=== PATIENT | female | born 1970 | race Caucasian/White ===

== ENCOUNTER 2020-02-09 08:09 | Outpatient (CLI) | payer SELFPAY ==
--- NOTE | 2020-02-09 | EST_ITS ---
Patient Info Name: January Petar Age: 49 years : 1970 Gender: Female Ht: 67 in Wt: 206 lbs BSA: 2.13 m2 HR: 86 bpm BP: 156 / 101 mmHg Exam Date: 02/09/2020 8:53 AM Exam Location: [facility] Stress Patient Status: Outpatient Admit Date: 02/09/2020 Staff Ordering Physician: Denis, Moreno GARCIA (Khengwai) Attending Provider: DenisMoreno MD ([place]wai) Exercise Technologist: Michelle Menendez RDCS Exercise Physician: Joey Jensen DO Exam Type: CA stress test treadmill Study Info Indications R94.31 - Abnormal electrocardiogram ECG EKG A treadmill exercise stress test was performed. Summary 1. 1. Negative Cain exercise stress test for ischemic ST changes by ECG criteria. 2. 2. Mildly reduced functional capacity, achieving 8 METs of workload. 3. 3. Baseline hypertension with hypertensive response to exercise. 4. 4. Appropriate HR response to exercise. 5. 5. Appropriate HR recovery at 1 minute post exercise. 6. 6. No imaging with stress testing. 7. 7. Patient informed of the above results. Protocol: Cain Stress ECG Details Stage: REST Duration (min): 5 min : 53 sec Speed (mph): 0.0 Grade (%): 0 HR (bpm): 87 SBP (mmHg): 156 DBP (mmHg): 101 METS: --- Stage: REST Duration (min): 10 min : 27 sec Speed (mph): 0.0 Grade (%): 0 HR (bpm): 87 SBP (mmHg): 156 DBP (mmHg): 101 METS: --- Stage: STAGE 1 Duration (min): 1 min : 0 sec Speed (mph): 1.7 Grade (%): 10 HR (bpm): 103 SBP (mmHg): 156 DBP (mmHg): 101 METS: --- Stage: STAGE 1 Duration (min): 2 min : 0 sec Speed (mph): 1.7 Grade (%): 10 HR (bpm): 112 SBP (mmHg): 156 DBP (mmHg): 101 METS: --- Stage: STAGE 1 Duration (min): 3 min : 0 sec Speed (mph): 1.7 Grade (%): 10 HR (bpm): 115 SBP (mmHg): 167 DBP (mmHg): 94 METS: --- Stage: STAGE 2 Duration (min): 1 min : 0 sec Speed (mph): 2.5 Grade (%): 12 HR (bpm): 121 SBP (mmHg): 167 DBP (mmHg): 94 METS: --- Stage: STAGE 2 Duration (min): 2 min : 0 sec Speed (mph): 2.5 Grade (%): 12 HR (bpm): 129 SBP (mmHg): 191 DBP (mmHg): 99 METS: --- Stage: STAGE 2 Duration (min): 3 min : 0 sec Speed (mph): 2.5 Grade (%): 12 HR (bpm): 133 SBP (mmHg): 191 DBP (mmHg): 99 METS: --- Stage: STAGE 3 Duration (min): 0 min : 38 sec Speed (mph): 3.4 Grade (%): 14 HR (bpm): 146 SBP (mmHg): 207 DBP (mmHg): 100 METS: --- Stage: RECOVERY Duration (min): 0 min : 21 sec Speed (mph): 0.0 Grade (%): 0 HR (bpm): 141 SBP (mmHg): 207 DBP (mmHg): 100 METS: --- Stage: RECOVERY Duration (min): 1 min : 21 sec Speed (mph): 0.0 Grade (%): 0 HR (bpm): 100 SBP (mmHg): 213 DBP (mmHg): 94 METS: --- Stage: RECOVERY Duration (min): 2 min : 21 sec Speed (mph): 0.0 Grade (%): 0 HR (bpm): 92
== END 2020-02-09 08:10 | disposition home or self-care (01) ==
LOC: ANHCARD 08:12
PROVIDERS: PCP Family Medicine; Visit Provider Internal Medicine
DX: R94.31 Abnormal electrocardiogram [ECG] [EKG] (principal)
CPT/HCPCS: 93017

== ENCOUNTER 2020-06-12 07:05 | Outpatient (CLI) | payer SELFPAY ==
--- NOTE | ~2020-06-12 | CT_ITS ---
EXAMINATION: CT abdomen pelvis wo con DATE: 06/12/2020 07:36 INDICATION: Right lower quadrant abdominal pain. Right lower back pain. Microhematuria TECHNIQUE: Computed tomography (CT) of the abdomen and pelvis was performed without intravenous contr ast. Automated exposure control and iterative reconstruction technique were employed. Exam dose: 100 0.81 mGy-cm total exam DLP. COMPARISON: None. FINDINGS: The lung bases are clear. Normal heart size. No pericardial or pleural effusion. The liver, gallbladder, bile ducts and spleen are unremarkable other than multiple calcified splenic granulomas. No bile duct or pancreatic duct dilatation. 1.7 cm probable left upper pole renal cyst, not definitively characterized on this limited noncontras t examination. Consider CT examination with IV contrast material or renal ultrasound examination. No urinary tract calculus or hydroureteronephrosis. There is atherosclerotic calcification of the abdominal aorta. No intraperitoneal or retroperitoneal or pelvic mass lesion or adenopathy or ascites. Status post appendectomy.. No bowel obstruction, bowel wall thickening, pneumatosis or intraperitonea l free air is detected. Very small fat-containing umbilical hernia. There is compression fracture deformity and vertebroplasty at L3. IMPRESSION: 1.7 cm hypoattenuating left upper pole lesion, likely a renal cyst but not definitely ch aracterized on this limited noncontrast examination. Consider CT examination with IV contrast materia l renal ultrasound examination for more definitive evaluation No urinary tract calculus or hydroureteronephrosis Status post appendectomy Impression fracture deformity and vertebroplasty at L3 Reviewed, dictated and finalized at [facility]. Reviewed, dictated and finalized at location [facility]. IMPRESSION: 1.7 cm hypoattenuating left upper pole lesion, likely a renal cyst but not definitely characterized on this limited noncontrast examination. Cons ider CT examination with IV contrast material renal ultrasound examination for more definitive evaluation No urinary tract calculus or hydroureteronephrosis Status post appendectomy Impression fracture deformity and vertebroplasty at L3
== END 2020-06-12 07:06 | disposition home or self-care (01) ==
PROVIDERS: PCP Family Medicine; Visit Provider Family Medicine
DX: R10.9 Unspecified abdominal pain (principal)
CPT/HCPCS: 74176

== ENCOUNTER 2020-06-13 12:59 | Outpatient (CLI) | payer SELFPAY ==
--- NOTE | ~2020-06-13 | US_ITS ---
EXAMINATION: US renal BI DATE: 06/13/2020 13:36 INDICATION: Left kidney mass. TECHNIQUE: Multiple ultrasound grayscale images of the kidneys were obtained. COMPARISON: CT abdomen and pelvis 06/12/2020 FINDINGS: The right kidney measures 13.7 x 7.1 x 6.2 cm. The left kidney measures 13.2 x 6.2 x 6.8 cm. The kidn eys demonstrate normal parenchymal echogenicity. There is a 2.3 cm cyst in left kidney. There is no h ydronephrosis. The bladder is normal. IMPRESSION: 1. Benign cyst in left kidney. Reviewed, dictated and finalized at location [facility].
== END 2020-06-13 13:00 | disposition home or self-care (01) ==
PROVIDERS: PCP Family Medicine; Visit Provider Family Medicine
DX: R93.49 Abnormal radiologic findings on diagnostic imaging of other urinary organs (principal); N28.1 Cyst of kidney, acquired
CPT/HCPCS: 76775

== ENCOUNTER 2022-04-07 18:53 | Emergency (ER) | payer OTHER, SELFPAY ==
--- NOTE | 2022-04-07 19:38 | ED.FEMALEGU ---
HPI - Female Genitourinary General Chief complaint: Urogenital-Female Stated complaint: UTI Time Seen by Provider: 04/07/22 19:39 Source: patient, RN notes reviewed and old records reviewed Mode of arrival: ambulatory Limitations: no limitations History of Present Illness HPI Narrative: 51-year-old female presents to the [facility] with complaints of urinary symptoms since Thursday. Has frequency, urgency, burning and hematuria. Patient states that her doctor has been changing around her diabetes medication Denies any vaginal complaints MD elicited complaint: UTI Related Data Home Medications Medication Instructions Recorded Confirmed albuterol sulfate 90 mcg/actuation inh inhalation 04/07/22 aerosol inhaler budesonide-formoterol HFA 160 inh inhalation 04/07/22 mcg-4.5 mcg/actuation aerosol inhaler (Symbicort) dapagliflozin 10 mg tablet tablet 04/07/22 (Farxiga) dulaglutide 1.5 mg/0.5 mL ea subcut 04/07/22 subcutaneous pen injector (Trulicity) fenofibrate 160 mg tablet tablet 04/07/22 icosapent ethyl 1 gram capsule cap PO 04/07/22 insulin glargine 100 unit/mL (3 ea subcut 04/07/22 mL) subcutaneous pen (Lantus Solostar U-100 Insulin) insulin lispro 100 unit/mL ea subcut 04/07/22 subcutaneous pen insulin syringe-needle U-100 1 mL 04/07/22 04/07/22 31 gauge x 5/16 (TRUEplus Insulin) losartan 25 mg tablet tablet 04/07/22 metformin 500 mg tablet,extended tablet PO 04/07/22 release 24 hr rosuvastatin 20 mg tablet tablet 04/07/22 Allergies Allergy/AdvReac Type Severity Reaction Status Date / Time adhesive Allergy Unknown Unknown Verified 04/07/22 19:32 lisinopril Allergy Cough Verified 04/07/22 20:04 Review of Systems Review of Systems: All systems reviewed & are unremarkable except as noted in HPI and below Constitutional: Constitutional: Reports no additional constitutional complaints, Denies chills and Denies fatigue Eyes: Eyes: Reports no additional eye complaints ENT: Reports system reviewed and no additional complaints, except as documented Cardiovascular: Cardiovascular: Reports no additional cardiovascular complaints Respiratory: Respiratory: Reports no additional respiratory complaints Gastrointestinal: Gastrointestinal: Reports as per HPI, Reports abdominal pain (Suprapubic), Denies diarrhea, Denies nausea and Denies vomiting Genitourinary: Genitourinary: Reports as per HPI, Reports hematuria, Reports dysuria, Denies flank pain and Denies vaginal discharge Musculoskeletal: Musculoskeletal: Reports no additional musculoskeletal complaints and Denies back pain Integumentary/Breasts: Skin/Breast: Reports system reviewed and no additional complaints, except as docu Neurologic: Reports system reviewed and no additional complaints, except as documented Psychiatric: Psychiatric: Reports no additional psychiatric complaints Endocrine: Endocrine: Denies fatigue Allergic/Immunologic: Allergic/Immunologic: Reports no additional allergic/immunologic complaints PMFSH Past Medical History Medical History Diabetes 1.5, managed as type 1 Dyslipidemia Essential hypertension Surgical History Surgical History Hx of appendectomy Family History Family History Sibling Diabetes mellitus Hypertension Patient's sister is in good health Family history of hypercholesterolemia Mother Hypertension Asthma Family history of cardiovascular disease Family history of hypercholesterolemia Cerebrovascular accident Father Patient's father is in good health Other Depression Family history of alcoholism Family history of anemia Family history of attention deficit hyperactivity disorder (ADHD) Family history of blood dyscrasia Family history of chronic obstructive pulmonary disease Family history
[2022-04-07 19:40] VITALS: BP 148/93; PULSE 93; RESP 18; TEMP 37.1; O2SAT 98
[2022-04-07 20:03] LABS: Glucose Point of Care 201 mg/dl (65-105)
== END 2022-04-07 20:20 | disposition home or self-care (01) ==
PROVIDERS: Emergency Provider Nurse Practitioner
DX: R31.9 Hematuria, unspecified (principal); R81 Glycosuria; E13.8 Other specified diabetes mellitus with unspecified complications; Z79.4 Long term (current) use of insulin; I10 Essential (primary) hypertension; E78.5 Hyperlipidemia, unspecified
CPT/HCPCS: 81003; 82948; 87077; 87086; 87186; 99213; G0463

== ENCOUNTER 2022-07-10 17:07 | Emergency (ER) | payer OTHER, SELFPAY ==
--- NOTE | ~2022-07-10 | XR_ITS ---
EXAMINATION: XR foot LT min 3V DATE: 07/10/2022 18:22 INDICATION: Diabetic with swelling and infection at the third toe TECHNIQUE: Dorsoplantar, two oblique and lateral views of the left foot were obtained. COMPARISON: None. FINDINGS: Bone alignment is normal. No fracture. 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 Patient increased lucency and irregular cortical contour to the tuft of the left third distal phalanx. This however does not appear significantly changed since the prior study and may rep resent sequela of either earlier trauma or osteomyelitis. No definitive new cortical erosion to sugge st osteomyelitis. No other erosions or periosteal reaction. IMPRESSION: 1. Stable appearance of small region of lucency and irregular cortical contour at the tuft of the lef t third distal phalanx suggesting sequela of chronic osteomyelitis or fracture. No definitive new ost eolysis to suggest osteomyelitis. Reviewed, dictated and finalized at location A. IMPRESSION: 1. Stable appearance of small region of lucency and irregular cortical contour at the tuft of the left third distal phalanx suggesting sequela of chronic oste omyelitis or fracture. No definitive new osteolysis to suggest osteomyelitis.
[2022-07-10 17:52] VITALS: PULSE 95; RESP 16; TEMP 36.4; O2SAT 99
[2022-07-10 18:41] LABS: Basophils Absolute Auto 0.1 K/mm3 (0.0-0.1); Basophils Percent Auto 0.8 % (0.2-1.2); Eosinophils Absolute Auto 0.7 K/mm3 (0-0.3); Eosinophils Percent Auto 5.5 % (0-4.4); Hematocrit 42.2 % (37.0-47.0); Hemoglobin 15.1 g/dL (12.0-15.0); Immature Granulocyte Absolute 0.12 K/mm3 (0.00-0.031); Lymphocytes Absolute Auto 3.87 K/mm3 (0.9-3.2); Lymphocytes Percent Auto 30.9 % (18.3-44.2); Mean Corpuscular HGB Conc 35.8 g/dl (32-36); Mean Corpuscular Hemoglobin 30.8 pg (26-34); Mean Corpuscular Volume 86.1 fl (80-100); Mean Platelet Volume 10.7 fl (7.4-10.4); Monocytes Absolute Auto 0.7 K/mm3 (0.1-0.6); Monocytes Percent Auto 5.3 % (2.6-8.5); Neutrophils Absolute Auto 7.1 K/mm3 (1.3-6.7); Neutrophils Percent Auto 56.5 % (45.5-73.1); Platelet Count Result 358 k/mm3 (150-375); White Blood Count 12.5 K/mm3 (4.5-10.0)
[2022-07-10 19:04] LABS: Alanine Aminotransferase 34 U/L (6-35); Albumin Level 4.3 g/dL (3.5-5.1); Alkaline Phosphatase 119 U/L (38-126); Anion Gap 16 mmol/L (8-16); Aspartate Amino Transferase 29 U/L (14-36); Bilirubin,Total 0.5 mg/dL (0.2-1.3); Blood Urea Nitrogen 13 mg/dL (7-17); CRP 1.6 mg/dL (<1.0); Calcium 8.7 mg/dL (8.4-10.2); Carbon Dioxide 21 mmol/L (22-30); Chloride 99 mmol/L (98-107); Estimated CRCL calculation 162 ml/min; Estimated Glomerular Filt Rate > 60; Glucose 410 mg/dL (65-110); Potassium 3.9 mmol/L (3.4-5.0); Sodium 136 mmol/L (137-145)
--- NOTE | 2022-07-10 20:32 | ED.SKABFB ---
HPI - Skin/Abscess/Foreign Bdy General Chief complaint: Skin/Abscess/Foreign Body Stated complaint: left foot infection Time Seen by Provider: 07/10/22 20:19 History of Present Illness HPI narrative: Patient is a 51-year-old female who presents ER with concern for infection of the left third toe. Patient reports on 07/04/2022 she noticed that she had a small blister near the toenail. It then popped and drained a bit the day later. She has had increased pain and redness especially over the last 24 hours. No lymphangitic streaking of the leg. No fevers or chills or sweats. Patient has history of diabetes and does see a shellfish processing machine tender. She is able to bear weight on it. She is unable to get in with her shellfish processing machine tender for couple more days. Was referred here by urgent care. Related Data Home Medications Medication Instructions Recorded Confirmed albuterol sulfate 90 mcg/actuation inh inhalation 04/07/22 aerosol inhaler budesonide-formoterol HFA 160 inh inhalation 04/07/22 mcg-4.5 mcg/actuation aerosol inhaler (Symbicort) dapagliflozin 10 mg tablet tablet 04/07/22 (Farxiga) dulaglutide 1.5 mg/0.5 mL ea subcut 04/07/22 subcutaneous pen injector (Trulicity) fenofibrate 160 mg tablet tablet 04/07/22 icosapent ethyl 1 gram capsule cap PO 04/07/22 insulin glargine 100 unit/mL (3 ea subcut 04/07/22 mL) subcutaneous pen (Lantus Solostar U-100 Insulin) insulin lispro 100 unit/mL ea subcut 04/07/22 subcutaneous pen insulin syringe-needle U-100 1 mL 04/07/22 04/07/22 31 gauge x 5/16 (TRUEplus Insulin) losartan 25 mg tablet tablet 04/07/22 metformin 500 mg tablet,extended tablet PO 04/07/22 release 24 hr rosuvastatin 20 mg tablet tablet 04/07/22 Allergies Allergy/AdvReac Type Severity Reaction Status Date / Time adhesive Allergy Unknown Unknown Verified 07/10/22 17:52 lisinopril Allergy Cough Verified 07/10/22 17:52 Review of Systems Review of Systems: All systems reviewed & are unremarkable except as noted in HPI and below Constitutional: Constitutional: Denies chills, Denies fatigue and Denies fever(s) Cardiovascular: Cardiovascular: Denies chest pain and Denies radiating jaw, neck or arm pain Respiratory: Respiratory: Denies cough and Denies dyspnea Musculoskeletal: Musculoskeletal: Denies arthralgias and Denies joint swelling Integumentary/Breasts: Skin/Breast: Denies pruritus, Reports erythema and Reports skin ulcer PMFSH Past Medical History Medical History Diabetes 1.5, managed as type 1 Dyslipidemia Essential hypertension Surgical History Surgical History Hx of appendectomy Family History Family History Sibling Diabetes mellitus Hypertension Patient's sister is in good health Family history of hypercholesterolemia Mother Hypertension Asthma Family history of cardiovascular disease Family history of hypercholesterolemia Cerebrovascular accident Father Patient's father is in good health Other Depression Family history of alcoholism Family history of anemia Family history of attention deficit hyperactivity disorder (ADHD) Family history of blood dyscrasia Family history of chronic obstructive pulmonary disease Family history of malignant neoplasm of breast Family history of osteoporosis Social History Social History Smoking status: Never smoker Alcohol intake: never Exam Narrative: GENERAL: Well-appearing, well-nourished, and in no acute distress. HEAD: Normocephalic, atraumatic. CHEST: Clear to auscultation. No respiratory distress. HEART: Regular rate and rhythm. Normal peripheral pulses. ABDOMEN: Soft, nontender, nondistended. EXTREMITIES: Normal range of motion. 1+ edema bilaterally Small blister lateral aspect
[2022-07-10] MEDS: DOXYCYCLINE HYCLATE 100 MG TABLET PO (21:07)
[2022-07-10 21:56] VITALS: BP 138/79; PULSE 96; RESP 18; O2SAT 98
== END 2022-07-10 21:58 | disposition home or self-care (01) ==
PROVIDERS: Emergency Medicine; Emergency Provider Emergency Medicine
DX: L03.032 Cellulitis of left toe (principal); E78.5 Hyperlipidemia, unspecified; I10 Essential (primary) hypertension; E13.9 Other specified diabetes mellitus without complications; Z79.4 Long term (current) use of insulin; Z79.84 Long term (current) use of oral hypoglycemic drugs
CPT/HCPCS: 36415; 73630; 80053; 85025; 86140; 99283; A9270

== ENCOUNTER 2022-10-08 08:45 | Outpatient (CLI) | payer OTHER, SELFPAY ==
--- NOTE | 2022-10-08 09:02 | ECHO_ITS ---
Patient Info Name: January Petar Age: 51 years : 1970 Gender: Female Ht: 67 in Wt: 210 lbs BSA: 2.16 m2 HR: 89 bpm BP: 127 / 92 mmHg Technical Quality: Good Exam Date: 10/08/2022 9:33 AM Exam Location: [facility] Pulmonary Patient Status: Outpatient Admit Date: 10/08/2022 Staff Ordering Physician: Joey Jensen DO Watch Caser: Vanda Parsons RDCS Attending Provider: Joey Jensen DO Referring Physician: Mikey FOX; Exam Type: CA echo doppler color flow Study Info Indications R06.09 - Other forms of dyspnea Complete two-dimensional, color flow and Doppler transthoracic echocardiogram is performed. Summary 1. Complete two-dimensional, color flow and Doppler transthoracic echocardiogram is performed. 2. Left ventricular chamber dimension is normal. 3. Left ventricular systolic function is normal, estimated at 55-60%. 4. There is mildly increased left ventricular wall thickness. 5. The left ventricular diastolic function is grade I diastolic dysfunction. 6. There is mild aortic valve sclerosis. 7. There is trace mitral valve regurgitation. Left Ventricle Left ventricular chamber dimension is normal. Left ventricular systolic function is normal, estimated at 55-60%. There is mildly increased left ventricular wall thickness. The left ventricular diastolic function is grade I diastolic dysfunction. Tissue doppler is not performed. Right Ventricle Right ventricular systolic function is normal and with normal TAPSE 1.7 cm. Right ventricular chamber dimension is normal. Left Atria Left atrial chamber dimension is normal. Right Atria Right atrial chamber dimension is normal. Aortic Valve The aortic valve is trileaflet. There is mild aortic valve sclerosis. There is no aortic valve stenosis. There is no aortic valve regurgitation. Pulmonic Valve There is no pulmonic regurgitation. Mitral Valve There is no mitral valve stenosis. There is trace mitral valve regurgitation. Tricuspid Valve There is no tricuspid valve regurgitation. Pericardium/Pleural There is no pericardial effusion. Inferior Vena Cava Normal inferior vena cava with >50% collapse upon inspiration consistent with normal right atrial pressure, 5 mmHg. Aorta The aortic root size at the sinus of Valsalva is normal. Left Ventricular Outflow Tract Name Value Normal LVOT 2D LVOT Diameter 2.0 cm LVOT Doppler LVOT Peak Gradient 5 mmHg LVOT Mean Gradient 3 mmHg LVOT VTI 20 cm LVOT VTI/AV VTI Ratio 0.9 LVOT Stroke Volume 60 ml LVOT CO 5.6 l/min LVOT CI 2.6 l/min/m2 Mitral Valve Name Value Normal MV Regurgitation Doppler MR Peak Gradient
--- NOTE | 2022-10-08 10:08 | EST_ITS ---
Patient Info Name: January Petar Age: 51 years : 1970 Gender: Female Ht: 67 in Wt: 210 lbs BSA: 2.16 m2 HR: 93 bpm BP: 136 / 87 mmHg Heart Rhythm: Sinus Rhythm Exam Date: 10/08/2022 10:28 AM Exam Location: [facility] Stress Patient Status: Outpatient Admit Date: 10/08/2022 Staff Ordering Physician: Joey Jensen DO Attending Provider: Joey Jensen DO Exercise Technologist: Teri Brewer CT Exercise Physician: Joey Jensen DO Exam Type: CA stress test treadmill Study Info Indications R06.09 - Other forms of dyspnea A regadenoson stress test was performed. Summary 1. 1. Negative Cain exercise stress test for ischemic ST changes by ECG criteria. 2. 2. Reduced functional capacity, achieving 8.6 METs of workload. 3. 3. Appropriate HR response to exercise. 4. 4. Appropriate HR recovery at 1 minute post exercise. 5. 5. No imaging with stress testing. 6. 6. Patient informed of the above results. Protocol: Cain Stress ECG Details Stage: REST Duration (min): 6 min : 38 sec Speed (mph): 0.0 Grade (%): 0 HR (bpm): 93 SBP (mmHg): 136 DBP (mmHg): 87 METS: --- Stage: REST Duration (min): 24 min : 9 sec Speed (mph): 0.0 Grade (%): 0 HR (bpm): 91 SBP (mmHg): 136 DBP (mmHg): 87 METS: --- Stage: STAGE 1 Duration (min): 1 min : 0 sec Speed (mph): 1.7 Grade (%): 10 HR (bpm): 106 SBP (mmHg): 136 DBP (mmHg): 87 METS: --- Stage: STAGE 1 Duration (min): 2 min : 0 sec Speed (mph): 1.7 Grade (%): 10 HR (bpm): 113 SBP (mmHg): 136 DBP (mmHg): 87 METS: --- Stage: STAGE 1 Duration (min): 3 min : 0 sec Speed (mph): 1.7 Grade (%): 10 HR (bpm): 115 SBP (mmHg): 138 DBP (mmHg): 84 METS: --- Stage: STAGE 2 Duration (min): 1 min : 0 sec Speed (mph): 2.5 Grade (%): 12 HR (bpm): 119 SBP (mmHg): 138 DBP (mmHg): 84 METS: --- Stage: STAGE 2 Duration (min): 2 min : 0 sec Speed (mph): 2.5 Grade (%): 12 HR (bpm): 125 SBP (mmHg): 173 DBP (mmHg): 77 METS: --- Stage: STAGE 2 Duration (min): 3 min : 0 sec Speed (mph): 2.5 Grade (%): 12 HR (bpm): 131 SBP (mmHg): 173 DBP (mmHg): 77 METS: --- Stage: STAGE 3 Duration (min): 0 min : 53 sec Speed (mph): 3.4 Grade (%): 14 HR (bpm): 145 SBP (mmHg): 199 DBP (mmHg): 88 METS: --- Stage: RECOVERY Duration (min): 0 min : 6 sec Speed (mph): 1.5 Grade (%): 0 HR (bpm): 146 SBP (mmHg): 199 DBP (mmHg): 88 METS: --- Stage: RECOVERY Duration (min): 1 min : 6 sec Speed (mph): 0.0 Grade (%): 0 HR (bpm): 116 SBP (mmHg): 199 DBP (mmHg): 88 METS: --- Stage: RECOVERY Duration (min): 2 min : 6 sec Speed (mph): 0.0 Grade (%): 0 HR (bpm): 109 SBP (mmHg): 199 DBP (mmHg): 88 METS: ---
== END 2022-10-08 08:46 | disposition home or self-care (01) ==
LOC: ANHCARD 08:47
PROVIDERS: Visit Provider Internal Medicine Cardiovascular Disease
DX: R06.09 Other forms of dyspnea (principal); I35.0 Nonrheumatic aortic (valve) stenosis
CPT/HCPCS: 93017; 93306

== ENCOUNTER 2022-10-28 10:15 | Emergency (ER) | payer OTHER, SELFPAY ==
[2022-10-28 10:38] VITALS: BP 133/79; PULSE 100; RESP 20; TEMP 36.7; O2SAT 99
[2022-10-28 11:01] LABS: Basophils Absolute Auto 0.1 K/mm3 (0.0-0.1); Basophils Percent Auto 0.3 % (0.2-1.2); Eosinophils Absolute Auto 0.6 K/mm3 (0-0.3); Eosinophils Percent Auto 2.4 % (0-4.4); Hematocrit 47.6 % (37.0-47.0); Hemoglobin 15.9 g/dL (12.0-15.0); Immature Granulocyte Absolute 0.17 K/mm3 (0.00-0.031); Immature Granulocyte Percent A 0.7 % (0-0.5); Lymphocytes Absolute Auto 1.08 K/mm3 (0.9-3.2); Lymphocytes Percent Auto 4.5 % (18.3-44.2); Mean Corpuscular HGB Conc 33.4 g/dl (32-36); Mean Corpuscular Hemoglobin 30.3 pg (26-34); Mean Corpuscular Volume 90.7 fl (80-100); Mean Platelet Volume 9.3 fl (7.4-10.4); Monocytes Absolute Auto 0.7 K/mm3 (0.1-0.6); Monocytes Percent Auto 3.1 % (2.6-8.5); Neutrophils Absolute Auto 21.1 K/mm3 (1.3-6.7); Platelet Count Result 501 k/mm3 (150-375); Red Blood Count 5.25 M/mm3 (4.2-5.4); Red Cell Distribution Width 12.1 % (11.5-14.5); White Blood Count 23.8 K/mm3 (4.5-10.0)
[2022-10-28 11:02] LABS: Add Urine Microscopic? YES; Appearance Urine Clear (Clear); Bilirubin Urine Negative (Negative); Blood Urine Negative (Negative); Color Urine Light Yellow (Yellow); Glucose Urine UA 3+ mg/dL (Negative); Ketones Urine Negative (Negative); Leukocyte Esterase Ur Negative LEU/UL (Negative); Nitrate Urine Negative (Negative); Protein Urine Trace mg/dL (Negative); Specific Grav Ur 1.025 (1.001-1.035); Urobilinogen Urine 0.2 mg/dL (<2.0)
[2022-10-28 11:08] LABS: Mucus Urine Rare /lpf; RBC Urine 0-2 /hpf (0-2); Squamous Epithelial Cell Urine Rare /hpf (Few); WBC Urine 0-3 /hpf
[2022-10-28 11:14] LABS: Alanine Aminotransferase 19 U/L (6-35); Albumin Level 4.7 g/dL (3.5-5.1); Alkaline Phosphatase 78 U/L (38-126); Anion Gap 9 mmol/L (8-16); Aspartate Amino Transferase 18 U/L (14-36); Bilirubin,Total 0.5 mg/dL (0.2-1.3); Blood Urea Nitrogen 13 mg/dL (7-17); Calcium 8.2 mg/dL (8.4-10.2); Carbon Dioxide 27 mmol/L (22-30); Chloride 100 mmol/L (98-107); Estimated CRCL calculation 132 ml/min; Estimated Glomerular Filt Rate > 60; Glucose 224 mg/dL (65-110); Potassium 4.1 mmol/L (3.4-5.0); Sodium 136 mmol/L (137-145)
[2022-10-28 11:15] LABS: INR 1.1; Prothrombin Time 13.6 Seconds (11.1-14.7)
[2022-10-28 11:16] LABS: Partial Thromboplastin Time 24.8 SECONDS (22.3-36.8)
[2022-10-28 11:24] LABS: Band Neutrophils Percent 2 % (0-6); Eosinophils Absolute Manual 0.47 K/mm3 (0.02-0.5); Eosinophils Percent Manual 2 % (0-4); Lymphocytes Absolute Manual 0.95 K/mm3 (1.1-4.5); Monocytes Absolute Manual 0.23 K/mm3 (0.1-0.90); Monocytes Percent Manual 1 % (3-9); Neutrophils Absolute Manual 22.13 K/mm3 (1.7-7.2); Neutrophils Percent Manual 91 % (46-73); Schistocytes None Seen (NORMAL); Total Cells Counted 100
--- NOTE | 2022-10-28 14:17 | PC.NURSE ---
pt. up to front office associate reporting se is leaving. pt. NAD
== END 2022-10-28 15:08 | disposition left against medical advice (07) ==
LOC: ANHED 15:07
PROVIDERS: Emergency Provider Family Medicine
DX: R11.2 Nausea with vomiting, unspecified (principal)
CPT/HCPCS: 36415; 80053; 81001; 85025; 85610; 85730; 86850; 86900; 86901; 99199

== ENCOUNTER 2022-12-01 02:24 | Day surgery (SDC) | payer OTHER, SELFPAY ==
[2022-11-13 14:21] VITALS: BMI 32.3
[2022-12-01 08:57] VITALS: BP 153/95; PULSE 96; RESP 18; TEMP 36.2; O2SAT 99; BMI 32.3
[2022-12-01 08:57] LABS: Glucose Point of Care 100 mg/dl (65-105)
[2022-12-01] MEDS: LACTATED RINGERS 1,000 ML 150 ML IV CONT (09:07)
--- NOTE | 2022-12-01 09:28 | WPDANESEPPF ---
Anes - Initial Pre Proc Eval Procedure: Operation Date: 12/01/22 10:00 Proposed Procedures p Screening Colonoscopy - Simone Hendrickson MD Date/Time: 12/01/22 09:28 Surgeon: Simone Hendrickson MD Pre Op Diagnosis: neoplasm screening Patient Data Age: 52 Gender: F Height: 1.7 m Weight: 93.8 kg Last Vital Signs Temp 97.2 F L 12/01/22 08:57 Pulse 96 12/01/22 08:57 Resp 18 12/01/22 08:57 BP 153/95 H 12/01/22 08:57 Pulse Ox 99 12/01/22 08:57 O2 Del Method Room Air 12/01/22 08:57 Allergies Allergy/AdvReac Type Severity Reaction Status Date / Time adhesive Allergy Unknown Unknown Verified 12/01/22 08:55 lisinopril Allergy Cough Verified 12/01/22 08:55 Home Medications Medication Instructions Recorded Confirmed Type albuterol sulfate 90 mcg/actuation 1 inh inhalation PRN 04/07/22 12/01/22 History aerosol inhaler dapagliflozin 10 mg tablet 5 tablet PO DAILY 04/07/22 12/01/22 History (Farxiga) dulaglutide 1.5 mg/0.5 mL 3 mg subcut WEEKLY 04/07/22 12/01/22 History subcutaneous pen injector (Trulicity) fenofibrate 160 mg tablet 160 tablet PO DAILY 04/07/22 12/01/22 History icosapent ethyl 1 gram capsule 1 cap PO BID 04/07/22 12/01/22 History insulin lispro 100 unit/mL 100 unit subcut DAILY 04/07/22 12/01/22 History subcutaneous pen insulin syringe-needle U-100 1 mL 04/07/22 12/01/22 History 31 gauge x 5/16 (TRUEplus Insulin) losartan 25 mg tablet 20 tablet PO DAILY 04/07/22 12/01/22 History metformin 500 mg tablet,extended 500 tablet PO BID 04/07/22 12/01/22 History release 24 hr rosuvastatin 20 mg tablet 20 mg PO DAILY 04/07/22 12/01/22 History Laboratory Tests 12/01/22 08:51 POC Capillary Glucose 100 mg/dl mg/dl (65-105) Patient hx anesthesia problems: none Family hx anesthesia problems: none Results Review: All pre-operative results and documents have been reviewed as part of the pre-operative evaluation. [facility] Past Medical History Medical History (Updated 09/18/22 @ 09:35 by Joey Jensen DO) Diabetes 1.5, managed as type 1 Dyslipidemia Essential hypertension Surgical History Surgical History (Updated 09/18/22 @ 13:52 by Maty Mcnally [facility]) H/O kyphoplasty 2017 History of carpal tunnel surgery 2017 Hx of appendectomy Family History Family History Sibling Diabetes mellitus Hypertension Patient's sister is in good health Family history of hypercholesterolemia Mother Hypertension Asthma Family history of cardiovascular disease Family history of hypercholesterolemia Cerebrovascular accident Father Patient's father is in good health Other Depression Family history of alcoholism Family history of anemia Family history of attention deficit hyperactivity disorder (ADHD) Family history of blood dyscrasia Family history of chronic obstructive pulmonary disease Family history of malignant neoplasm of breast Family history of osteoporosis Social History Social History Smoking status: Never smoker Alcohol intake: never Substance use type: does not use Living arrangements: alone Spiritual care concerns: No Anes - Eval Final PreProcedure Day of Procedure 12/01/22 09:28 Patient weight: obese Heart: regular rate and rhythm Lungs: clear to auscultation Airway: Mallampati scale class II Neurological: alert and oriented Last oral intake: >/= 8 hours ASA classification: III Emergent: no Anesthetic plan: proceed Anesthesia type and monitoring: general GIVS and standard monitoring Results Review: All pre-operative results and documents have been reviewed as part of the pre-operative evaluation. Informed Consent: The patient's anesthetic plan and its attendant risks and benefits were discussed with the patient/family/POA. Questions were solicited and an
--- NOTE | 2022-12-01 09:34 | PM.HPGS ---
History of Present Illness History of Present Illness Consent: Risks, benefits, and alternatives have been discussed and questions answered. Patient agrees to proceed with procedure. Chief complaint: neoplasm screening Narrative: January Petar is a 52 year old female here for screening colonoscopy, last one 10 years ago Review of Systems Constitutional: Constitutional: Denies headache(s) and Denies weakness Eyes: Eyes: Denies blurry vision ENT: Reports Normal hearing present, Denies headache(s) and Denies neck pain Cardiovascular: Cardiovascular: Denies chest pain and Denies dyspnea Respiratory: Respiratory: Denies dyspnea Gastrointestinal: Gastrointestinal: Reports no additional gastrointestinal complaints Genitourinary: Genitourinary: Denies dysuria Musculoskeletal: Musculoskeletal: Denies neck pain Integumentary/Breasts: Skin/Breast: Denies dry skin Neurologic: Reports Normal hearing present, Denies headache(s) and Denies weakness Psychiatric: Psychiatric: Denies anxiety Endocrine: Endocrine: Denies change in body appearance Hematologic/Lymphatic: Hematologic/Lymphatic: Denies easy bleeding Allergic/Immunologic: Allergic/Immunologic: Denies urticaria PMFSH Past Medical History Medical History (Updated 12/01/22 @ 09:39 by Simone Hendrickson MD) Colon cancer screening Diabetes 1.5, managed as type 1 Dyslipidemia Essential hypertension Surgical History Surgical History (Updated 09/18/22 @ 13:52 by Maty Mcnally [facility]) H/O kyphoplasty 2017 History of carpal tunnel surgery 2017 Hx of appendectomy Family History Family History Sibling Diabetes mellitus Hypertension Patient's sister is in good health Family history of hypercholesterolemia Mother Hypertension Asthma Family history of cardiovascular disease Family history of hypercholesterolemia Cerebrovascular accident Father Patient's father is in good health Other Depression Family history of alcoholism Family history of anemia Family history of attention deficit hyperactivity disorder (ADHD) Family history of blood dyscrasia Family history of chronic obstructive pulmonary disease Family history of malignant neoplasm of breast Family history of osteoporosis Social History Social History Smoking status: Never smoker Alcohol intake: never Substance use type: does not use Living arrangements: alone Spiritual care concerns: No Meds Home Medications and Allergies Home Medications Medication Instructions Recorded Confirmed Type albuterol sulfate 90 mcg/actuation 1 inh inhalation PRN 04/07/22 12/01/22 History aerosol inhaler dapagliflozin 10 mg tablet 5 tablet PO DAILY 04/07/22 12/01/22 History (Farxiga) dulaglutide 1.5 mg/0.5 mL 3 mg subcut WEEKLY 04/07/22 12/01/22 History subcutaneous pen injector ([facility]) fenofibrate 160 mg tablet 160 tablet PO DAILY 04/07/22 12/01/22 History icosapent ethyl 1 gram capsule 1 cap PO BID 04/07/22 12/01/22 History insulin lispro 100 unit/mL 100 unit subcut DAILY 04/07/22 12/01/22 History subcutaneous pen insulin syringe-needle U-100 1 mL 04/07/22 12/01/22 History 31 gauge x 5/16 (TRUEplus Insulin) losartan 25 mg tablet 20 tablet PO DAILY 04/07/22 12/01/22 History metformin 500 mg tablet,extended 500 tablet PO BID 04/07/22 12/01/22 History release 24 hr rosuvastatin 20 mg tablet 20 mg PO DAILY 04/07/22 12/01/22 History Allergies Allergy/AdvReac Type Severity Reaction Status Date / Time adhesive Allergy Unknown Unknown Verified 12/01/22 08:55 lisinopril Allergy Cough Verified 12/01/22 08:55 Vital Signs Vital Signs - 24 hr 12/01/22 08:57 Temperature 97.2 F L Pulse Rate 96 Respiratory Rate 18 Blood Pressure 153/95 H Pulse Oximetry 99 Oxygen Delivery Room Air Exam Const: General: comfor
[2022-12-01 10:02] VITALS: BP 101/68; PULSE 87; RESP 18; O2SAT 92
[2022-12-01 10:12] VITALS: BP 122/73; PULSE 96; RESP 20; O2SAT 95
[2022-12-01 10:14] LABS: Glucose Point of Care 61 mg/dl (65-105)
[2022-12-01 10:22] VITALS: BP 132/79; PULSE 90; RESP 20; O2SAT 98
[2022-12-01 10:34] LABS: Glucose Point of Care 68 mg/dl (65-105)
[2022-12-01] MEDS: DEXTROSE 50% 25 GM/50 ML SYRINGE IV PUSH (10:37)
[2022-12-01 11:00] LABS: Glucose Point of Care 144 mg/dl (65-105)
== END 2022-12-01 10:57 | disposition home or self-care (01) ==
PROVIDERS: PCP Internal Medicine; Visit Provider Internal Medicine Gastroenterology
PROC: 0DJD8ZZ Inspection of Lower Intestinal Tract, Via Natural or Artificial Opening Endoscopic (ICD-10-PCS; CPT 45378; principal; 2022-12-01 10:00)
DX: Z12.11 Encounter for screening for malignant neoplasm of colon (principal); K64.8 Other hemorrhoids; E13.9 Other specified diabetes mellitus without complications; I10 Essential (primary) hypertension; E78.5 Hyperlipidemia, unspecified; Z79.84 Long term (current) use of oral hypoglycemic drugs; Z79.51 Long term (current) use of inhaled steroids; Z79.899 Other long term (current) drug therapy; Z79.4 Long term (current) use of insulin; E66.9 Obesity, unspecified; Z68.32 Body mass index [BMI] 32.0-32.9, adult
CPT/HCPCS: 45378; 82948; J2704; J7120

== ENCOUNTER 2022-12-02 07:18 | Outpatient (CLI) | payer OTHER, SELFPAY ==
[2022-12-02 08:00] LABS: Basophils Absolute Auto 0.1 K/mm3 (0.0-0.1); Basophils Percent Auto 0.6 % (0.2-1.2); Eosinophils Absolute Auto 0.6 K/mm3 (0-0.3); Eosinophils Percent Auto 4.8 % (0-4.4); Hematocrit 45.6 % (37.0-47.0); Hemoglobin 15.4 g/dL (12.0-15.0); Immature Granulocyte Percent A 0.8 % (0-0.5); Lymphocytes Absolute Auto 3.66 K/mm3 (0.9-3.2); Lymphocytes Percent Auto 29.3 % (18.3-44.2); Mean Corpuscular HGB Conc 33.8 g/dl (32-36); Mean Corpuscular Hemoglobin 29.6 pg (26-34); Mean Corpuscular Volume 87.7 fl (80-100); Mean Platelet Volume 10.3 fl (7.4-10.4); Monocytes Absolute Auto 0.7 K/mm3 (0.1-0.6); Monocytes Percent Auto 5.5 % (2.6-8.5); Neutrophils Absolute Auto 7.4 K/mm3 (1.3-6.7); Platelet Count Result 381 k/mm3 (150-375); Red Cell Distribution Width 11.7 % (11.5-14.5); White Blood Count 12.5 K/mm3 (4.5-10.0)
[2022-12-02 08:10] LABS: Hemoglobin A1C 8.1 % (<5.7)
[2022-12-02 08:17] LABS: Alanine Aminotransferase 25 U/L (6-35); Albumin Level 4.4 g/dL (3.5-5.1); Alkaline Phosphatase 103 U/L (38-126); Anion Gap 6 mmol/L (8-16); Aspartate Amino Transferase 22 U/L (14-36); Bilirubin,Total 0.6 mg/dL (0.2-1.3); Blood Urea Nitrogen 8 mg/dL (7-17); Calcium 9.1 mg/dL (8.4-10.2); Carbon Dioxide 28 mmol/L (22-30); Chloride 101 mmol/L (98-107); Cholesterol 193 mg/dL (0-200); Estimated Glomerular Filt Rate > 60; Glucose 140 mg/dL (65-110); HDL Direct 31 mg/dL; Sodium 135 mmol/L (137-145); Triglycerides 260 mg/dL (<150)
[2022-12-02 08:30] LABS: LDL Cholesterol Direct 101 mg/dL
[2022-12-02 08:44] LABS: Creatinine Urine 62.4 mg/dL
[2022-12-02 08:45] LABS: Microalbumin Urine Random 7.5 mg/L (0-16.7)
== END 2022-12-02 07:19 | disposition home or self-care (01) ==
PROVIDERS: PCP Internal Medicine; Referring Provider Nurse Practitioner; Visit Provider Internal Medicine
DX: E11.9 Type 2 diabetes mellitus without complications (principal); E78.5 Hyperlipidemia, unspecified
CPT/HCPCS: 36415; 80053; 80061; 82043; 83036; 84443; 85025

== ENCOUNTER 2023-02-03 01:08 | Emergency (ER) | payer OTHER, SELFPAY ==
[2023-02-03 01:27] VITALS: BP 151/79; PULSE 93; RESP 20; TEMP 36.9; O2SAT 98
== END 2023-02-03 02:00 | disposition left against medical advice (07) ==
LOC: ANHED 02:50
PROVIDERS: PCP Internal Medicine
DX: R06.02 Shortness of breath (principal)
CPT/HCPCS: 99199

== ENCOUNTER 2023-02-12 08:04 | Outpatient (CLI) | payer OTHER, SELFPAY ==
[2023-02-18 04:40] LABS: FSH 21.8 mIU/mL (***)
[2023-02-23 16:27] LABS: Estrogen 175.5 pg/mL
== END 2023-02-12 08:05 | disposition home or self-care (01) ==
LOC: ANHLAB 08:05
PROVIDERS: PCP Internal Medicine; Visit Provider Registered Nurse
DX: N95.1 Menopausal and female climacteric states (principal)
CPT/HCPCS: 36415; 82672; 83001

== ENCOUNTER 2023-02-17 09:40 | Outpatient (CLI) | payer OTHER, SELFPAY ==
--- NOTE | ~2023-02-17 | MM_ITS ---
EXAMINATION: MM screening [facility] BI w desean HISTORY: Screening mammogram TECHNIQUE: Craniocaudal and mediolateral oblique 3-D tomosynthesis images were obtained and synthetic 2-D images were generated. CAD analysis was submitted and interpreted. COMPARISON: 07/24/2017, 06/30/2016, 04/23/2015 BREAST PARENCHYMAL COMPOSITION: The breasts are heterogeneously dense, which may obscure small masses . FINDINGS: No suspicious mass, calcification, or architectural distortion are identified in either maninder ast to suggest malignancy. There has been no suspicious interval change. IMPRESSION: 1. No mammographic evidence of malignancy. 2. Recommend routine screening mammography in one year. BI-RADS Category 1: Negative Reviewed, dictated and finalized at location A.
--- NOTE | ~2023-02-17 | US_ITS ---
Pelvic ultrasound. Clinical History: Postmenopausal bleeding Technique: Realtime transabdominal and transvaginal scanning of the pelvis was performed. Color flow Doppler and Doppler spectral analysis were performed. Findings: The uterus is anteverted. The endometrial stripe has a thickness of 4 mm. No focal mass is identified. Neither ovary seen. No adnexal mass seen. There is no evidence of free fluid in the cul de sac. Impression: No significant abnormality seen. Neither ovary visualized. Reviewed, dictated and finalized at location . Impression: No significant abnormality seen. Neither ovary visualized.
== END 2023-02-17 09:41 | disposition home or self-care (01) ==
PROVIDERS: PCP Internal Medicine; Visit Provider Registered Nurse
DX: Z12.31 Encounter for screening mammogram for malignant neoplasm of breast (principal); N95.0 Postmenopausal bleeding
CPT/HCPCS: 76830; 76856; 77063; 77067

== ENCOUNTER 2023-03-12 16:33 | Outpatient (CLI) | payer OTHER, SELFPAY ==
--- NOTE | ~2023-03-12 | DEXA_ITS ---
Bone Density Report Name: EVELYNJanuary Age: 52 Sex: Female Ethnicity: White Date of : 1970 Indication: screening for osteoporosis; parental hip fracture; height loss; prior fracture; Referring Provider: VICTORINA MACIEL Study: Bone densitometry was performed. Exam Date: March 12, 2023 Accession number: [id number] Bone Density: Region BMD T-score Z-score Classification AP Spine(L1, L2, L4) 0.869 -1.5 -0.7 Osteopenia Femoral Neck (Left) 0.756 -0.8 0.0 Normal Total Hip (Left) 0.924 -0.1 0.4 Normal Femoral Neck (Right) 0.776 -0.7 0.2 Normal Total Hip (Right) 0.920 -0.2 0.3 Normal Total Hip Mean 0.922 -0.2 0.4 Normal World Health Organization criteria for BMD impression classify patients as: Normal (T-score at or above -1.0), Osteopenia (T-score between -1.0 and -2.5), or Osteoporosis (T-score at or below -2.5). 10-year Fracture Risk: FRAX not reported because: Premenopausal woman Prior hip or vertebral fracture Clinical Information Provided by Patient: Have had a previous hip or vertebral fracture Has had a low trauma fracture Parent has had a hip fracture Patient maximum height was 67 No regular weight bearing exercise Drinks caffeinated beverages Onset of menses at age 14 Premenopausal Number of children 1 Missed period for more than 6 months in a row Impression: The patient's bone mass is within expected range for age, gender and ethnicity. The patient has risk factors, including: parental hip fracture, previous fracture. Discussion: BONE DENSITY IS WITHIN EXPECTED LIMITS FOR AGE, SEX AND RACE. HISTORY OF FRACTURE. Although there is a predictable association between low bone mass and the risk of osteoporotic fractures in untreated postmenopausal women, there are no data relating bone density and fracture risk in younger women. The ISCD position is that the diagnosis of ?low bone mass? or ?osteoporosis? should not be made on densitometric criteria alone. WHO criteria only apply to postmenopausal women. Further evaluation should be considered given the patient's history of fracture at a young age. The patient should follow a healthful lifestyle (good nutrition with adequate calcium and vitamin D, and appropriate weight-bearing exercise). Follow-Up: Consider a repeat BMD and Vertebral Fracture Assessment (VFA) exam in 2 years or sooner if medically necessary, to reassess this patient's status. Reported by: [facility] on 03/12/2023 5:11:00 PM. Reviewed, dictated and finalized at location A.
== END 2023-03-12 16:34 | disposition home or self-care (01) ==
LOC: ANHIMG 16:36
PROVIDERS: PCP Internal Medicine; Visit Provider Registered Nurse
DX: Z98.890 Other specified postprocedural states (principal); M85.88 Other specified disorders of bone density and structure, other site
CPT/HCPCS: 77080

== ENCOUNTER 2023-05-06 08:10 | Outpatient (CLI) | payer OTHER, SELFPAY ==
[2023-05-06 08:48] LABS: Basophils Absolute Auto 0.1 K/mm3 (0.0-0.1); Basophils Percent Auto 0.6 % (0.2-1.2); Eosinophils Absolute Auto 0.8 K/mm3 (0-0.3); Hematocrit 44.4 % (37.0-47.0); Immature Granulocyte Absolute 0.07 K/mm3 (0.00-0.031); Immature Granulocyte Percent A 0.6 % (0-0.5); Lymphocytes Absolute Auto 3.19 K/mm3 (0.9-3.2); Lymphocytes Percent Auto 28.1 % (18.3-44.2); Mean Corpuscular HGB Conc 33.8 g/dl (32-36); Mean Corpuscular Hemoglobin 30.1 pg (26-34); Mean Corpuscular Volume 89.2 fl (80-100); Mean Platelet Volume 9.6 fl (7.4-10.4); Monocytes Absolute Auto 0.7 K/mm3 (0.1-0.6); Neutrophils Absolute Auto 6.6 K/mm3 (1.3-6.7); Neutrophils Percent Auto 57.7 % (45.5-73.1); Platelet Count Result 372 k/mm3 (150-375); Red Blood Count 4.98 M/mm3 (4.2-5.4); Red Cell Distribution Width 12.3 % (11.5-14.5); White Blood Count 11.4 K/mm3 (4.5-10.0)
[2023-05-06 08:58] LABS: Alanine Aminotransferase 31 U/L (6-35); Albumin Level 4.4 g/dL (3.5-5.1); Alkaline Phosphatase 65 U/L (38-126); Anion Gap 10 mmol/L (8-16); Aspartate Amino Transferase 26 U/L (14-36); Bilirubin,Total 0.5 mg/dL (0.2-1.3); Blood Urea Nitrogen 12 mg/dL (7-17); Calcium 9.1 mg/dL (8.4-10.2); Carbon Dioxide 28 mmol/L (22-30); Chloride 101 mmol/L (98-107); Cholesterol 163 mg/dL (0-200); Estimated Glomerular Filt Rate > 60; Glucose 126 mg/dL (65-110); HDL Direct 30 mg/dL; Potassium 4.1 mmol/L (3.4-5.0); Sodium 139 mmol/L (137-145); Triglycerides 155 mg/dL (<150)
[2023-05-06 09:09] LABS: LDL Cholesterol Direct 113 mg/dL
[2023-05-06 09:10] LABS: Creatinine Urine 50.2 mg/dL
[2023-05-06 09:15] LABS: MALB Creatinine Ratio < 12.0 mg/g (0-30); Microalbumin Urine Random < 6.0 mg/L (0-16.7)
== END 2023-05-06 08:11 | disposition home or self-care (01) ==
PROVIDERS: PCP Internal Medicine; Visit Provider Internal Medicine
DX: E78.5 Hyperlipidemia, unspecified (principal)
CPT/HCPCS: 36415; 80053; 80061; 82043; 85025

== ENCOUNTER 2023-06-26 08:32 | Outpatient (RCR) | payer OTHER, SELFPAY | END 2023-09-14 12:12 | disposition home or self-care (01) | LOC: ANHDMC 08:32 | PROVIDERS: PCP Internal Medicine; Visit Provider Internal Medicine Endocrinology, Diabetes & Metabolism | DX: E11.3293 Type 2 diabetes mellitus with mild nonproliferative diabetic retinopathy without macular edema, bilateral (principal); E11.649 Type 2 diabetes mellitus with hypoglycemia without coma; Z79.4 Long term (current) use of insulin; Z71.89 Other specified counseling | CPT/HCPCS: G0108 ==

== ENCOUNTER 2023-09-27 10:13 | Emergency (ER) | payer OTHER, SELFPAY ==
--- NOTE | 2023-09-27 10:45 | ED.URI ---
HPI - URI/Sore Throat General Chief Complaint: Upper Respiratory Infection Stated Complaint: cough,sore throat,chest hurts,back leblanc Time Seen by Provider: 09/27/23 10:40 Source: patient Mode of arrival: ambulatory Limitations: no limitations History of Present Illness HPI Narrative: Karolina is a 52-year-old female patient presenting to the clinic today with complaints of cough, sore throat, body aches, nasal congestion, possible UTI. She reports that the URI symptoms started about 3 days ago per however she has had cough for 3 weeks. Her PCP is put her on an inhaler and Flonase. States that she is also having some back pain with burning with urination. MD elicited complaint: cough, sore throat, nasal congestion and other (UTI) Related Data Home Medications Medication Instructions Recorded Confirmed albuterol sulfate 90 mcg/actuation 1 inh inhalation PRN 04/07/22 09/27/23 aerosol inhaler dapagliflozin propanediol 10 mg 5 tablet PO DAILY 04/07/22 09/27/23 tablet (Farxiga) dulaglutide 1.5 mg/0.5 mL 3 mg subcut WEEKLY 04/07/22 09/27/23 subcutaneous pen injector ([employer] fenofibrate 160 mg tablet 160 tablet PO DAILY 04/07/22 09/27/23 metformin 500 mg tablet,extended 500 mg PO DAILY 04/17/23 09/27/23 release 24 hr nystatin-triamcinolone 100,000 1 applic topical BID 04/17/23 09/27/23 unit/g-0.1 % topical cream rosuvastatin 40 mg tablet 40 mg PO DAILY 06/26/23 09/27/23 blood-glucose sensor ([employer]excom G6 09/27/23 09/27/23 Sensor device) blood-glucose transmitter ([employer] 09/27/23 09/27/23 G6 Transmitter device) budesonide-formoterol HFA 160 inhalation 09/27/23 mcg-4.5 mcg/actuation aerosol inhaler (Symbicort) gabapentin 300 mg capsule mg 09/27/23 Allergies Allergy/AdvReac Type Severity Reaction Status Date / Time adhesive Allergy Unknown Unknown Verified 09/27/23 10:31 lisinopril AdvReac Cough Verified 09/27/23 10:31 Review of Systems Review of Systems: Pertinent positives per HPI. Patient denies any fever, chills, rash, headache, visual changes, dizziness, cough, shortness of breath, chest pain, palpitations, nausea, vomiting, diarrhea, constipation, abdominal pain, or any urinary issues. [facility] Past Medical History Medical History Asthma Chronic headaches Colon cancer screening Diabetes 1.5, managed as type 1 Dyslipidemia Essential hypertension Hx of migraine headaches Hypertension Seasonal allergies Surgical History Surgical History H/O kyphoplasty 2017 History of carpal tunnel surgery 2017 History of section Hx of appendectomy Family History Family History Sibling Diabetes mellitus Hypertension Patient's sister is in good health Family history of hypercholesterolemia Mother Hypertension Asthma Family history of cardiovascular disease Family history of hypercholesterolemia Cerebrovascular accident Osteoporosis Father Patient's father is in good health Other Depression Family history of alcoholism Family history of anemia Family history of attention deficit hyperactivity disorder (ADHD) Family history of blood dyscrasia Family history of chronic obstructive pulmonary disease Family history of malignant neoplasm of breast Family history of osteoporosis Social History Social History Smoking status: Never smoker Alcohol intake: never Substance use: never Substance use type: does not use Lack of Transportation: No Lack of Food: Never True Current Housing: I Have Housing Concerned About Future Housing: No Difficulty Paying Gas/Electric Bills: No Difficulty Paying for Meds: No Currently Unemployed: No Education: Trade/Vocational Certificate Living arrangements: alone Occupation/[employer]
[2023-09-27 10:55] VITALS: BP 105/74; PULSE 106; RESP 18; TEMP 36.4; O2SAT 98
== END 2023-09-27 10:52 | disposition home or self-care (01) ==
PROVIDERS: Emergency Provider Nurse Practitioner Family; PCP Internal Medicine
DX: J02.0 Streptococcal pharyngitis (principal); N39.0 Urinary tract infection, site not specified; B96.20 Unspecified Escherichia coli [E. coli] as the cause of diseases classified elsewhere; J40 Bronchitis, not specified as acute or chronic; H57.11 Ocular pain, right eye; E13.9 Other specified diabetes mellitus without complications; Z79.84 Long term (current) use of oral hypoglycemic drugs; E78.5 Hyperlipidemia, unspecified; I10 Essential (primary) hypertension; J45.909 Unspecified asthma, uncomplicated
CPT/HCPCS: 81003; 87077; 87086; 87147; 87186; 87880; 99213; G0463

== ENCOUNTER 2023-12-14 08:05 | Outpatient (CLI) | payer OTHER, SELFPAY ==
[2023-12-14 09:14] LABS: Alanine Aminotransferase 29 U/L (6-35); Albumin Level 4.1 g/dL (3.5-5.1); Alkaline Phosphatase 123 U/L (38-126); Anion Gap 10 mmol/L (8-16); Aspartate Amino Transferase 28 U/L (14-36); Bilirubin,Total 0.6 mg/dL (0.2-1.3); Blood Urea Nitrogen 16 mg/dL (7-17); Calcium 9.6 mg/dL (8.4-10.2); Carbon Dioxide 25 mmol/L (22-30); Chloride 101 mmol/L (98-107); Cholesterol 273 mg/dL (0-200); Estimated Glomerular Filt Rate > 60; Glucose 258 mg/dL (65-110); Potassium 4.3 mmol/L (3.4-5.0); Sodium 136 mmol/L (137-145)
[2023-12-14 09:20] LABS: LDL Cholesterol Direct 103 mg/dL
[2023-12-14 09:54] LABS: Triglycerides 1217 mg/dL (<150)
[2023-12-14 10:04] LABS: Hemoglobin A1C 9.8 % (<5.7)
== END 2023-12-14 08:06 | disposition home or self-care (01) ==
LOC: ANHLAB 08:07
PROVIDERS: PCP Family Medicine; Visit Provider Family Medicine
DX: E78.5 Hyperlipidemia, unspecified (principal); E13.9 Other specified diabetes mellitus without complications; I10 Essential (primary) hypertension
CPT/HCPCS: 36415; 80053; 80061; 83036

== ENCOUNTER 2024-02-24 14:35 | Outpatient (CLI) | payer OTHER, SELFPAY ==
--- NOTE | ~2024-02-24 | MM_ITS ---
EXAMINATION: MM screening [facility] BI w desean HISTORY: Screening mammogram TECHNIQUE: Craniocaudal and mediolateral oblique 3-D tomosynthesis images were obtained and synthetic 2-D images were generated. CAD analysis was submitted and interpreted. COMPARISON: February 17, 2023, July 24, 2017 bilateral screening mammogram examinations BREAST PARENCHYMAL COMPOSITION: The breasts are heterogeneously dense, which may obscure small masses . FINDINGS: There is no evidence of suspicious mass, calcification, or architectural distortion to sugg est malignancy in either breast. There has been no suspicious interval change. IMPRESSION: 1. No mammographic evidence of malignancy. 2. Recommend routine screening mammography in one year. BI-RADS Category 1: Negative Reviewed, dictated and finalized at location A.
== END 2024-02-24 14:36 | disposition home or self-care (01) ==
LOC: ANHIMG 14:38
PROVIDERS: PCP Family Medicine; Visit Provider Nurse Practitioner Family
DX: Z12.31 Encounter for screening mammogram for malignant neoplasm of breast (principal)
CPT/HCPCS: 77063; 77067

== ENCOUNTER 2024-04-26 07:55 | Outpatient (CLI) | payer OTHER, SELFPAY ==
[2024-04-26 08:28] LABS: Alanine Aminotransferase 19 U/L (6-35); Albumin Level 4.1 g/dL (3.5-5.1); Alkaline Phosphatase 96 U/L (38-126); Anion Gap 12 mmol/L (4-12); Aspartate Amino Transferase 18 U/L (14-36); Bilirubin,Total 0.6 mg/dL (0.2-1.3); Blood Urea Nitrogen 13 mg/dL (7-17); Calcium 9.3 mg/dL (8.4-10.2); Carbon Dioxide 24 mmol/L (22-30); Chloride 105 mmol/L (98-107); Cholesterol 172 mg/dL (0-200); Estimated Glomerular Filt Rate > 60; Glucose 180 mg/dL (65-110); HDL Direct 29 mg/dL; Potassium 4.3 mmol/L (3.4-5.0); Sodium 141 mmol/L (137-145); Triglycerides 198 mg/dL (<150)
[2024-04-26 08:39] LABS: LDL Cholesterol Direct 110 mg/dL
[2024-04-26 08:40] LABS: Creatinine Urine 31.1 mg/dL
[2024-04-26 08:45] LABS: MALB Creatinine Ratio 30.2 mg/g (0-30); Microalbumin Urine Random 9.4 mg/L (0-16.7)
[2024-04-28 04:14] LABS: C-Peptide 1.43 ng/mL (0.80-3.85)
[2024-04-30 18:28] LABS: Glutamic acid decarboxylase AA <5 IU/mL (<5)
[2024-05-05 17:29] LABS: Islet Cell Antibody Screen NEGATIVE (NEGATIVE)
[2024-05-09 15:00] LABS: ICA Results received Yes
== END 2024-04-26 07:56 | disposition home or self-care (01) ==
PROVIDERS: PCP Family Medicine; Visit Provider Nurse Practitioner Family
DX: E03.9 Hypothyroidism, unspecified (principal); E11.40 Type 2 diabetes mellitus with diabetic neuropathy, unspecified; E66.9 Obesity, unspecified; R79.89 Other specified abnormal findings of blood chemistry
CPT/HCPCS: 36415; 80053; 80061; 82043; 82607; 84681; 86341

== ENCOUNTER 2024-06-21 11:00 | Outpatient (CLI) | payer OTHER, SELFPAY ==
--- NOTE | ~2024-06-21 | XR_ITS ---
EXAMINATION: XR chest 2V 06/21/2024 11:22 INDICATION: Chest pain PROCEDURE: 2 view chest COMPARISON: No prior studies for comparison. FINDINGS: The lungs are clear. The cardiomediastinal silhouette is within normal limits. There are no pleural effusions. There is no pneumothorax suspected. IMPRESSION: 1: NO ACUTE CARDIOPULMONARY DISEASE. Reviewed, dictated and finalized at location B.
[2024-06-21 11:46] LABS: Anion Gap 10 mmol/L (4-12); Blood Urea Nitrogen 11 mg/dL (7-17); Calcium 9.1 mg/dL (8.4-10.2); Carbon Dioxide 25 mmol/L (22-30); Chloride 101 mmol/L (98-107); Estimated Glomerular Filt Rate > 60; Glucose 340 mg/dL (65-110); Potassium 4.2 mmol/L (3.4-5.0); Sodium 136 mmol/L (137-145)
== END 2024-06-21 11:01 | disposition home or self-care (01) ==
LOC: ANHLAB 11:02
PROVIDERS: PCP Family Medicine; Visit Provider Family Medicine
DX: R07.9 Chest pain, unspecified (principal)
CPT/HCPCS: 36415; 71046; 80048

== ENCOUNTER 2024-07-05 13:18 | Emergency (ER) | payer OTHER, SELFPAY ==
[2024-07-05 13:37] VITALS: BP 142/71; PULSE 74; RESP 16; TEMP 36.6; O2SAT 99
--- NOTE | 2024-07-05 13:38 | ED.URI ---
HPI - URI/Sore Throat General Chief Complaint: Upper Respiratory Infection Stated Complaint: covid exposure, cough,ROJAS,bodyaches,right ear pain Time Seen by Provider: 07/05/24 13:46 Source: patient and RN notes reviewed Mode of arrival: ambulatory Limitations: no limitations History of Present Illness HPI Narrative: 53-year-old female presents with concern for cough, body aches, right ear pain, headache this started today. Reports a COVID exposure last week. She reports history of allergies. MD elicited complaint: cough Related Data Home Medications Medication Instructions Recorded Confirmed albuterol sulfate 90 mcg/actuation 1 inh inhalation PRN 04/07/22 07/05/24 aerosol inhaler metformin 500 mg tablet,extended 500 mg PO DAILY 04/17/23 07/05/24 release 24 hr budesonide-formoterol HFA 160 2 puff inhalation DAILY 09/27/23 07/05/24 mcg-4.5 mcg/actuation aerosol inhaler (Symbicort) gabapentin 300 mg capsule 300 mg PO DAILY 09/27/23 07/05/24 Allergies Allergy/AdvReac Type Severity Reaction Status Date / Time adhesive Allergy Unknown Unknown Verified 07/05/24 13:23 lisinopril AdvReac Cough Verified 07/05/24 13:23 Review of Systems Review of Systems: CONSTITUTIONAL: Denies malaise, chills, sweats, or fever. EYES: Denies visual changes, redness, or discharge. ENT: Reports right ear pain, nasal congestion CARDIOVASCULAR: Denies chest pain, palpitations, or edema. RESPIRATORY: Reports cough. Denies dyspnea. GASTROINTESTINAL: Denies abdominal pain, nausea, vomiting, diarrhea SKIN: Denies rash or itching. MUSCULOSKELETAL: Denies myalgia. NEUROLOGIC: Reports headache. All systems reviewed & are unremarkable except as noted in HPI and below PMFSH Past Medical History Medical History Asthma Chronic headaches Colon cancer screening Diabetes 1.5, managed as type 1 Diabetic neuropathy Diabetic retinopathy Dyslipidemia Essential hypertension Hx of migraine headaches Hypertension Seasonal allergies Surgical History Surgical History H/O kyphoplasty 2017 History of carpal tunnel surgery 2017 History of section Hx of appendectomy Family History Family History Sibling Diabetes mellitus Hypertension Patient's sister is in good health Family history of hypercholesterolemia Mother Hypertension Asthma Family history of cardiovascular disease Family history of hypercholesterolemia Cerebrovascular accident Osteoporosis Father Patient's father is in good health Other Depression Family history of alcoholism Family history of anemia Family history of attention deficit hyperactivity disorder (ADHD) Family history of blood dyscrasia Family history of chronic obstructive pulmonary disease Family history of malignant neoplasm of breast Family history of osteoporosis Social History Social History Smoking status: Never smoker Alcohol intake: never Substance use: never Substance use type: does not use Do You Feel Safe in your Home?: Yes Lack of Transportation: No Lack of Food: Never True Current Housing: I Have Housing Concerned About Future Housing: No Difficulty Paying Gas/Electric Bills: No Difficulty Paying for Meds: No Currently Unemployed: No Education: Trade/Vocational Certificate Living arrangements: alone Occupation/Education: occupation Gender identity (if verbalized by the patient): Female Sexual Orientation (if Verbalized by the Patient): Straight or Heterosexual Spiritual care concerns: No Comments At time of signature, agree with nursing past medical, surgical, social and family history. There is no relevant family history pertinent to the presenting complaint Exam Narrative: GENERAL: Well-appea
[2024-07-05 13:57] LABS: EDINFLUASCREEN Negative; EDINFLUBSCREEN Negative
== END 2024-07-05 13:59 | disposition home or self-care (01) ==
PROVIDERS: Emergency Provider Nurse Practitioner; PCP Family Medicine
DX: J06.9 Acute upper respiratory infection, unspecified (principal); Z20.822 Contact with and (suspected) exposure to COVID-19; J45.909 Unspecified asthma, uncomplicated; E13.40 Other specified diabetes mellitus with diabetic neuropathy, unspecified; E13.319 Other specified diabetes mellitus with unspecified diabetic retinopathy without macular edema; Z79.84 Long term (current) use of oral hypoglycemic drugs; I10 Essential (primary) hypertension
CPT/HCPCS: 87426; 87804; 99213; G0463

== ENCOUNTER 2024-07-13 14:04 | Outpatient (CLI) | payer OTHER, SELFPAY ==
--- NOTE | ~2024-07-13 | US_ITS ---
EXAMINATION: US carotid duplex BI DATE: 07/13/2024 15:04 INDICATION: Atherosclerotic heart disease of the [place] coronary arteries TECHNIQUE: Grayscale, color Doppler, and pulsed Doppler images of the cervical carotid arteries were obtained. The degree of vessel stenosis is placed in one of the following categories: normal, <50%, 5 0-69%, >=70% but less than near-occlusion, near-occlusion, or total occlusion. Note that percent sten osis relative to normal distal artery lumen diameter is indirectly measured from velocity measurement s as described by Shawn, et al. Radiology 2003; 229:[id number]. COMPARISON: None. FINDINGS: RIGHT: The right common carotid artery (CCA) peak systolic velocity (PSV) is 72 cm/s. The right internal car otid artery (ICA) PSV is 59 cm/s. The right ICA end-diastolic velocity (EDV) is 25 cm/s. The right IC A/CCA PSV ratio is 0.8. Grayscale and color Doppler images demonstrate no evident plaque or stenosis in the ICA. The external carotid artery (ECA) PSV is 111 cm/s. There is antegrade flow in the right v ertebral artery. LEFT: The left CCA PSV is 83 cm/s. The left ICA PSV is 98 cm/s. The left ICA EDV is 34 cm/s. The left ICA/C CA PSV ratio is 1.2. Grayscale and color Doppler images of the straight no evident plaque or stenosis in the ICA. The ECA PSV is 120 cm/s. There is antegrade flow in the left vertebral artery. IMPRESSION: 1. No evident atherosclerotic plaque or stenosis in the right internal carotid artery. 2. No evident atherosclerotic plaque or stenosis in the left internal carotid artery. Reviewed, dictated and finalized at location B. IMPRESSION: 1. No evident atherosclerotic plaque or stenosis in the right internal carotid artery. 2. No evident atherosclerotic plaque or stenosis in the left internal carotid a rtery.
== END 2024-07-13 14:05 | disposition home or self-care (01) ==
LOC: ANHIMG 14:08
PROVIDERS: PCP Family Medicine; Visit Provider Internal Medicine Cardiovascular Disease
DX: I25.10 Atherosclerotic heart disease of native coronary artery without angina pectoris (principal)
CPT/HCPCS: 93880

== ENCOUNTER 2024-08-03 16:04 | Inpatient (IN) | payer OTHER, SELFPAY ==
--- NOTE | ~2024-08-03 | XR_ITS ---
EXAMINATION: XR toe 3rd RT min 2V DATE: 08/03/2024 18:24 INDICATION: Right third toe edema and erythema. TECHNIQUE: 3 views of right third toe were obtained. COMPARISON: None. FINDINGS: Alignment is normal. No fracture. Joint spaces are normal. IMPRESSION: 1. No fracture. Reviewed, dictated and finalized at location A. IMPRESSION: 1. No fracture.
[2024-08-03 16:22] VITALS: BP 157/80; PULSE 76; RESP 15; TEMP 36.4; O2SAT 95
[2024-08-03 16:34] LABS: Glucose Point of Care 426 mg/dl (65-105)
--- NOTE | 2024-08-03 17:02 | ED.SKABFB ---
HPI - Skin/Abscess/Foreign Bdy General Chief complaint: Skin/Abscess/Foreign Body <Josee Biggs PA-C - Last Filed: 08/08/24 17:31> Stated complaint: toe infection <Josee Biggs PA-C - Last Filed: 08/08/24 17:31> Time Seen by Provider: 08/03/24 17:02 <Josee Biggs PA-C - Last Filed: 08/08/24 17:31> Focused HPI: This is a 53 year old female that presents to the ER for right 3rd toe infection. Ongoing since over the weekend. She had been out of her insulin over the last several weeks. Was re-started a couple of days ago. Reports she has been having worsening redness and swelling of the toe as well as drainage. She has not been on any antibiotics yet. Denies fevers. GENERAL: Well-appearing, well-nourished, and in no acute distress. HEAD: Normocephalic, atraumatic. CHEST: Clear to auscultation. ?No respiratory distress. HEART: Regular rate and rhythm.? NEURO: ?Alert and oriented x3. Patient screened in triage and initial orders placed.? ?Additional care and disposition to be based upon?diagnostic testing and treatment. <Josee Biggs PA-C - Last Filed: 08/08/24 17:31> History of Present Illness HPI narrative: 53-year-old female with history of hypertension, hyperlipidemia, CAD, obesity, insulin-dependent diabetes presents to emergency department for a right 3rd toe infection. Patient states she was at her charge histotechnologist's office who noted her red and painful right 3rd toe advised to come to the ED for further evaluation. The patient notes that she has noticed drainage from her toe. She denies fever, nausea or vomiting. She states her diabetes has been poorly controlled. She admits to not using any of her insulin for several weeks but recently started up within the past couple of days. Patient's blood sugar was 426 in triage. <Janine Lopez PA-C - Last Filed: 08/03/24 19:18> Related Data Home medications: Home Medications Medication Instructions Recorded Confirmed albuterol sulfate 90 mcg/actuation 1 inh inhalation PRN PRN wheezes 04/07/22 08/03/24 aerosol inhaler gabapentin 300 mg capsule 300 mg PO HS 09/27/23 08/03/24 insulin glargine 100 unit/mL (3 40 unit subcut HS 08/03/24 08/03/24 mL) subcutaneous pen (Lantus Solostar U-100 Insulin) metformin 500 mg tablet,extended 500 mg PO HS 08/03/24 08/03/24 release 24 hr <Josee Biggs PA-C - Last Filed: 08/08/24 17:31> Allergies/Adverse reactions: Allergies Allergy/AdvReac Type Severity Reaction Status Date / Time adhesive Allergy Unknown Unknown Verified 08/03/24 23:07 lisinopril AdvReac Cough Verified 08/03/24 23:07 <Josee Biggs PA-C - Last Filed: 08/08/24 17:31> Review of Systems Review of Systems: All systems reviewed & are unremarkable except as noted in HPI and below <Janine Lopez PA-C - Last Filed: 08/03/24 19:18> [facility] Past Medical History Medical History: Medical History Asthma Chronic headaches Colon cancer screening Diabetes 1.5, managed as type 1 Diabetic neuropathy Diabetic retinopathy Dyslipidemia Essential hypertension Hx of migraine headaches Hypertension Seasonal allergies <Josee Biggs PA-C - Last Filed: 08/08/24 17:31> Surgical History Surgical History: Surgical History H/O kyphoplasty 2017 History of carpal tunnel surgery 2017 History of section Hx of appendectomy <Josee Biggs PA-C - Last Filed: 08/08/24 17:31> Family History Family History: Family History (Updated 08/03/24 @ 20:55 by Catherine Matute RN) Sibling Diabetes mellitus Patient's sister is in good health Family history of hypercholesterolemia Hypertension Depression Family history of alcoholism Mother Family history of cardiovascular disease Osteoporosis Family history of hypercholesterolemia Hypertension Cerebrovascular acc
[2024-08-03 18:01] LABS: Glucose Point of Care 388 mg/dl (65-105)
[2024-08-03 18:05] LABS: Basophils Absolute Auto 0.1 K/mm3 (0.0-0.1); Basophils Percent Auto 0.6 % (0.2-1.2); Eosinophils Absolute Auto 0.5 K/mm3 (0-0.3); Eosinophils Percent Auto 4.7 % (0-4.4); Hematocrit 42.4 % (37.0-47.0); Hemoglobin 14.8 g/dL (12.0-15.0); Immature Granulocyte Absolute 0.07 K/mm3 (0.00-0.031); Immature Granulocyte Percent A 0.7 % (0-0.5); Lymphocytes Absolute Auto 3.12 K/mm3 (0.9-3.2); Lymphocytes Percent Auto 32.7 % (18.3-44.2); Mean Corpuscular HGB Conc 34.9 g/dl (32-36); Mean Corpuscular Hemoglobin 30.7 pg (26-34); Mean Platelet Volume 10.5 fl (7.4-10.4); Monocytes Absolute Auto 0.6 K/mm3 (0.1-0.6); Monocytes Percent Auto 5.9 % (2.6-8.5); Neutrophils Absolute Auto 5.3 K/mm3 (1.3-6.7); Neutrophils Percent Auto 55.4 % (45.5-73.1); Platelet Count Result 306 k/mm3 (150-375); Red Blood Count 4.82 M/mm3 (4.2-5.4); Red Cell Distribution Width 11.8 % (11.5-14.5); White Blood Count 9.6 K/mm3 (4.5-10.0)
[2024-08-03 18:26] LABS: Alanine Aminotransferase 20 U/L (6-35); Albumin Level 4.3 g/dL (3.5-5.1); Alkaline Phosphatase 130 U/L (38-126); Anion Gap 9 mmol/L (4-12); Aspartate Amino Transferase 20 U/L (14-36); Bilirubin,Total 0.5 mg/dL (0.2-1.3); Blood Urea Nitrogen 11 mg/dL (7-17); Calcium 9.2 mg/dL (8.4-10.2); Carbon Dioxide 27 mmol/L (22-30); Chloride 99 mmol/L (98-107); Estimated CRCL calculation 154 ml/min; Estimated Glomerular Filt Rate > 60; Glucose 373 mg/dL (65-110); Potassium 3.9 mmol/L (3.4-5.0); Sodium 135 mmol/L (137-145)
[2024-08-03] MEDS: SODIUM CHLORIDE 0.9% IV 1,000 ML 999 ML IV CONT (18:26)
[2024-08-03 19:11] LABS: Erythrocyte Sedimentation Rate 12 mm/hr (0-20)
--- NOTE | 2024-08-03 19:28 | PM.IMHP ---
H&P: HPI History of Present Illness Date/Time: 08/03/24 19:28 Chief Complaint: Pain, swelling, tender pus drainage on right 3rd toe Narrative: 53 year old female with history of hypertension, present ED with a chief complaint right 3rd toe infection. Patient notice swelling, pain and redness of right 3rd toe on Thursday, and is getting worse today. Since yesterday, noticed intermittent pus drained out from the toe. Patient denies fever, chills, patient also denies chest pain, headache, abdomen pain, nausea vomiting diarrhea dysuria. Patient did not take antibiotics. Upon arrival in the ED, patient has uncontrolled hypertension, 57/80, afebrile, blood pressure stable, no O2 desaturation room air, CBC unremarkable, chemistry showed uncontrolled diabetes glucose 373, Review of Systems Review of Systems: ROS negative except above PMFSH Past Medical History Medical History Asthma Chronic headaches Colon cancer screening Diabetes 1.5, managed as type 1 Diabetic neuropathy Diabetic retinopathy Dyslipidemia Essential hypertension Hx of migraine headaches Hypertension Seasonal allergies Surgical History Surgical History H/O kyphoplasty 2017 History of carpal tunnel surgery 2017 History of section Hx of appendectomy Family History Family History Sibling Diabetes mellitus Hypertension Patient's sister is in good health Family history of hypercholesterolemia Mother Hypertension Asthma Family history of cardiovascular disease Family history of hypercholesterolemia Cerebrovascular accident Osteoporosis Father Patient's father is in good health Other Depression Family history of alcoholism Family history of anemia Family history of attention deficit hyperactivity disorder (ADHD) Family history of blood dyscrasia Family history of chronic obstructive pulmonary disease Family history of malignant neoplasm of breast Family history of osteoporosis Social History Social History Smoking status: Never smoker Alcohol intake: never Substance use: never Substance use type: does not use Do You Feel Safe in your Home?: Yes Lack of Transportation: No Lack of Food: Never True Current Housing: I Have Housing Concerned About Future Housing: No Difficulty Paying Gas/Electric Bills: No Difficulty Paying for Meds: No Currently Unemployed: No Education: Trade/Vocational Certificate Living arrangements: alone Occupation/Education: occupation Gender identity (if verbalized by the patient): Female Sexual Orientation (if Verbalized by the Patient): Straight or Heterosexual Spiritual care concerns: No Meds Home Medications and Allergies Home Medications Medication Instructions Recorded Confirmed Type albuterol sulfate 90 mcg/actuation 1 inh inhalation PRN 04/07/22 07/27/24 History aerosol inhaler gabapentin 300 mg capsule 300 mg PO DAILY 09/27/23 07/27/24 History fenofibrate 160 mg tablet 160 mg PO DAILY #30 tabs 12/14/23 07/27/24 Rx rosuvastatin 40 mg tablet 40 mg PO DAILY #30 tabs 12/14/23 07/27/24 Rx nystatin-triamcinolone 100,000 1 applic topical BID #60 grams 02/12/24 07/27/24 Rx unit/g-0.1 % topical cream losartan 25 mg tablet 25 mg PO DAILY #30 tabs 04/11/24 07/27/24 Rx blood sugar diagnostic (Blood #300 ea 04/21/24 07/27/24 Rx Glucose Test strips) blood-glucose meter #1 ea 04/21/24 07/27/24 Rx glucagon 3 mg/actuation nasal spray 3 mg intranasal ONCE #2 ea 04/21/24 07/27/24 Rx glucose 4 gram chewable tablet 16 g PO Q15M PRN hypoglycemia #60 04/21/24 07/27/24 Rx (Dex4 Glucose) tabs pen needle, diabetic 31 gauge x #400 ea 04/21/24 07/27/24 Rx 3/16 (BD Ultra-Fine Mini Pen Needle) pseudoephedrine HCl 120
[2024-08-03] MEDS: CEFEPIME 2 GM/NS 50 ML 2 GM/50 ML BAG IVPB (19:33)
[2024-08-03 19:36] LABS: CRP 0.7 mg/dL (<1.0)
[2024-08-03] MEDS: metroNIDAZOLE 500 MG/ISO 100ML 500 MG/100 ML BAG 100 MG IVPB (20:12)
--- NOTE | 2024-08-03 20:43 | ADMGEN ---
This patient, January Petar, was admitted to Medical Room 250-. Patient/family oriented to hospital policies and general routines including ID bracelet, bed and alarms, visiting hours, pain management, procedures, bathroom and other care routines, personal items, smoking policy, room service/diet, and visiting hours. Information on how to activate the Rapid Response Team has been discussed. Patient/Family are encouraged to report perceived risks to care and to ask questions if they do not understand what they are told or what they should do.
[2024-08-03 20:49] VITALS: BMI 35.8
[2024-08-03 21:00] VITALS: PULSE 64; RESP 16; O2SAT 100
[2024-08-03 21:31] LABS: Glucose Point of Care 222 mg/dl (65-105)
[2024-08-03] MEDS: LOSARTAN POTASSIUM 50 MG TABLET PO (21:36)
[2024-08-03] MEDS: INSULIN GLARGINE (*BKC) 100 UNITS/ML 40 UNITS SUB-Q (21:37)
[2024-08-03 21:40] LABS: MRSA (PCR) NOT DETECTED (NOT DETECTE)
[2024-08-03] MEDS: INSULIN ASPART (*BKC) 100 UNITS/ML SUB-Q (21:40)
[2024-08-03 21:42] VITALS: BP 160/67; PULSE 64; RESP 16; TEMP 36.4; O2SAT 100
[2024-08-03] MEDS: VANCOMYCIN 1,250 MG/NS 250 ML 1,250 MG/250 ML BAG 166.67 MG IVPB ×2 (22:34)
[2024-08-04] MEDS: CEFEPIME 2 GM/NS 50 ML 2 GM/50 ML BAG IVPB (05:21)
[2024-08-04] MEDS: metroNIDAZOLE 500 MG/ISO 100ML 500 MG/100 ML BAG 100 MG IVPB ×2 (05:23→13:14)
[2024-08-04 06:02] VITALS: BP 147/74; PULSE 74; RESP 14; TEMP 36.4; O2SAT 99
[2024-08-04 06:05] LABS: Estimated CRCL calculation 154 ml/min; Estimated Glomerular Filt Rate > 60
[2024-08-04 07:59] LABS: Glucose Point of Care 219 mg/dl (65-105)
[2024-08-04 08:05] VITALS: RESP 16; O2SAT 99
[2024-08-04] MEDS: INSULIN ASPART (*BKC) 100 UNITS/ML SUB-Q (08:05)
[2024-08-04] MEDS: INSULIN ASPART (*BKC) 100 UNITS/ML 10 UNITS SUB-Q ×3 (08:05→17:12)
[2024-08-04] MEDS: VANCOMYCIN 1,500 MG/NS 500 ML 1,500 MG/500 ML BAG 250 MG IVPB (08:20)
[2024-08-04] MEDS: ENOXAPARIN 40 MG/0.4 ML SYRINGE SUB-Q (08:27)
[2024-08-04] MEDS: LOSARTAN POTASSIUM 50 MG TABLET PO (08:28)
--- NOTE | 2024-08-04 08:41 | PM.IMPN ---
Progress Note: A&P Assessment and Plan (1) Cellulitis: Qualifiers: Laterality: right Site of cellulitis: extremity Site of cellulitis of extremity: toe Qualified Code(s): L03.031 - Cellulitis of right toe Code(s): L03.90 - Cellulitis, unspecified Status: Acute Assessment and Plan: Right 3rd toe with soft tissue infection. X-ray imaging shows no fracture or concern for osteomyelitis. Patient initially was started on vanc, cefepime, Flagyl White count was normal on arrival Blood cultures with NGTD WBC 11.1 today, afebrile, normal lactic Antibiotics can be deescalated to Rocephin and linezolid. Topical treatment TID with mupirocin. Wound culture preliminary is growing gram positive cocci in chains. (2) Uncontrolled type 2 diabetes mellitus: Status: Acute Assessment and Plan: Hemoglobin A1c 12.9%. Patient was last seen Endocrinology on 07/27. She has a history of not taking her insulin which she attributes to cost. She states today she understands the importance and why she needs to take better control of her health. She is making every effort to take her diabetes seriously. Humalog insulin 10 units t.i.d. with meals in addition to sliding scale. Accu-Cheks AC/HS Hypoglycemia protocol in service educator consulted (3) Essential hypertension: Code(s): I10 - Essential (primary) hypertension Status: Acute Assessment and Plan: History of HTN. Patient currently takes Losartan 25 mg daily. -blood pressures reviewed -resume home medications (4) Diabetic neuropathy: Code(s): E11.40 - Type 2 diabetes mellitus with diabetic neuropathy, unspecified Status: Acute Assessment and Plan: resume gabapentin Subjective Date/time seen: 08/04/24 08:41 Interval history: No acute events overnight. She reports the drainage to her 2nd toe has decreased. She continues to have pain with manipulation of the toe. No documented fever overnight but she does report intermittent chills. She also had 1 isolated episode nausea and vomiting which she attributes to the antibiotics. Review of Systems Review of Systems: All systems reviewed & are unremarkable except as noted in HPI and below Exam Narrative: General: appears comfortable, in no acute distress Respiratory: breathing is unlabored with even chest rise/fall, lungs are clear without wheezing, rhonchi, and crackles Cardiovascular: Rate and rhythm regular, normal s1s2, no murmur Abdomen: Soft, round, non-tender, active bowel sounds Extremities: No cyanosis, edema, clubbing. Pulses 2/2. Right 2nd toe with erythema and warmth. Neuro: A&O x 4 Skin: Warm, dry, intact Objective Data Vital Signs Vital Signs: Vital Signs - 24 hr 08/03/24 16:22 08/03/24 21:42 08/03/24 21:00 Temperature 97.5 F L 97.6 F Pulse Rate 76 64 64 Respiratory Rate 15 16 16 Blood Pressure 157/80 H 160/67 H Pulse Oximetry 95 100 100 Oxygen Delivery Room Air Room Air 08/04/24 06:02 Temperature 97.6 F Pulse Rate 74 Respiratory Rate 14 Blood Pressure 147/74 H Pulse Oximetry 99 Oxygen Delivery Intake/Output Intake/Output: Intake & Output 08/01/24 08/02/24 08/03/24 08/04/24 23:59 23:59 23:59 23:59 Intake Total 1050 350 Balance 1050 350 Meds/Results Medications: Active Medications Generic Name Dose Route Start Last Admin Trade Name Freq PRN Reason Stop Dose Admin Dextrose 12.5 gm 08/03/24 20:12 Dextrose 50% 25 Gm/50 Ml Syringe IV PUSH PRN PRN Hypoglycemia Protocol Enoxaparin Sodium 40 mg 08/04/24 09:00 08/04/24 08:27 Enoxaparin 40 Mg/0.4 Ml Syringe SUB-Q 40 mg DAILY JIAN Administration Glucagon 1 mg 08/03/24 20:12 Glucagon For Inj 1 Mg Vial IM PRN PRN Hypoglycemia Protocol Glucose 15 gm 08/03/24 20:12 Glucose Oral Gel 15 Gm Of Glucse In 37.5 Gm Tube PO PRN PRN Hypoglycemia Protocol Cefepime HCl 2
[2024-08-04 09:23] LABS: Basophils Absolute Auto 0.1 K/mm3 (0.0-0.1); Basophils Percent Auto 0.5 % (0.2-1.2); Eosinophils Absolute Auto 0.3 K/mm3 (0-0.3); Eosinophils Percent Auto 2.7 % (0-4.4); Hematocrit 39.7 % (37.0-47.0); Hemoglobin 13.6 g/dL (12.0-15.0); Immature Granulocyte Absolute 0.07 K/mm3 (0.00-0.031); Immature Granulocyte Percent A 0.6 % (0-0.5); Lymphocytes Absolute Auto 3.34 K/mm3 (0.9-3.2); Lymphocytes Percent Auto 30.1 % (18.3-44.2); Mean Corpuscular HGB Conc 34.3 g/dl (32-36); Mean Corpuscular Hemoglobin 30.8 pg (26-34); Mean Corpuscular Volume 89.8 fl (80-100); Mean Platelet Volume 11.1 fl (7.4-10.4); Monocytes Absolute Auto 0.6 K/mm3 (0.1-0.6); Monocytes Percent Auto 5.6 % (2.6-8.5); Neutrophils Absolute Auto 6.7 K/mm3 (1.3-6.7); Neutrophils Percent Auto 60.5 % (45.5-73.1); Platelet Count Result 288 k/mm3 (150-375); Red Blood Count 4.42 M/mm3 (4.2-5.4); Red Cell Distribution Width 11.9 % (11.5-14.5); White Blood Count 11.1 K/mm3 (4.5-10.0)
[2024-08-04 10:13] LABS: Alanine Aminotransferase 17 U/L (6-35); Albumin Level 3.5 g/dL (3.5-5.1); Alkaline Phosphatase 88 U/L (38-126); Anion Gap 6 mmol/L (4-12); Aspartate Amino Transferase 19 U/L (14-36); Bilirubin,Total 0.7 mg/dL (0.2-1.3); Blood Urea Nitrogen 7 mg/dL (7-17); Calcium 8.7 mg/dL (8.4-10.2); Carbon Dioxide 26 mmol/L (22-30); Chloride 105 mmol/L (98-107); Estimated CRCL calculation 154 ml/min; Estimated Glomerular Filt Rate > 60; Glucose 221 mg/dL (65-110); Potassium 3.7 mmol/L (3.4-5.0); Sodium 137 mmol/L (137-145)
[2024-08-04 12:07] LABS: Glucose Point of Care 160 mg/dl (65-105)
[2024-08-04 14:00] VITALS: BP 158/73; PULSE 76; RESP 18; TEMP 36.2; O2SAT 98
[2024-08-04 17:11] LABS: Glucose Point of Care 179 mg/dl (65-105)
[2024-08-04] MEDS: cefTRIAXone 2 GM/NS 100 ML 2 GM/100 ML BAG IVPB (17:14)
[2024-08-04] MEDS: OMEGA 3 POLYUNSAT FATTY ACIDS 1 GM CAP 2 GM PO (17:20)
[2024-08-04] MEDS: MUPIROCIN 2% OINT 22 GM TUBE 1 APPLIC TOPICAL (17:47)
[2024-08-04] MEDS: LINEZOLID 600 MG TABLET PO (20:23)
[2024-08-04] MEDS: INSULIN GLARGINE (*BKC) 100 UNITS/ML 40 UNITS SUB-Q (20:23)
[2024-08-04 20:36] VITALS: BP 145/87; PULSE 80; RESP 18; TEMP 36.8; O2SAT 99
[2024-08-04 20:46] LABS: Glucose Point of Care 203 mg/dl (65-105)
[2024-08-04] MEDS: GABAPENTIN 300 MG CAPSULE PO (22:00)
[2024-08-05 05:48] VITALS: BP 149/70; PULSE 70; RESP 16; TEMP 36.2; O2SAT 96
[2024-08-05 05:48] LABS: Basophils Percent Auto 0.4 % (0.2-1.2); Eosinophils Absolute Auto 0.4 K/mm3 (0-0.3); Eosinophils Percent Auto 4.3 % (0-4.4); Hemoglobin 13.4 g/dL (12.0-15.0); Immature Granulocyte Absolute 0.06 K/mm3 (0.00-0.031); Immature Granulocyte Percent A 0.7 % (0-0.5); Lymphocytes Absolute Auto 3.14 K/mm3 (0.9-3.2); Lymphocytes Percent Auto 34.4 % (18.3-44.2); Mean Corpuscular HGB Conc 33.5 g/dl (32-36); Mean Corpuscular Hemoglobin 29.7 pg (26-34); Mean Corpuscular Volume 88.7 fl (80-100); Mean Platelet Volume 10.4 fl (7.4-10.4); Monocytes Absolute Auto 0.5 K/mm3 (0.1-0.6); Monocytes Percent Auto 5.7 % (2.6-8.5); Neutrophils Percent Auto 54.5 % (45.5-73.1); Platelet Count Result 296 k/mm3 (150-375); Red Blood Count 4.51 M/mm3 (4.2-5.4); Red Cell Distribution Width 11.7 % (11.5-14.5); White Blood Count 9.1 K/mm3 (4.5-10.0)
[2024-08-05 06:00] LABS: Alanine Aminotransferase 17 U/L (6-35); Albumin Level 3.6 g/dL (3.5-5.1); Alkaline Phosphatase 86 U/L (38-126); Anion Gap 6 mmol/L (4-12); Aspartate Amino Transferase 19 U/L (14-36); Bilirubin,Total 0.6 mg/dL (0.2-1.3); Blood Urea Nitrogen 6 mg/dL (7-17); Carbon Dioxide 29 mmol/L (22-30); Chloride 103 mmol/L (98-107); Estimated CRCL calculation 127 ml/min; Estimated Glomerular Filt Rate > 60; Glucose 193 mg/dL (65-110); Potassium 3.6 mmol/L (3.4-5.0); Sodium 138 mmol/L (137-145)
[2024-08-05 08:10] LABS: Glucose Point of Care 183 mg/dl (65-105)
[2024-08-05 10:05] VITALS: BMI 35.8
[2024-08-05] MEDS: FENOFIBRATE 160 MG TABLET PO (10:29)
[2024-08-05] MEDS: AMOXICILLIN/CLAVULANATE K 875-125 MG TAB 1 TABLET PO (10:29)
[2024-08-05] MEDS: LOSARTAN POTASSIUM 25 MG TABLET PO (10:29)
[2024-08-05] MEDS: ROSUVASTATIN 20 MG TABLET 40 MG PO (10:29)
[2024-08-05] MEDS: OMEGA 3 POLYUNSAT FATTY ACIDS 1 GM CAP 2 GM PO (10:30)
[2024-08-05] MEDS: ENOXAPARIN 40 MG/0.4 ML SYRINGE SUB-Q (10:30)
[2024-08-05] MEDS: MUPIROCIN 2% OINT 22 GM TUBE 1 APPLIC TOPICAL (10:30)
[2024-08-05] MEDS: INSULIN ASPART (*BKC) 100 UNITS/ML 10 UNITS SUB-Q ×2 (10:38→13:23)
[2024-08-05 12:00] VITALS: BP 153/75; PULSE 81; RESP 20; TEMP 36.6; O2SAT 94
[2024-08-05 12:17] LABS: Glucose Point of Care 221 mg/dl (65-105)
[2024-08-05] MEDS: INSULIN ASPART (*BKC) 100 UNITS/ML SUB-Q (13:24)
--- NOTE | 2024-08-05 17:31 | PM.DS ---
DS: Admitting Diagnosis Discharge Date 08/05/24 Admitting Diagnosis Toe swelling DS: Discharge Diagnosis Discharge Diagnosis (1) Cellulitis: Qualifiers: Laterality: right Site of cellulitis: extremity Site of cellulitis of extremity: toe Qualified Code(s): L03.031 - Cellulitis of right toe Code(s): L03.90 - Cellulitis, unspecified Status: Acute Assessment and Plan: Right 3rd toe with soft tissue infection. X-ray imaging shows no fracture or concern for osteomyelitis. Patient initially was started on vanc, cefepime, Flagyl White count was normal on arrival Blood cultures with NGTD WBC 11.1 today, afebrile, normal lactic Antibiotics can be deescalated to Rocephin and linezolid. Topical treatment TID with mupirocin. Wound culture preliminary is growing gram positive cocci in chains. (2) Uncontrolled type 2 diabetes mellitus: Status: Acute Assessment and Plan: Hemoglobin A1c 12.9%. Patient was last seen Endocrinology on 07/27. She has a history of not taking her insulin which she attributes to cost. She states today she understands the importance and why she needs to take better control of her health. She is making every effort to take her diabetes seriously. Humalog insulin 10 units t.i.d. with meals in addition to sliding scale. Accu-Cheks AC/HS Hypoglycemia protocol ict educator consulted (3) Essential hypertension: Code(s): I10 - Essential (primary) hypertension Status: Acute Assessment and Plan: History of HTN. Patient currently takes Losartan 25 mg daily. -blood pressures reviewed -resume home medications (4) Diabetic neuropathy: Code(s): E11.40 - Type 2 diabetes mellitus with diabetic neuropathy, unspecified Status: Acute Assessment and Plan: resume gabapentin DS: Summary Hospital Course Reason for hospitalization: Cellulitis Hospital Course: This is a 53-year-old female in with history of hypertension, diabetes, asthma, dyslipidemia, hypertension, and migraine headaches who presents with right 3rd toe swelling, pain, or redness. Her symptoms began 1 week ago. She was seen in her spiritual advisor office and recommended that she come to the hospital. Arrival to the hospital she had uncontrolled glucose of 373. Labs are essentially unremarkable. She was admitted with IV antibiotics. X-ray of her toe showed no fracture. Wound culture was obtained and grew group B Streptococcus. Blood cultures with no growth to date. She was started on her recommended insulin regimen from her spiritual advisor and her blood sugars have been fairly well controlled. ict educator was consulted and saw her fall she is inpatient. She is going to follow-up with outpatient and for nutrition consult. ict educator was able to provide her with a [employer] [place]. Over the course of 2 days her swelling, erythema, and pain had decreased significantly. On day of discharge she was feeling well and ready to discharge with wound with biotics. Overall she did well and was discharged with PCP follow-up in the next 1-2 weeks. Time Spent with Patient Time attestation: Total time spent providing and/or coordinating discharge services: 80 Exam Narrative: General: appears comfortable, in no acute distress Respiratory: breathing is unlabored with even chest rise/fall, lungs are clear without wheezing, rhonchi, and crackles Cardiovascular: Rate and rhythm regular, normal s1s2, no murmur Abdomen: Soft, round, non-tender, active bowel sounds Extremities: No cyanosis, edema, clubbing. Pulses 2/2. Right 3rd toe with erythema and warmth. Neuro: A&O x 4 Skin: Warm, dry, intact DS: Data Data Completed and Pending Labs on day of discharge: Labs from last 24 hours 08/05/24 08/05/24 08/05/24 12:06 08:05 05:18 WBC 9.1 RBC 4.51 Hgb 13.4 Hct 40.0 MCV 88.7 MCH 29.7 MCHC 33.5 RDW 11.7 Plt Count 296
== END 2024-08-05 15:10 | disposition home or self-care (01) | DRG 603 ==
LOC: ANHED 19:08 → ANH2MED 20:32
PROVIDERS: Physician Assistant; Admitting Provider Hospitalist; Emergency Provider Physician Assistant; PCP Family Medicine; Visit Provider Nurse Practitioner Acute Care
DX: L03.031 Cellulitis of right toe (principal); B95.1 Streptococcus, group B, as the cause of diseases classified elsewhere; I10 Essential (primary) hypertension; E13.42 Other specified diabetes mellitus with diabetic polyneuropathy; E13.319 Other specified diabetes mellitus with unspecified diabetic retinopathy without macular edema; J45.909 Unspecified asthma, uncomplicated; E78.5 Hyperlipidemia, unspecified; I25.10 Atherosclerotic heart disease of native coronary artery without angina pectoris; E66.9 Obesity, unspecified; Z68.35 Body mass index [BMI] 35.0-35.9, adult; Z90.49 Acquired absence of other specified parts of digestive tract
CPT/HCPCS: 36415; 73660; 80053; 82565; 82948; 83605; 85025; 85652; 86140; 87040; 87070; 87205; 87641; 96361; 96365; 96375; 99285; A9270; G0378; J0692; J0696; J1650; J1815; J1836; J3370; J7030

== ENCOUNTER 2024-08-11 16:43 | Outpatient (CLI) | payer OTHER, SELFPAY ==
--- NOTE | ~2024-08-11 | XR_ITS ---
A [id number] Ordering provider: Mor Mason PA-C History: 53 years Female with . R07.81 - Pleurodynia . Comparison: June 21, 2024 FINDINGS: MEDIASTINUM: The cardiac silhouette is not enlarged. LUNGS: No infiltrates, effusions or pneumothorax. OTHER: No free air under the diaphragm. Possibility of fracture in the anterior ninth and 10th ribs cannot be excluded. Clinical correlation for tenderness in the area is advised. Vertebroplasty seen in L3. IMPRESSION: No acute cardiopulmonary pathology. Possible fracture in the anterior left ninth and 10th ribs. Clinical correlation advised. Reviewed, dictated and finalized at location A. IMPRESSION: No acute cardiopulmonary pathology. Possible fracture in the anterior left ninth and 10th ribs. Clinical correlatio n advised.
== END 2024-08-11 16:44 | disposition home or self-care (01) ==
LOC: ANHIMG 16:44
PROVIDERS: PCP Family Medicine; Visit Provider Physician Assistant
DX: R07.81 Pleurodynia (principal); Z91.81 History of falling
CPT/HCPCS: 71101

== ENCOUNTER 2024-08-18 14:05 | Outpatient (CLI) | payer OTHER, SELFPAY ==
--- NOTE | ~2024-08-18 | US_ITS ---
US arterial ankle brachial ind INDICATION: Peripheral vascular disease TECHNIQUE: Segmental pressures and plethysmographic and Doppler waveforms of the brachial and lower e xtremity arteries were obtained. COMPARISON: None. FINDINGS: Right and left brachial artery pressures of 128 mm Hg and 107 mm Hg, respectively, are concordant (no rmal difference <= 30 mmHg). The right ankle-brachial index (SONJA) is 1.1 (normal >= 0.9-1.0). The right great toe-brachial index ( TBI) is 0.48 (normal >= 0.60). The left SONJA is 0.98. The left TBI is 0.54. IMPRESSION: 1. Diminished bilateral toe brachial indices consistent with mild peripheral arterial disease. Reviewed, dictated and finalized at location B. IMPRESSION: 1. Diminished bilateral toe brachial indices consistent with mild peripheral ar terial disease.
--- NOTE | ~2024-08-18 | US_ITS ---
US arterial ankle brachial ind INDICATION: Peripheral vascular disease TECHNIQUE: Segmental pressures and plethysmographic and Doppler waveforms of the brachial and lower e xtremity arteries were obtained. COMPARISON: None. FINDINGS: Right and left brachial artery pressures of 128 mm Hg and 107 mm Hg, respectively, are concordant (no rmal difference <= 30 mmHg). The right ankle-brachial index (SONJA) is 1.1 (normal >= 0.9-1.0). The right great toe-brachial index ( TBI) is 0.48 (normal >= 0.60). The left SONJA is 0.98. The left TBI is 0.54. IMPRESSION: 1. Diminished bilateral toe brachial indices consistent with mild peripheral arterial disease. Reviewed, dictated and finalized at location B.
== END 2024-08-18 14:06 | disposition home or self-care (01) ==
PROVIDERS: PCP Family Medicine; Visit Provider Nurse Practitioner Family
DX: I73.9 Peripheral vascular disease, unspecified (principal)
CPT/HCPCS: 93922

== ENCOUNTER 2024-09-07 10:37 | Outpatient (CLI) | payer OTHER, SELFPAY ==
--- NOTE | ~2024-09-07 | XR_ITS ---
[id number] Ordering provider: Mor Mason PA-C History: . S22.32XA - Fracture of one rib, left side, initial encoun... . Comparison: None. FINDINGS: BONES: No acute left rib fracture or fracture of the visualized osseous structures. Vertebroplasty seen in L3. LEFT LUNG: No effusions or infiltrates. No pneumothorax. SOFT TISSUES: Normal. IMPRESSION: No left rib fracture. (Note: subtle/nondisplaced rib fractures can be occult on plain films and if t here is continued clinical suspicion for rib fracture, recommend follow up CT chest. Reviewed, dictated and finalized at location A. NESS TECHNOLOGY ANALYST IMPRESSION: No left rib fracture. (Note: subtle/nondisplaced rib fractures can be occult o n plain films and if there is continued clinical suspicion for rib fracture, re commend follow up CT chest.
== END 2024-09-07 10:38 | disposition home or self-care (01) ==
PROVIDERS: PCP Family Medicine; Visit Provider Physician Assistant
DX: S22.32XA Fracture of one rib, left side, initial encounter for closed fracture (principal); X58.XXXA Exposure to other specified factors, initial encounter
CPT/HCPCS: 71101

== ENCOUNTER 2024-10-11 08:10 | Emergency (ER) | payer OTHER, SELFPAY ==
[2024-10-11 08:24] VITALS: BP 145/75; PULSE 75; RESP 18; TEMP 36.1; O2SAT 100
--- NOTE | 2024-10-11 08:30 | ED_ITS ---
HPI - Eye Problem General Chief complaint: Eye Problems Stated complaint: left eye swollen shut ,discharge Time Seen by Provider: 10/11/24 08:31 Source: patient, RN notes reviewed and old records reviewed Mode of arrival: ambulatory Limitations: no limitations History of Present Illness HPI Narrative: Patient presents with complaints of left eye pain and drainage. She reports foreign body sensation a couple of days ago, by yesterday eye was painful, this morning awakened with eye matted shut. She cannot recall any particular injury or trauma. She denies any visual disturbance. She denies wearing contact lenses or using eye makeup. She voices no other concerns or complaints today. Related Data Home Medications ?Medication ?Instructions ?Recorded ?Confirmed ?Last Taken ?Type albuterol sulfate 90 mcg/actuation 1 inh inhalation PRN PRN wheezes 04/07/22 09/07/24 Unknown History aerosol inhaler gabapentin 300 mg capsule 300 mg PO HS 09/27/23 09/07/24 Unknown History metformin 500 mg tablet,extended 500 mg PO HS 08/03/24 09/07/24 Unknown History release 24 hr Allergies Allergy/AdvReac Type Severity Reaction Status Date / Time adhesive Allergy Mild Rash Verified 10/11/24 08:29 lisinopril AdvReac Cough Verified 10/11/24 08:29 Review of Systems Review of Systems: All systems reviewed & are unremarkable except as noted in HPI and below Constitutional: Constitutional: Reports no additional constitutional complaints Eyes: Eyes: Reports as per HPI, Reports irritation, Reports itchy eyes, Denies loss of vision and Reports eye pain ENT: Reports system reviewed and no additional complaints, except as documented Cardiovascular: Cardiovascular: Reports no additional cardiovascular complaints Respiratory: Respiratory: Reports no additional respiratory complaints Gastrointestinal: Gastrointestinal: Reports no additional gastrointestinal complaints [facility] Past Medical History Medical History PAD (peripheral artery disease) Diabetic retinopathy Diabetic neuropathy Hypertension Chronic headaches Hx of migraine headaches Asthma Seasonal allergies Colon cancer screening Essential hypertension Dyslipidemia Diabetes 1.5, managed as type 1 Surgical History Surgical History History of section H/O kyphoplasty 2017 History of carpal tunnel surgery 2017 Hx of appendectomy Family History Family History Sibling Diabetes mellitus Patient's sister is in good health Family history of hypercholesterolemia Hypertension Depression Family history of alcoholism Mother Family history of cardiovascular disease Osteoporosis Family history of hypercholesterolemia Hypertension Cerebrovascular accident Asthma Family history of chronic obstructive pulmonary disease Father Patient's father is in good health Family history of alcoholism Family history of chronic obstructive pulmonary disease Other Family history of anemia Family history of attention deficit hyperactivity disorder (ADHD) Family history of blood dyscrasia Family history of malignant neoplasm of breast Family history of osteoporosis Social History Social History Smoking status: Never smoker Alcohol intake: never Substance use: never Substance use type: does not use Do You Feel Safe in your Home?: Yes Lack of Transportation: No Lack of Food: Never True Current Housing: I Have Housing Concerned About Future Housing: No Difficulty Paying Gas/Electric Bills: No Difficulty Paying for Meds: No Currently Unemployed: No Education: Trade/Vocational Certificate Difficulty w/ Childcare or Family Care: No Living arrangements: alone Occupation/Education: occupation Gender identity (if verbalized by the patient): Female Sexual Orientation (if Verbalized by the Patient): Straight or Heterosexual Spiritual care concerns: No Comments At the time of my signature, I reviewed and agree with the nursing past medi to, surgical, social, and family history. There is no relevant family history pertinent to the patient complaint. Exam Const: General: cooperative, no acute distress, alert and awake Orientation/consciousness: oriented to person, oriented to place and oriented to time HENMT: Head: normal to inspection Eyes: Alignment and Position: alignment normal and position normal Periorbital: periorbital findings normal Eyelids: eyelid abnormality right upper eyelid lid margins crusty/scaly and tenderness Conjunctivae: conjunctival abnormality left conjunctival injection and discharge Sclera: scleral abnormality left scleral injection Cornea: corneas normal and fluorescein used EOM: EOMs intact bilaterally Resp: Effort & Inspection: normal respiratory effort and able to speak in complete sentences Auscultation: clear to auscultation bilaterally, no crackles, no rales, no rhonchi and no wheezes Cardio: Palpation: normal PMI Rate: regular rate Rhythm: regular rhythm Heart sounds: S1 normal heart sound present and S2 normal heart sound present Neuro: General: oriented to person, oriented to place and oriented to time Cranial nerves: Yes CN's II-XII intact bilaterally Psych: Appearance: grossly normal Thought process: Normal thought process present Insight: Good insight present (Psych) Judgement: Good judgement present (Psych) Course Course Level of Care: Express Care Visit Vital Signs Vital signs: Reviewed MDM - Eye Problem MDM Narrative Medical decision making narrative: No foreign body or corneal abrasion noted. Treat as conjunctivitis. Patient to follow with counter professional, emergency department for new or worse symptoms. Discharge instructions reviewed with patient, as well as provided in writing per nursing staff. The instructions also include specific and strict return/GO TO THE ER as well as f/u information. All questions have been answered, and the patient deny any further questions wi th discharge and discharge plan. Some parts of this dictation were generated by voice recognition software and may contain typographical and/or grammatical inaccuracies. Differential Diagnosis Differential diagnosis: Likely corneal abrasion, conjunctivitis and periorbital cellulitis Medical Records Attestation: I reviewed the patient's medical records. Discharge Plan Discharge Clinical Impression: Conjunctivitis Qualifiers: Conjunctivitis type: acute Acute conjunctivitis type: bacterial Laterality: left Qualified Code(s): H10.32 - Unspecified acute conjunctivitis, left eye Patient Disposition: Home, Self-Care Condition: Stable Instructions: Antibiotic Form, Conjunctivitis (ED) Additional Instructions: Use medications as prescribed. Follow-up with counter professional. Emergency department for new or worse symptoms. Avoid contact lenses and eye makeup Patient Language: [place] Prescriptions: New tobramycin 0.3 % drops 1 drp LEFT EYE Q4H Qty: 5 0RF No Action albuterol sulfate 90 mcg/actuation HFA aerosol inhaler 1 inh INHALATION PRN PRN (Reason: wheezes) gabapentin 300 mg capsule 300 mg PO HS (DME) FreeStyle Fran 3 Plus Sensor Device See Rx Instructions .ROUTE .MEDSUPPLY Qty: 6 2RF Rx Instructions: Use to monitor glucose Mounjaro 5 mg/0.5 mL pen injector 5 mg subcut WEEKLY Qty: 6 1RF insulin glargine [Lantus Solostar U-100 Insulin] 100 unit/mL (3 mL) insulin pen 40 unit subcut QAM Qty: 45 1RF (DME) pen needle, diabetic [BD Ultra-Fine Mini Pen Needle] 31 gauge x 3/16 needle See Rx Instructions .Route Qty: 400 1RF Rx Instructions: Use to administer insulin 4 times a day (DME) insulin syringe-needle U-100 [BD Insulin Syringe] 1 mL 28 gauge x 1/2 syringe See Rx Instructions .Route Qty: 100 0RF Rx Instructions: As directed nystatin-triamcinolone 100,000-0.1 unit/g-% cream 1 applic topical BID Qty: 60 1RF Rx Instructions: apply a thin layer to affected areas twice daily as needed. (abdomen and vaginal area) insulin lispro [Humalog KwikPen Insulin] 100 unit/mL insulin pen 10 unit subcut TIDWMEAL MDD 70 Qty: 45 1RF Rx Instructions: Take 10 units three times a day before meals + Sliding Scale insulin 150-200: 2 units 201-250: 4 units 251-300: 6 units 301-350: 8 units 351-400: 10 units > 401 12 units metformin 500 mg tablet extended release 24 hr 500 mg PO HS (DME) Blood Glucose Test Strip See Rx Instructions .Route Qty: 300 2RF Rx Instructions: Check glucose 3-4 times a day before meals (DME) blood-glucose meter Kit See Rx Instructions .Route Qty: 1 0RF Rx Instructions: Use before meals mupirocin 2 % ointment 1 applic topical TID Qty: 15 0RF Rx Instructions: Apply to right 3rd toe. fenofibrate 160 mg tablet 160 mg PO DAILY Qty: 30 2RF rosuvastatin 40 mg tablet 40 mg PO DAILY Qty: 30 2RF losartan 25 mg tablet 25 mg PO DAILY Qty: 30 5RF Follow-up/Referrals: Jonel Mercer MD [Primary Care Provider] - 1 Week Stand Alone Forms: Work/School Release IP Time of Disposition: 08:55
[2024-10-11] MEDS: FLUORESCEIN SOD 1 MG/STRIP AFFCTD EYE (08:35)
[2024-10-11] MEDS: TETRACAINE HCL 0.5% OPHTH SOLN 4 ML BTL AFFCTD EYE (08:35)
[2024-10-11] MEDS: DACRIOSE EYE IRRIGATION 118 ML BOTTLE AFFCTD EYE (08:35)
== END 2024-10-11 09:00 | disposition home or self-care (01) ==
PROVIDERS: Emergency Provider Nurse Practitioner Family; PCP Family Medicine
DX: H10.32 Unspecified acute conjunctivitis, left eye (principal); E13.40 Other specified diabetes mellitus with diabetic neuropathy, unspecified; E13.319 Other specified diabetes mellitus with unspecified diabetic retinopathy without macular edema; E13.51 Other specified diabetes mellitus with diabetic peripheral angiopathy without gangrene; Z79.84 Long term (current) use of oral hypoglycemic drugs; I10 Essential (primary) hypertension; J45.909 Unspecified asthma, uncomplicated; E78.5 Hyperlipidemia, unspecified
CPT/HCPCS: 99213; A9270; G0463

== ENCOUNTER 2024-12-15 08:43 | Emergency (ER) | payer OTHER, SELFPAY ==
--- NOTE | 2024-12-15 08:53 | ED.HA ---
HPI - Headache General Chief Complaint: Headache Stated Complaint: left eye painful, migraine Time Seen by Provider: 12/15/24 08:53 Source: patient, RN notes reviewed and old records reviewed Mode of arrival: ambulatory Limitations: no limitations History of Present Illness HPI Narrative: Patient presents with complaints of left-sided headache/eye pain. She reports that pain was present upon awakening this morning. She denies any injury or trauma. She took Tylenol with minimal relief. She denies any associated nausea or fevers. Related Data Home Medications ?Medication ?Instructions ?Recorded ?Confirmed ?Last Taken ?Type albuterol sulfate 90 mcg/actuation 1 inh inhalation PRN PRN wheezes 04/07/22 12/15/24 Unknown History aerosol inhaler gabapentin 300 mg capsule 300 mg PO HS 09/27/23 12/15/24 Unknown History metformin 500 mg tablet,extended 500 mg PO HS 08/03/24 12/15/24 Unknown History release 24 hr Allergies Allergy/AdvReac Type Severity Reaction Status Date / Time adhesive Allergy Mild Rash Verified 12/15/24 08:49 lisinopril AdvReac Cough Verified 12/15/24 08:49 Review of Systems Review of Systems: All systems reviewed & are unremarkable except as noted in HPI and below Constitutional: Constitutional: Reports no additional constitutional complaints and Reports headache(s) Eyes: Eyes: Denies eye discharge, Denies floaters, Denies irritation, Denies loss of peripheral vision, Denies loss of vision, Reports eye pain (Left), Denies seeing flashes, Reports photophobia, Denies spots in vision and Denies tunnel vision ENT: Reports system reviewed and no additional complaints, except as documented Cardiovascular: Cardiovascular: Reports no additional cardiovascular complaints Respiratory: Respiratory: Reports no additional respiratory complaints Gastrointestinal: Gastrointestinal: Reports no additional gastrointestinal complaints [facility] Past Medical History Medical History PAD (peripheral artery disease) Diabetic retinopathy Diabetic neuropathy Hypertension Chronic headaches Hx of migraine headaches Asthma Seasonal allergies Colon cancer screening Essential hypertension Dyslipidemia Diabetes 1.5, managed as type 1 Surgical History Surgical History History of section H/O kyphoplasty 2017 History of carpal tunnel surgery 2017 Hx of appendectomy Family History Family History Sibling Diabetes mellitus Patient's sister is in good health Family history of hypercholesterolemia Hypertension Depression Family history of alcoholism Mother Family history of cardiovascular disease Osteoporosis Family history of hypercholesterolemia Hypertension Cerebrovascular accident Asthma Family history of chronic obstructive pulmonary disease Father Patient's father is in good health Family history of alcoholism Family history of chronic obstructive pulmonary disease Other Family history of anemia Family history of attention deficit hyperactivity disorder (ADHD) Family history of blood dyscrasia Family history of malignant neoplasm of breast Family history of osteoporosis Social History Social History Smoking status: Never smoker Alcohol intake: never Substance use: never Substance use type: does not use Do You Feel Safe in your Home?: Yes Lack of Transportation: No Lack of Food: Never True Current Housing: I Have Housing Concerned About Future Housing: No Difficulty Paying Gas/Electric Bills: No Difficulty Paying for Meds: No Currently Unemployed: No Education: Trade/Vocational Certificate Difficulty w/ Childcare or Family Care: No Living arrangements: alone Occupation/Education: occupation Gender identity (if verbalized by the patient): Female Sexual Orientation (if Verbalized by the Patient): Straight or Heterosexual Spiritual care concerns: No Comments At the time of my signature, I reviewed and agree with the nursing past medical, surgical, social, and family history. There is no relevant family history pertinent to the patient complaint. Exam Const: General: cooperative, no acute distress, alert and awake Orientation/consciousness: oriented to person, oriented to place and oriented to time HENMT: Head: normal to inspection Ears: TM's normal bilaterally Mouth: Yes moist mucous membranes Throat: posterior oropharynx normal Eyes: Alignment and Position: alignment normal, position normal and alignment abnormal Periorbital: periorbital findings normal Eyelids: eyelids normal Conjunctivae: conjunctivae normal Sclera: scleral abnormality left scleral injection Resp: Effort & Inspection: normal respiratory effort and able to speak in complete sentences Auscultation: clear to auscultation bilaterally, no crackles, no rales, no rhonchi and no wheezes Cardio: Palpation: normal PMI Rate: regular rate Rhythm: regular rhythm Heart sounds: S1 normal heart sound present and S2 normal heart sound present Neuro: General: oriented to person, oriented to place and oriented to time Cranial nerves: Yes CN's II-XII intact bilaterally Psych: Appearance: grossly normal Thought process: Normal thought process present Insight: Good insight present (Psych) Judgement: Good judgement present (Psych) Course Course Level of Care: Express Care Visit Vital Signs Vital signs: Reviewed MDM - Headache MDM Narrative Medical decision making narrative: Patient with stated history of kidney problems, therefore unable to give NSAIDs. She denies any nausea, no need for antiemetics. She is advised to rest, drink plenty of fluids. Follow up without fail. Emergency department precautions discussed length. Next para Discharge instructions reviewed with patient, as well as provided in writing per nursing staff. The instructions also include specific and strict return/GO TO THE ER as well as f/u information. All questions have been answered, and the patient deny any further questions with discharge and discharge plan. Some parts of this dictation were generated by voice recognition software and may contain typographical and/or grammatical inaccuracies. Differential Diagnosis Differential diagnosis: Likely migraine, tension headache and headache Medical Records Attestation: I reviewed the patient's medical records. Discharge Plan Discharge Clinical Impression: Headache Qualifiers: Headache type: unspecified Headache chronicity pattern: acute headache Intractability: not intractable Qualified Code(s): R51.9 - Headache, unspecified Patient Disposition: Home, Self-Care Condition: Stable Instructions: Antibiotic Form, Acute Headache (ED) Additional Instructions: Follow-up with primary care provider. Emergency department for new or worse symptoms Patient Language: Citizen Of [place] Prescriptions: No Action albuterol sulfate 90 mcg/actuation HFA aerosol inhaler 1 inh INHALATION PRN PRN (Reason: wheezes) gabapentin 300 mg capsule 300 mg PO HS tobramycin 0.3 % drops 1 drp LEFT EYE Q4H Qty: 5 0RF (DME) FreeStyle Fran 3 Plus Sensor Device See Rx Instructions .ROUTE .MEDSUPPLY Qty: 6 2RF Rx Instructions: Use to monitor glucose Mounjaro 5 mg/0.5 mL pen injector 5 mg subcut WEEKLY Qty: 6 1RF insulin glargine [Lantus Solostar U-100 Insulin] 100 unit/mL (3 mL) insulin pen 40 unit subcut QAM Qty: 45 1RF (DME) pen needle, diabetic [BD Ultra-Fine Mini Pen Needle] 31 gauge x 3/16 needle See Rx Instructions .Route Qty: 400 1RF Rx Instructions: Use to administer insulin 4 times a day (DME) insulin syringe-needle U-100 [BD Insulin Syringe] 1 mL 28 gauge x 1/2 syringe See Rx Instructions .Route Qty: 100 0RF Rx Instructions: As directed nystatin-triamcinolone 100,000-0.1 unit/g-% cream 1 applic topical BID Qty: 60 1RF Rx Instructions: apply a thin layer to affected areas twice daily as needed. (abdomen and vaginal area) insulin lispro [Humalog KwikPen Insulin] 100 unit/mL insulin pen 10 unit subcut TIDWMEAL MDD 70 Qty: 45 1RF Rx Instructions: Take 10 units three times a day before meals + Sliding Scale insulin 150-200: 2 units 201-250: 4 units 251-300: 6 units 301-350: 8 units 351-400: 10 units > 401 12 units metformin 500 mg tablet extended release 24 hr 500 mg PO HS (DME) Blood Glucose Test Strip See Rx Instructions .Route Qty: 300 2RF Rx Instructions: Check glucose 3-4 times a day before meals (DME) blood-glucose meter Kit See Rx Instructions .Route Qty: 1 0RF Rx Instructions: Use before meals mupirocin 2 % ointment 1 applic topical TID Qty: 15 0RF Rx Instructions: Apply to right 3rd toe. fenofibrate 160 mg tablet 160 mg PO DAILY Qty: 30 2RF rosuvastatin 40 mg tablet 40 mg PO DAILY Qty: 30 2RF losartan 25 mg tablet 25 mg PO DAILY Qty: 30 5RF Follow-up/Referrals: Jonel Mercer MD [Primary Care Provider] - 3 Days Stand Alone Forms: Work/School Release IP Time of Disposition: 09:26
[2024-12-15 08:56] VITALS: BP 151/86; PULSE 80; RESP 16; TEMP 35.9; O2SAT 99
== END 2024-12-15 09:29 | disposition home or self-care (01) ==
PROVIDERS: Emergency Provider Nurse Practitioner Family; PCP Family Medicine
DX: R51.9 Headache, unspecified (principal); I10 Essential (primary) hypertension; E13.51 Other specified diabetes mellitus with diabetic peripheral angiopathy without gangrene; E13.319 Other specified diabetes mellitus with unspecified diabetic retinopathy without macular edema; E13.40 Other specified diabetes mellitus with diabetic neuropathy, unspecified; Z79.84 Long term (current) use of oral hypoglycemic drugs; Z79.4 Long term (current) use of insulin; E78.5 Hyperlipidemia, unspecified; J45.909 Unspecified asthma, uncomplicated
CPT/HCPCS: 99213; G0463

== ENCOUNTER 2024-12-21 13:37 | Outpatient (CLI) | payer OTHER, SELFPAY ==
--- OUTSIDE RECORDS SUMMARY | 2024-12-21 13:42 | XMS_ITS | Referral Summary ---
Author Organization [facility] Office Center Address [address] [place] [address] Care Team Providers Care Search Optimization Analyst Name Role Phone Toribio Ocasio MD Unavailable [phone] Jonel Mercer MD Primary Care Provider Allergies Active Allergy Reactions Criticality Noted Date Comments Adhesive Rash Medium 01/10/2021 Adhesive Tape-Silicones Unknown 04/08/2018 Lisinopril Cough Low 11/12/2021 Metformin Diarrhea Low 04/23/2021 Medications OneTouch Delica Plus Lancet 33 gauge misc USE 1 TO CHECK GLUCOSE TWICE DAILY 04/24/20 21 Active losartan (COZAAR) 25 mg tablet Take 1 tablet (25 mg total) by mouth daily for 30 days 01/18/20 22 Active metFORMIN XR (GLUCOPHAGE XR) 500 mg 24 hr tablet Take 1 tablet (500 mg total) by mouth 2 (two) times a day PT TAKES ONCE DAILY Active insulin syringe-needle U-100 1 mL 31 gauge x 5/16 syringe Use as directed 4 times daily 200 each 3 02/12/20 22 Active TRUEplus Pen Needle 31 gauge x 5/16 needle USE 1 ONCE DAILY 04/08/20 22 Active furosemide (LASIX) 20 mg tablet Take 1 tablet (20 mg total) by mouth daily 90 tablet 1 10/08/20 22 Active albuterol HFA (Proventil HFA) 90 mcg/actuation inhaler Inhale 2 puffs every 4 (four) hours as needed for wheezing or shortness of breath 1 each 3 10/20/20 Active Dexcom G6 Motion Picture Projectionist Apprentice misc 10/08/20 Active diphenhydrAMINE (BENADRYL) 25 mg capsule every 4 hours Active ALPRAZolam (XANAX) 0.25 mg tablet Take 1 tablet (0.25 mg total) by mouth 2 (two) times a day as needed for anxiety 20 tablet 04/22/20 Active Additional Information Patient not taking.Reported on 09/08/2024 rosuvastatin (CRESTOR) 40 mg tablet Take 1 tablet (40 mg total) by mouth daily 30 tablet 5 05/08/20 Active insulin lispro (HumaLOG) 100 unit/mL vial for injection Use up to 50mL per day via insulin pump 50 mL 3 06/15/20 Active Dexcom G6 Sensor device 06/13/20 Active Dexcom G6 Transmitter device 06/13/20 Active insulin glargine (LANTUS) 100 unit/mL (3 mL) pen for injectionIndications :Type 2 diabetes mellitus with both eyes affected by mild nonproliferative retinopathy without macular edema, with long-term current use of insulin (HCC) Inject 30 Units under the skin 2 (two) times a day 30 mL 11 08/31/20 Active gabapentin (NEURONTIN) 300 mg capsuleIndications:D iabetic Peripheral Neuropathy Take 1 capsule (300 mg total) by mouth 3 (three) times a day 90 capsule 11 08/31/20 Active budesonide-formotero L (Symbicort) 160-4.5 mcg/actuation inhalerIndications:M ild intermittent asthma without complication Inhale 2 puffs 2 (two) times a day Rinse mouth with water after use. Do not swallow. 3 each 11 09/10/20 Active fluticasone propionate (FLONASE) 50 mcg/actuation nasal sprayIndications:All ergic rhinitis, unspecified seasonality, unspecified trigger Administer 2 sprays into each nostril daily 3 each 4 09/10/20 Active Additional Information Patient not taking.Reported on 09/08/2024 azelastine (OPTIVAR) 0.05 % ophthalmic solution INSTILL 1 DROP TWICE DAILY FOR 7 DAYS 09/27/20 Active guaiFENesin-codeine (GUAITUSS AC) liquid 100-10 mg/5 mL Take 5-10 mL by mouth every 4 (four) hours as needed for cough 120 mL 09/30/20 Active Additional Information Patient not taking.Reported on 09/08/2024 dapagliflozin propanediol (FARXIGA) 10 mg tablet Take 1 tablet (10 mg total) by mouth daily 90 tablet 10/06/20 Active Additional Information Patient not taking.Reported on 09/08/2024 fluconazole (DIFLUCAN) 150 mg tabletIndications:va ginal yeast infection Take 1 tablet (150 mg total) by mouth daily Take one tab now. Repeat in 7 days if symptoms persist. 2 tablet 10/15/20 Active Additional Information Patient not taking.Reported on 09/08/2024 fenofibrate (TRIGLIDE) 160 mg tabletIndications:Hy perlipidemia due to type 2 diabetes mellitus (HCC) Take 1 tablet (160 mg total) by mouth nightly 90 tablet 3 10/19/20 Active Mounjaro 5 mg/0.5 mL pen injector 09/07/20 Active Active Problems Problem Noted Date Diagnosed Date Peripheral vascular disease, unspecified 024 Assessment & Plan (10/04/2024 10:54 AM DEICER INSPECTOR ELECTRIC): Patient asymptomatic. Noninvasive studies were normal as was her exam. No further workup needed follow up PRN. Diabetic polyneuropathy asso ciated with type 2 diabetes mellitus ([facility]/HCC) 12/17/2023 Pharyngitis 10/15/2023 Assessment & Plan (10/15/2023 5:00 PM DEICER INSPECTOR ELECTRIC): Point of care strep swab negative. However patients are overwhelmingly concerning for strep given her recent infection we will treat patient with Ceftin 250 mg b.i.d. x7 days. Patient is advised to change her toothbrush after 48 hours of starting the antibiotic. Vaginal yeast infection 10/15/2023 Assessment & Plan (10/15/2023 4:59 PM DEICER INSPECTOR ELECTRIC): Patient complains of vaginal yeast infections secondary to the amount of antibiotics that she is taken in the past 2 weeks. Diflucan ordered. Strep throat 09/30/2023 Allergic rhinitis 09/10/2023 Assessment & Plan (09/10/2023 5:02 PM DEICER INSPECTOR ELECTRIC): Flonase and Zyrtec as needed BMI 33.0-33.9,adult 09/10/2023 Assessment & Plan (09/10/2023 5:02 PM DEICER INSPECTOR ELECTRIC): Discussed the patient's BMI. The BMI is above average. BMI management plan is completed. BMI Follow-up includes: nutrition counseling, exercise counseling and education provided. Hypertension associated with type 2 diabetes erna litus 08/31/2023 Assessment & Plan (09/10/2023 4:58 PM DEICER INSPECTOR ELECTRIC): Blood pressure well controlled. Refills sent to patients requested pharmacy. Discussed medications desired effects, potential side effects, and how to administer the medication. Non Pharmacological interventions such as low salt, cardiac diet discussed. Educated on stress reduction and physical activity. Discussed signs and symptoms of major cardiovascular event and need to present to the ED. Follow up in 4 months or sooner if needed. Patient verbalizes understanding regarding plan of care and all questions answered. Assessment & Plan (08/31/2023 1:52 PM CDT): Chronic problem. Controlled on current taking losartan 25mg daily. Will update labs at [facility]. Verified that she uses mychart. Aware to check results/results letter in [facility]. Will contact by phone if needed. Hyperlipidemia due to type 2 diabetes mellitus 1 Assessment & Plan (10/04/2024 10:54 AM DEICER INSPECTOR ELECTRIC): Hyperlipidemia chronic controlled. Continue current medical management. Assessment & Plan (08/31/2023 1:52 PM CDT): Chronic problem. Currently taking Rosuvastatin 40mg & fenofibrate 160mg. Last lipid panel: 06/13/22 LDL=94, TI=440. Will update labs at [facility]. Verified that she uses mychart. Aware to check results/results letter in [facility]. Will contact by phone if needed. Postmenopausal osteoporosis 01/06/2023 Assessment & Plan (01/06/2023 9:55 AM DEICER INSPECTOR ELECTRIC): Patient was diagnosed with osteoporosis by her mri special procedures technologist and she was started on Fosamax but she stopped taking the medication on her own. I recommended that she resumes Fosamax with calcium and vitamin-D. She said that she has an appointment with her mri special procedures technologist and she will discuss that with her. Angina pectoris 12/16/2022 Atopic dermatitis 12/16/2022 Cyst of pancreas 12/16/2022 Diabetic neuropathy 12/16/2022 Assessment & Plan (09/10/2023 5:01 PM DEICER INSPECTOR ELECTRIC): Patient recently started on gabapentin 300 mg t.I.d. advised patient on risk factors of diabetic neuropathy including diabetic foot ulcers. Patient is advised that she should check her feet nightly and not go barefoot. Assessment & Plan (08/31/2023 1:48 PM CDT): Chronic problem. Will trial gabapentin 300mg. Will start 300mg qhs & titrate up to bid x 4-5 days if needed. Can move to tid if needed also. Reviewed med SE & scheduling. Aware to check feet nightly. Aware to not go barefoot. Assessment & Plan (05/08/2023 7:40 AM CDT): Patient is followed by the technical services manager. Continue to see the slurry plant operator on yearly basis. Encouraged diet and exercise and weight loss. Hepatomegaly 12/16/2022 Nausea, vomiting and diarrhea 12/16/2022 Obesity 12/16/2022 Strain of tendon of back 12/16/2022 Vitamin D deficiency 12/16/2022 Bilateral leg edema 10/08/2022 Assessment & Plan (01/06/2023 9:54 AM DEICER INSPECTOR ELECTRIC): No leg edema Assessment & Plan (10/08/2022 4:41 PM DEICER INSPECTOR ELECTRIC): Leg edema most likely secondary to prolonged sitting. I told her to ambulate. Will start her on Lasix 20 mg p.r.n.. Call for persistent symptoms. Colon cancer screening 10/08/2022 Assessment & Plan (10/08/2022 4:41 PM DEICER INSPECTOR ELECTRIC): Patient had referral for colonoscopy but she did not have it done yet. Advised to call the log manager office and proceed with the test she understands the risks including cancer Carpal tunnel syndrome on right 12/13/2021 Overview (12/13/2021): Added automatically from request for surgery [id number] Right elbow pain 11/12/2021 Assessment & Plan (11/12/2021 9:48 AM DEICER INSPECTOR ELECTRIC): Patient with right elbow pain specially when she uses her right hand. We will obtain nerve conduction study to rule out carpal tunnel syndrome. She was advised to wear an elbow brace. We will call her for meloxicam 15 mg daily for 2 weeks. She will call for persistent symptoms BERT (obstructive sleep apnea) 11/12/2021 Assessment & Plan (09/10/2023 4:59 PM DEICER INSPECTOR ELECTRIC): Patient uses CPAP and is compliant with her machine. Assessment & Plan (02/11/2022 9:50 AM CDT): Patient uses CPAP machine on regular basis Assessment & Plan (11/12/2021 9:48 AM DEICER INSPECTOR ELECTRIC): Patient was diagnosed recently with sleep apnea and she has an appointment with the sleep specialist for CPAP machine Lymphadenitis 09/24/2021 Assessment & Plan (09/24/2021 12:53 PM DEICER INSPECTOR ELECTRIC): Patient has lymphadenitis. She will be started on Augmentin 875 mg twice daily for 10 days with food and side effects were explained and she will call us if it is not resolved so that we can arrange for her to see a surgeon for excision Hypersomnia 09/12/2021 Anxiety 09/12/2021 Assessment & Plan (09/10/2023 5:02 PM DEICER INSPECTOR ELECTRIC): Patient denies any anxiety symptoms at this time. Palpitation 09/12/2021 Nonsmoker 09/12/2021 Overweight 09/12/2021 Cough 07/30/2021 Assessment & Plan (09/10/2023 5:02 PM DEICER INSPECTOR ELECTRIC): Patient has persistent cough productive of clear mucus with no shortness breath or wheezing or chest pain. She is advised to restart her Symbicort Assessment & Plan (07/30/2021 9:33 AM CDT): Patient has persistent cough productive of clear mucus with no shortness breath or wheezing or chest pain. We will stop lisinopril. She will continue Symbicort. Will make a referral to see pie icer machine for further evaluation. Acute bronchitis 07/02/2021 Assessment & Plan (09/30/2023 5:15 PM DEICER INSPECTOR ELECTRIC): Patient with acute bronchitis. She is on Augmentin for total of 10 days. Will obtain chest x-ray. Will start her on Robitussin AC for severe coughing and Medrol Dosepak. She will continue her inhalers. Patient will stay off work for few days. COVID and influenza test were negative. Patient to call or come back for persistent symptoms. Assessment & Plan (07/02/2021 11:14 AM CDT): Patient with symptoms of bronchitis. Will start her on Medrol Dosepak. She will be started on QVAR 80 mcg 2 puffs twice daily and she was advised to rinse her mouth after each use. 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 Will evaluate her again with her next appointment in few weeks and she will call or go to the ER if she has persistent symptoms. 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 A1c uncontrolled & worsened from 6.9% to now 9.3%. has not been wearing pump nor dexcom d/t skin irritation (flonase & skin tac). Discussed need to take long-acting Lantus when she's not on her pump. Refill sent in. Aware to stop lantus 24 hr before restarting pump. Current medications: Metformin 500mg twice daily (cannot tolerate higher dose) Farxiga 10mg daily Trulicity 4.5mg weekly Lantus 30 units twice daily -- has not been using since off pump. Humalog 4 units before each meal (3 times daily) Sliding scale: If blood sugar is between 151-200: take 5 units. If blood sugar is between 201-250: take 6 units. If blood sugar is between 251-300: take 7 units. If blood sugar is over 301: take 8 units. To try flonase spray to skin and/or skin tac for skin irritation from adhesive from Dexcom & Tandem pump. To call/send [facility] message if not helping. Apply the dexcom 1st to see if the above products will help prevent the skin irritation. Will update labs. Verified that she uses mychart. Aware to check results/results letter in [facility]. Will contact by phone if needed. DM eye exam q6wks at [facility] for laser tx & injections. Will send letter to get copy of report from [place] office. Strive for regular exercise (30min most days) and diet (get at least 4-5 servings of fruit and veggies daily, avoid processed foods, increase lean protein intake and decrease carb portions as well as fruit juices, regular soda & desserts). Watch carbs and simple sugars. Check the blood sugar dexcom. To check BS 3-4x/day if not wearing Dexcom. Check the feet daily for skin breakdown and infection. Assessment & Plan (05/21/2023 3:53 PM CDT): Hba1c was Lab Results Component Value Date HGBA1C 6.9 05/21/2023 today, indicating adequate DM control, but with hypo and hyperglycemia Goal Hba1c < 7 and blood glucose 110-150 was explained Diet and exercise were advised Prevention and treatment of hyypoglcyemia were discussed with the patient Blood glucose monitoring : DEXCOM Adjustment to medications: Take Lantus 30 units at bedtime Stop Glimepiride Take Humalog, 4 units before each ( presuming your eating 2-3 carbs per meal ) For sugars over 150, take 5 units Over 200, take 6 units Over 250, take 7 units Over 300, take 8 units Stay on Farxiga and Metformin Will start process to restart insulin pump with a T slim Assessment & Plan (05/08/2023 7:41 AM CDT): Followed by the slurry plant operator Assessment & Plan (01/06/2023 8:35 AM DEICER INSPECTOR ELECTRIC): Managed by the technical services manager. Continue to have annual eye exam Assessment & Plan (10/08/2022 4:40 PM DEICER INSPECTOR ELECTRIC): Managed by the technical services manager advised to have annual eye exam Assessment & Plan (04/16/2022 8:25 AM CDT): Continue current medications, discussed low carbohydrate diet, advised to exercise on regular basis, advised to have annual eye exam. We will continue to monitor. Followed by the technical services manager Assessment & Plan (02/11/2022 9:50 AM CDT): Follow with the technical services manager and slurry plant operator. Discussed weight loss and diet. Assessment & Plan (11/12/2021 9:48 AM DEICER INSPECTOR ELECTRIC): Patient is not compliant with medications. She said that she was out of her medications for about a month because she moved from her previous house. We discussed the importance of compliance. She understands risks of diabetes including but not limited to CAD and CVA and retinopathy and chronic kidney disease etc.. Discussed the importance of taking the medications as prescribed. We discussed diet. We discussed weight loss. Advised to call us with Accu-Chek readings in 1 week to adjust the dose of her medication. Assessment & Plan (07/30/2021 9:33 AM CDT): Blood sugar improved but continued to be elevated. Her fasting blood sugar in average runs around 160-200. We will increase Lantus to 40 units b.i.d., she takes insulin lispro 20 units before each meal. She takes samples of Farxiga 5 mg daily from her doctor's office. Advised to have annual eye exam. She will call Accu-Chek readings. Will repeat A1c before next visit. Assessment & Plan (07/02/2021 11:14 AM CDT): Increase Lantus to 35 units twice daily and advised to take lispro insulin 14 units before each meal Assessment & Plan (04/23/2021 10:22 AM CDT): Blood sugar is not controlled. We discussed the importance of diet and exercise. Patient was seen by a nuclear pharmacist in the past. Will increase Lantus to 28 units twice daily and increase lispro to 14 units before each meal. Patient will be started on 4 Farxiga 10 mg daily and side effects were explained . She will call us with Accu-Chek readings in 1 week. Advised to have annual eye exam. Assessment & Plan (02/12/2021 8:20 AM CDT): Blood sugar is not controlled. We will start her on lispro 10 units before each meal. Continue Lantus. Continue diet. She was seen by the slurry plant operator. She will check her sugar 3 times daily and call us with readings in 1 week. Assessment & Plan (01/10/2021 4:30 PM DEICER INSPECTOR ELECTRIC): Patient will start on Lantus 45 units daily. Will obtain Accu-Chek machine and she was advised to check her sugar twice daily and call us with readings patient said that she had an eye exam recently and she was told to have mild retinopathy and she has an appointment to see a retina specialist. Hypertension, essential 01/10/2021 Assessment & Plan (05/08/2023 7:41 AM CDT): Continue current medications. Discussed low-salt diet. Discussed exercise on regular basis. Will continue to monitor Assessment & Plan (01/06/2023 8:35 AM DEICER INSPECTOR ELECTRIC): Continue current medications. Discussed low-salt diet. Discussed exercise on regular basis. Will continue to monitor Assessment & Plan (10/08/2022 4:40 PM DEICER INSPECTOR ELECTRIC): Continue current medications. Discussed low-salt diet. Discussed exercise on regular basis. Will continue to monitor Assessment & Plan (02/11/2022 9:50 AM CDT): Continue current medications. Discussed low-salt diet. Discussed exercise on regular basis. Will continue to monitor Assessment & Plan (11/12/2021 9:49 AM DEICER INSPECTOR ELECTRIC): Continue current medications. Discussed low-salt diet. Discussed exercise on regular basis. Will continue to monitor Assessment & Plan (07/30/2021 9:33 AM CDT): Will stop lisinopril because of cough. We will start her on Norvasc 10 mg daily Assessment & Plan (04/23/2021 10:21 AM CDT): Continue current medications. Discussed low-salt diet. Discussed exercise on regular basis. Will continue to monitor Assessment & Plan (02/12/2021 8:20 AM CDT): Continue current medications. Discussed low-salt diet. Discussed exercise on regular basis. Will continue to monitor Assessment & Plan (01/10/2021 4:30 PM DEICER INSPECTOR ELECTRIC): Start lisinopril 20 mg daily and we discussed low-salt diet Dyslipidemia 01/10/2021 Assessment & Plan (09/10/2023 5:00 PM DEICER INSPECTOR ELECTRIC): Patient is maintained on Crestor 40 mg tablets and fenofibrate 160 mg we will continue this regimen Assessment & Plan (05/08/2023 8:57 AM CDT): LDL is 113. Increase Crestor to 40 mg q.h.s.. Continue low-fat diet. Assessment & Plan (01/06/2023 8:35 AM DEICER INSPECTOR ELECTRIC): Controlled on current medications. Continue low-fat diet. Will continue to monitor . Assessment & Plan (10/08/2022 4:40 PM DEICER INSPECTOR ELECTRIC): Controlled on current medications. Continue low-fat diet. Will continue to monitor . Assessment & Plan (04/16/2022 8:25 AM CDT): Controlled on current medications. Continue low-fat diet. Will continue to monitor . Assessment & Plan (02/11/2022 9:50 AM CDT): Stop atorvastatin and start Crestor 20 mg q.h.s. for better control of hyperlipidemia. Continue low-fat diet Assessment & Plan (11/12/2021 9:49 AM DEICER INSPECTOR ELECTRIC): Resume medications and we discussed the importance of diet and exercise and compliance and risks of hyperlipidemia discussed with the patient Assessment & Plan (07/30/2021 9:33 AM CDT): Controlled on current medications. Continue low-fat diet. Will continue to monitor . Assessment & Plan (04/23/2021 10:21 AM CDT): Patient will be started on fenofibrate 160 mg q.h.s. for better control of hyperlipidemia and we discussed the importance of diet. We discussed complications of high triglyceride including pancreatitis Assessment & Plan (02/12/2021 8:20 AM CDT): Continue Crestor and low-fat diet and repeat blood work in few months Assessment & Plan (01/10/2021 4:30 PM DEICER INSPECTOR ELECTRIC): Start Lipitor 10 mg q.h.s. and discussed low-fat diet and pamphlets were given Pneumonia due to COVID-19 virus 11/28/2020 Microalbuminuria 05/29/2019 Coronary arteriosclerosis 05/24/2019 Gastroesophageal reflux disease without esophagi tis 05/24/2019 Assessment & Plan (09/10/2023 5:00 PM DEICER INSPECTOR ELECTRIC): Patient reports symptoms are controlled. Steatosis of liver 05/24/2019 Mild nonproliferative diabetic retinopathy(362.0 4) 05/24/2019 Tabby-Chu tear 10/18/2017 Kidney disease 12/14/2016 Leukocytosis 06/13/2014 Asthma Assessment & Plan (09/10/2023 5:02 PM DEICER INSPECTOR ELECTRIC): Patient is advised to restart Symbicort. We will follow up at next visit. Assessment & Plan (05/08/2023 8:58 AM CDT): Patient is asymptomatic and stable without medications Assessment & Plan (01/06/2023 9:54 AM DEICER INSPECTOR ELECTRIC): Patient complains of cough but no shortness breath or wheezing. Exam was unremarkable. Advised to take Symbicort on regular basis and rinse her mouth after each use and she verbalized understanding. Assessment & Plan (02/11/2022 9:51 AM CDT): Controlled on Symbicort Resolved Problems Problem Noted Date Diagnosed Date Resolved Date BMI 32.0-32.9,adult 01/06/2023 09/10/20 23 Dysuria 12/16/2022 09/10/2023 Acute cystitis with hematuria 04/08/2022 09/10/2023 Assessment & Plan (04/16/2022 8:25 AM CDT): Resolved. Patient will be started on Diflucan for possible yeast infection Assessment & Plan (04/08/2022 12:11 PM CDT): Patient with acute cystitis. UA was positive for blood and leukocytes and nitrates. She was advised to increase fluid intake. Patient received Rocephin 500 mg IM. She will be started on Cipro 500 mg b.i.d. for 7 days. Will evaluate her again in 1 week. History of COVID-19 09/12/2021 09/10/20 23 Gastric polyp 05/24/2019 09/10/2023 Immunizations Immunization Administration Dates Next Due Hep A / Hep B 05/02/2023,01/18/2023 Influenza, Quadrivalent, Rec ombinant, Egg Free, Preservative Free, Intramuscular 08/26/2022 Influenza, Unspecified 10/15/2023(Deferr ed: Patient Refused),06/13/2014 Moderna SARS-CoV-2 Monovalen t Vaccination (12+ YRS) 04/26/2021,03/29/2021 Pneumococcal Conjugate Pcv20 03/19/2022,03/07/20 22 Tdap 03/19/2022,03/07/2022 ZOSTER Recombinant 08/26/2022,05/02/2022 Social History Tobacco Use Types Packs/Day Years Used Date Smoking Tobacco: Never Passive Smoke Exposure: Never Smokeless Tobacco: Never AUDIT-C Answer Date Recorded Q1: How often do you have a drink containing alcohol? Never 10/15/2023 Q2: How many drinks containi ng alcohol do you have on a typical day when you are drinking? Patient does not drink Q3: How often do you have si x or more drinks on one occasion? Never 10/15/2023 PHQ-2 Answer Date Recorded PHQ-2 Total Score (If total score is 3 or more points, staff should administer the PHQ-9) 0 10/15/2023 Comments No Sex and Gender Information Value Date Recorded Sex Assigned at Not on file Legal Sex Female 2:02 AM DEICER INSPECTOR ELECTRIC Gender Identity Not on file Sexual Orientation Not on file Last Filed Vital Signs Vital Sign Reading Time Taken Comments Blood Pressure 135/80 09/08/2024 10:13 AM DEICER INSPECTOR ELECTRIC Pulse 79 09/08/2024 10:13 AM DEICER INSPECTOR ELECTRIC Temperature 36.7 C (98 F) 10/15/2023 1:39 PM DEICER INSPECTOR ELECTRIC Respiratory Rate 18 10/15/2023 1:39 PM DEICER INSPECTOR ELECTRIC Oxygen Saturation 97% 10/15/2023 1:39 PM DEICER INSPECTOR ELECTRIC Inhaled Oxygen Concentration - - Weight 98 kg (216 lb) 09/08/2024 10:13 AM DEICER INSPECTOR ELECTRIC Height 170.2 cm (5' 7 ) 09/08/2024 10:13 AM DEICER INSPECTOR ELECTRIC Body Mass Index 33.83 09/08/2024 10:13 AM DEICER INSPECTOR ELECTRIC Plan of Treatment Not on file Procedures Procedure Name Priority Date/Time Associated Diagnosis Comments DIABETES EYE EXAM Routine 12/11/2023 POCT HEMOGLOBIN A1C Routine 08/31/2023 1 :06 PM CDT Type 2 diabetes mellitus with both eyes affected by mild nonproliferative retinopathy without macular edema, with long-term current use of insulin (HCC) MAMMOGRAPHY Routine 02/17/2023 EGFR Routine 06/13/2022 7:54 AM CDT Dyslipidemia Type 2 diabetes mellitus with both eyes affected by mild nonproliferative retinopathy without macular edema, with long-term current use of insulin (HCC) LIPID PANEL Routine 06/13/2022 7:54 AM CDT Dyslipidemia Type 2 diabetes mellitus with both eyes affected by mild nonproliferative retinopathy without macular edema, with long-term current use of insulin (HCC) ALBUMIN CREATININE RATIO, URINE Routine 06/13/2022 7:54 AM CDT Type 2 diabetes mellitus with both eyes affected by mild nonproliferative retinopathy without macular edema, with long-term current use of insulin (HCC) DIABETIC FOOT EXAM Routine 02/15/2022 GENITAL FLUID PAP SMEAR, THIN PREP AND HPV Routine 02/08/2021 COLONOSCOPY Routine 03/10/2011 from Last 3 Months or Most Recently Relevant to Health Maintenance Results * DIABETES EYE EXAM (12/11/2023) Impressions Baljeet Mistry - 12/11/2023 Severe nonproliferative diabetic retiopathy Historical Provider HEALTH MAINTENANCE Final Result * (ABNORMAL) POCT hemoglobin A1c (08/31/2023 1:06 PM CDT) Hemoglobin A1C, POC 9.3 % Blood 08/31/2023 1:06 PM CDT Meaghan Bliss NP POINT OF CARE TEST ORDERA BLES Final Result * MAMMOGRAPHY (02/17/2023) Historical Provider HEALTH MAINTENANCE Final Result * eGFR (06/13/2022 7:54 AM CDT) eGFR 109 mL/min/1. 73 m2 DADA RAMIREZ Comment: Interpretive Data Reference Interval Normal >/= 90 mL/min/1.73m2 Mildly decreased* 60 - 89 mL/min/1.73m2 Mildly to moderately decreased 45 - 59 mL/min/1.73m2 Moderately to severely decreased 30 - 44 mL/min/1.73m2 Severely decreased 15 - 29 mL/min/1.73m2 Kidney Failure < 15 mL/min/1.73m2 *Relative to young adult level Estimated glomerular filtration rate is determined by the 2020 CKD-EPI equation recommended by the National Kidney Foundation (A Unifying Approach to GFR Estimation: Recommendations of the NKF-ASK Task Force on Reassessing the Inclusion of Race in Diagnosing Kidney Disease, JASN 2020). The CKD-EPI equation should not be used for patients with unstable renal function and has not been validated in children and those over 70. Current interpretive data was last reviewed 2021. Blood 06/13/2022 7:54 AM CDT 06/13/2022 8:10 AM CDT Moris Linares MD LAB BLOOD ORDERABLES Final Result Performing Organization Address [facility] [employer] de Phone Number [address] [place], [place] [id number] * Albumin Creatinine Ratio, Urine (06/13/2022 7:54 AM CDT) Albumin Ur <12.0 mg/L DADA Comment: Interpretive Data No reference range established. Current interpretive data was last revised 2019. Creatinine Ur 51.0 mg/dL DADA Comment: Interpretive Data No reference range established. Current interpretive data was last revised 2019. Albumin Creatinine Ratio, Ur <24 1 - 29 mg/g DADA Urine 06/13/2022 7:54 AM CDT 06/13/2022 8:08 AM CDT Moris Linares MD LAB URINE ORDERABLES Final Result Performing Organization Address City/[facility] [employer] de Phone Number [address] [employer] [place], [place] [id number] * (ABNORMAL) Lipid panel (06/13/2022 7:54 AM CDT) Cholesterol 157 30 - 199 mg/dL DADA Comment: Interpretive Data Ages < or = 19 years Acceptable: <170 mg/dL Borderline high: 170-199 mg/dL High: >or= 200 mg/dL Ages > or = 20 years Desirable: <200 mg/dL Borderline high: 200-239 mg/dL High: >or= 240 mg/dL Literature References: 1. Expert Panel on Integrated Guidelines for Cardiovascular Health and Risk Reduction in Children and Adolescents. Pediatrics 2011;128:S213 2. NCEP Expert Panel. Circulation 2004;110:227 Current Interpretive Data was last revised on 2018. Triglycerides 165(H) <=149 mg/dL DADA Comment: Interpretive Data Ages < or = 9 years Acceptable: <75 mg/dL Borderline high: 75-99 mg/dL High: >or= 100 mg/dL Ages 10 to 20 years Acceptable: <90 mg/dL Borderline high: 90-129 mg/dL High: >or= 130 mg/dL Ages > or = 20 years Desirable: <150 mg/dL Borderline high: 150-199 mg/dL High: 200-499 mg/dL Very high: >or= 499 mg/dL Literature References: 1. Expert Panel on Integrated Guidelines for Cardiovascular Health and Risk Reduction in Children and Adolescents. Pediatrics 2011;128:S213 2. NCEP Expert Panel. Circulation 2004;110:227 Current Interpretive Data was last revised on 2018. HDL 30(L) >=40 mg/dL DADA Comment: Interpretive Data Ages < or = 19 years Acceptable: >45 mg/dL Borderline low: 40-45 mg/dL Low: <40 mg/dL Ages > or = 20 years Desirable: >or= 60 mg/dL Low: <40 mg/dL Literature References: 1. Expert Panel on Integrated Guidelines for Cardiovascular Health and Risk Reduction in Children and Adolescents. Pediatrics 2011;128:S213 2. NCEP Expert Panel. Circulation 2004;110:227 Current Interpretive Data was last revised on 2018. LDL, calculated 94 <=129 mg/dL DADA Comment: Interpretive Data Ages < or = 19 years Acceptable: <110 mg/dL Borderline high: 110-129 mg/dL High: >or= 130 mg/dL Ages > or = 20 years Optimal: <100 mg/dL Near optimal: 100-129 mg/dL Borderline high: 130-159 mg/dL High: >160 mg/dL Literature References: 1. Expert Panel on Integrated Guidelines for Cardiovascular Health and Risk Reduction in Children and Adolescents. Pediatrics 2011;128:S213 2. NCEP Expert Panel. Circulation 2004;110:227 Current Interpretive Data was last revised on 2018. Non-HDL Cholesterol 127 mg/dL DADA Comment: Interpretive Data Ages < or = 19 years Acceptable: <120 mg/dL Borderline high: 120-144 mg/dL High: >145 mg/dL Ages > or = 20 years When triglycerides are >200 mg/dL, Non-HDL cholesterol is a secondary target of therapy with treatment goals that are 30 mg/dL greater than the LDL cholesterol target. Literature References: 1. Expert Panel on Integrated Guidelines for Cardiovascular Health and Risk Reduction in Children and Adolescents. Pediatrics 2011;128:S213 2. NCEP Expert Panel. Circulation 2004;110:227 Current Interpretive Data was last revised on 2018. Chol/HDL ratio 5 DADA Blood 06/13/2022 7:54 AM CDT 06/13/2022 8:10 AM CDT Moris Linares MD LAB BLOOD ORDERABLES Final Result DADA [address] [facility] Department of Laboratories [place], [place] [id number] * Diabetic Foot Exam (02/15/2022) Historical Provider HEALTH MAINTENANCE Final Result * Genital fluid pap smear, thin prep and HPV (02/08/2021) 02/08/2021 Narrative Krystal Arevalo MA - 02/08/2021 Dr. Perez Historical Provider LAB CYTOLOGY ORDERABLES F inal Result * Colonoscopy (03/10/2011) Anatomical Region Laterality Modality Other Narrative 03/10/2011 Dr. Yu Historical Provider ENDOSCOPY PROCEDURES Laverne l Result from Last 3 Months or Most Recently Relevant to Health Maintenance Insurance R [facility] Care Teams Search Optimization Analyst Relationship Specialty Start Date End Date Jonel Mercer MD [address] [place] [address] PCP - General Family Medicine 09/08/24 Toribio Ocasio MD Consulting Physician Plastic Surgery 01/03/22
--- OUTSIDE RECORDS SUMMARY | 2024-12-21 13:42 | XMS_ITS | Encounter Summary ---
Author Organization [facility] Address [address] [place] [id number] Care Team Providers Care Clamp Forklift Operator Name Role Phone Maty Edmondson MD Primary Care Provider [phone] Moris Linares MD Primary Care Provider [phone] Encounter Details Date Type Department Care Team (Late st Contact Info) Description 12/07/2020 Hospital Follow-up Call [facility] [place] [address] Val Mathis RN Social History Tobacco Use Types Packs/Day Years Used Date Smoking Tobacco: Every Day Cigarettes Alcohol Use Standard Drinks/Week Comments Not Currently 0 (1 standard drink = 0.6 oz pur e alcohol) Comments Unknown Sex and Gender Information Value Date Recorded Sex Assigned at Not on file Legal Sex Female 12:44 PM RIVETER AUTOMOBILE BRAKES Gender Identity Not on file Sexual Orientation Not on file COVID-19 Exposure Response Date Recorded In the last month, have you been in contact with someone who was confirmed or suspected to have Coronavirus / COVID-19? Yes 11/27/2020 6:53 PM RIVETER AUTOMOBILE BRAKES documented as of this encounter Functional Status * RETIRED Are you deaf or do you have serious difficulty hearing Answer Date of Assessment Author Status No 11/28/2020 2:32 AM RIVETER AUTOMOBILE BRAKES Activ e * RETIRED Are you blind or do you have serious difficulty seeing, even when wearing glasses? Answer Date of Assessment Author Status No 11/28/2020 2:32 AM RIVETER AUTOMOBILE BRAKES Activ e * Do you have serious difficulty walking or climbing stairs? Answer Date of Assessment Author Status No 11/28/2020 2:32 AM Jazmine Somers R N Active * Do you have difficulty dressing or bathing? Answer Date of Assessment Author Status No 11/28/2020 2:32 AM RIVETER AUTOMOBILE BRAKES Jazmine Kang R N Active * Because of a physical, mental, or emotional condition, do you have difficulty doing errands alone such as visiting a doctor's office or shopping? Answer Date of Assessment Author Status No 11/28/2020 2:32 AM RIVETER AUTOMOBILE BRAKES Jazmine Kang R N Active documented as of this encounter Mental Status * Because of a physical, mental, or emotional condition, do you have serious difficulty concentrating, remembering, or making decisions? Answer Entry Date Author Status No 11/28/2020 2:32 AM Jazmine Somers R N Active documented in this encounter Plan of Treatment Not on file documented as of this encounter Goals Goal Patient Goal Type Associated Problems Recent Progress Patient-Stated? Author Health - patient able to perform ADLs independently General No Belen Lindsey RN documented as of this encounter Visit Diagnoses Not on filedocumented in this encounter Additional Health Concerns Infection Onset Date Last Indicated Resolved Time COVID-19 Confirmed 11/23/2020 11/27/2020 12:34 AM RIVETER AUTOMOBILE BRAKES documented as of this encounter Care Teams Clamp Forklift Operator Relationship Specialty Start Date End Date Maty Edmondson MD [facility] [address] [address] PCP - General FAMILY PRACTICE 11/27/20 02/27/22 Moris Linares MD [facility] [address] [address] PCP - General INTERNAL MEDICINE 02/28/22 documented as of this encounter
--- OUTSIDE RECORDS SUMMARY | 2024-12-21 13:42 | XMS_ITS | Clinical Summary ---
Author Organization [facility] Address [address] [place] [id number] Care Team Providers Care Environmental Health Physician Name Role Phone Chase Alva MD Primary Care Provider [phone] Bill Mcgregor DO Unavailable [phone] Allergies Active Allergy Reactions Criticality Noted Date Comments Adhesive Tape Unknown 04/08/2018 Medications HUMALOG MIX 75/25 (75-25) 100 UNIT/ML Suspension INJECT 30 TO 35 UNITS WITH BREAKFAST AND 30 TO 35 UNITS WITH SUPPER D 3 8 Active LANTUS 100 UNIT/ML Solution ADM 90 UNI SC QD 5 8 Active fenofibrate (TRICOR) 145 MG Tablet TK 1 T PO QD 4 8 Active lisinopril (PRINIVIL, ZESTRIL) 5 MG Tablet TK 1 T PO QD 5 8 Active Family History Medical History Relation Name Comments Other-comment Father Prostate Cancer Father Heart Attack Mother Cancer Sister Relation Name Status Comments Father Mother Sister Social History Tobacco Use Types Packs/Day Years Used Date Smoking Tobacco: Never Smokeless Tobacco: Never Alcohol Use Standard Drinks/Week Comments No 0 (1 standard drink = 0.6 oz pur e alcohol) Comments Unknown Sex and Gender Information Value Date Recorded Sex Assigned at Not on file Legal Sex Female 10:10 AM CDT Gender Identity Not on file Sexual Orientation Not on file Plan of Treatment Health Maintenance Due Date Last Done Comments Hepatitis C Virus (HCV) Screening 1971 TdaP Immunization 1971 Hepatitis B Immunization (1 of 3 - 19+ 3-dose series) 1990 Pap Smear 1992 Cervical Cancer Screening (CCS) 2001 HPV/Cotest 2001 Colonoscopy 2016 Colorectal Cancer Screening 2016 Cologuard 2021 Immunochemical Fecal Occult Blood 2021 Mammogram 2021 Pneumococcal Immunization (5 0+ years) (1 of 1 - PCV) 2021 Zoster Immunization (1 of 2) 2021 Influenza Immunization (#1) 2024 SARS-COV-2 Immunization ( season) 2024 05/18/2023, 04/26/2021, 03/29/2021 Respiratory Syncytial Virus (RSV) Immunization (Adult) (1 - 1-dose 75+ series) 2046 Meningococcal Immunization (ACWY) Aged Out No longer eligible b ased on patient's age to complete this topic Pneumococcal Immunization Combined Aged Out No longer eligible b ased on patient's age to complete this topic Rotavirus Immunization Aged Out No lo nger eligible based on patient's age to complete this topic Insurance MEDICAID [employer] Care Teams Environmental Health Physician Relationship Specialty Start Date End Date Chase Alva MD [address] [facility] [address] [place] [address] PCP - General Internal Medicine 10/22/17 Bill Mcgregor DO [address] [facility] [address] [place] [address] Consulting Physician Gastroenterology 02/25/18
--- OUTSIDE RECORDS SUMMARY | 2024-12-21 13:42 | XMS_ITS | Clinical Summary ---
Author Organization [facility] Address [address] [place] [address] Care Team Providers Care Mussel Farmer Name Role Phone Moris Linares MD Primary Care Provider [phone] Allergies Active Allergy Reactions Criticality Noted Date Comments Lisinopril Cough 02/14/2022 Tape Rash Medium 11/27/2020 Medications insulin glargine 100 UNIT/ML injection (PEN) Inject 30 Units into the skin 2 (two) times daily. Active insulin lispro, 1 Unit Dial, 100 UNIT/ML injection (PEN) Inject 6-10 Units into the skin 3 (three) times daily. Acti ve atorvastatin 10 MG tablet Take 10 mg by mouth nightly at bedtime. Activ e guaiFENesin ER 600 MG 12 hr tablet Take 1 tablet (600 mg total) by mouth 2 (two) times daily. 28 tablet 12/02/19 21 Active metFORMIN 500 MG tablet Take 500 mg by mouth daily with breakfast. Active fenofibrate 160 MG tablet Take 160 mg by mouth daily. Active rosuvastatin 5 MG tablet Take 20 mg by mouth nightly at bedtime. Activ e albuterol (2.5 MG/3ML) 0.083% nebulizer solution Take 2.5 mg by nebulization every 6 (six) hours as needed for Wheezing. Acti ve Continuous Blood Gluc Sensor (FREESTYLE FRAN 14 DAY SENSOR) [facility] FreeStyle Fran 14 Day Sensor kit USE WITH FREESTYLE FRAN. TO BE CHANGED EVERY 14 DAYS Active HUMALOG 100 UNIT/ML injection (VIAL) INJECT 14 UNITS SUBCUTANEOUSLY THREE TIMES DAILY BEFORE MEALS 01/14/20 Active Dapagliflozin Propanediol 10 MG Tab Take 10 mg by mouth daily. Active TRULICITY 1.5 MG/0.5ML Solution Pen-injector INJECT 1.5 MG SUBCUTANEOUSLY EVERY WEEK WITH MEALS FOR 84 DAYS 02/18/20 Active fluconazole 150 MG tablet fluconazole 150 mg tablet Active losartan 25 MG tablet Take 25 mg by mouth daily. 01/18/20 Active phenazopyridine (PYRIDIUM) 100 MG tablet every 8 (eight) hours. Active sulfamethoxazol e-trimethoprim 800-160 MG tablet sulfamethoxazole 800 mg-trimethoprim 160 mg tablet TAKE 1 TABLET BY MOUTH TWICE DAILY FOR 7 DAYS Active Active Problems Problem Noted Date Diagnosed Date Pneumonia due to COVID-19 virus 11/28/2020 Acute respiratory failure with hypoxia ([facility]) 11/27/2020 Social History Tobacco Use Types Packs/Day Years Used Date Smoking Tobacco: Never Cigarettes Smokeless Tobacco: Never Alcohol Use Standard Drinks/Week Comments Not Currently 0 (1 standard drink = 0.6 oz pur e alcohol) Comments Unknown Sex and Gender Information Value Date Recorded Sex Assigned at Not on file Legal Sex Female 12:44 PM 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 OPERATOR SERVICE Gender Identity Not on file Sexual Orientation Not on file Last Filed Vital Signs Vital Sign Reading Time Taken Comments Blood Pressure 126/63 02/28/2022 9:20 AM CDT Pulse 84 02/28/2022 9:20 AM CDT Temperature 36.4 C (97.5 F) 02/28/2022 9:01 AM CDT Respiratory Rate 23 02/28/2022 9:20 AM CDT Oxygen Saturation 99% 02/28/2022 9:20 AM CDT Inhaled Oxygen Concentration - - Weight 94.3 kg (208 lb) 02/14/2022 1:29 PM CDT Height 170.2 cm (5' 7 ) 02/14/2022 1:29 PM CDT Body Mass Index 32.58 02/14/2022 1:29 PM CDT Plan of Treatment Health Maintenance Due Date Last Done Comments Cervical Cancer Screening Pa p Smear (Age 30 to 64) Every 3 Years 1971 Annual Physical 1974 Hepatitis C 1989 DTaP, Tdap and Td Vaccines ( 1 - Tdap) 1990 Hepatitis B Vaccines (1 of 3 - 19+ 3-dose series) 1990 Cervical Cancer Screening Pa p with HPV Testing (Age 30 to 64) Every 5 Years 2001 Cervical Cancer Screening wi th HPV 2001 Mammogram Screening 2011 Zoster Vaccines (1 of 2) 2021 COVID-19 Vaccine (3 - 2023-2 5 season) 2024 04/26/2021, 03/29/2021 Influenza Adult (#1) 2024 06/13/2014 Colorectal Cancer Screening Colonoscopy (10 Years) 02/29/2032 02/28/2022, 02/28/2022 Pneumococcal Vaccine: Pediatrics (0 to 5 Years) and At-Risk Patients (6 to 64 Years) Aged Out 02/11/2021 No longer eligible b ased on patient's age to complete this topic Meningococcal B Vaccine Aged Out No l onger eligible based on patient's age to complete this topic Meningococcal Vaccine Aged Out No ozzie aarti eligible based on patient's age to complete this topic RSV Immunizations Under 20 Months Aged Out No longer eligible b ased on patient's age to complete this topic Goals Goal Patient Goal Type Associated Problems Recent Progress Patient-Stated? Author Health - patient able to perform ADLs independently General No Belen Lindsey RN Procedures Procedure Name Priority Date/Time Associated Diagnosis Comments COLONOSCOPY Routine 02/28/2022 8:21 AM CDT from Last 3 Months or Most Recently Relevant to Health Maintenance Insurance Advance Directives * Full Code (Latest Code Status on File) Date Activated Date Inactivated Comments 11/27/2020 9:44 PM 12/02/2020 6:14 PM Care Teams Mussel Farmer Relationship Specialty Start Date End Date Moris Linares MD [facility] [place] [address] PCP - General INTERNAL MEDICINE 02/28/22
--- OUTSIDE RECORDS SUMMARY | 2024-12-21 13:42 | XMS_ITS | Clinical Summary ---
Author Organization [facility] at the [facility] Office Center Address [address] [place] [address] Care Team Providers Care Manager Of Loss Prevention Operations Name Role Phone Toribio Ocasio MD Unavailable [phone] Jonel Mercer MD Primary Care Provider Allergies [...] 1 each 3 10/20/20 Active Dexcom G6 Tube Cleaning Operator misc 10/08/20 Active diphenhydrAMINE (BENADRYL) 25 mg [...] 024 Assessment & Plan (10/04/2024 10:54 AM ICT DEVELOPER): Patient asymptomatic. Noninvasive studies were normal as was her exam. No further workup needed follow up PRN. Diabetic polyneuropathy asso ciated with type 2 diabetes mellitus ([facility]/HCC) 12/17/2023 Pharyngitis 10/15/2023 Assessment & Plan (10/15/2023 5:00 PM ICT DEVELOPER): Point of care strep swab negative. However patients are overwhelmingly concerning for strep given her recent infection we will treat patient with Ceftin 250 mg b.i.d. x7 days. Patient is advised to change her toothbrush after 48 hours of starting the antibiotic. Vaginal yeast infection 10/15/2023 Assessment & Plan (10/15/2023 4:59 PM ICT DEVELOPER): Patient complains of vaginal yeast infections secondary to the amount of antibiotics that she is taken in the past 2 weeks. Diflucan ordered. Strep throat 09/30/2023 Allergic rhinitis 09/10/2023 Assessment & Plan (09/10/2023 5:02 PM ICT DEVELOPER): Flonase and Zyrtec as needed BMI 33.0-33.9,adult 09/10/2023 Assessment & Plan (09/10/2023 5:02 PM ICT DEVELOPER): Discussed the patient's BMI. The BMI is above average. BMI management plan is completed. BMI Follow-up includes: nutrition counseling, exercise counseling and education provided. Hypertension associated with type 2 diabetes erna litus 08/31/2023 Assessment & Plan (09/10/2023 4:58 PM ICT DEVELOPER): Blood pressure well controlled. Refills sent to [...] losartan 25mg daily. Will update labs at [facility]. Verified that she uses mychart. Aware to check results/results letter in PureHistory. Will contact by phone if needed. Hyperlipidemia due to type 2 diabetes mellitus 1 Assessment & Plan (10/04/2024 10:54 AM ICT DEVELOPER): Hyperlipidemia chronic controlled. Continue current medical management. Assessment & Plan (08/31/2023 1:52 PM CDT): Chronic problem. Currently taking Rosuvastatin 40mg & fenofibrate 160mg. Last lipid panel: 06/13/22 LDL=94, HE=013. Will update labs at [facility]. Verified that she uses mychart. Aware to check results/results letter in PureHistory. Will contact by phone if needed. Postmenopausal osteoporosis 01/06/2023 Assessment & Plan (01/06/2023 9:55 AM ICT DEVELOPER): Patient was diagnosed with osteoporosis by her rental boats caretaker and she was started on Fosamax but she stopped taking the medication on her own. I recommended that she resumes Fosamax with calcium and vitamin-D. She said that she has an appointment with her rental boats caretaker and she will discuss that with her. Angina pectoris 12/16/2022 Atopic dermatitis 12/16/2022 Cyst of pancreas 12/16/2022 Diabetic neuropathy 12/16/2022 Assessment & Plan (09/10/2023 5:01 PM ICT DEVELOPER): Patient recently started on gabapentin 300 mg [...] AM CDT): Patient is followed by the journeyman pressman. Continue to see the primary school teacher on yearly basis. Encouraged diet and exercise and weight loss. Hepatomegaly 12/16/2022 Nausea, vomiting and diarrhea 12/16/2022 Obesity 12/16/2022 Strain of tendon of back 12/16/2022 Vitamin D deficiency 12/16/2022 Bilateral leg edema 10/08/2022 Assessment & Plan (01/06/2023 9:54 AM ICT DEVELOPER): No leg edema Assessment & Plan (10/08/2022 4:41 PM ICT DEVELOPER): Leg edema most likely secondary to prolonged sitting. I told her to ambulate. Will start her on Lasix 20 mg p.r.n.. Call for persistent symptoms. Colon cancer screening 10/08/2022 Assessment & Plan (10/08/2022 4:41 PM ICT DEVELOPER): Patient had referral for colonoscopy but she did not have it done yet. Advised to call the map compiler office and proceed with the test she understands the risks including cancer Carpal tunnel syndrome on right 12/13/2021 Overview (12/13/2021): Added automatically from request for surgery [id number] Right elbow pain 11/12/2021 Assessment & Plan (11/12/2021 9:48 AM ICT DEVELOPER): Patient with right elbow pain specially when she uses her right hand. We will obtain nerve conduction study to rule out carpal tunnel syndrome. She was advised to wear an elbow brace. We will call her for meloxicam 15 mg daily for 2 weeks. She will call for persistent symptoms BERT (obstructive sleep apnea) 11/12/2021 Assessment & Plan (09/10/2023 4:59 PM ICT DEVELOPER): Patient uses CPAP and is compliant with her machine. Assessment & Plan (02/11/2022 9:50 AM CDT): Patient uses CPAP machine on regular basis Assessment & Plan (11/12/2021 9:48 AM ICT DEVELOPER): Patient was diagnosed recently with sleep apnea and she has an appointment with the sleep specialist for CPAP machine Lymphadenitis 09/24/2021 Assessment & Plan (09/24/2021 12:53 PM ICT DEVELOPER): Patient has lymphadenitis. She will be started on Augmentin 875 mg twice daily for 10 days with food and side effects were explained and she will call us if it is not resolved so that we can arrange for her to see a surgeon for excision Hypersomnia 09/12/2021 Anxiety 09/12/2021 Assessment & Plan (09/10/2023 5:02 PM ICT DEVELOPER): Patient denies any anxiety symptoms at this time. Palpitation 09/12/2021 Nonsmoker 09/12/2021 Overweight 09/12/2021 Cough 07/30/2021 Assessment & Plan (09/10/2023 5:02 PM ICT DEVELOPER): Patient has persistent cough productive of clear mucus with no shortness breath or wheezing or chest pain. She is advised to restart her Symbicort Assessment & Plan (07/30/2021 9:33 AM CDT): Patient has persistent cough productive of clear mucus with no shortness breath or wheezing or chest pain. We will stop lisinopril. She will continue Symbicort. Will make a referral to see hand rigger for further evaluation. Acute bronchitis 07/02/2021 Assessment & Plan (09/30/2023 5:15 PM ICT DEVELOPER): Patient with acute bronchitis. She is on [...] from Dexcom & Tandem pump. To call/send PureHistory message if not helping. Apply the dexcom 1st to see if the above products will help prevent the skin irritation. Will update labs. Verified that she uses mychart. Aware to check results/results letter in PureHistory. Will contact by phone if needed. DM eye exam q6wks at [facility] for laser tx & injections. Will send letter to get copy of report from [place] office. Strive for regular exercise (30min most [...] (05/08/2023 7:41 AM CDT): Followed by the primary school teacher Assessment & Plan (01/06/2023 8:35 AM ICT DEVELOPER): Managed by the journeyman pressman. Continue to have annual eye exam Assessment & Plan (10/08/2022 4:40 PM ICT DEVELOPER): Managed by the journeyman pressman advised to have annual eye exam Assessment & Plan (04/16/2022 8:25 AM CDT): Continue current medications, discussed low carbohydrate diet, advised to exercise on regular basis, advised to have annual eye exam. We will continue to monitor. Followed by the journeyman pressman Assessment & Plan (02/11/2022 9:50 AM CDT): Follow with the journeyman pressman and primary school teacher. Discussed weight loss and diet. Assessment & Plan (11/12/2021 9:48 AM ICT DEVELOPER): Patient is not compliant with medications. She [...] and exercise. Patient was seen by a manager training in the past. Will increase Lantus to [...] Continue diet. She was seen by the primary school teacher. She will check her sugar 3 times daily and call us with readings in 1 week. Assessment & Plan (01/10/2021 4:30 PM ICT DEVELOPER): Patient will start on Lantus 45 units [...] monitor Assessment & Plan (01/06/2023 8:35 AM ICT DEVELOPER): Continue current medications. Discussed low-salt diet. Discussed exercise on regular basis. Will continue to monitor Assessment & Plan (10/08/2022 4:40 PM ICT DEVELOPER): Continue current medications. Discussed low-salt diet. Discussed exercise on regular basis. Will continue to monitor Assessment & Plan (02/11/2022 9:50 AM CDT): Continue current medications. Discussed low-salt diet. Discussed exercise on regular basis. Will continue to monitor Assessment & Plan (11/12/2021 9:49 AM ICT DEVELOPER): Continue current medications. Discussed low-salt diet. Discussed [...] monitor Assessment & Plan (01/10/2021 4:30 PM ICT DEVELOPER): Start lisinopril 20 mg daily and we discussed low-salt diet Dyslipidemia 01/10/2021 Assessment & Plan (09/10/2023 5:00 PM ICT DEVELOPER): Patient is maintained on Crestor 40 mg tablets and fenofibrate 160 mg we will continue this regimen Assessment & Plan (05/08/2023 8:57 AM CDT): LDL is 113. Increase Crestor to 40 mg q.h.s.. Continue low-fat diet. Assessment & Plan (01/06/2023 8:35 AM ICT DEVELOPER): Controlled on current medications. Continue low-fat diet. Will continue to monitor . Assessment & Plan (10/08/2022 4:40 PM ICT DEVELOPER): Controlled on current medications. Continue low-fat diet. Will continue to monitor . Assessment & Plan (04/16/2022 8:25 AM CDT): Controlled on current medications. Continue low-fat diet. Will continue to monitor . Assessment & Plan (02/11/2022 9:50 AM CDT): Stop atorvastatin and start Crestor 20 mg q.h.s. for better control of hyperlipidemia. Continue low-fat diet Assessment & Plan (11/12/2021 9:49 AM ICT DEVELOPER): Resume medications and we discussed the importance [...] months Assessment & Plan (01/10/2021 4:30 PM ICT DEVELOPER): Start Lipitor 10 mg q.h.s. and discussed low-fat diet and pamphlets were given Pneumonia due to COVID-19 virus 11/28/2020 Microalbuminuria 05/29/2019 Coronary arteriosclerosis 05/24/2019 Gastroesophageal reflux disease without esophagi tis 05/24/2019 Assessment & Plan (09/10/2023 5:00 PM ICT DEVELOPER): Patient reports symptoms are controlled. Steatosis of liver 05/24/2019 Mild nonproliferative diabetic retinopathy(362.0 4) 05/24/2019 Tabby-Chu tear 10/18/2017 Kidney disease 12/14/2016 Leukocytosis 06/13/2014 Asthma Assessment & Plan (09/10/2023 5:02 PM ICT DEVELOPER): Patient is advised to restart Symbicort. We will follow up at next visit. Assessment & Plan (05/08/2023 8:58 AM CDT): Patient is asymptomatic and stable without medications Assessment & Plan (01/06/2023 9:54 AM ICT DEVELOPER): Patient complains of cough but no shortness [...] 03/19/2022,03/07/20 22 Tdap 03/19/2022,03/07/2022 ZOSTER Recombinant 08/26/2022,05/02/2022 Surgical History Surgery Date Site/Laterality Comments FISTULA REPAIR 11/02/2014 - 11/01/2015 rectal states patient KYPHOPLASTY 09/04/2016 APPENDECTOMY 01/24/2004 CARDIAC CATHETERIZATION 06/22/2014 see epic notes COLONOSCOPY 03/10/2011 CARPAL TUNNEL RELEASE 01/07/2018 left SECTION 02/23/1994 ESOPHAGOGASTRODUODENOSCOPY 2017 CARPAL TUNNEL RELEASE 01/03/2022 Right Release right carpal tunnel FRACTURE SURGERY 08/2016 Medical History Medical History Date Comments Hyperlipidemia Hypertension Diabetes mellitus (HCC) Asthma Pneumonia 11/2020 covid pneumonia was hospital started on symbicort Type 2 diabetes mellitus (HCC) Obesity Last menstrual period (LMP) date this week 12/30/2021 patient states has not gone full year they are irregular Sleep apnea BERT (obstructive sleep apnea) 11/2021 cp ap machine is on order Acute cystitis with hematuria 04/08/2022 Dysuria 12/16/2022 Gastric polyp 05/24/2019 History of COVID-19 09/12/2021 Nausea, vomiting and diarrhea 12/16/2022 Family History Medical History Relation Name Comments Alcohol abuse Father Dawn Cancer Father Dawn Arthritis Mother Mary Asthma Mother Mary COPD Mother Mary Heart attack Mother Mary Heart disease Mother Mary Hyperlipidemia Mother Mary Hypertension Mother Mary Allergy (severe) Sister Catherine Cancer Sister Catherine Hyperlipidemia Sister Catherine Hypertension Sister Catherine Relation Name Status Comments Father Dawn Mother Mary Sister Catherine Social History Tobacco Use Types Packs/Day Years [...] on file Legal Sex Female 2:02 AM ICT DEVELOPER Gender Identity Not on file Sexual Orientation Not on file Obstetrics History Para Term AB IAB SAB Ectopic Multiple Livin g Live Births 2 1 1 1 1 1 1 Date Outcome GA Total Labor Labor/2nd/3rd Weight Sex Type Anes PTL Josiane A1 A5 Name Clin 1993 Term 2.977 kg (6 lb 9 oz) F CS-Un spec Living 2000 SAB D&C Demise Last Filed Vital Signs Vital Sign Reading Time Taken Comments Blood Pressure 135/80 09/08/2024 10:13 AM ICT DEVELOPER Pulse 79 09/08/2024 10:13 AM ICT DEVELOPER Temperature 36.7 C (98 F) 10/15/2023 1:39 PM ICT DEVELOPER Respiratory Rate 18 10/15/2023 1:39 PM ICT DEVELOPER Oxygen Saturation 97% 10/15/2023 1:39 PM ICT DEVELOPER Inhaled Oxygen Concentration - - Weight 98 kg (216 lb) 09/08/2024 10:13 AM ICT DEVELOPER Height 170.2 cm (5' 7 ) 09/08/2024 10:13 AM ICT DEVELOPER Body Mass Index 33.83 09/08/2024 10:13 AM ICT DEVELOPER Plan of Treatment Health Maintenance Due Date Last Done Comments Hepatitis C Screening 1970 Cervical Cancer Screening 02/08/2022 02/08/2021, 07/2021 Regular Well Visit/Exam 18-64 02/11/2023 02/11/2022, 02/08/2021 Albumin Creatinine Ratio, Urine 06/13/2023 , 04/12/2021 Lipid Panel 06/13/2023 06/13/2022, 07/04, 04/12/2021, Additional history exists eGFR 06/13/2023 06/13/2022, 1004/2021, 07/29/2021, Additional history exists Breast Cancer Screening-Mammogram 02/18/2024 023, 04/23/2021 Hemoglobin A1C 03/01/2024 08/31/2023, 05/03, 06/13/2022, Additional history exists Foot Exam 05/08/2024 05/08/2023, 01/31, 01/31/2022 Covid-19 Vaccine (2023-2 5 season) 2024 05/18/2023, 04/26/2021, 03/29/2021 Influenza Vaccine (#1) 2024 , 08/26/2022, 06/13/2014 Depression Screening 10/15/2024 10/15/2023, 09/10/2023, 05/08/2023, Additional history exists Dilated Eye Exam 12/11/2024 12/11/2023, 07/2023, 05/29/2021, Additional history exists DTaP/Tdap/Td Vaccine (3 - Td or Tdap) 03/19/2032 03/19/2022, 03/07/2022 Colon Cancer Screening-Colonoscopy 12/02/20322022, 03/10/2011 Pneumococcal vaccine <65 Completed 03/19/2022, 0504/2022 Zoster Vaccine Completed 08/26/2022, 05/02/2022 Procedures Procedure Name Priority Date/Time Associated Diagnosis Comments DIABETES EYE EXAM Routine 12/11/2023 POCT HEMOGLOBIN A1C Routine 08/31/2023 1 :06 PM CDT Type 2 diabetes mellitus with both eyes affected by mild nonproliferative retinopathy without macular edema, with long-term current use of insulin (HCC) HM MAMMOGRAPHY Routine 02/17/2023 EGFR Routine 06/13/2022 7:54 [...] 12/11/2023 Severe nonproliferative diabetic retiopathy Historical Provider MD HEALTH MAINTENANCE Final Result * (ABNORMAL) POCT hemoglobin A1c (08/31/2023 1:06 PM CDT) Hemoglobin A1C, POC 9.3 % Blood 08/31/2023 1:06 PM CDT Meaghan Bliss FLOOR HAND POINT OF CARE TEST ORDERA BLES Final Result * MAMMOGRAPHY (02/17/2023) Historical Provider MD HEALTH MAINTENANCE Final Result * eGFR (06/13/2022 [...] BLOOD ORDERABLES Final Result Performing Organization Address [facility] Co de Phone Number DADA [address] [address] * Albumin Creatinine Ratio, Urine (06/13/2022 7:54 [...] URINE ORDERABLES Final Result Performing Organization Address [facility] de Phone Number LAURA[address] [address] * (ABNORMAL) Lipid panel (06/13/2022 7:54 AM [...] revised on 2018. Chol/HDL ratio 5 DADA RAMIREZ Blood 06/13/2022 7:54 AM CDT 06/13/2022 8:10 AM CDT Moris Linares MD LAB BLOOD ORDERABLES Final Result DADA [address] [facility] Department [place] [address] * Diabetic Foot Exam (02/15/2022) Historical Provider [...] Most Recently Relevant to Health Maintenance Insurance [facility] HMO/PPO Address: [id number] [place] [address] Care Teams Manager Of Loss Prevention Operations Relationship Specialty Start Date End Date Jonel Mercer MD [address] [facility] [address] [place] [address] PCP - General Family Medicine 09/08/24 Toribio Ocasio MD Consulting Physician Plastic Surgery 01/03/22
[2024-12-21 15:31] LABS: Influenza A QL RT-PCR Positive (Negative); Influenza B QL RT-PCR Negative (Negative); SARS-CoV-2 RNA PCR Negative (Negative)
== END 2024-12-21 13:38 | disposition home or self-care (01) ==
LOC: ANHLAB 13:38
PROVIDERS: PCP Family Medicine; Visit Provider Physician Assistant Medical
DX: R05.9 Cough, unspecified (principal); R09.81 Nasal congestion; Z20.822 Contact with and (suspected) exposure to COVID-19
CPT/HCPCS: 87636

== ENCOUNTER 2025-02-10 08:03 | Emergency (ER) | payer OTHER, SELFPAY ==
--- OUTSIDE RECORDS SUMMARY | 2025-02-10 08:06 | XMS_ITS | Data Portability ---
Author Organization [facility] MIRAND[facility]ako [facility] Address [address] [place] [address] Care Team Providers Care Gettering Operator Name Role Phone MATY KLINE Primary Care Provider [phone] Assessment Encounter Date Assessment Date Assessment LastModified by Organization Details LastModified Time 02/09/2020 02/09/2020 intermittent chest pain, but normal exercise stress test. [email or web address] Not available 02/15/2020 13:33:06 06/07/2020 06/07/2020 urinalysis showed blood but not nitrites; she has had dysuria and right sided abdominal pain for about 3 weeks, frequency of urination and urgency. Has been drinking lots of liquids. No nausea, vomiting, diarrhea, fever, or constipation. She will strain her urine for kidey stones. If not better in the next week will refer to urologist. [email or web address] Not available 06/07/2020 10:30:13 Plan of Treatment Reminders Order Date Submit Date Provider Last Modified By Organization Details Last Modified Time Details Appointments None recorded. Lab SARS CoV 2 RNA (COVID-19 ), QL, intelligence agent-PCR, respirato ry specimen - [facility] e @12:30 2019 020 [facility] (Lab), [address] [place], [address], 0 16:24:45 lh + FSH, serum 2019 020 [place] [facility], 2022 Veronica Cazares, [address], [address], 0 07:08:45 HbA1c (hemoglob in A1c), blood 2017 018 [facility], 2022 Veronica Cazares, [address] [place] [address], [place], [address], 8 17:10:22 Referral None recorded. Procedures None recorded. Surgeries None recorded. Imaging None recorded. Medication Orders sulfameth oxazole 800 mg-trimet hoprim 160 mg tablet 2019 020 [facility], [address] [place] [address], [address], 0 10:31:04 alendrona te 70 mg tablet 2019 020 [facility], [address] [place] [address], [address], 0 15:25:40 estradiol -norethin drone acet 0.5 mg-0.1 mg tablet 2019 020 [facility], [address] [place] [address], [address], 0 15:15:53 Calcium with Vitamin D 600 mg-10 mcg (400 unit) tablet 2019 020 [facility], [address] [place] [address], [address], 0 15:35:44 multivita min tablet 2019 020 [facility], [address] [place] [address], [address], 0 15:25:30 fluconazo le 150 mg tablet 2019 020 [facility], [address] [place], [address], 0 14:58:16 Lantus U-100 Insulin 100 unit/mL subcutane ous solution 2019 020 [facility], [address] [place] [address], [address], 0 14:41:01 Humalog U-100 Insulin 100 unit/mL subcutane ous solution 2019 INTERFACE [facility], [address] [place], [address], 0 14:36:18 lisinopri l 20 mg-hydroc hlorothia zide 12.5 mg tablet 2019 020 INTER[facility], [address] [place], [address], 0 14:36:12 sulfameth oxazole 800 mg-trimet hoprim 160 mg tablet 2017 018 [id number], [address] [facility], [place], [place], [id number], 0 11:38:12 Patient TargetsNo targets recorded. Patient Instructions Encounter Date Encounter Id Patient Instructions Last Modified By Organization Details Last Modified Time 03/31/2018 [id number] painful urination (dysuria): care instructions Not available 03/31/2018 10:44:52 type 2 diabetes: care instructions [email or web address] Not available 03/31/2018 10:48:10 02/09/2020 [id number] vaginal yeast infection: care instructions [email or web address] Not available 02/09/2020 14:36:01 learning about high blood pressure [email or web address] Not available 02/09/2020 14:36:01 02/28/2020 [id number] When You Want to Lose Weight: Care Instructions [email or web address] Not available 02/28/2020 15:11:46 learning about type 2 diabetes [email or web address] Not available 02/28/2020 15:11:45 type 2 diabetes: care instructions [email or web address] Not available 02/28/2020 15:11:45 03/20/2020 [id number] Reviewed the following recommendations: -Stay home and separate from others as much as possible. -Monitor your symptoms and seek medical attention for trouble breathing, persistent chest pain, confusion, or bluish lips or face. -Wear a mask if you must be around other people. -Wash your hands often for 20 seconds with soap and water and clean high-touch surfaces daily [email or web address] Not available 03/20/2020 11:15:47 Reason for Referral None Reported. Results Created Date Observation Date Name Description Value Unit Range Abnormal Flag Note LastModifiedBy Organization Detail LastModifiedTime 02/17/20 20 02/18/2020 lh + FSH, serum LH 18.0 mIU/m L Adult Femal e: Folli cular phase 2.4 - 12.6 Ovula tion phase 14.0 - 95.6 Lutea l phase 1.0 - 11.4 Postm enopa usal 7.7 - 58.5 Not Available [facility] ([facility]) [address] [facility], [place], [address], 02/18/2020 07:08:45 02/17/20 20 02/18/2020 lh + FSH, serum FSH 24.7 mIU/m L Adult Femal e: Folli cular phase 3.5 - 12.5 Ovula tion phase 4.7 - 21.5 Lutea l phase 1.7 - 7.7 Postm enopa usal 25.8 - 134.8 Not Available [facility] ([facility]) [address] [facility], [place], [address], 02/18/2020 07:08:45 03/20/20 20 03/20/2020 SARS CoV 2 RNA (COVI D-19) , QL, intelligence agent-P CR, respi rator y speci men sars - cov - 2 PCR NEGATI VE mL Not Available [facility] (Lab) [address] [place] [address], [address], 03/21/2020 16:24:45 03/20/20 20 03/20/2020 SARS CoV 2 RNA (COVI D-19) , QL, intelligence agent-P CR, respi rator y speci men covidcom1 COMME NTS: This assay is desig chance to detec t the RdRp and N genes of SARS- CoV-2 using nucle ic acid ampli ficat ion. A negat pardeep resul t does not precl ude the possi bilit y of 2018- V infec tion since the adequ acy of sampl e colle ction and/o r low viral burde n may resul t in the prese nce of viral nucle ic acids level s below the linda tical sensi tivit y of this test metho d. Not Available [facility] (Lab) [address] [place], [address], 03/21/2020 16:24:45 03/20/20 20 03/20/2020 SARS CoV 2 RNA (COVI D-19) , QL, intelligence agent-P CR, respi rator y speci men covidcom2 Posit pardeep resul ts are indic ative of the prese nce of SARS- CoV-2 RNA and do not rule out bacte rial infec tion or co-in fecti on with other virus es. Not Available [facility] (Lab) [address] [facility], [place], [address], 03/21/2020 16:24:45 03/20/20 20 03/20/2020 SARS CoV 2 RNA (COVI D-19) , QL, intelligence agent-P CR, respi rator y speci men covidcom3 Test resul ts shoul d be used along with other clini to obser vatio ns, patie nt histo ry, epide miolo gical infor matio n and labor atory data in makin g the diagn osis. Not Available [facility] (Lab) [address] [place], [address], 03/21/2020 16:24:45 03/20/20 20 03/20/2020 SARS CoV 2 RNA (COVI D-19) , QL, intelligence agent-P CR, respi rator y speci men covidcom4 This test has recei emely FDA Emerg ency Use Autho rizat ion and has been verif ied by [facility] . This test is only autho rized for the durat ion of the decla ratio n and the circu mstan kian that exist to justi fy the autho rizat ion of the emerg ency use of in vitro diagn ostic tests for the detec tion of SARS- CoV-2 virus and/o r diagn osis of COVID -19 infec tion under secti on 564 (b) (1) of the Act. 11 U.S.C . 360bb b-3 (b) (1), unles s the autho lopez cano is termi nated or revok ed soone r. Not Available [facility] (Lab) [address] [place], [address], 03/21/2020 16:24:45 03/20/20 20 03/20/2020 SARS CoV 2 RNA (COVI D-19) , QL, intelligence agent-P CR, respi rator y speci men covidcom5 [facility] is certi fied under CLIA- 88 as quali fied to perfo rm high compl exity testi ng. This testi ng was perfo rmed in the [facility] [place] [place] [address] (CLIA Licen se #[id number], CAP #[id number], AU-ID #[id number]). Not Available [facility] (Lab) [address] [place], [address], 03/21/2020 16:24:45 03/20/20 20 03/20/2020 SARS CoV 2 RNA (COVI D-19) , QL, intelligence agent-P CR, respi rator y speci men covidcom6 Facts heet for healt hcare provi ders: https ://ww w.fda .gov/ media /1362 56/do wnloa d Facts heet for patie nts: https ://ww w.fda .gov/ media /1362 57/do wnloa d Not Available [facility] (Lab) [address] [place], [address], 03/21/2020 16:24:45 06/05/20 20 06/06/2020 urina lysis compl ete, refle x cultu re specific gravity >=1.03 0 1.005- 1.030 abnormal Not Available [facility] ([facility]) [address] [facility], [place], [address], 06/08/2020 06:08:05 06/05/20 20 06/06/2020 urina lysis compl ete, refle x cultu re pH 5.0 5.0-7. 5 Not Available [facility] ([facility]) [address] [facility], [place], [address], 06/08/2020 06:08:05 06/05/20 20 06/06/2020 urina lysis compl ete, refle x cultu re urine-color Yellow yellow Not Available [facility] ([facility]) [address] [facility], [place], [address], 06/08/2020 06:08:05 06/05/20 20 06/06/2020 urina lysis compl ete, refle x cultu re appearance Cloudy clear abnormal Not Available [facility] ([facility]) [address] [place], [address], 06/08/2020 06:08:05 06/05/20 20 06/06/2020 urina lysis compl ete, refle x cultu re WBC esterase Trace negati ve abnormal Not Available [facility] ([facility]) [address] [place], [address], 06/08/2020 06:08:05 06/05/20 20 06/06/2020 urina lysis compl ete, refle x cultu re protein 1+ negati ve/tra ce abnormal Not Available [facility] ([facility]) [address] [place], [address], 06/08/2020 06:08:05 06/05/20 20 06/06/2020 urina lysis compl ete, refle x cultu re glucose 3+ negati ve abnormal Not Available [facility] ([facility]) [address] [place], [address], 06/08/2020 06:08:05 06/05/20 20 06/06/2020 urina lysis compl ete, refle x cultu re ketones Negati ve negati ve Not Available [facility] ([facility]) [address] [place], [address], 06/08/2020 06:08:05 06/05/20 20 06/06/2020 urina lysis compl ete, refle x cultu re occult blood 2+ negati ve abnormal Not Available [facility] ([facility]) [address] [place], [address], 06/08/2020 06:08:05 06/05/20 20 06/06/2020 urina lysis compl ete, refle x cultu re bilirubin Negati ve negati ve Not Available [facility] ([facility]) [address] [place], [address], 06/08/2020 06:08:05 06/05/20 20 06/06/2020 urina lysis compl ete, refle x cultu re urobilinogen ,semi-qn 0.2 mg/dL 0.2-1. 0 Not Available [facility] ([facility]) [address] [place], [address], 06/08/2020 06:08:05 06/05/20 20 06/06/2020 urina lysis compl ete, refle x cultu re nitrite, urine Negati ve negati ve Not Available [facility] ([facility]) [address] [place], [address], 06/08/2020 06:08:05 06/05/20 20 06/06/2020 urina lysis compl ete, refle x cultu re microscopic examination See below: Micro scopi c was indic ated and was perfo rmed. Not Available [facility] ([facility]) [address] [place], [address], 06/08/2020 06:08:05 06/05/20 20 06/06/2020 urina lysis compl ete, refle x cultu re WBC >30 /hpf 0 - 5 abnormal Not Available [facility] ([facility]) [address] [place], [address], 06/08/2020 06:08:05 06/05/20 20 06/06/2020 urina lysis compl ete, refle x cultu re RBC 11-30 /hpf 0 - 2 abnormal Not Available [facility] ([facility]) [address] [place], [address], 06/08/2020 06:08:05 06/05/20 20 06/06/2020 urina lysis compl ete, refle x cultu re epithelial cells (non renal) 0-10 /hpf 0 - 10 Not Available [facility] ([facility]) [address] [place], [address], 06/08/2020 06:08:05 06/05/20 20 06/06/2020 urina lysis compl ete, refle x cultu re epithelial cells (renal) PEDIATRIC MEDICAL ASSISTANT Not Available [facility] ([facility]) [address] [place], [address], 06/08/2020 06:08:05 06/05/20 20 06/06/2020 urina lysis compl ete, refle x cultu re casts PEDIATRIC MEDICAL ASSISTANT Not Available [facility] ([facility]) [address] [place], [address], 06/08/2020 06:08:05 06/05/20 20 06/06/2020 urina lysis compl ete, refle x cultu re cast type PEDIATRIC MEDICAL ASSISTANT Not Available [facility] ([facility]) [address] [place], [address], 06/08/2020 06:08:05 06/05/20 20 06/06/2020 urina lysis compl ete, refle x cultu re crystals Presen t n/a abnormal Not Available [facility] ([facility]) [address] [place], [address], 06/08/2020 06:08:05 06/05/20 20 06/06/2020 urina lysis compl ete, refle x cultu re crystal type Amorph ous Sedime nt n/a Not Available [facility] ([facility]) [address] [place], [address], 06/08/2020 06:08:05 06/05/20 20 06/06/2020 urina lysis compl ete, refle x cultu re mucus threads PEDIATRIC MEDICAL ASSISTANT Not Available [facility] ([facility]) [address] [place], [address], 06/08/2020 06:08:05 06/05/20 20 06/06/2020 urina lysis compl ete, refle x cultu re bacteria Few none seen/f ew Not Available [facility] ([facility]) [address] [place], [address], 06/08/2020 06:08:05 06/05/20 20 06/06/2020 urina lysis compl ete, refle x cultu re yeast PEDIATRIC MEDICAL ASSISTANT Not Available [facility] ([facility]) [address] [place], [address], 06/08/2020 06:08:05 06/05/20 20 06/06/2020 urina lysis compl ete, refle x cultu re trichomonas PEDIATRIC MEDICAL ASSISTANT Not Available [facility] ([facility]) [address] [place], [address], 06/08/2020 06:08:05 06/05/20 20 06/06/2020 urina lysis compl ete, refle x cultu re comment PEDIATRIC MEDICAL ASSISTANT Not Available [facility] ([facility]) [address] [place], [address], 06/08/2020 06:08:05 06/05/20 20 06/06/2020 urina lysis compl ete, refle x cultu re urinalysis reflex Commen t This speci men has refle xed to a Urine Cultu re. Not Available [facility] ([facility]) [address] [facility], [place], [address], 06/08/2020 06:08:05 06/05/20 20 06/08/2020 urina lysis compl ete, refle x cultu re urine culture, routine Final report Not Available [facility] ([facility]) [address] [facility], [place], [address], 06/08/2020 06:08:05 06/05/20 20 06/08/2020 urina lysis compl ete, refle x cultu re result 1 Commen t Mixed uroge nital annamaria 25,00 0-50, 000 colon y formi ng units per mL Not Available [facility] ([facility]) [address] [facility], [place], [address], 06/08/2020 06:08:05 03/22/20 18 03/22/2018 CT, abdom en + pelvi s, w/wo contr ast No observ ation record ed. [address] (Imaging) [address] [place] [address], [address], 03/31/2018 23:36:02 02/09/20 20 02/09/2020 exerc ise stres s test No observ ation record ed. [facility] (Imaging) [address] [place] [address], [address], 02/28/2020 15:18:41 02/22/20 20 02/21/2020 DEXA No observ ation record ed. [facility], [facility] [address], [place], [address], 02/28/2020 15:18:40 02/22/20 20 02/21/2020 DEXA No observ ation record ed. dave Not Available 02/27 15:18:40 06/12/20 20 06/12/2020 CT, abdom en + pelvi s, w/o contr ast No observ ation record ed. [facility] (Imaging) [address], [place], [address], 06/13/2020 09:57:21 06/12/20 20 06/12/2020 CT, abdom en + pelvi s, w/o contr ast No observ ation record ed. [facility] (Imaging) [address] [facility] [address], [place], [address], 06/13/2020 17:14:05 06/13/20 20 06/12/2020 CT, abdom en + pelvi s, w/o contr ast No observ ation record ed. [facility] [address], [place], [address], 06/13/2020 17:13:26 06/13/20 20 06/13/2020 US, kidne y No observ ation record ed. [facility] (Imaging) [address] [facility] [address], [place], [address], 06/13/2020 17:14:26 06/13/20 20 06/13/2020 US, kidne y No observ ation record ed. [facility] (Imaging) [address] [facility] [address], [place], [address], 06/13/2020 17:13:44 06/13/20 20 06/12/2020 CT, abdom en + pelvi s, w/o contr ast No observ ation record ed. [facility] (Imaging) [address] [facility] [address], [place], [address], 06/13/2020 17:14:47 11/27/19 21 11/27/2020 XR, chest No observ ation record ed. [facility] [address], [place], [address], 12/06/2020 08:21:41 Result Notes None recorded. Problems Name Problem SNOMED Code Status Onset Date Resolution Date Notes Provider Name and Address Organization Details Recorded Time Strain of tendon of back [id number] Tomas Hester PA-C Attn: Accounting ,[address] [place], [place], [address] [place] [address] , [facility] 5 10:56:09 Angina pectoris [id number] Tomas Hester PA-C Attn: Accounting ,[address] [place], [place], [address] [place] [address] , [facility] 5 10:56:09 Nausea, vomiting and diarrhea [id number] Tomas Hester PA-C Attn: Accounting ,[address] [place], [place], [address] [place] [address] , [facility] 5 10:56:09 Mammography abnormal [id number] Active Cais Hester PA-C Attn: Accounting ,[address] [place], [place], [address] [place] [address] , [facility] 5 10:56:09 Atopic dermatitis [id number] Tomas Hester PA-C Attn: Accounting ,[address] [place], [place], [address] [place] [address] , [facility] 5 11:03:57 Leukocytosis [id number] Tomas Hester PA-C Attn: Accounting ,[address] [place], [address] [place] [address] , [place] [facility] 5 14:59:04 Hepatomegaly [id number] Tomas Hester PA-C Attn: Accounting ,[address] [place], [place], [address] [place] [address] , [place] [facility] 5 13:31:50 Cyst of pancreas [id number] Tomas Hester PA-C Attn: Accounting ,[address] [place], [address] [place] [address] , [place] [facility] 5 13:31:50 Acute urinary tract infection 061428119 Tomas Hester PA-C Attn: Accounting ,[address] [facility] [place], [address] [place] [address] , [place] [facility] 6 13:11:19 Dysuria 96194858 Active Casi Hester PA-C Attn: Accounting ,[address] [facility], [place], [address] [place] [address] , [facility] 6 13:11:19 Acute bronchitis 06322610 Active Casi Hester PA-C Attn: Accounting ,[address] [facility], [place], [address] [place] [address] , [facility] 6 12:20:24 Neuropathy due to diabetes mellitus [id number] Tomas Hester PA-C Attn: Accounting ,[address] [facility], [place], [address] [place] [address] , [facility] 6 12:25:35 Type 2 diabetes mellitus [id number] Tomas Hester PA-C Attn: Accounting ,[address] [facility], [place], [address] [place] [address] , [place] [facility] 6 18:13:50 Essential hypertension [id number] Tomas Hester PA-C Attn: Accounting ,[address] [facility], [place], [address] [place] [address] , [facility] 6 12:25:35 Hyperlipidemi a [id number] Tomas Hester PA-C Attn: Accounting ,[address] [facility], [place], [address] [place] [address] , [place] [facility] 6 11:53:52 Vitamin D deficiency [id number] Tomas Hester PA-C Attn: Accounting ,[address] [facility], [place], [address] [place] [address] , [facility] 6 11:53:52 Obesity [id number] Tomas Hester PA-C Attn: Accounting ,[address] [facility], [place], [address] [place] [address] , [place] [facility] 12/10/201 5 10:56:09 Problem Notes None recorded. Procedures Surgical History Date Name Laterality Status Provider Name and Address Organization Details Recorded Time 04/21/20 14 Other completed January Pet[facility] 2014 13:05:18 01/24/20 04 Appendectomy completed [facility] 2014 13:05:18 02/23/19 94 Caesarean Section completed January [facility] 2014 13:05:18 Eyelid Surgery completed January [facility] 2014 13:05:18 Imaging Results Imaging Date Name Status LastModified by Organiz atformerly [facility] Details LastModified Time 03/22/2018 CT, abdomen + pelvis, w/wo contrast completed [address] (Imaging) [address] [place] [address], [address], 03/31/2018 23:36:02 02/09/2020 exercise stress test completed [facility] (Imaging) [address] [place] [address], [address], 02/28/2020 15:18:41 02/21/2020 DEXA completed [facility], [facility] [address], [place], [address], 02/28/2020 15:18:40 02/21/[address] [facility] Information no t available 02/28/2020 15:18:40 06/12/2020 CT, abdomen + pelvis, w/o contrast completed [facility] (Imaging) [address] [place] [address], [address], 06/13/2020 09:57:21 06/12/2020 CT, abdomen + pelvis, w/o contrast completed [facility] (Imaging) [address] [place] [address], [address], 06/13/2020 17:14:05 06/12/2020 CT, abdomen + pelvis, w/o contrast completed [address], [address], 06/13/2020 17:13:26 06/13/2020 US, kidney completed [facility] (Imaging) [address] [facility] [address] [place] [address], [address], 06/13/2020 17:14:26 06/13/2020 US, kidney completed [facility] (Imaging) [address] [facility] [address], [address], 06/13/2020 17:13:44 06/12/2020 CT, abdomen + pelvis, w/o contrast completed [facility] (Imaging) [address] [facility] [address], [place], [address], 06/13/2020 17:14:47 11/27/2020 XR, chest completed [facility], [place], [address], 12/06/2020 08:21:41 Procedure Notes None recorded. Medical Equipment None Reported. Allergies Allergen ID Allergen Name Allergen Category Reaction Reaction Severity Criticality Documentation Date Start Date Code Code System Note Provider Name and Address Organization Details Recorded Time 22154 adhesive environme nt,medica tion rash Not available Not available 2014 20867 UNK Not Available Not Available Not Available Medications Name Sig Start Date Stop Date Status Note LastModified by Organization Details LastModified Time lancets mis 02/19 completed Not Available Not Available Not Available freestyle mis lancets active Not Available Not Available Not Available freestyle deshawn lite active Not Available Not Available Not Available multivitami n tablet Take 1 tablet every day by oral route. 2019 active Not Available Not Available Not Avai lable Humalog Mix 75-25 (U-100) Insulin 100 unit/mL subcutaneou s suspension Inject 20 units twice a day by subcutane ous route. 02/13 completed Not Available Not Available Not Available atorvastati n 40 mg tablet Take 1 tablet by mouth once daily 02/13 completed Not Available Not Available Not Available lisinopril 20 mg-hydrochl orothiazide 12.5 mg tablet Take 1 tablet every day by oral route. 2019 active Not Available Not Available Not Avai lable azithromyci n 250 mg tablet active Not Available Not Available Not Available ibuprofen 800 mg tablet Take 1 tablet 3 times a day by oral route for 30 days. active Not Available Not Available No t Available fluconazole 150 mg tablet TAKE 1 TABLET(S) EVERY WEEK BY ORAL ROUTE. 2019 active Not Available Not Available Not Avai lable hydrocodone 5 mg-acetamin ophen 325 mg tablet 02/19 completed Not Available Not Available Not Available fluconazole 200 mg tablet Take 1 tablet every 72 hours by oral route. 02/13 completed Not Available Not Available Not Available FreeStyle Lancets 28 gauge Use as directed daily and as needed 02/13 completed Not Available Not Available Not Available lisinopril 20 mg tablet Take 1 tablet every day by oral route. 02/19 completed Not Available Not Available Not Available ondansetron HCl 4 mg tablet 02/19 completed Not Available Not Available Not Available isosorbide mononitrate ER 30 mg tablet,exte nded release 24 hr Take 1 tablet every day by oral route in the morning for 30 days. active Not Available Not Available No t Available alendronate 70 mg tablet Take 1 tablet every week by oral route. 2019 active Not Available Not Available Not Avai lable Lantus U-100 Insulin 100 unit/mL subcutaneou s solution INJECT 90 UNIT(S) EVERY DAY BY SUBCUTANE OUS ROUTE. 2019 active Not Available Not Available Not Avai lable ciprofloxac in 500 mg tablet Take 1 tablet every 12 hours by oral route for 7 days. 02/19 completed Not Available Not Available Not Available sulfamethox azole 800 mg-trimetho prim 160 mg tablet Take 1 tablet every 12 hours by oral route. 2019 active Not Available Not Available Not Avai lable tramadol 50 mg tablet Take 1 tablet every 6 hours by oral route as needed. 2019 active Not Available Not Available Not Avai lable fenofibrate micronized 134 mg capsule 08/06 completed Not Available Not Available Not Available Depo-Medrol 80 mg/mL suspension for injection 08/06 completed Not Available Not Available Not Available amoxicillin 875 mg tablet 02/19 completed Not Available Not Available Not Available dicyclomine 20 mg tablet 02/13 completed Not Available Not Available Not Available Humalog U-100 Insulin 100 unit/mL subcutaneou s solution Inject 10 units 3 times a day by subcutane ous route. 2019 active Not Available Not Available Not Avai lable baclofen 10 mg tablet Take 1 tablet 3 times a day by oral route as needed for 30 days. 08/06 completed Not Available Not Available Not Available benzonatate 100 mg capsule Take 1 capsule 3 times a day by oral route for 5 days. 04/18 completed Not Available Not Available Not Available nystatin 100,000 unit/gram topical cream APPLY TO THE AFFECTED AREA(S) BY TOPICAL ROUTE 2 TIMES PER DAY 2019 active Not Available Not Available Not Avai lable buspirone 10 mg tablet Take 1 tablet twice a day by oral route. 02/13 completed Not Available Not Available Not Available diphenhydra mine 25 mg tablet Take 2 tablets every 4 hours by oral route. 2014 active Not Available Not Available Not Avai lable gabapentin 300 mg capsule Take 1 capsule 3 times a day by oral route. 02/19 completed Not Available Not Available Not Available sertraline 25 mg tablet Take 1 tablet by mouth once daily 02/19 completed Not Available Not Available Not Available insulin syringe U-100 with needle 1 mL 31 gauge x 03/17 completed Not Available Not Available Not Available pravastatin 20 mg tablet Take 2 tablets every day by oral route. 02/19 completed Not Available Not Available Not Available lisinopril 5 mg tablet Take 1 tablet every day by oral route. 02/13 completed Not Available Not Available Not Available metoprolol succinate ER 25 mg tablet,exte nded release 24 hr 08/06 completed Not Available Not Available Not Available ergocalcife rol (vitamin D2) 1,250 mcg (50,000 unit) capsule Take 1 capsule every week by oral route. 02/19 completed Not Available Not Available Not Available levofloxaci n 750 mg tablet active Not Available Not Available Not Available lisinopril 40 mg tablet active Not Available Not Available Not Available Microlet Lancet active Not Available Not Available Not Available metoclopram bogdan 10 mg tablet Take 1 tablet 4 times a day by oral route before meals for 14 days. active Not Available Not Available No t Available metoprolol tartrate 25 mg tablet Take 1 tablet every day by oral route in the morning for 30 days. active Not Available Not Available No t Available omega-3 acid ethyl esters 1 gram capsule Take 2 capsules twice a day by oral route with meals for 30 days. active Not Available Not Available No t Available Byetta 10 mcg/dose(25 0 mcg/mL)2.4 mL subcutaneou s pen injector Inject 10 microgram s twice a day by subcutane ous route before meals for 30 days. 08/06 completed Not Available Not Available Not Available Byetta 5 mcg/dose (250 mcg/mL)1.2 mL subcutaneou s pen injector active Not Available Not Available Not Available Levemir U-100 Insulin 100 unit/mL subcutaneou s solution Inject 90 units every day by subcutane ous route. 02/19 completed Not Available Not Available Not Available hydrocodone 7.5 mg-acetamin ophen 300 mg tablet active Not Available Not Available No t Available ProAir HFA 90 mcg/actuati on aerosol inhaler Inhale 2 puffs every 4 hours by inhalatio n route. 02/13 completed Not Available Not Available Not Available fenofibrate nanocrystal lized 145 mg tablet Take 1 tablet by mouth once daily 02/13 completed Not Available Not Available Not Available estradiol-n orethindron e acet 0.5 mg-0.1 mg tablet Take 1 tablet every day by oral route. 2019 active Not Available Not Available Not Avai lable FreeStyle Lite Strips TEST TWO TIMES DAILY TEST TEST 02/13 completed Not Available Not Available Not Available Calcium with Vitamin D 600 mg-10 mcg (400 unit) tablet Take 1 tablet twice a day by oral route. 2019 active Not Available Not Available Not Avai lable fenofibric acid (choline) 135 mg capsule,del ayed release Take 1 capsule every day by oral route. 02/19 completed Not Available Not Available Not Available OneTouch Delica Lancets 33 gauge 02/19 completed Not Available Not Available Not Available Bydureon 2 mg subcutaneou s extended release suspension active Not Available Not Available N ot Available Victoza 2-Tenzin 0.6 mg/0.1 mL (18 mg/3 mL) subcutaneou s pen injector active Not Available Not Available Not Available Tanzeum 30 mg/0.5 mL subcutaneou s pen injector Inject 0.5 mL every week by subcutane ous route as directed for 30 days. 08/06 completed Not Available Not Available Not Available Trulicity 1.5 mg/0.5 mL subcutaneou s pen injector Inject 0.5 mL every week by subcutane ous route for 30 days. 02/19 completed Not Available Not Available Not Available OneTouch Ultra Blue Test Strip active Not Available Not Available N ot Available Vitals Date Recorded Body height Body mass index (BMI) Body weight Oxygen saturation Oxygen saturation in Arterial blood by Pulse oximetry Heart rate Body temperature Systolic blood pressure Diastolic blood pressure Provider Name and Address Organization Details Last Updated DateTime 8 170.18 cm 34.1 kg/m2 49900.1 4 g 97 % 97 % 85 /min 98.1 [degF] 126 mm[Hg] 80 mm[Hg] Radha Gonzalez CMA [facility] 8 10:29:51 Date Recorded Body weight Body mass index (BMI) Body height Provider Name and Address Organization Details Last Updated DateTime 02/28/2020 71825.03 g 32.3 kg/m2 170.18 cm Jyoti Griffin MA [facility] 02/28/2020 14:57:40 Date Recorded Body height Provider Name an d Address Organization Details Last Updated DateTime 06/07/2020 170.18 cm Rafaela Calix MA [facility] 2019 10:18:24 Social History Question Answer Notes LastModified by Organizat ion Details LastModified Time Tobacco Smoking Status Never Smoker January FIDEL Davey, [facility] 2014 13:05:18 Do You Have An Advance Directive? No Information not available 02/28/2020 What Is Your Level Of Alcohol Consumption? None Information not available 2014 Is Blood Transfusion Acceptable In An Emergency? No Information not available 02/28/2020 What Is Your Level Of Caffeine Consumption? Moderate Information not available 2014 How Much Tobacco Do You Chew? None Information not available 09/07/2015 Are You Currently Employed? Yes Information not available 2014 What Type Of Diet Are You Following? DIABETIC Information not available 2014 Which Illicit Or Recreational Drugs Have You Used? Denies Information not available 02/28/2020 Do You Or Have You Ever Used E-cigarettes Or Vape? 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 Yes Information not available 09/07/2015 Hard Of Hearing Or Deaf In One Or Both Ears? No Information not available 09/07/2015 Legally Blind In One Or Both Eyes? No Information no t available 09/07/2015 Live Alone Or With Others? With Others Information not available 2014 What Was The Date Of Your Most Recent Tobacco Screening? 06/07/2020 Information not available 06/07/2020 How Many Children Do You Have? 1 Information not available 2014 Performs Monthly Self-breast Exam? Yes Information no t available 09/07/2015 Do You Use Protection During Sex? Usually Information not available 02/28/2020 What Is Your Relationship Status? Single Information not available 02/28/2020 Seat Belts Used Routinely Yes Information not available 2014 Are You Sexually Active? Yes Information not available 09/07/2015 Smoke Alarm In Home Yes Information not available 2014 Do You Or Have You Ever Used Smokeless Tobacco? Never Used Smokeless Tobacco Information not available 02/09/2020 How Much Tobacco Do You Smoke? No Information not available 02/09/2020 Do You Use Sunscreen Routinely? Yes Information not available 09/07/2015 On What Date Was Tobacco Cessation Counseling Provided? 06/07/2020 Information not available 06/07/2020 How Many Years Have You Smoked Tobacco? 0 [email or web address] Information not available 02/28/2020 Sex: Unknown Functional Status Question Answer Note LastModified by Organization D etails LastModified Time Are you able to care for yourself? Yes Information not available 2014 What is your exercise level? Moderate Information not available 2014 Mental Status None recorded. Family History Relationship Description Onset Age of this Age Resolved Age Notes LastModified by Organization Details LastModified Time Mother Arthritis asavala Not available 01/23/2016 09:34:43 Mother Asthma asavala Not available 09:34:43 Mother Heart disease asavala Not available 2015 09:34:43 Mother Cataract asavala Not available 01/23/2016 09:34:43 Mother Hypertensive disorder asavala Not available 2015 09:34:43 Mother Hypercholest erolemia asavala Not available 2015 09:34:43 Mother Anemia asavala Not available 09:34:43 Mother Myocardial infarction asavala Not available 01/22 09:34:43 Mother Osteoporosis asavala Not availa ble 01/23/2016 09:34:43 Mother Cystic fibrosis asavala Not available 2015 09:34:43 Brother Alcohol abuse asavala Not available 2015 09:34:43 Brother Allergy asavala Not available 01/23/2016 09:34:43 Brother Depressive disorder asavala Not available 2015 09:34:43 Brother Hypertensive disorder asavala Not available 2015 09:34:43 Brother Chronic obstructive pulmonary disease asavala Not available 2015 09:34:43 Brother Diabetes mellitus asavala Not available 2015 09:34:43 Sister Hypertensive disorder asavala Not available 2015 09:34:43 Sister Allergy asavala Not available 0 01/23/2016 09:34:43 Sister Allergy asavala Not available 0 01/23/2016 09:34:43 Medical History Condition Response Coronary Artery Disease N Kidney Cyst N Blood Diseases N Hyperthyroidism N Blood disorders N Blood Transfusion N MRSA N Emphysema N Depression N COPD N Blood Clots N Pneumonia N Premature N Peripheral Arterial Disease N Edema N TIA N Headaches/Migraines N Anxiety Disorder N Obesity N Polyps N Infertility N Acid Reflux (GERD) N Hematuria N Stroke N Neck Injury N Polio N Hospital Admission other than N Neurologic Disorder N Other Sleep Disorders N Rheumatoid Arthritis N Fibromyalgia N Abdominal Aortic Aneurysm Repair N Kidney Disease N Heart Conditions N Heart Disease/Heart Problems N Hospitalizations N Brain Tumors N Acne N Skin Problems N Eating Disorder N Meningitis N Constipation N Tuberculosis N Cerebral Palsy N Myocardial Infarction N Asthma Y Substance Abuse N Peripheral Vascular Disease N Vertigo N Sleep Disorder N Cirrhosis N Pulmonary Embolism N Chicken Pox N Hematologic Disease N Flomax Use Past or Present N Anxiety/Depression N Thyroid Disease N Colon Cancer N Lung Disease N Glaucoma N Developmental or Behavioral Disorders N Bipolar N Pacemaker N Diverticulitis/Diverticulosis N Orthopedic Problems N Anesthesia Complications N Orthotics N Head Injury/Concussion N Congenital Anomalies N Davey Bite N Chronic Kidney Disease N Endometriosis N Liver Disease N Schizophrenia N Dialysis N Speech Delay N Chronic Obstructive Pulmonary Disease N Parkinson's Disease N Thyroid Problems N GI Problems N Developmental Delay N Anemia N Multiple Sclerosis N Immune System Disorder N Colon Polyps N Heart Attack (NH) N Diabetes Y Cardiomyopathy N Blood Transfusions N Heart Problems/Murmur N Eye Trauma N Congestive Heart Failure (CHF) N Valvular Heart Disease N Hyperlipidemia N Double Vision N Abuse/Domestic Violence N Hepatitis B N Lupus N Epilepsy/Seizures N Reflux/GERD N Aneurysm N Heart Disease N Bronchitis N Pre-Eclampsia N Hypertension N Heart Failure N Other N Gout N High Blood Pressure Y Atrial Fibrillation N Kidney Stones N Head Trauma/Injury N Congenital Heart Disease N Spine Problems N Gastrointestinal Disease N Lung Mass N Sinusitis N Obstructive Sleep Apnea N Muscle, Joint, or Bone Problems N Autoimmune disease N Vision or Eye Problems N Arthritis N Blood Clot N Cancer N Seasonal allergies N Leg or Foot Ulcers N Raynaud's Disease N Aortic Aneurysm N Arrhythmia N Headaches N Heart Problems N [place]bl[place]pia N Ear or Hearing Problems N Hyperparathyroidism N Migraines N Artificial Joints N Kidney or Bladder Problems N NSAID Use N Encephalitis N PTSD N Ulcers N Prostate Hypertrophy N Bleeding Disorder N AIDS/HIV N Urinary Tract Infection N Back Problems N Allergies Y Atrial Flutter N GERD/Reflux N Hepatitis N Autism Spectrum Disorder (ASD) N Breast Cancer N Hernia N Hypothyroidism N Breast Problem N Genitourinary Disease N Deep Vein Thrombosis N Varicose Veins N Cystic Fibrosis N Hearing Loss N Developmental Problems N Carotid Disease N Vitamin D Deficiency N ADHD N Bladder or Kidney Problems N High Cholesterol Y Meniers N Valvular Abnormalities N Psychiatric/Mental Health Condition N Organ Transplant N Foot Deformity N Allergies/Hayfever N Dyslipidemia N Hyponatremia N Diabetic Eye Disease N Osteoporosis/Osteopenia N Back Pain N Proteinuria N Mental Illness N Neurological Problems N Ovarian Cancer N Bedwetting N Seizures/Epilepsy N Kidney Failure N Ocular trauma N Diverticulitis N Dementia N Sleep Apnea N Mental Problems N Warfarin Management N Osteoporosis N Gynecological History Statement/Question Response Flow Heavy Date of LMP 05/24/2020 STIs/STDs N HPV Vaccine N Duration of Flow (days) 2 Most Recent Mammogram Age at Menarche 15 Current Control Method None Age at First Child 23 Frequency of Cycle (Q days) Sexually Active? Y Menses Monthly Y Date of Last Pap Smear Sexual Problems? N LMP Definite Obstetrics History GPAL:G 1 P 1 0 0 1 Type Value Full Term 1 Induced 0 Spontaneous 0 Premature 0 Living 1 Ectopics 0 Total 1 Past Encounters Encounter ID Performer Location Encounter Start Date Encounter Closed Date Diagnosis/Indication Diagnosis SNOMED-CT Code Diagnosis ICD10 Code Diagnosis Note [id number] ABIMBOLA Evans (Adult Med) [address] [place] [id number] 0 11/21/2014 10:33:46 11/21/2014 17:38:26 At increased risk of urinary tract infection 478500202 Type 2 caitlin betes mellitus 63020914 Essential hypertension 31063145 Hyperlipidemia 53888866 Vitamin D deficiency 77375084 Obesity 922512426 [id number] ABIMBOLA Evans (Adult Med) [address] [place] [phone] 0 01/04/2015 10:10:50 01/04/2015 13:51:59 Strain of tendon of back 463113184 Type 2 caitlin betes mellitus 87822241 Essential hypertension 04541346 Hyperlipidemia 72455134 Obesity 557290367 Vitamin D deficiency 38299496 [id number] ABIMBOLA Evans (Adult Med) [address] [place] [address] [phone] [id number] 03/01/2015 10:40:13 03/08/2015 11:21:38 Obesity 571137070 Type 2 caitlin betes mellitus 71662847 Hyperlipidemia 58197198 Essential hypertension 38983313 Strain of tendon of back 477236085 Vitamin D deficiency 61481631 Adult heal th examination 887808178 Angina pectoris [id number] Matthew (Adult Med) [address] [place] [address] [phone] 0 08/06/2015 13:55:16 08/06/2015 20:29:05 Type 2 diabetes mellitus 10615073 E11.8 Essential hypertension 39612969 I10 Patient is under a lot of stress and also has not had her BP medication s in over a week and a half. She states that she is overdue to be seen by a cardiologi st. She had a cardiac cath at [facility] last year. Would like to be evaluated by Dr. Winchester Will recheck BP once she has taken the lisinopril - will likely restart the isosorbide mononitrat e as well as metroprolo l - will let cardiology evaluate Hyperlipidemia 82344672 E78.5 [id number] ABIMBOLA Evans (Adult Med) [address] [place] [address] [phone] 0 10/11/2015 09:43:39 10/11/2015 11:04:54 Atopic dermatitis 58987877 L20.9 Likely stress induced - possibly hives, although no distinct wheals are present will try Benadryl - RTC if not improved for steroid Type 2 caitlin betes mellitus 61542141 E11.8 will recheck a1c today - discussed that she needs to take her medication and stay away from the breads and carbs advised to not eat fast foot M-F and that she needs to exercise more Hyperlipidemia 36501018 E78.5 Vitamin D deficiency 347 94482 E55.9 States that this is chronicall y low [id number] ABIMBOLA Evans (Adult Med) [address] [place] [address] [id number] 0 2015 10:02:48 2015 13:32:22 Hepatomegaly 37509178 R16.0 Type 2 caitlin betes mellitus 04510889 E11.8 Sugars are consistent ly elevated - will refer to nutritioni st and endo Cyst of pancreas 7373649 0 K86.2 Recommende d f/u MRCP in 6 months Will refer to GI WIll send ED notes and imaging with referral She does not have enough PTO/sick time to go to GI appointmen t so will see if she can get into Dr. Keenan at [place] to be evaluated by him [id number] ABIMBOLA Evans (Adult Med) [address] [place] [address] [phone] 0 11/12/2015 12:15:33 11/12/2015 13:12:09 Acute urinary tract infection 593668631 N39.0 Type 2 caitlin betes mellitus 67382330 E11.8 Sugars are consistent ly elevated - will refer to nutritioni st and endo Dysuria 75124208 R30.0 [id number] ABIMBOLA Evans (Adult Med) [address] [place] [address] [phone] 0 11/16/2015 09:39:31 11/16/2015 14:36:35 Gynecologic examination 16252098 Z01.419 Most recent Pap 06/01/14 - WNL - negative for HPV/negati ve intraepith elial/lam gnancy Positive High Risk HPV in 01/2013 - Atypical Glandular Cell (ACG) and then was corrected for negative for HPV Will re-pap today Type 2 caitlin betes mellitus 86518494 E11.8 Sugars are consistent ly elevated - will refer to nutritioni st and endo [id number] ABIMBOLA Evans (Adult Med) [address] [place] [address] [id number] 0 04/17/2016 09:15:21 04/17/2016 12:27:20 Neuropathy due to diabetes mellitus 775480669 E11.40 Discussed that her neuropathy in her fingers is likely 2/2 her diabetes - discussed that she is spilling a lot of glucose in her urine Discussed that she needs to have high blood sugar control Advised to download the [employer] al and everything that she eats goes into the cullen Discussed with patient that she knows what she is eating in poor for her and she is the only one who can control what she is eating. Discussed that if she does not start to make healthy eating decisions now, her tingling in her hands will worsen and also go to her feet Essential hypertension 24882122 I10 Has seen cardiology BP well controlled today Hyperlipidemia 33537823 E78.5 Will recheck cholestero l today Vitamin D deficiency 347 38604 E55.9 States that this is chronicall y low [id number] Maty Kline MD [facility] [address] [place] [address] 02/19/2018 14:47:55 02/22/2018 11:43:02 Insulin treated type 2 diabetes mellitus 758970374 Z79.[address] Avila Peripheral neuropathy due to type 2 diabetes mellitus 7311116149 107 E11.42 stable by patient report Coronary arteriosclerosis in [place] artery 1749016720 [address] Jensen Family bereavement 47545 7006 Z63.4 sister and father both recently History of decompression of median nerve 946423274 Z98.890 left hand much better--Dr Sherman Graham did carpal tunnel surgery; right hand doing ok without surgery Essential hypertension 62082723 I10 takes lisinopril . discussed avoiding salt and caffeine. 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 Mcgregor Candidiasis of vagina 72 030492 B37.3 Standardiz ed adult depression screening tool completed 0006357343 78376 Z13.89 [id number] Maty Kline MD [facility] [address] [place] [address] 03/31/2018 10:20:17 04/01/2018 09:19:38 Dysuria 46413821 R30.0 review of UA showed + WBC but she was not started on antibiotic s at the ED Uncontroll ed type 2 diabetes mellitus 474091385 E11.65 discussed need for morning insulin, even if she has to take it at work with a breakfast break. [id number] Maty Kline MD [facility] [address] [place] [address] 02/09/2020 09:22:51 02/22/2020 17:46:12 Essential hypertension 93333562 I10 takes lisinopril . discussed avoiding salt and caffeine. Irregular periods 510837 07 N92.6 9 month gap, then had periods in november and february of 2020. Candidiasis of vagina 72 930168 B37.3 Insulin tr eated type 2 diabetes mellitus 745909757 Z79.[address] Avila Depression screening 171 429567 Z13.31 patient does not appear to be significan tly depressed. [id number] Bill ColonKeonjonathan Castro ([employer]) [address] [place] [address] 02/28/2020 14:47:58 02/29/2020 05:06:23 Obesity 569571733 E66.9 Type 2 caitlin betes mellitus 77090638 E11.9 Postmenopausal state 764 88163 Z78.0 Postmenopa usal osteoporosis 437378836 M81.0 [id number] GONZALEZ BISHOP [address] [place] [address] 03/20/2020 09:45:15 03/21/2020 07:39:10 Exposure to SARS-CoV-2 977232662 Z20.037 [id number] Maty Kline MD [facility] [address] [place] [address] 06/07/2020 09:37:05 06/08/2020 11:23:03 Shayan hematuria 144934089 R31.0 Health Concerns Section Related Observation LastModified by Organization Detai ls LastModified Time None Recorded Concern Status LastModified by Organization Details LastModified Time None Recorded Advance Directives Directive N: Payers Encounter Date Sequence Insurance Name Policy Number Policy Artis Covered Member ID Artis Member ID Guarantor Name 03/31/2018 1 [facility] - DOS PRIOR TO 2021 (MEDICAID REPLACEMENT - HMO) January Petar [id number] January Petar 02/09/2020 2 *SELF PAY* Ap ril Petar 02/28/2020 2 *SELF PAY* Ap ril Petar 03/20/2020 2 *SELF PAY* Ap ril Petar 06/07/2020 2 *SELF PAY* Ap ril Petar Notes Date Note Type Note Provider Name and Address Organization Details Recorded Time 03/31/2018 text/html Diabetes F/URepo rted bypatient.Review finger sticks:glucose 242 in ED with urinary infection and abdominal pain Context:missing doses of medication; takes lantus consistently, often skips one or two doses of humalog; sugar are running higher recently Associated Symptoms:dizziness;swe ats;headaches;confusio n;increased thirst;increased appetite;increased urination;blurred vision;numbness of feet;calluses on feetUrinary FrequencyReported bypatient.Severity:mod erate Context:suprapubic abdominal pain and pressure Aggravating Factors:caffeine; spicy foods; tomatoes Associated Symptoms:no constipation; no dribbling; no nausea; no vomiting; no straining; no incontinence; no fever;abdominal pain;back pain;chills;diarrhea;p ain during urination;incomplete emptying of bladder;blood in the urine;nocturia;urine odor;feelings of urgency;urge incontinence Maty Kline MD Attn: Accounting,[address] [place], [address], [facility] 03/31/2018 23:48:29 02/09/2020 text/html Abnormal BleedingReported bypatient.Onset/Timing :skipped several month, then started bleeding again Duration:<7 days/month Quality:heavy; passing clots Severity:changing pad/tampon every 1-2 hours; requires double protection; interferes with daily activities; requires getting up at night; bleeding through onto clothes/sheets Associated Symptoms:dysmenorrhea; vaginal itching/irritationDiab etes F/UReported bypatient.Labs:last A1C result: 11.1 Context:seeing eye doctor regularly; checking feet regularly; not missing doses of medications; no side effects from medications;home blood sugar range high Associated Symptoms:no headaches; no calluses on feet;weight loss (17 lbs);dizziness;sweats; irregular menstruationNotes:taki ng lantus and humalog insulin.Hypertension F/UReported bypatient.Associated Symptoms:no dizziness; no chest pain; no shortness of breath; no palpitations; no edema Lifestyle:regular exercise Medications:taking medications as directed; no side effects from medicationNotes:taking lisinopril with hydrochlorothiazide.Va ginal DischargeReported bypatient.Location:vag bertin Quality:white; cottage cheesy; yeast smell Severity:moderate Onset/Timing:fluctuati ng Context:diabetes Modifying Factors:nothing gives relief Associated Symptoms:no diarrhea; no pelvic pain; no pain during urination;vaginal itching;vaginal burning;swelling/redne ss Maty Kline MD Attn: Accounting,[address] [place], [address] 02/15/2020 13:36:08 02/28/2020 text/html Annual Hr Associate Post-MenopausalReporte d bypatient.Menopausal Symptoms:no menopausal symptoms; normal vaginal lubrication Vaginal Bleeding:post menopausal bleeding Urinary Symptoms:no hematuria; no incontinence; no nocturia; no urinary frequency Vulva:no genital lesion; no vulvar atrophy Vagina:normal vaginal discharge; no vaginal atrophy Breast:no breast lump; no nipple discharge; no breast pain Sexual Complaints:no sexual complaints Psychological Symptoms:no depression; no anxiety Preventive Measures:encourage regular mammograms starting age 40; encourage self breast examination; encourage regular exercise; encourage no tobacco use; mammogram performed within the past year [facility] 02/28/2020 15:20:47 03/20/2020 text/html COVID ScreeningReported bypatient.Onset/Durati on of fever:no fever Associated Symptoms:no cough; no shortness of breathCOVID-19 Symptoms January 2020Reported bypatient.COVID-19 Signs and Symptomscough resolved; fever resolved; shortness of breath resolved Contacts and Exposureclose contact with a confirmed or suspected case of COVID-19; 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 Onset/Timing:recurring Modifying Factors:nothing makes it worse; nothing gives relief Associated Symptoms:no constipation; no diarrhea; no vomiting;abdominal pain;back pain;dribbling;dysuria ;frequency;hematuria;n octuria;stress incontinence;urgency;u rge incontinence Maty Kline MD Attn: Accounting,[address] [place], [address], [facility] 06/08/2020 00:42:24 OBGyn Episode Ob Episode Information Episode Created Date Number of Fetuses Patient Bloodtype Patient rh Status Prepregnancy Weight lbs Domestic Partner Domestic Partner Phone Father Name Balance Wheel Facer Status 10/31/20 14 1 CLOSED Fetus Data First Name Last Name Admitted to NICU Weight (g) Sex Living Outcome Pediatric Complications Fetus ID Race Codes Race Delivery Type [phone] F Full Term 5301 Dayron Calculation Initial Dayron Date Initial Exam Date Initial Exam Provider Initial Ultrasound Date Last Menstrual Period Date Ultra Sound Weeks Gestation 0 Eighteen To Twenty Week Dayron Update Ultra Sound Date Fundal Height At Umbil Quickening Date Ultra Sound Latest Weeks Gestation Final Dayron Confirmed By Final Dayron Confirmed Date Final Dayron Date Ultra Sound Latest Days Gestation 0 0 Menstrual History Last Menstrual Date Menses Monthly On Bcp Conception Prior Menses Frequency Hcg Plus Date Menarche Onset Age Delivery Information Delivery Date Delivery Type Labor Anesthesia Weeks Gestation Incision Type Labor Labor Length Hrs Delivered By Post Complications Tubal Sterilization Discharge Date Comments 4 Discharge Information Feeding Method Contraceptive Method Maternal HG B and HCT Levels
--- OUTSIDE RECORDS SUMMARY | 2025-02-10 08:06 | XMS_ITS | Clinical Summary ---
Author Organization [facility] Address [address] [place] [address] Care Team Providers Care Dean Name Role Phone Toribio Ocasio MD Unavailable [phone] Jonel Mercer MD Primary Care Provider Allergies [...] 1 each 3 10/20/20 Active Dexcom G6 Material Assembler misc 10/08/20 Active diphenhydrAMINE (BENADRYL) 25 mg [...] 024 Assessment & Plan (10/04/2024 10:54 AM LAYDOWN MACHINE OPERATOR): Patient asymptomatic. Noninvasive studies were normal as was her exam. No further workup needed follow up PRN. Diabetic polyneuropathy asso ciated with type 2 diabetes mellitus 12/17/2023 Pharyngitis 10/15/2023 Assessment & Plan (10/15/2023 5:00 PM LAYDOWN MACHINE OPERATOR): Point of care strep swab negative. However patients are overwhelmingly concerning for strep given her recent infection we will treat patient with Ceftin 250 mg b.i.d. x7 days. Patient is advised to change her toothbrush after 48 hours of starting the antibiotic. Vaginal yeast infection 10/15/2023 Assessment & Plan (10/15/2023 4:59 PM LAYDOWN MACHINE OPERATOR): Patient complains of vaginal yeast infections secondary to the amount of antibiotics that she is taken in the past 2 weeks. Diflucan ordered. Strep throat 09/30/2023 Allergic rhinitis 09/10/2023 Assessment & Plan (09/10/2023 5:02 PM LAYDOWN MACHINE OPERATOR): Flonase and Zyrtec as needed BMI 33.0-33.9,adult 09/10/2023 Assessment & Plan (09/10/2023 5:02 PM LAYDOWN MACHINE OPERATOR): Discussed the patient's BMI. The BMI is above average. BMI management plan is completed. BMI Follow-up includes: nutrition counseling, exercise counseling and education provided. Hypertension associated with type 2 diabetes erna litus 08/31/2023 Assessment & Plan (09/10/2023 4:58 PM LAYDOWN MACHINE OPERATOR): Blood pressure well controlled. Refills sent to [...] losartan 25mg daily. Will update labs at [facility]. Verified that she uses [facility]. Aware to check results/results letter in [employer]. Will contact by phone if needed. Hyperlipidemia due to type 2 diabetes mellitus 1 Assessment & Plan (10/04/2024 10:54 AM LAYDOWN MACHINE OPERATOR): Hyperlipidemia chronic controlled. Continue current medical management. Assessment & Plan (08/31/2023 1:52 PM CDT): Chronic problem. Currently taking Rosuvastatin 40mg & fenofibrate 160mg. Last lipid panel: 06/13/22 LDL=94, BK=929. Will update labs at [facility]. Verified that she uses mychart. Aware to check results/results letter in [employer]. Will contact by phone if needed. Postmenopausal osteoporosis 01/06/2023 Assessment & Plan (01/06/2023 9:55 AM LAYDOWN MACHINE OPERATOR): Patient was diagnosed with osteoporosis by her helminthologist and she was started on Fosamax but she stopped taking the medication on her own. I recommended that she resumes Fosamax with calcium and vitamin-D. She said that she has an appointment with her helminthologist and she will discuss that with her. Angina pectoris 12/16/2022 Atopic dermatitis 12/16/2022 Cyst of pancreas 12/16/2022 Diabetic neuropathy 12/16/2022 Assessment & Plan (09/10/2023 5:01 PM LAYDOWN MACHINE OPERATOR): Patient recently started on gabapentin 300 mg [...] AM CDT): Patient is followed by the inspector clip on sunglasses. Continue to see the beach expert on yearly basis. Encouraged diet and exercise and weight loss. Hepatomegaly 12/16/2022 Nausea, vomiting and diarrhea 12/16/2022 Obesity 12/16/2022 Strain of tendon of back 12/16/2022 Vitamin D deficiency 12/16/2022 Bilateral leg edema 10/08/2022 Assessment & Plan (01/06/2023 9:54 AM LAYDOWN MACHINE OPERATOR): No leg edema Assessment & Plan (10/08/2022 4:41 PM LAYDOWN MACHINE OPERATOR): Leg edema most likely secondary to prolonged sitting. I told her to ambulate. Will start her on Lasix 20 mg p.r.n.. Call for persistent symptoms. Colon cancer screening 10/08/2022 Assessment & Plan (10/08/2022 4:41 PM LAYDOWN MACHINE OPERATOR): Patient had referral for colonoscopy but she did not have it done yet. Advised to call the outreach manager office and proceed with the test she understands the risks including cancer Carpal tunnel syndrome on right 12/13/2021 Overview (12/13/2021): Added automatically from request for surgery [id number] Right elbow pain 11/12/2021 Assessment & Plan (11/12/2021 9:48 AM LAYDOWN MACHINE OPERATOR): Patient with right elbow pain specially when she uses her right hand. We will obtain nerve conduction study to rule out carpal tunnel syndrome. She was advised to wear an elbow brace. We will call her for meloxicam 15 mg daily for 2 weeks. She will call for persistent symptoms BERT (obstructive sleep apnea) 11/12/2021 Assessment & Plan (09/10/2023 4:59 PM LAYDOWN MACHINE OPERATOR): Patient uses CPAP and is compliant with her machine. Assessment & Plan (02/11/2022 9:50 AM CDT): Patient uses CPAP machine on regular basis Assessment & Plan (11/12/2021 9:48 AM LAYDOWN MACHINE OPERATOR): Patient was diagnosed recently with sleep apnea and she has an appointment with the sleep specialist for CPAP machine Lymphadenitis 09/24/2021 Assessment & Plan (09/24/2021 12:53 PM LAYDOWN MACHINE OPERATOR): Patient has lymphadenitis. She will be started on Augmentin 875 mg twice daily for 10 days with food and side effects were explained and she will call us if it is not resolved so that we can arrange for her to see a surgeon for excision Hypersomnia 09/12/2021 Anxiety 09/12/2021 Assessment & Plan (09/10/2023 5:02 PM LAYDOWN MACHINE OPERATOR): Patient denies any anxiety symptoms at this time. Palpitation 09/12/2021 Nonsmoker 09/12/2021 Overweight 09/12/2021 Cough 07/30/2021 Assessment & Plan (09/10/2023 5:02 PM LAYDOWN MACHINE OPERATOR): Patient has persistent cough productive of clear mucus with no shortness breath or wheezing or chest pain. She is advised to restart her Symbicort Assessment & Plan (07/30/2021 9:33 AM CDT): Patient has persistent cough productive of clear mucus with no shortness breath or wheezing or chest pain. We will stop lisinopril. She will continue Symbicort. Will make a referral to see freelance court stenographer for further evaluation. Acute bronchitis 07/02/2021 Assessment & Plan (09/30/2023 5:15 PM LAYDOWN MACHINE OPERATOR): Patient with acute bronchitis. She is on [...] from Dexcom & Tandem pump. To call/send [employer] message if not helping. Apply the dexcom 1st to see if the above products will help prevent the skin irritation. Will update labs. Verified that she uses mychart. Aware to check results/results letter in [employer]. Will contact by phone if needed. DM eye exam q6wks at [facility] for laser tx & injections. Will send letter to get copy of report from [place] office. Strive for regular exercise (30min most [...] (05/08/2023 7:41 AM CDT): Followed by the beach expert Assessment & Plan (01/06/2023 8:35 AM LAYDOWN MACHINE OPERATOR): Managed by the inspector clip on sunglasses. Continue to have annual eye exam Assessment & Plan (10/08/2022 4:40 PM LAYDOWN MACHINE OPERATOR): Managed by the inspector clip on sunglasses advised to have annual eye exam Assessment & Plan (04/16/2022 8:25 AM CDT): Continue current medications, discussed low carbohydrate diet, advised to exercise on regular basis, advised to have annual eye exam. We will continue to monitor. Followed by the inspector clip on sunglasses Assessment & Plan (02/11/2022 9:50 AM CDT): Follow with the inspector clip on sunglasses and beach expert. Discussed weight loss and diet. Assessment & Plan (11/12/2021 9:48 AM LAYDOWN MACHINE OPERATOR): Patient is not compliant with medications. She [...] and exercise. Patient was seen by a galvanizer zinc in the past. Will increase Lantus to [...] Continue diet. She was seen by the beach expert. She will check her sugar 3 times daily and call us with readings in 1 week. Assessment & Plan (01/10/2021 4:30 PM LAYDOWN MACHINE OPERATOR): Patient will start on Lantus 45 units [...] monitor Assessment & Plan (01/06/2023 8:35 AM LAYDOWN MACHINE OPERATOR): Continue current medications. Discussed low-salt diet. Discussed exercise on regular basis. Will continue to monitor Assessment & Plan (10/08/2022 4:40 PM LAYDOWN MACHINE OPERATOR): Continue current medications. Discussed low-salt diet. Discussed exercise on regular basis. Will continue to monitor Assessment & Plan (02/11/2022 9:50 AM CDT): Continue current medications. Discussed low-salt diet. Discussed exercise on regular basis. Will continue to monitor Assessment & Plan (11/12/2021 9:49 AM LAYDOWN MACHINE OPERATOR): Continue current medications. Discussed low-salt diet. Discussed [...] monitor Assessment & Plan (01/10/2021 4:30 PM LAYDOWN MACHINE OPERATOR): Start lisinopril 20 mg daily and we discussed low-salt diet Dyslipidemia 01/10/2021 Assessment & Plan (09/10/2023 5:00 PM LAYDOWN MACHINE OPERATOR): Patient is maintained on Crestor 40 mg tablets and fenofibrate 160 mg we will continue this regimen Assessment & Plan (05/08/2023 8:57 AM CDT): LDL is 113. Increase Crestor to 40 mg q.h.s.. Continue low-fat diet. Assessment & Plan (01/06/2023 8:35 AM LAYDOWN MACHINE OPERATOR): Controlled on current medications. Continue low-fat diet. Will continue to monitor . Assessment & Plan (10/08/2022 4:40 PM LAYDOWN MACHINE OPERATOR): Controlled on current medications. Continue low-fat diet. Will continue to monitor . Assessment & Plan (04/16/2022 8:25 AM CDT): Controlled on current medications. Continue low-fat diet. Will continue to monitor . Assessment & Plan (02/11/2022 9:50 AM CDT): Stop atorvastatin and start Crestor 20 mg q.h.s. for better control of hyperlipidemia. Continue low-fat diet Assessment & Plan (11/12/2021 9:49 AM LAYDOWN MACHINE OPERATOR): Resume medications and we discussed the importance [...] months Assessment & Plan (01/10/2021 4:30 PM LAYDOWN MACHINE OPERATOR): Start Lipitor 10 mg q.h.s. and discussed low-fat diet and pamphlets were given Pneumonia due to COVID-19 virus 11/28/2020 Microalbuminuria 05/29/2019 Coronary arteriosclerosis 05/24/2019 Gastroesophageal reflux disease without esophagi tis 05/24/2019 Assessment & Plan (09/10/2023 5:00 PM LAYDOWN MACHINE OPERATOR): Patient reports symptoms are controlled. Steatosis of liver 05/24/2019 Mild nonproliferative diabetic retinopathy(362.0 4) 05/24/2019 Tabby-Chu tear 10/18/2017 Kidney disease 12/14/2016 Leukocytosis 06/13/2014 Asthma Assessment & Plan (09/10/2023 5:02 PM LAYDOWN MACHINE OPERATOR): Patient is advised to restart Symbicort. We will follow up at next visit. Assessment & Plan (05/08/2023 8:58 AM CDT): Patient is asymptomatic and stable without medications Assessment & Plan (01/06/2023 9:54 AM LAYDOWN MACHINE OPERATOR): Patient complains of cough but no shortness [...] TUNNEL RELEASE 01/07/2018 left SECTION 02/23/1994 ESOPHAGOGASTRODUODENOSCOPY 2010, 2017 CARPAL TUNNEL RELEASE 01/03/2022 Right Release [...] on file Legal Sex Female 2:02 AM LAYDOWN MACHINE OPERATOR Gender Identity Not on file Sexual Orientation [...] Comments Blood Pressure 135/80 09/08/2024 10:13 AM LAYDOWN MACHINE OPERATOR Pulse 79 09/08/2024 10:13 AM LAYDOWN MACHINE OPERATOR Temperature 36.7 C (98 F) 10/15/2023 1:39 PM LAYDOWN MACHINE OPERATOR Respiratory Rate 18 10/15/2023 1:39 PM LAYDOWN MACHINE OPERATOR Oxygen Saturation 97% 10/15/2023 1:39 PM LAYDOWN MACHINE OPERATOR Inhaled Oxygen Concentration - - Weight 98 kg (216 lb) 09/08/2024 10:13 AM LAYDOWN MACHINE OPERATOR Height 170.2 cm (5' 7 ) 09/08/2024 10:13 AM LAYDOWN MACHINE OPERATOR Body Mass Index 33.83 09/08/2024 10:13 AM LAYDOWN MACHINE OPERATOR Plan of Treatment Health Maintenance Due Date [...] Exam 05/08/2024 05/08/2023, 01/31, 01/31/2022 Covid-19 Vaccine (2023-12 5 season) 2024 05/18/2023, 04/26/2021, 03/29/2021 Influenza [...] of Race in Diagnosing Kidney Disease, JASN 202). The CKD-EPI equation should not be used for patients with unstable renal function and has not been validated in children and those over 70. Current interpretive data was last reviewed 2021. Blood 06/13/2022 7:54 AM CDT 06/13/2022 8:10 AM CDT Moris Linares MD LAB BLOOD ORDERABLES Final Result Performing Organization Address [facility] de Phone Number [address] [address] * Albumin Creatinine Ratio, Urine (06/13/2022 7:54 AM CDT) Albumin Ur <12.0 mg/L [facility] Comment: Interpretive Data No reference range established. Current interpretive data was last revised 2019. Creatinine Ur 51.0 mg/dL [facility] Comment: Interpretive Data No reference range established. Current interpretive data was last revised 2019. Albumin Creatinine Ratio, Ur <24 1 - 29 mg/g [facility] Urine 06/13/2022 7:54 AM CDT 06/13/2022 8:08 AM CDT Moris Linares MD LAB URINE ORDERABLES Final Result Performing Organization Address [facility] de Phone Number [address] [address] * (ABNORMAL) Lipid panel (06/13/2022 7:54 AM CDT) Cholesterol 157 30 - 199 mg/dL [facility] Comment: Interpretive Data Ages < or = [...] MD LAB BLOOD ORDERABLES Final Result [facility] [address] [facility] Department [place] [address] * Diabetic Foot Exam (02/15/2022) Historical Provider [...] Most Recently Relevant to Health Maintenance Insurance [facility] Care Teams Dean Relationship Specialty Start Date End Date Jonel Mercer MD [address] [facility] [address] [place] [address] PCP - General Family Medicine 09/08/24 Toribio Ocasio MD Consulting Physician Plastic Surgery 01/03/22
--- OUTSIDE RECORDS SUMMARY | 2025-02-10 08:06 | XMS_ITS | Referral Summary ---
Author Organization [facility] Address [address] [place] [address] Care Team Providers Care Well Drill Operator Cable Tool Name Role Phone Toribio Ocasio MD Unavailable [phone] Jonel Mercer MD Primary Care Provider Allergies [...] 1 each 3 10/20/20 Active Dexcom G6 Process Engineer misc 10/08/20 Active diphenhydrAMINE (BENADRYL) 25 mg [...] 024 Assessment & Plan (10/04/2024 10:54 AM SKEIN INSPECTOR): Patient asymptomatic. Noninvasive studies were normal as was her exam. No further workup needed follow up PRN. Diabetic polyneuropathy asso ciated with type 2 diabetes mellitus 12/17/2023 Pharyngitis 10/15/2023 Assessment & Plan (10/15/2023 5:00 PM SKEIN INSPECTOR): Point of care strep swab negative. However patients are overwhelmingly concerning for strep given her recent infection we will treat patient with Ceftin 250 mg b.i.d. x7 days. Patient is advised to change her toothbrush after 48 hours of starting the antibiotic. Vaginal yeast infection 10/15/2023 Assessment & Plan (10/15/2023 4:59 PM SKEIN INSPECTOR): Patient complains of vaginal yeast infections secondary to the amount of antibiotics that she is taken in the past 2 weeks. Diflucan ordered. Strep throat 09/30/2023 Allergic rhinitis 09/10/2023 Assessment & Plan (09/10/2023 5:02 PM SKEIN INSPECTOR): Flonase and Zyrtec as needed BMI 33.0-33.9,adult 09/10/2023 Assessment & Plan (09/10/2023 5:02 PM SKEIN INSPECTOR): Discussed the patient's BMI. The BMI is above average. BMI management plan is completed. BMI Follow-up includes: nutrition counseling, exercise counseling and education provided. Hypertension associated with type 2 diabetes erna litus 08/31/2023 Assessment & Plan (09/10/2023 4:58 PM SKEIN INSPECTOR): Blood pressure well controlled. Refills sent to [...] losartan 25mg daily. Will update labs at [facility]. Verified that she uses [facility]. Aware to check results/results letter in [employer]. Will contact by phone if needed. Hyperlipidemia due to type 2 diabetes mellitus 1 Assessment & Plan (10/04/2024 10:54 AM SKEIN INSPECTOR): Hyperlipidemia chronic controlled. Continue current medical management. Assessment & Plan (08/31/2023 1:52 PM CDT): Chronic problem. Currently taking Rosuvastatin 40mg & fenofibrate 160mg. Last lipid panel: 06/13/22 LDL=94, QG=195. Will update labs at [facility]. Verified that she uses mychart. Aware to check results/results letter in [employer]. Will contact by phone if needed. Postmenopausal osteoporosis 01/06/2023 Assessment & Plan (01/06/2023 9:55 AM SKEIN INSPECTOR): Patient was diagnosed with osteoporosis by her line worker and she was started on Fosamax but she stopped taking the medication on her own. I recommended that she resumes Fosamax with calcium and vitamin-D. She said that she has an appointment with her line worker and she will discuss that with her. Angina pectoris 12/16/2022 Atopic dermatitis 12/16/2022 Cyst of pancreas 12/16/2022 Diabetic neuropathy 12/16/2022 Assessment & Plan (09/10/2023 5:01 PM SKEIN INSPECTOR): Patient recently started on gabapentin 300 mg [...] AM CDT): Patient is followed by the bowl turner. Continue to see the software support engineer on yearly basis. Encouraged diet and exercise and weight loss. Hepatomegaly 12/16/2022 Nausea, vomiting and diarrhea 12/16/2022 Obesity 12/16/2022 Strain of tendon of back 12/16/2022 Vitamin D deficiency 12/16/2022 Bilateral leg edema 10/08/2022 Assessment & Plan (01/06/2023 9:54 AM SKEIN INSPECTOR): No leg edema Assessment & Plan (10/08/2022 4:41 PM SKEIN INSPECTOR): Leg edema most likely secondary to prolonged sitting. I told her to ambulate. Will start her on Lasix 20 mg p.r.n.. Call for persistent symptoms. Colon cancer screening 10/08/2022 Assessment & Plan (10/08/2022 4:41 PM SKEIN INSPECTOR): Patient had referral for colonoscopy but she did not have it done yet. Advised to call the fortune cookie maker office and proceed with the test she understands the risks including cancer Carpal tunnel syndrome on right 12/13/2021 Overview (12/13/2021): Added automatically from request for surgery [id number] Right elbow pain 11/12/2021 Assessment & Plan (11/12/2021 9:48 AM SKEIN INSPECTOR): Patient with right elbow pain specially when she uses her right hand. We will obtain nerve conduction study to rule out carpal tunnel syndrome. She was advised to wear an elbow brace. We will call her for meloxicam 15 mg daily for 2 weeks. She will call for persistent symptoms BERT (obstructive sleep apnea) 11/12/2021 Assessment & Plan (09/10/2023 4:59 PM SKEIN INSPECTOR): Patient uses CPAP and is compliant with her machine. Assessment & Plan (02/11/2022 9:50 AM CDT): Patient uses CPAP machine on regular basis Assessment & Plan (11/12/2021 9:48 AM SKEIN INSPECTOR): Patient was diagnosed recently with sleep apnea and she has an appointment with the sleep specialist for CPAP machine Lymphadenitis 09/24/2021 Assessment & Plan (09/24/2021 12:53 PM SKEIN INSPECTOR): Patient has lymphadenitis. She will be started on Augmentin 875 mg twice daily for 10 days with food and side effects were explained and she will call us if it is not resolved so that we can arrange for her to see a surgeon for excision Hypersomnia 09/12/2021 Anxiety 09/12/2021 Assessment & Plan (09/10/2023 5:02 PM SKEIN INSPECTOR): Patient denies any anxiety symptoms at this time. Palpitation 09/12/2021 Nonsmoker 09/12/2021 Overweight 09/12/2021 Cough 07/30/2021 Assessment & Plan (09/10/2023 5:02 PM SKEIN INSPECTOR): Patient has persistent cough productive of clear mucus with no shortness breath or wheezing or chest pain. She is advised to restart her Symbicort Assessment & Plan (07/30/2021 9:33 AM CDT): Patient has persistent cough productive of clear mucus with no shortness breath or wheezing or chest pain. We will stop lisinopril. She will continue Symbicort. Will make a referral to see worm farm laborer for further evaluation. Acute bronchitis 07/02/2021 Assessment & Plan (09/30/2023 5:15 PM SKEIN INSPECTOR): Patient with acute bronchitis. She is on [...] from Dexcom & Tandem pump. To call/send [employer] message if not helping. Apply the dexcom 1st to see if the above products will help prevent the skin irritation. Will update labs. Verified that she uses [facility]. Aware to check results/results letter in [employer]. Will contact by phone if needed. DM eye exam q6wks at [facility] for laser tx & injections. Will send letter to get copy of report from [place] office. Strive for regular exercise (30min most [...] (05/08/2023 7:41 AM CDT): Followed by the software support engineer Assessment & Plan (01/06/2023 8:35 AM SKEIN INSPECTOR): Managed by the bowl turner. Continue to have annual eye exam Assessment & Plan (10/08/2022 4:40 PM SKEIN INSPECTOR): Managed by the bowl turner advised to have annual eye exam Assessment & Plan (04/16/2022 8:25 AM CDT): Continue current medications, discussed low carbohydrate diet, advised to exercise on regular basis, advised to have annual eye exam. We will continue to monitor. Followed by the bowl turner Assessment & Plan (02/11/2022 9:50 AM CDT): Follow with the bowl turner and software support engineer. Discussed weight loss and diet. Assessment & Plan (11/12/2021 9:48 AM SKEIN INSPECTOR): Patient is not compliant with medications. She [...] and exercise. Patient was seen by a technical supervisor in the past. Will increase Lantus to [...] Continue diet. She was seen by the software support engineer. She will check her sugar 3 times daily and call us with readings in 1 week. Assessment & Plan (01/10/2021 4:30 PM SKEIN INSPECTOR): Patient will start on Lantus 45 units [...] monitor Assessment & Plan (01/06/2023 8:35 AM SKEIN INSPECTOR): Continue current medications. Discussed low-salt diet. Discussed exercise on regular basis. Will continue to monitor Assessment & Plan (10/08/2022 4:40 PM SKEIN INSPECTOR): Continue current medications. Discussed low-salt diet. Discussed exercise on regular basis. Will continue to monitor Assessment & Plan (02/11/2022 9:50 AM CDT): Continue current medications. Discussed low-salt diet. Discussed exercise on regular basis. Will continue to monitor Assessment & Plan (11/12/2021 9:49 AM SKEIN INSPECTOR): Continue current medications. Discussed low-salt diet. Discussed [...] monitor Assessment & Plan (01/10/2021 4:30 PM SKEIN INSPECTOR): Start lisinopril 20 mg daily and we discussed low-salt diet Dyslipidemia 01/10/2021 Assessment & Plan (09/10/2023 5:00 PM SKEIN INSPECTOR): Patient is maintained on Crestor 40 mg tablets and fenofibrate 160 mg we will continue this regimen Assessment & Plan (05/08/2023 8:57 AM CDT): LDL is 113. Increase Crestor to 40 mg q.h.s.. Continue low-fat diet. Assessment & Plan (01/06/2023 8:35 AM SKEIN INSPECTOR): Controlled on current medications. Continue low-fat diet. Will continue to monitor . Assessment & Plan (10/08/2022 4:40 PM SKEIN INSPECTOR): Controlled on current medications. Continue low-fat diet. Will continue to monitor . Assessment & Plan (04/16/2022 8:25 AM CDT): Controlled on current medications. Continue low-fat diet. Will continue to monitor . Assessment & Plan (02/11/2022 9:50 AM CDT): Stop atorvastatin and start Crestor 20 mg q.h.s. for better control of hyperlipidemia. Continue low-fat diet Assessment & Plan (11/12/2021 9:49 AM SKEIN INSPECTOR): Resume medications and we discussed the importance [...] months Assessment & Plan (01/10/2021 4:30 PM SKEIN INSPECTOR): Start Lipitor 10 mg q.h.s. and discussed low-fat diet and pamphlets were given Pneumonia due to COVID-19 virus 11/28/2020 Microalbuminuria 05/29/2019 Coronary arteriosclerosis 05/24/2019 Gastroesophageal reflux disease without esophagi tis 05/24/2019 Assessment & Plan (09/10/2023 5:00 PM SKEIN INSPECTOR): Patient reports symptoms are controlled. Steatosis of liver 05/24/2019 Mild nonproliferative diabetic retinopathy(362.0 4) 05/24/2019 Tabby-Chu tear 10/18/2017 Kidney disease 12/14/2016 Leukocytosis 06/13/2014 Asthma Assessment & Plan (09/10/2023 5:02 PM SKEIN INSPECTOR): Patient is advised to restart Symbicort. We will follow up at next visit. Assessment & Plan (05/08/2023 8:58 AM CDT): Patient is asymptomatic and stable without medications Assessment & Plan (01/06/2023 9:54 AM SKEIN INSPECTOR): Patient complains of cough but no shortness [...] on file Legal Sex Female 2:02 AM SKEIN INSPECTOR Gender Identity Not on file Sexual Orientation Not on file Last Filed Vital Signs Vital Sign Reading Time Taken Comments Blood Pressure 135/80 09/08/2024 10:13 AM SKEIN INSPECTOR Pulse 79 09/08/2024 10:13 AM SKEIN INSPECTOR Temperature 36.7 C (98 F) 10/15/2023 1:39 PM SKEIN INSPECTOR Respiratory Rate 18 10/15/2023 1:39 PM SKEIN INSPECTOR Oxygen Saturation 97% 10/15/2023 1:39 PM SKEIN INSPECTOR Inhaled Oxygen Concentration - - Weight 98 kg (216 lb) 09/08/2024 10:13 AM SKEIN INSPECTOR Height 170.2 cm (5' 7 ) 09/08/2024 10:13 AM SKEIN INSPECTOR Body Mass Index 33.83 09/08/2024 10:13 AM SKEIN INSPECTOR Plan of Treatment Not on file Procedures [...] Blood 08/31/2023 1:06 PM CDT Meaghan Bliss MOLDER MACHINE TENDER POINT OF CARE TEST ORDERA BLES Final [...] BLOOD ORDERABLES Final Result Performing Organization Address [facility] Co de Phone Number [address] [place] [address] * Albumin Creatinine Ratio, Urine (06/13/2022 7:54 [...] URINE ORDERABLES Final Result Performing Organization Address [facility] Co de Phone Number [address] [place] [address] * (ABNORMAL) Lipid panel (06/13/2022 7:54 AM [...] MD LAB BLOOD ORDERABLES Final Result DADA [address] [facility] Department of Laboratories [place], [place] [id number] * Diabetic Foot Exam (02/15/2022) Historical Provider [...] Most Recently Relevant to Health Maintenance Insurance Care Teams Well Drill Operator Cable Tool Relationship Specialty Start Date End Date Jonel Mercer MD [address] [place] [address] PCP - General Family Medicine 09/08/24 Toribio Ocasio MD Consulting Physician Plastic Surgery 01/03/22
--- OUTSIDE RECORDS SUMMARY | 2025-02-10 08:07 | XMS_ITS | Clinical Summary ---
Author Organization [facility] Address [address] [place] [address] Care Team Providers Care Data Compiler Name Role Phone Moris Linares MD Primary Care Provider [phone] Allergies Active Allergy Reactions Criticality Noted Date [...] Gluc Sensor (FREESTYLE FRAN 14 DAY SENSOR) [facility] FreeStyle Fran 14 Day Sensor kit USE [...] virus 11/28/2020 Acute respiratory failure with hypoxia ([facility]) 11/27/2020 Social History Tobacco Use Types Packs/Day Years Used Date Smoking Tobacco: Never Cigarettes Smokeless Tobacco: Never Alcohol Use Standard Drinks/Week Comments Not Currently 0 (1 standard drink = 0.6 oz pur e alcohol) Comments Unknown Sex and Gender Information Value Date Recorded Sex Assigned at Not on file Legal Sex Female 12:44 PM SALESPERSON AUTOMOBILES Gender Identity Not on file Sexual Orientation [...] - 2023-2 5 season) 2024 04/26/2021, 03/29/2021 Colorectal Cancer Screening Colonoscopy (10 Years) 02/29/2032 [...] perform ADLs independently General No Belen Lindsey supply chain director Procedure Name Priority Date/Time Associated Diagnosis Comments COLONOSCOPY Routine 02/28/2022 8:21 AM CDT from Last 3 Months or Most Recently Relevant to Health Maintenance Insurance Advance Directives * Full Code (Latest Code Status on File) Date Activated Date Inactivated Comments 11/27/2020 9:44 PM 12/02/2020 6:14 PM Care Teams Data Compiler Relationship Specialty Start Date End Date Moris Linares MD [address] [facility] [address] [address] PCP - General INTERNAL MEDICINE 02/28/22
--- OUTSIDE RECORDS SUMMARY | 2025-02-10 08:07 | XMS_ITS | Clinical Summary ---
Author Organization [facility] Address [address] [place] [id number] Care Team Providers Care Deckhand Tuna Boat Name Role Phone Chase Alva MD Primary Care Provider [phone] Bill Mcgregor DO Unavailable [phone] Allergies Active Allergy Reactions Criticality Noted [...] Insurance MEDICAID [employer] Care Teams Deckhand Tuna Boat Relationship Specialty Start Date End Date Chase Alva MD [address] [facility] [address] [place] [address] PCP - General Internal Medicine 10/22/17 Bill Mcgregor DO [address] [address] Consulting Physician Gastroenterology 02/25/18
--- OUTSIDE RECORDS SUMMARY | 2025-02-10 08:07 | XMS_ITS | CONTINUITY OF CARE DOCUMENT ---
Author Name hunter avemelinda Address Unknown Organization [facility] Address [address] [place] [address] [address] [place] [address] Phone [phone] Care Team Providers Care Railroad Inspector Name Role Phone Mason GARCIA, Trang Unavailable JIM GALVIN Unavailable JIM GALVIN Unavailable INSURANCE PROVIDERS Payer name Policy type / Coverage type [place] red green party ID [facility] Blue [facility] [id number]
--- OUTSIDE RECORDS SUMMARY | 2025-02-10 08:07 | XMS_ITS | Data Portability ---
Author Organization [place] - [facility] Last[employer]fm, Main Office Address [address] [place] [address] Care Team Providers Care Crystal Cutter Name Role Phone NEW MALHOTRA Primary Care Provider [phone] NEW MALHOTRA Referring Provider Assessment No assessment recorded. Plan of Treatment Reminders Order Date Submit Date Provider Last Modified By Organization Details Last Modified Time Details Appointments None recorded. Lab cortisol, am, serum [address], [facility], [address] [place] [address], [address], 3 09:55:03 dexamethaso ne, serum [address], [facility]0 [facility], [address] [place] [address], [address], 3 09:55:03 lipid panel, serum [address] [place] [address], [facility], [address], [address], 3 09:54:50 TSH + free T4, serum [address] [place] [address], [facility], [address], [address], 3 09:54:50 CMP, serum or plasma [address] [place] [address], [facility], [address], [address], 3 09:54:50 HbA1c (hemoglobin A1c), blood [address] [place] [address], [address] [facility] [address], [address], [place], [address], 3 09:54:50 microalbumi n/creatinin e, mass ratio, urine [address], [address], [place], [address], 3 09:54:50 Referral None recorded. Procedures None recorded. Surgeries None recorded. Imaging None recorded. Medication Orders dexamethaso ne 1 mg tablet 2022 023 [facility] [address], [address], [place], [address], 3 09:54:46 glimepiride 2 mg tablet 2022 023 [facility] [address], [address], [place], [address], 3 09:51:21 metformin ER 500 mg tablet,exte nded release 24 hr 2022 023 [facility] [address], [address], [place], [address], 3 09:53:42 Patient TargetsNo targets recorded. Patient InstructionsNo instructions recorded. Reason for Referral None Reported. Results Created Date Observation Date Name Description Value Unit Range Abnormal Flag Note LastModifiedBy Organization Detail LastModifiedTime 08/04/20 22 07/10/2022 XR, foot No observ ation record ed. [id number] Not Available 12/31/2022 08:55:48 Result Notes None recorded. Problems Name Problem SNOMED Code Status Onset Date Resolution Date Notes Provider Name and Address Organization Details Recorded Time Paronychia of toe of right foot 9746571695005 9102 Active 2021 Not Available [facility] 3 08:50:56 Peripheral neuropathy due to type 2 diabetes mellitus 6096492057343 Active 2021 Not Available [facility] 3 08:50:56 Dyslipidem ia 256893202 Active 2021 Not Available [facility] 3 08:50:56 Diabetic foot ulcer 869885459 Active 2021 Not Available [facility] 3 08:50:56 Hypothyroi dism 12716567 Active 2021 Not Available [facility] 3 08:50:56 Uncontroll ed type 2 diabetes mellitus 614311540 Active 2021 Not Available [facility] 3 08:50:56 Well controlled type 2 diabetes mellitus 914671854 Active 2021 Not Available [facility] 3 08:50:56 Essential hypertensi on 84339830 Active 2021 Not Available [facility] 3 08:50:57 Osteoporos is 22402201 Active 2021 Not Available [facility] 3 08:50:57 Mixed hyperlipid emia 118776021 Active 2022 Vanessa Kirby MD [address], [address] , [employer] 3 09:51:49 Weight gain 8070985 Active 2022 Vanessa Kirby MD [address] [facility], [place] [address], [place], [address] , [employer] [facility] 3 09:53:57 Problem Notes None recorded. Procedures Surgical History Date Name Laterality Status Provider Name and Address Organization Details Recorded Time 2 Carpal tunnel surgery completed Not Available [facility] 12/31/2022 08:45:37 Imaging Results Imaging Date Name Status LastModified by Organiz ation Details LastModified Time 07/10/2022 XR, foot completed [id number] Information not available 12/31/2022 08:55:48 Procedure Notes None recorded. Medical Equipment None Reported. Allergies Allergen ID Allergen Name Allergen Category Reaction Reaction Severity Criticality Documentation Date Start Date Code Code System Note Provider Name and Address Organization Details Recorded Time 17634 lisinopri l medicatio n Not available Not available Not available 12/31/2022 55186 RxNorm Not Available [facility] 3 08:55:42 48564 adhesive environme nt,medica tion Not available Not available Not available 12/31/2022 74650 UNK Not Available [facility] 3 08:55:42 96509 metformin medicatio n Not available Not available Not available 12/31/2022 6809 RxNorm Not Available [facility] 3 08:55:42 Medications Name Sig Start Date Stop Date Status Note LastModified by Organization Details LastModified Time atorvastati n 20 mg tablet Take 1 tablet every day by oral route for 30 days. active Not Available Not Available No t Available atorvastati n 10 mg tablet TAKE 1 TABLET BY MOUTH ONCE DAILY 02/17 completed Not Available Not Available Not Available azithromyci n 250 mg tablet 01/17 completed Not Available Not Available Not Available ibuprofen 800 mg tablet 01/17 completed Not Available Not Available Not Available tramadol 37.5 mg-acetamin ophen 325 mg tablet 01/17 completed Not Available Not Available Not Available fluconazole 150 mg tablet 02/17 completed Not Available Not Available Not Available hydrocodone 5 mg-acetamin ophen 325 mg tablet TAKE 1 TABLET BY MOUTH EVERY 6 HOURS NEEDED FOR PAIN FOR UP TO 7 DAYS 05/16 completed Not Available Not Available Not Available meloxicam 15 mg tablet TAKE 1 TABLET BY MOUTH ONCE DAILY 01/17 completed Not Available Not Available Not Available FreeStyle Lancets 28 gauge USE TO TEST BLOOD SUGAR TWICE DAILY DIRECTED active Not Available Not Available No t Available phenazopyri dine 200 mg tablet 01/17 completed Not Available Not Available Not Available lisinopril 20 mg tablet 01/17 completed Not Available Not Available Not Available isosorbide mononitrate ER 30 mg tablet,exte nded release 24 hr 01/17 completed Not Available Not Available Not Available Lantus U-100 Insulin 100 unit/mL subcutaneou s solution 01/17 completed Not Available Not Available Not Available ciprofloxac in 500 mg tablet TAKE 1 TABLET BY MOUTH TWICE DAILY FOR 3 DAYS 02/17 completed Not Available Not Available Not Available sulfamethox azole 800 mg-trimetho prim 160 mg tablet TAKE 1 TABLET BY MOUTH TWICE DAILY FOR 7 DAYS 01/17 completed Not Available Not Available Not Available tramadol 50 mg tablet 01/17 completed Not Available Not Available Not Available triamcinolo ne acetonide 0.1 % topical cream active Not Available Not Available Not Available glimepiride 2 mg tablet TAKE 2 TABLETS BY MOUTH TWICE DAILY BEFORE MEAL(S) active Not Available Not Available No t Available fenofibrate micronized 134 mg capsule 01/17 completed Not Available Not Available Not Available alprazolam 0.25 mg tablet TAKE 1 TABLET BY MOUTH TWICE DAILY FOR ANXIETY active Not Available Not Available No t Available [employer] Ultra Test strips USE TO TEST BLOOD SUGAR TWICE DAILY DIRECTED active Not Available Not Available No t Available dexamethaso ne 1 mg tablet TAKE ONE TABLET BY MOUTH AT 10 PM THE NIGHT BEFORE 8 AM CORTISOL active Not Available Not Available No t Available amlodipine 10 mg tablet TAKE 1 TABLET BY MOUTH ONCE DAILY 05/16 completed Not Available Not Available Not Available doxycycline monohydrate 100 mg capsule TAKE 1 CAPSULE BY MOUTH TWICE DAILY active Not Available Not Available No t Available nystatin 100,000 unit/gram topical cream active Not Available Not Available Not Available hydrocodone 7.5 mg-acetamin ophen 750 mg tablet 01/17 completed Not Available Not Available Not Available losartan 25 mg tablet TAKE 1 TABLET BY MOUTH ONCE DAILY IN THE MORNING active Not Available Not Available No t Available lisinopril 20 mg-hydrochl orothiazide 25 mg tablet 01/17 completed Not Available Not Available Not Available pravastatin 20 mg tablet 01/17 completed Not Available Not Available Not Available furosemide 20 mg tablet TAKE 1 TABLET BY MOUTH ONCE DAILY active Not Available Not Available No t Available metoprolol succinate ER 25 mg tablet,exte nded release 24 hr 01/17 completed Not Available Not Available Not Available insulin lispro (U-100) 100 unit/mL subcutaneou s solution USE UP TO 50 UNITS PER DAY VIA INSULIN PUMP active Not Available Not Available No t Available estradiol 0.01% (0.1 mg/gram) vaginal cream 02/17 completed Not Available Not Available Not Available levofloxaci n 750 mg tablet 01/17 completed Not Available Not Available Not Available methylpredn isolone 4 mg tablets in a dose pack TAKE BY MOUTH DIRECTED ON INSIDE OF PACKAGE 02/17 completed Not Available Not Available Not Available albuterol sulfate HFA 90 mcg/actuati on aerosol inhaler INHALE 2 PUFFS BY MOUTH EVERY 4 HOURS NEEDED FOR WHEEZING FOR SHORTNESS OF BREATH active Not Available Not Available No t Available norethindro ne (contracept pardeep) 0.35 mg tablet 01/17 completed Not Available Not Available Not Available lisinopril 40 mg tablet 01/17 completed Not Available Not Available Not Available metformin ER 500 mg tablet,exte nded release 24 hr TAKE 1 TABLET BY MOUTH ONCE DAILY WITH SUPPER active Not Available Not Available No t Available amoxicillin 875 mg-potassiu m clavulanate 125 mg tablet TAKE 1 TABLET BY MOUTH TWICE DAILY FOR 14 DAYS active Not Available Not Available No t Available amoxicillin 500 mg-potassiu m clavulanate 125 mg tablet 01/17 completed Not Available Not Available Not Available oxycodone 5 mg tablet TAKE 1 TABLET BY MOUTH EVERY 4 HOURS NEEDED FOR PAIN 01/17 completed Not Available Not Available Not Available insulin lispro (U-100) 100 unit/mL subcutaneou s pen INJECT 14 UNITS SUBCUTANE OUSLY THREE TIMES DAILY BEFORE MEAL(S) active Not Available Not Available No t Available Novolog FlexPen U-100 Insulin aspart 100 unit/mL (3 mL) subcutaneou s 01/17 completed Not Available Not Available Not Available rosuvastati n 20 mg tablet TAKE 1 TABLET BY MOUTH ONCE DAILY active Not Available Not Available No t Available rosuvastati n 40 mg tablet TAKE 1 TABLET BY MOUTH ONCE DAILY active Not Available Not Available No t Available Byetta 10 mcg/dose(25 0 mcg/mL)2.4 mL subcutaneou s pen injector INJECT 10 MCG SUB-Q TWICE A DAY active Not Available Not Available No t Available Byetta 5 mcg/dose (250 mcg/mL)1.2 mL subcutaneou s pen injector INJECT 5MCG SUB-Q TWICE A DAY FOR 1 MONTH active Not Available Not Available No t Available fenofibrate 160 mg tablet TAKE 1 TABLET BY MOUTH ONCE DAILY FOR 30 DAYS active Not Available Not Available No t Available BD Insulin Syringe Ultra-Fine 1 mL 30 gauge x 1/2 USE TO INJECT LANTUS ONCE DAILY 01/17 completed Not Available Not Available Not Available metformin ER 500 mg 24 hr tablet,exte nded release (gastric retention) Take 1 tablet every day by oral route for 30 days. 05/16 completed Not Available Not Available Not Available Symbicort 160 mcg-4.5 mcg/actuati on HFA aerosol inhaler INHALE 2 PUFFS BY MOUTH TWICE DAILY AND RINSE MOUTH WITH WATER AND DO NOT SWALLOW active Not Available Not Available No t Available Symbicort 80 mcg-4.5 mcg/actuati on HFA aerosol inhaler active Not Available Not Available Not Available Lantus Solostar U-100 Insulin 100 unit/mL (3 mL) subcutaneou s pen INJECT 50 UNITS SUBCUTANE OUSLY TWICE DAILY active Not Available Not Available No t Available BD Ultra-Fine Michelle Pen Needle 32 gauge x 5/32 USE WITH DAILY INJECTION S OF VICTOZA 01/17 completed Not Available Not Available Not Available Bydureon 2 mg subcutaneou s extended release suspension 01/17 completed Not Available Not Available Not Available TRUEplus Insulin 1 mL 31 gauge x 5/16 syringe active Not Available Not Available Not Available Victoza 2-Tenzin 0.6 mg/0.1 mL (18 mg/3 mL) subcutaneou s pen injector 01/17 completed Not Available Not Available Not Available icosapent ethyl 1 gram capsule 2022 active Not Available Not Available Not Avai lable Farxiga 10 mg tablet TAKE 2 TABLETS BY MOUTH ONCE DAILY active Not Available Not Available No t Available Farxiga 5 mg tablet TAKE 1 TABLET BY MOUTH ONCE DAILY 02/17 completed Not Available Not Available Not Available Trulicity 1.5 mg/0.5 mL subcutaneou s pen injector INJECT 1.5 MG SUBCUTANE OUSLY EVERY WEEK WITH MEALS FOR 84 DAYS 02/17 completed Not Available Not Available Not Available Tresiba FlexTouch U-200 insulin 200 unit/mL (3 mL) subcutaneou s pen INJECT 80 UNITS SUBCUTANE OUSLY ONCE DAILY 05/16 completed Not Available Not Available Not Available TRUEplus Pen Needle 31 gauge x 5/16 USE 1 ONCE DAILY active Not Available Not Available No t Available Dexcom G6 Sensor device CHANGE EVERY 10 DAYS active Not Available Not Available No t Available Dexcom G6 Bass Viol Repairer USE WITH TRANSMITT ER AND SENSOR active Not Available Not Available No t Available Dexcom G6 Transmitter device CHANGE EVERY 90 DAYS active Not Available Not Available No t Available OneTouch Delica Plus Lancet 33 gauge active Not Available Not Available Not Available Gvoke HypoPen 1-Pack 1 mg/0.2 mL subcutaneou s auto-inject or INJECT 1 MG SUBCUTANE OUSLY NEEDED 02/17 completed Not Available Not Available Not Available Trulicity 3 mg/0.5 mL subcutaneou s pen injector INJECT 3 MG ONCE WEEKLY BY SUBCUTANE OUS ROUTE active Not Available Not Available No t Available Trulicity 4.5 mg/0.5 mL subcutaneou s pen injector INJECT 1/2 (ONE-HALF ) ML SUBCUTANE OUSLY EVERY 7 DAYS active Not Available Not Available No t Available Paxlovid 300 mg (150 mg x 2)-100 mg tablets in a dose pack TAKE DIRECTED active Not Available Not Available No t Available Omnipod 5 G6 Pods (Gen 5) subcutaneou s cartridge CHANGE EVERY 2 - 3 DAYS DIRECTED active Not Available Not Available No t Available Omnipod 5 G6 Intro Kit (Gen 5) subcutaneou s cartridge with controller CHANGE PODS EVERY 2 - 3 DAYS active Not Available Not Available No t Available Vitals Date Recorded Body mass index (BMI) Body height Oxygen saturation Oxygen saturation in Arterial blood by Pulse oximetry Heart rate Body temperature Body weight Systolic blood pressure Diastolic blood pressure Provider Name and Address Organization Details Last Updated DateTime 2 33.4 kg/m2 170.18 cm 97 % 97 % 86 /min 98.3 [degF] 50819.9 7 g 124 mm[Hg] 72 mm[Hg] Not Available [facility] 3 08:49:06 Date Recorded Body mass index (BMI) Body height Oxygen saturation Oxygen saturation in Arterial blood by Pulse oximetry Heart rate Body temperature Body weight Systolic blood pressure Diastolic blood pressure Provider Name and Address Organization Details Last Updated DateTime 2 33.2 kg/m2 170.18 cm 99 % 99 % 86 /min 97.6 [degF] 92749.5 8 g 122 mm[Hg] 80 mm[Hg] Not Available [facility] 3 08:49:06 Date Recorded Body height Respiratory rate Body mass index (BMI) Body weight Body temperature Heart rate Systolic blood pressure Diastolic blood pressure Provider Name and Address Organization Details Last Updated DateTime 3 170.18 cm 12 /min 32.8 kg/m2 16155.2 4 g 97.4 [degF] 78 /min 128 mm[Hg] 78 mm[Hg] Jazmine Wells RN [place] [facility] 3 09:34:31 Social History Question Answer Notes LastModified by Organizat ion Details LastModified Time Tobacco Smoking Status Never Smoker Not Available [employer] 12/31/2022 08:45:24 What Is Your Level Of Alcohol Consumption? None [id number] Information not available 12/31/2022 What Is Your Level Of Caffeine Consumption? 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 Single [id number] Information not available 12/31/2022 Sex: Female Functional Status None recorded. Mental Status None recorded. Family History Relationship Description Onset Age of this Age Resolved Age Notes LastModified by Organization Details LastModified Time Father No current problems or disability [email or web address] Not available 02/17 09:31:13 Mother No current problems or disability [email or web address] Not available 02/17 09:31:13 Medical History Condition Response EYE PROBLEMS Y HEADACHES/MIGRAINES Y OBESITY Y DIZZINESS Y DIABETES, TYPE Y HYPERTENSION Y HIGH CHOLESTEROL / HYPERLIPIDEMIA Y Gynecological HistoryNo gynecological history recorded. Obstetrics History GPAL:G 0 P 0 0 0 0 Past Encounters Encounter ID Performer Location Encounter Start Date Encounter Closed Date Diagnosis/Indication Diagnosis SNOMED-CT Code Diagnosis ICD10 Code Diagnosis Note [id number] [facility] [address] [place] [address] 01/17/2022 00:00:00 01/17/2022 16:20:11 [id number] [facility] [place] [address] [place] [address] 01/30/2022 00:00:00 01/30/2022 18:00:18 [id number] [facility] [place] [address] [place] [address] 02/13/2022 00:00:00 02/15/2022 12:15:57 [id number] [facility] [place] [address] [place] [address] 05/16/2022 00:00:00 05/16/2022 16:09:23 [id number] [facility] [place] [address] [place] [address] 07/31/2022 00:00:00 08/01/2022 13:57:23 [id number] [facility] [place] [address] [place] [address] 09/22/2022 00:00:00 09/22/2022 18:27:16 [id number] Vanessa Kirby MD [facility] [place] [address] [place] [address] 02/17/2023 09:16:57 02/17/2023 09:58:38 Uncontrolled type 2 diabetes mellitus 050761945 E11.65 a1c of 8.1%- patient admits to poor diet; has been off insulin with exception of humalog since this year. She does have dexcom for close monitoring . Continue farxiga 10 mg daily and trulicity 3 mg once weekly. Restart metformin for insulin resistance . Encouraged patient to test sugars prebreakfa st and predinner and at times before bedtime to maintain log for review at return visit. Recommend she take her glimepirid e on glucose scale according to glucose checks. If sugars are running under 100 mg/dL hold glimepirid e, if 101-140 mg/dL take half tablet, if 141-180 mg/dL take full tablet and if over 180 mg/dL take 2 tablets for the full 4 mg of glimepirid e up to twice daily before meals. If sugars are consistent ly over 180 mg/dL she was advised to contact clinic and notify me so we can modify changes. Patient advised to bring glucose meter at return visit for review. Continue humalog not scheduled but just for correction only 2U:50>200 mg/dL on premeal sugars. Mixed hyperlipidemia 267 835707 E78.2 Continue statin, fenofibrat e and vascepa. Weight gain 4402425 R63. 5 Will send for low dose dexa suppressio n testing to screen for hypercorti solic state. Spent up to 26 minutes preparing to see the patient (eg, review of tests), obtaining and/or reviewing separately obtained history, performing a medically appropriat e examinatio n and evaluation , counseling and educating the patient, ordering medication s, tests, along with documentin g clinical informatio n in the electronic health record, independen tly interpreti ng results and communicat ing results to the patient. RTC in 3-4 months. Patient was provided a handwritte n lab order which contains our fax number. If she chooses to go outside of the [facility] system to obtain labwork she was advised to provide our fax number and my informatio n to the lab she will be obtaining labwork from in order to have her labs properly forwarded over for me to review so there is no loss of follow up due to use of outside network. She was also advised to contact our clinic informing us that she has completed her labwork so we are aware we will need to reach out to the appropriat e laboratory to request her results be forwarded to us so I might have the ability to review and make further medical decision making in her case. She voiced understand ing. Health Concerns Section Related Observation LastModified by Organization Detai ls LastModified Time None Recorded Concern Status LastModified by Organization Details LastModified Time None Recorded Advance Directives Directive None Recorded Payers Encounter Date Sequence Insurance Name Policy Number Policy Artis Covered Member ID Artis Member ID Guarantor Name 02/17/2023 1 [employer] - DOS ON OR AFTER 21 (MEDICAID REPLACEMENT - HMO) January Petar [id number] January Petar Notes Date Note Type Note Provider Name and Address Organization Details Recorded Time 02/17/2023 text/html 52 yo female com es in for follow up in management of type 2 DM (A1C of 8.1%), mixed dyslipidemia. At her last visit in Sep we had patient continue metformin ER 500 mg BID,humalog 10 units with meals or a 1:5 carb ratio plus correction of 2u:50>150, and farxiga. We had patient increase trulicity to 3 mg weekly to help with carb cravings and weight. We had patient increase lantus to 45 units in a.m. and 50 units in p.m. and titrate by 5 units. She ended up getting colonoscopy in November and her sugars dropped. She was on omnipod in the past and supposed to be on this- she has rashes/leblanc at site of the adhesive. The only thing she is taking is humalog 14 units before meals along with trulicity once a week. She is not taking metformin at this time due to GI upset. She was taking 1000 mg twice daily. She is taking farxiga 10 mg daily. we continued statin, vascepa and fenofibrate She has a dexcom sensor to monitor her sugars. labs from 11/24:193/260/01/09 1TSH of 2.48 uIU/mlglucose 140 mg/dlCr normalLFT normal Vanessa Kirby MD [address] [facility] [address], [place], [address], [place] [facility] [employer] 02/17/2023 10:03:28 OBGyn Episode No OBEpisode recorded.
--- OUTSIDE RECORDS SUMMARY | 2025-02-10 08:07 | XMS_ITS | Encounter Summary ---
Author Organization [facility] Address [address] [place] [id number] Care Team Providers Care Ski Tow Operator Name Role Phone Maty Edmondson MD Primary Care Provider [phone] Moris Linares MD Primary Care Provider [phone] Encounter Details Date Type Department Care Team (Late st Contact Info) Description 12/07/2020 Hospital Follow-up Call [facility] [place] [address] Val Mathis RN Social History Tobacco Use Types Packs/Day Years Used Date Smoking Tobacco: Every Day Cigarettes Alcohol Use Standard Drinks/Week Comments Not Currently 0 (1 standard drink = 0.6 oz pur e alcohol) Comments Unknown Sex and Gender Information Value Date Recorded Sex Assigned at Not on file Legal Sex Female 12:44 PM SEED TESTER Gender Identity Not on file Sexual Orientation Not on file COVID-19 Exposure Response Date Recorded In the last month, have you been in contact with someone who was confirmed or suspected to have Coronavirus / COVID-19? Yes 11/27/2020 6:53 PM SEED TESTER documented as of this encounter Functional Status * RETIRED Are you deaf or do you have serious difficulty hearing Answer Date of Assessment Author Status No 11/28/2020 2:32 AM SEED TESTER Activ e * RETIRED Are you blind or do you have serious difficulty seeing, even when wearing glasses? Answer Date of Assessment Author Status No 11/28/2020 2:32 AM SEED TESTER Activ e * Do you have serious difficulty walking or climbing stairs? Answer Date of Assessment Author Status No 11/28/2020 2:32 AM Jazmine Somers R N Active * Do you have difficulty dressing or bathing? Answer Date of Assessment Author Status No 11/28/2020 2:32 AM SEED TESTER Jazmine Kang R N Active * Because of a physical, mental, or emotional condition, do you have difficulty doing errands alone such as visiting a doctor's office or shopping? Answer Date of Assessment Author Status No 11/28/2020 2:32 AM SEED TESTER Jazmine Kang R N Active documented as [...] Time COVID-19 Confirmed 11/23/2020 11/27/2020 12:34 AM SEED TESTER documented as of this encounter Care Teams Ski Tow Operator Relationship Specialty Start Date End Date Maty Edmondson MD [facility] [address] [address] PCP - General FAMILY PRACTICE 11/27/20 02/27/22 Moris Linares MD [facility] [address] [address] PCP - General INTERNAL MEDICINE 02/28/22 documented as of this encounter
--- OUTSIDE RECORDS SUMMARY | 2025-02-10 08:07 | XMS_ITS | Data Portability ---
Author Organization [place] - [facility], [employer] Address [address] [address] Care Team Providers Care Fourth Hand Name Role Phone [facility] Dial Mounter Assessment Encounter Date Assessment Date Assessment LastModified by Organization Details LastModified Time 05/25/2019 05/25/2019 Patient presented for follow up. Studies ordered as below. Discussed plan with patient/careg iver, who expressed understanding . Follow up as noted below. [email or web address] Not available 05/25/2019 11:51:58 Plan of Treatment Reminders Order Date Submit Date Provider Last Modified By Organization Details Last Modified Time Details Appointments None recorded. Lab CBC w/ auto diff 2018 MIESHA Not available 9 07:52:35 HbA1c (hemoglobi n A1c), blood 2018 MIESHA Not available 9 12:53:42 CMP, serum or plasma 2018 MIESHA Not available 9 07:52:35 lipid panel, serum 2018 MIESHA Not available 9 07:52:37 microalbum in/creatin ine, mass ratio, urine 2018 MIESHA Not available 9 07:52:38 TSH + free T4, serum 2018 019 lcallison Not available 9 08:58:04 T3, free, serum or plasma 2018 MIESHA Not available 9 07:52:[address] referral 2018 kendell Araya, [address], [place], [address], 9 08:36:52 educator senior clinical referral 2018 019 kenedll [facility], [address] , [address], [place], [address], 9 08:36:51 diabetic ophthalmol ogy referral 2018 019 kendell [facility], [address], [place], [address], 9 08:36:51 diabetic nutrition education referral 2018 kendell [facility], [address] , [address], [place], [address], 9 08:36:51 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 Surgeries None recorded. Imaging MAMMO, screening, digital, bilateral 2018 [facility], [address], [address], [place], [address], 9 13:04:26 Medication Orders None recorded. Patient TargetsNo targets recorded. Patient Instructions Encounter Date Encounter Id Patient Instructions Last Modified By Organization Details Last Modified Time 05/25/2019 [id number] learning about high white blood cell counts Not available 05/25/2019 12:53:33 candidiasis: car e instructions Not available 05/25/2019 12:53:34 high blood pressure: care instructions [facility] Not available 05/25/2019 12:53:33 learning about high blood pressure Not available 05/25/2019 12:53:33 dash diet: care instructions [facility] Not available 05/25/2019 12:53:33 advised to lose weight Not available 05/25/2019 12:53:34 Reason for Referral Drug Abuse Treatment Specialist Referral f or Type 2 diabetes mellitus without complication Referring Physician: Eduardo [facility], Encounter Date: 05/25/2019 Diabetic Ophthalmology Refer ral for Type 2 diabetes mellitus without complication Referring Physician: Eduardo Barrios [facility], Encounter Date: 05/25/2019 Diabetic Nutrition Education Referral for Type 2 diabetes mellitus without complication Referring Physician: Eduardo Barrios [facility], Encounter Date: 05/25/2019 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 Type 2 diabetes mellitus without complication Referring Physician: Eduardo Barrios [facility], Encounter Date: 05/25/2019 Manager Epic Referral for Sc reening for malignant neoplasm of cervix Referring Physician: Eduardo Barrios [facility], Encounter Date: 05/25/2019 Results Created Date Observation Date Name Description Value Unit Range Abnormal Flag Note LastModifiedBy Organization Detail LastModifiedTime 05/25/2005/25/2019 CBC w/ auto diff white blood cell count 12.2 thous and/u L 3.5-10 .0 high Not Available [place] [address] [place], [address], 05/26/2019 07:52:34 05/25/2005/25/2019 CBC w/ auto diff red blood cell count 5.2 katie on/uL 3.5-5. 5 Not Available [place] [address] [place], [address], 05/26/2019 07:52:34 05/25/2005/25/2019 CBC w/ auto diff hemoglobin 15.8 g/dL 11.5-1 6.5 Not Available [place] [address] [place], [address], 05/26/2019 07:52:34 05/25/2005/25/2019 CBC w/ auto diff hematocrit 46 % 35-55 Not Available [place] [address] [place], [address], 05/26/2019 07:52:34 05/25/2005/25/2019 CBC w/ auto diff MCH 31 pg 25-35 Not Available [facility] [place] [address] [address] [place], [address], 05/26/2019 07:52:34 05/25/2005/25/2019 CBC w/ auto diff MCHC 34 g/dL 31-38 Not Available [facility] [place] [address] [address] [place], [address], 05/26/2019 07:52:34 05/25/2005/25/2019 CBC w/ auto diff MCV 90 fL 75-100 Not Available [facility] [place] [address] [address] [place], [address], 05/26/2019 07:52:34 05/25/2005/25/2019 CBC w/ auto diff RDW-CV 12 % 11-15 Not Available [facility] [place] [address] [address] [place], [address], 05/26/2019 07:52:34 05/25/2005/25/2019 CBC w/ auto diff neutrophils% 59.8 % Not Available [facility] [place] [address] [address] [place], [address], 05/26/2019 07:52:34 05/25/2005/25/2019 CBC w/ auto diff lymphocytes% 30.4 % Not Available [facility] [place] [address] [address] [place], [address], 05/26/2019 07:52:34 05/25/2005/25/2019 CBC w/ auto diff monocytes% 4.0 % Not Available [facility] [place] [address] [place], [address], 05/26/2019 07:52:34 05/25/2005/25/2019 CBC w/ auto diff eosinophil % 3.6 % 0.0-7. 0 Not Available [facility] [place] [address] [address] [place], [address], 05/26/2019 07:52:34 05/25/2005/25/2019 CBC w/ auto diff basophil % 0.8 % 0.0-3. 0 Not Available [place] [address] [place], [address], 05/26/2019 07:52:34 05/25/2005/25/2019 CBC w/ auto diff absolute neutrophils 7.3 cells /uL 1.5-7. 8 Not Available [place] [address] [place], [address], 05/26/2019 07:52:34 05/25/2005/25/2019 CBC w/ auto diff absolute lymphocytes 3.71 cells /uL 0.85-3 .90 Not Available [place] [address] [place], [address], 05/26/2019 07:52:34 05/25/2005/25/2019 CBC w/ auto diff absolute monocytes 0.5 cells /uL 0.2-1. 0 Not Available [place] [address] [place], [address], 05/26/2019 07:52:34 05/25/2005/25/2019 CBC w/ auto diff absolute eosinophils 0.4 cells /uL 0.0-0. 5 Not Available [place] [address] [place], [address], 05/26/2019 07:52:34 05/25/2005/25/2019 CBC w/ auto diff absolute basophils 0.1 cells /uL 0.0-0. 2 Not Available [facility] [place] [address] [place], [address], 05/26/2019 07:52:34 05/25/2005/25/2019 CBC w/ auto diff platelet count 388 thous and/u L 100-40 0 Not Available [place] [address] [place], [address], 05/26/2019 07:52:34 05/25/20 19 05/25/2019 hemog lobin A1c, QN, blood HGBA1C 10.1 % 4.0-5. 6 high Testi ng Perfo rmed at: [facility] [address], [address] [place] [address] Phone : Fax: Not Available [place] [address] [place], [address], 05/26/2019 07:52:35 05/25/2005/25/2019 CMP, serum or plasm a glucose 302 mg/dL 74-99 high Not Available [place] [address] [place], [address], 05/26/2019 07:52:35 05/25/2005/25/2019 CMP, serum or plasm a urea nitrogen, blood (BUN) 10 mg/dL 6-20 Not Available [place] [address] [address] [place], [address], 05/26/2019 07:52:35 05/25/2005/25/2019 CMP, serum or plasm a total bilirubin 0.3 mg/dL 0.0-1. 2 Not Available [place] [address] [place], [address], 05/26/2019 07:52:35 05/25/2005/25/2019 CMP, serum or plasm a total protein 6.7 g/dL 6.6-8. 7 Not Available [place] [address] [place], [address], 05/26/2019 07:52:35 05/25/2005/25/2019 CMP, serum or plasm a alanine aminotransfe rase (ALT) 17 U/L 0-33 Not Available [place] [address] [place], [address], 05/26/2019 07:52:35 05/25/2005/25/2019 CMP, serum or plasm a alkaline phosphatase 126 U/L 40-130 Not Available [facility] [place] [address] [place], [address], 05/26/2019 07:52:35 05/25/2005/25/2019 CMP, serum or plasm a aspartate aminotransfe rase (AST) 11 U/L 0-32 Not Available [place] [address] [place], [address], 05/26/2019 07:52:35 05/25/2005/25/2019 CMP, serum or plasm a calcium 9.8 mg/dL 8.6-10 .2 Not Available [facility] [place] [address] [place], [address], 05/26/2019 07:52:35 05/25/2005/25/2019 CMP, serum or plasm a albumin 4.2 g/dL 3.5-5. 2 Not Available [facility] [place] [address] [place], [address], 05/26/2019 07:52:35 05/25/2005/25/2019 CMP, serum or plasm a CO2 25 mmol/ L 22-29 Not Available [facility] [place] [address] [place], [address], 05/26/2019 07:52:35 05/25/2005/25/2019 CMP, serum or plasm a creatinine, serum 0.4 mg/dL 0.5-0. 9 low Not Available [facility] [place] [address] [place], [address], 05/26/2019 07:52:35 05/25/2005/25/2019 CMP, serum or plasm a sodium, serum 135 mmol/ L 136-14 5 low Not Available [facility] [place] [address] [place], [address], 05/26/2019 07:52:35 05/25/2005/25/2019 CMP, serum or plasm a potassium, serum 4.2 mmol/ L 3.5-5. 1 Not Available [facility] [place] [address] [place], [address], 05/26/2019 07:52:35 05/25/2005/25/2019 CMP, serum or plasm a chloride, serum 96 mmol/ L 98-107 low Not Available [facility] [place] [address] [address] [place], [address], 05/26/2019 07:52:35 05/25/2005/25/2019 CMP, serum or plasm a eGFR 205 >59 Persi stent reduc tion for 3 month s or more in an eGFR <60 mL/mi n/1.7 3 m2 defin es CKD. Patie nts with eGFR value s>/=6 0 mL/mi n/1.7 3 m2 may also have CKD if evide nce of persi stent protu niuri a is prese nt. Addit ional infor saul kohli may be found at www.k doqi. org. Not Available [facility] [place] [address] [address] [place], [address], 05/26/2019 07:52:35 05/25/2005/25/2019 LDL, direc t, serum dldl 100 mg/dL 0-100 Not Available [facility] [place] [address] [address] [place], [address], 05/26/2019 07:52:36 05/25/2005/25/2019 T3, free, serum or plasm a FT3 2.9 pg/mL 1.5-4. 1 Not Available [facility] [place] [address] [place], [address], 05/26/2019 07:52:36 05/25/2005/25/2019 T4, free, serum FT4 1.17 NG/dL 0.93-1 .70 Not Available [facility] [place] [address] [place], [address], 05/26/2019 07:52:37 05/25/2005/25/2019 lipid panel , serum trigylceride s 935 mg/dL 0-150 high Not Available [place] [address] [place], [address], 05/26/2019 07:52:37 05/25/2005/25/2019 lipid panel , serum cholesterol 226 mg/dL 0-200 high Not Available [place] [address] [place], [address], 05/26/2019 07:52:37 05/25/2005/25/2019 lipid panel , serum uhdl 26 mg/dL 45-65 low Not Available [place] [address] [place], [address], 05/26/2019 07:52:37 05/25/2005/25/2019 lipid panel , serum LDL, calculated 13 mg/dL 0-100 Not Available [place] [address] [address]ung, [place], [address], 05/26/2019 07:52:37 05/25/2005/25/2019 lipid panel , serum LDL/HDL ratio 1 mg/dL 0-5 Not Available [place] [address] [address], [place], [address], 05/26/2019 07:52:37 05/25/2005/25/2019 lipid panel , serum VLDL 187.0 mg/dL 5.0-40 .0 high Not Available [place] [address] [place], [address], 05/26/2019 07:52:37 05/25/2005/25/2019 lipid panel , serum cholesterol/ HDL ratio 8.69 0.00-5 .00 high Not Available [place] [address] [place], [address], 05/26/2019 07:52:37 05/25/2005/25/2019 TSH, serum or plasm a TSH 1.22 ??IU/ mL 0.27-4 .20 Testi ng Perfo rmed at: [facility] [address], [address] [place] [address] Phone : Fax: Not Available [place] [address] [place], [address], 05/26/2019 07:52:37 05/25/20 19 05/25/2019 micro album in/cr eatin ine, mass ratio , urine urine microalbumin 26 mg/L 0-30 Not Available [place] [address] [address] [place], [address], 05/26/2019 07:52:38 05/25/20 19 05/25/2019 micro album in/cr eatin ine, mass ratio , urine urine creatinine 57.47 Not Available [place] [address] [place], [address], 05/26/2019 07:52:38 05/25/20 19 05/25/2019 micro album in/cr eatin ine, mass ratio , urine urine microalbumin /creatinine ratio 45 mg/g_ creat inine 0-30 high Not Available [place] [address] [place], [address], 05/26/2019 07:52:38 06/20/20 19 06/20/2019 BMP, serum or plasm a glucose 343 mg/dL 74-99 high Not Available [place] [address] [place], [address], 06/21/2019 09:26:36 06/20/2006/20/2019 BMP, serum or plasm a urea nitrogen, blood (BUN) 7 mg/dL 6-20 Not Available [place] [address] [place], [address], 06/21/2019 09:26:36 06/20/20 19 06/20/2019 BMP, serum or plasm a calcium 9.6 mg/dL 8.6-10 .2 Not Available [place] [address] [place], [address], 06/21/2019 09:26:36 06/20/2006/20/2019 BMP, serum or plasm a CO2 27 mmol/ L 22-29 Not Available [place] [address] [place], [address], 06/21/2019 09:26:36 06/20/2006/20/2019 BMP, serum or plasm a creatinine, serum 0.5 mg/dL 0.5-0. 9 Not Available [place] [address] [place], [address], 06/21/2019 09:26:36 06/20/2006/20/2019 BMP, serum or plasm a sodium, serum 137 mmol/ L 136-14 5 Not Available [place] [address] [place], [address], 06/21/2019 09:26:36 06/20/2006/20/2019 BMP, serum or plasm a potassium, serum 4.3 mmol/ L 3.5-5. 1 Not Available [address] [place], [address], 06/21/2019 09:26:36 06/20/2006/20/2019 BMP, serum or plasm a chloride, serum 98 mmol/ L 98-107 Not Available [address] [place], [address], 06/21/2019 09:26:36 06/20/2006/20/2019 BMP, serum or plasm a eGFR 158 >59 Persi stent reduc tion for 3 month s or more in an eGFR <60 mL/mi n/1.7 3 m2 defin es CKD. Patie nts with eGFR value s>/=6 0 mL/mi n/1.7 3 m2 may also have CKD if evide nce of persi stent protu brendon a is prese nt. Addit ional infor saul kohli may be found at www.k doqi. org. Not Available [facility] [place] [address] [place], [address], 06/21/2019 09:26:36 09/14/2009/14/2019 CMP, serum or plasm a glucose 336 mg/dL 74-99 high Not Available [facility] [place] [address] [place], [address], 09/15/2019 14:49:54 09/14/2009/14/2019 CMP, serum or plasm a urea nitrogen, blood (BUN) 7 mg/dL 6-20 Not Available [facility] [place] [address] [place], [address], 09/15/2019 14:49:54 09/14/2009/14/2019 CMP, serum or plasm a total bilirubin 0.7 mg/dL 0.0-1. 2 Not Available [facility] [place] [address] [place], [address], 09/15/2019 14:49:54 09/14/2009/14/2019 CMP, serum or plasm a total protein 6.7 g/dL 6.6-8. 7 Not Available [facility] [place] [address] [place], [address], 09/15/2019 14:49:54 09/14/2009/14/2019 CMP, serum or plasm a alanine aminotransfe rase (ALT) 14 U/L 0-33 Not Available [facility] [place] [address] [place], [address], 09/15/2019 14:49:54 09/14/2009/14/2019 CMP, serum or plasm a alkaline phosphatase 127 U/L 40-130 Not Available [facility] [place] [address] [place], [address], 09/15/2019 14:49:54 09/14/2009/14/2019 CMP, serum or plasm a aspartate aminotransfe rase (AST) 12 U/L 0-32 Not Available [facility] [place] [address] [place], [address], 09/15/2019 14:49:54 09/14/2009/14/2019 CMP, serum or plasm a calcium 9.5 mg/dL 8.6-10 .2 Not Available [facility] [place] [address] [place], [address], 09/15/2019 14:49:54 09/14/2009/14/2019 CMP, serum or plasm a albumin 4.5 g/dL 3.5-5. 2 Not Available [facility] [place] [address] [place], [address], 09/15/2019 14:49:54 09/14/2009/14/2019 CMP, serum or plasm a CO2 25 mmol/ L 22-29 Not Available [facility] [place] [address] [place], [address], 09/15/2019 14:49:54 09/14/2009/14/2019 CMP, serum or plasm a creatinine, serum 0.4 mg/dL 0.5-0. 9 low Not Available [facility] [place] [address] [place], [address], 09/15/2019 14:49:54 09/14/2009/14/2019 CMP, serum or plasm a sodium, serum 134 mmol/ L 136-14 5 low Not Available [facility] [place] [address] [place], [address], 09/15/2019 14:49:54 09/14/2009/14/2019 CMP, serum or plasm a potassium, serum 4.2 mmol/ L 3.5-5. 1 Not Available [facility] [place] [address] [place], [address], 09/15/2019 14:49:54 09/14/2009/14/2019 CMP, serum or plasm a chloride, serum 95 mmol/ L 98-107 low Not Available [facility] [place] [address] [address] [place], [address], 09/15/2019 14:49:54 09/14/2009/14/2019 CMP, serum or plasm a eGFR 205 >59 Persi stent reduc tion for 3 month s or more in an eGFR <60 mL/mi n/1.7 3 m2 defin es CKD. Patie nts with eGFR value s>/=6 0 mL/mi n/1.7 3 m2 may also have CKD if evide nce of persi stent protu niphilip a is prese nt. Addit ional infor saul kohli may be found at www.k doqi. org. Not Available [facility] [place] [address] [place], [address], 09/15/2019 14:49:54 09/14/2009/14/2019 CK (crea aureliano kinas e), total , serum creatine kinase 24 U/L 0-170 Not Available [facility] [place] [address] [place], [address], 09/15/2019 14:49:54 09/14/2009/14/2019 LDL, direc t, serum dldl 95 mg/dL 0-100 Not Available [facility] [place] [address] [place], [address], 09/15/2019 14:49:55 09/14/2009/14/2019 lipid panel , serum trigylceride s 411 mg/dL 0-150 high Not Available [facility] [place] [address] [place], [address], 09/15/2019 14:49:55 09/14/2009/14/2019 lipid panel , serum cholesterol 176 mg/dL 0-200 Not Available [facility] [place] [address] [place], [address], 09/15/2019 14:49:55 09/14/20 09/14/2019 lipid panel , serum uhdl 30 mg/dL 45-65 low Not Available [place] [address] [place], [address], 09/15/2019 14:49:55 09/14/20 19 09/14/2019 lipid panel , serum LDL, calculated 64 mg/dL 0-100 Not Available [place] [address] [place], [address], 09/15/2019 14:49:55 09/14/20 19 09/14/2019 lipid panel , serum LDL/HDL ratio 2 mg/dL 0-5 Not Available [place] [address] [place], [address], 09/15/2019 14:49:55 09/14/20 19 09/14/2019 lipid panel , serum VLDL 82.2 mg/dL 5.0-40 .0 high Not Available [place] [address] [place], [address], 09/15/2019 14:49:55 09/14/20 19 09/14/2019 lipid panel , serum cholesterol/ HDL ratio 5.87 0.00-5 .00 high Testi ng Perfo rmed at: [facility] [address], [address] [place] [address] Phone : Fax: Not Available [place] [address] [place], [address], 09/15/2019 14:49:55 09/14/2009/14/2019 hemog lobin A1c, QN, blood HGBA1C 9.5 % 4.0-5. 6 high Not Available [place] [address] [place], [address], 09/15/2019 14:49:55 09/14/2009/14/2019 urina lysis , dipst ick urine color Yellow yellow Not Available [place] [address] [place], [address], 09/19/2019 09:19:48 09/14/20 19 09/14/2019 urina lysis , dipst ick urine clarity Cloudy clear abnormal Not Available [facility] [place] [address] [address], [place], [address], 09/19/2019 09:19:48 09/14/2009/14/2019 urina lysis , dipst ick urine glucose 2+ negati ve abnormal Not Available [facility] [place] [address] [place], [address], 09/19/2019 09:19:48 09/14/2009/14/2019 urina lysis , dipst ick urine bilirubin Negati ve negati ve Not Available [facility] [place] [address] [address] [place], [address], 09/19/2019 09:19:48 09/14/2009/14/2019 urina lysis , dipst ick urine ketones Negati ve negati ve Not Available [facility] [place] [address] [address] [place], [address], 09/19/2019 09:19:48 09/14/2009/14/2019 urina lysis , dipst ick urine specific gravity 1.020 1.005- 1.030 Not Available [facility] [place] [address] [address] [place], [address], 09/19/2019 09:19:48 09/14/2009/14/2019 urina lysis , dipst ick urine blood 3+ negati ve abnormal Not Available [facility] [place] [address] [address] [place], [address], 09/19/2019 09:19:48 09/14/2009/14/2019 urina lysis , dipst ick urine pH 5.0 5.0-7. 0 Not Available [facility] [place] [address] [address] [place], [address], 09/19/2019 09:19:48 09/14/20 19 09/14/2019 urina lysis , dipst ick urine protein 2+ negati ve abnormal Not Available [place] [address] [address] [place], [address], 09/19/2019 09:19:48 09/14/20 19 09/14/2019 urina lysis , dipst ick urine urobilinogen 0.2 E.U./d L E.U./ dL 0.2-1 Not Available [place] [address] [place], [address], 09/19/2019 09:19:48 09/14/2009/14/2019 urina lysis , dipst ick urine nitrite Negati ve negati ve Not Available [address] [place], [address], 09/19/2019 09:19:48 09/14/2009/14/2019 urina lysis , dipst ick urine leukocyte esterase 1+ negati ve abnormal Testi ng Perfo rmed at: [facility], [address], [address] [place] [address] Phone : Fax: Not Available [place] [address] [place], [address], 09/19/2019 09:19:48 09/14/2009/14/2019 cultu re, urine C urine See Note * URINE CULTU RE Speci men Urine Perez Top Tube CUL TURE* * Organ ism 1 Esche buster a coli >100, 000 cfu/m L SENSI TIVIT IES: Antib iotic Organ ism 1 Ampic illin R >16 Ampic illin /Sulb actam I 16/8 Amika jen S <= 8 Aztre onam S <=2 Cipro floxa jen S <=0.2 5 Ceftr iaxon e S <=1 Cefaz jessica S 2 Ertap enem S <=0.2 5 Cefep britany S <=1 Nitro furan toin S <=16 Genta micin S <=2 Levof loxac in S <=0.5 Merop enem S <=0.5 Trime thopr im/Martinez lfame th S <=0.5 /9.5 Cefta zidim e S <=2 Tetra cycli ne S <=2 Tobra mycin S <=2 Piper acill in/Ta zobac horne S <=2/4 [facility] [address] [place] [address] [place] [address] Labor atory Dire tor: Austin Barriga M.D. CLIA# [id number] Testi ng Perfo rmed at: [facility], [facility] [address], [address] [facility] [place] [address] Phone : Fax: Not Available [place] [address] [place], [address], 09/19/2019 09:19:48 09/14/20 19 09/14/2019 urina lysis , micro scopi c urine white cells TNTC 0 - 5 /hpf abnormal Not Available [place] [address] [place], [address], 09/19/2019 09:19:48 09/14/20 19 09/14/2019 urina lysis , micro scopi c urine red cells > 30 /hpf 0 - 3 /hpf abnormal Not Available [place] [address] [place], [address], 09/19/2019 09:19:48 09/14/20 19 09/14/2019 urina lysis , micro scopi c urine epithelial 1 - 10 / lpf 1 - 10 / lpf Not Available [place] [address] [place], [address], 09/19/2019 09:19:48 09/14/20 19 09/14/2019 urina lysis , micro scopi c urine bacteria Modera te none seen/f ew abnormal Not Available [place] [address] [place], [address], 09/19/2019 09:19:48 09/14/20 19 09/14/2019 urina lysis , micro scopi c urine comments (other) Cultur e Indica kailey Not Available [facility] [place] [address] [address] [place], [address], 09/19/2019 09:19:48 05/13/20 21 05/13/2021 URINA LYSIS , ROUTI NE urine color Yellow yellow Not Available [facility] [place] [address] [place], [address], 05/14/2021 15:16:54 05/13/20 21 05/13/2021 URINA LYSIS , ROUTI NE urine clarity Clear clear Not Available [facility] [place] [address] [place], [address], 05/14/2021 15:16:54 05/13/20 21 05/13/2021 URINA LYSIS , ROUTI NE urine glucose 2+ negati ve abnormal Not Available [place] [address] [place], [address], 05/14/2021 15:16:54 05/13/20 21 05/13/2021 URINA LYSIS , ROUTI NE urine bilirubin Negati ve negati ve Not Available [facility] [place] [address] [address], [address], 05/14/2021 15:16:54 05/13/20 21 05/13/2021 URINA LYSIS , ROUTI NE urine ketones Negati ve negati ve Not Available [facility] [place] [address] [address], [address], 05/14/2021 15:16:54 05/13/20 21 05/13/2021 URINA LYSIS , ROUTI NE urine specific gravity 1.010 1.005- 1.030 Not Available [place] [address] [place], [address], 05/14/2021 15:16:54 05/13/20 21 05/13/2021 URINA LYSIS , ROUTI NE urine blood 2+ negati ve abnormal Not Available [place] [address] Khai Ocampo [place], [address], 05/14/2021 15:16:54 05/13/20 21 05/13/2021 URINA LYSIS , ROUTI NE urine pH 5.0 5.0-7. 0 Not Available [place] [address] Marielle Ocampo[place]IQUE [place], [address], 05/14/2021 15:16:54 05/13/20 21 05/13/2021 URINA LYSIS , ROUTI NE urine protein Negati ve negati ve Not Available [place] [address] Khai Ocampo [place], [address], 05/14/2021 15:16:54 05/13/20 21 05/13/2021 URINA LYSIS , ROUTI NE urine urobilinogen 0.2 E.U./d L E.U./ dL 0.2-1 Not Available [place] [address] Kathya Yung Kh[place], [address], 05/14/2021 15:16:54 05/13/20 21 05/13/2021 URINA LYSIS , ROUTI NE urine nitrite Negati ve negati ve Not Available [place] [address] Khai [place], [address], 05/14/2021 15:16:54 05/13/20 21 05/13/2021 URINA LYSIS , ROUTI NE urine leukocyte esterase Negati ve negati ve Testi ng [facility]fo r[facility] at: [facility] [address], [address] [place] [address] Phone : [phone] Fax: Not Available [facility] [place] [address] [place], [address], 05/14/2021 15:16:54 05/13/20 21 05/13/2021 URINE MICRO SCOPI C urine white cells 0 - 5 /hpf 0 - 5 /hpf Not Available [facility] [place] [address] [place], [address], 05/14/2021 15:16:55 05/13/20 21 05/13/2021 URINE MICRO SCOPI C urine red cells 11 - 30 /hpf 0 - 3 /hpf abnormal Not Available [facility] [place] [address] [place], [address], 05/14/2021 15:16:55 07/03/20 21 07/03/2021 evelin metry testi ng* Spirometry Not Available [facility], [facility] [address], [place], [address], 07/03/2021 14:51:11 10/29/20 21 10/29/2021 SARS- COV-2 RT-PC R sars-cov-2 (covid-19 virus) Not Detect ed This Nucle ic Acid Ampli ficat ion Test (NAAT ) by RT-PC R metho d has not been clear ed or appro emely for diagn ostic use by the U.S. Food and Drug Admin istra tion. This test has been autho rized by FDA under an EUA for use by autho rized labor atori es. This test has been autho rized only for the detec tion of RNA from SARS- CoV-2 virus and diagn osis of SARS- CoV-2 virus infec tion, not for any other virus es or patho gens. This test is only autho rized for the durat ion of the decla ratio n that circu mstan kian exist justi fying the autho rizat ion of the emerg ency use of in vitro diagn ostic tests for detec tion of SARS- CoV-2 virus and/o r diagn osis of SARS- CoV-2 virus infec tion under secti on 564(b )(1) of the Act, 21 U.S.C . secti on 360bb b-3(b )(1), unles s the autho rizat ion is termi nated or revok ed soone r. We will arleen nue to joann w latrice al and state requi remen ts for both notif icati on of resul ts and any confi rmato ry testi ng that is requi red by cam martino. This test was devel oped and its perfo rmanc e jori cteri stics deter mined by Jb clifford . It has been appro emely by the U.S. Food and Drug Admin istra tion under Emerg ency Use Autho rizat ion for high compl exity labor atori es. Resul ts shoul d be used in conju nctio n with clini to findi ngs, and shoul d not form the sole basis for a diagn osis or treat ment decis ion. Not Available [address], [address], 11/05/2021 11:16:17 11/22/19 22 11/22/2021 SARS- COV-2 RT-PC R sars-cov-2 (covid-19 virus) Not Detect ed This Nucle ic Acid Ampli ficat ion Test (NAAT ) by RT-PC R metho d has not been clear ed or appro emely for diagn ostic use by the U.S. Food and Drug Admin istra tion. This test has been autho rized by FDA under an EUA for use by autho rized labor atori es. This test has been autho rized only for the detec tion of RNA from SARS- CoV-2 virus and diagn osis of SARS- CoV-2 virus infec tion, not for any other virus es or patho gens. This test is only autho rized for the durat ion of the decla ratio n that circu mstan kian exist justi fying the autho rizat ion of the emerg ency use of in vitro diagn ostic tests for detec tion of SARS- CoV-2 virus and/o r diagn osis of SARS- CoV-2 virus infec tion under secti on 564(b )(1) of the Act, 21 U.S.C . secti on 360bb b-3(b )(1), unles s the autho rizat ion is termi nated or revok ed soone r. We will arleen nue to joann w latrice al and state requi remen ts for both notif icati on of resul ts and any confi rmato ry testi ng that is requi red by cam howard y. This test was devel oped and its perfo rmanc e jori cteri stics deter mined by Jb clifford . It has been appro emely by the U.S. Food and Drug Admin istra tion under Emerg ency Use Autho rizat ion for high compl exity labor atori es. Resul ts shoul d be used in conju nctio n with clini ot findi ngs, and shoul d not form the sole basis for a diagn osis or treat ment decis ion. Not Available [address] [place], [address], 11/23/2021 17:10:27 05/24/20 19 07/24/2017 MAMMO , mohanjess melany, bilat eral No observ ation record ed. [facility] [address], [place], [address], 05/25/2019 11:49:59 07/18/20 19 07/18/2019 CT, brain , w/o contr ast No observ ation record ed. [facility]) [address], [place], [address], 07/18/2019 19:58:55 02/08/20 20 02/08/2020 elect alyx fofana am No observ ation record ed. jbuske Not Available 2019 09:05:58 03/01/20 20 02/21/2020 DEXA No observ ation record ed. Not Available 2019 10:07:52 03/01/20 20 exerc ise stres s test No observ ation record ed. [facility] ([facility]) [address], [place], [address], 03/01/2020 10:15:42 Result Notes None recorded. Problems Name Problem SNOMED Code Status Onset Date Resolution Date Notes Provider Name and Address Organization Details Recorded Time Esophagi tis 44539574 Active 2016 determine d by endoscopy at [facility] Eduardo Barrios MD [address], [place], [address], [facility] 9 14:13:38 Tabby- Chu tear 141663097 Active 2016 Eduardo Barrios MD [address], [place], [address], [facility] 9 14:13:51 Gastric polyp 90988362 Active 2018 Eduardo Barrios MD [address], [place], [address], [facility] 9 14:14:01 Coronary arterios clerosis 10909548 Active 2018 Eduardo Barrios MD [address], [place], [address], [facility] 9 14:14:12 Type 2 diabetes mellitus 67160237 Completed 201805/29/2019 Removal Reason: -- duplicate Eduardo Barrios MD [address], [place], [address], [facility] 9 23:34:42 Steatosi s of liver 140081576 Active 2018 Eduardo Barrios MD [address], [place], [address], [facility] 9 14:14:38 Kidney disease 77402352 Active 2016 per discharge notes from 2017, possible contrast induced nephropat hy, but no clinical finding Eduardo Barrios MD [address], [place], [address], [facility] 9 14:15:37 Decompre ssion of median nerve Completed 201805/24/2019 Eduardo Bariros MD [address], [place], [address], [facility] 9 14:19:37 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 675949252 Active [address] Maty Barrios MD [address], [place], [address], [facility] 9 14:20:11 Gastroes ophageal reflux disease without esophagi tis 426839799 Active 2018 Eduardo Barrios MD [address], [place], [address], [facility] 9 14:20:21 Hyperlip idemia 87283030 Completed 201805/29/2019 Removal Reason: duplicate Eduardo Barrios MD [address], [place], [address], [facility] 9 23:28:48 Type 2 diabetes mellitus without complica tion 215576655 Completed 201805/29/2019 8 HbA1C was 11.1 Removal Reason: -- changed to plain Type 2 DM Eduardo Barrios MD [address], [place], [address], [facility] 9 23:34:35 Microalb uminuria 370441376 Active 2018 Eduardo Barrios MD [address], [place], [address], [facility] 9 23:28:31 Hyperlip idemia 34266315 Active 2018 Eduardo Barrios MD [address], [place], [address], [facility] 9 23:28:48 Type 2 diabetes mellitus 97093113 Active 2018 Eduardo Barrios MD [address], [place], [address], [facility] 9 23:34:09 Type 2 diabetes mellitus 01601180 Active 2018 Eduardo Barrios MD [address], [place], [address], [facility] 9 23:34:42 Acute urinary tract infectio n 089996759 Active 2018 Holly Aguilar [facility] 9 15:56:27 Problem Notes None recorded. Procedures Surgical History Date Name Laterality Status Provider Name and Address Organization Details Recorded Time 11/02/19 17 Date of Last Pap Smear completed January [facility] 05/25/2019 12:19:04 09/04/20 16 balloon kyphoplasty of fracture of spine completed January [facility] 05/25/2019 12:18:15 01/24/20 04 Appendectomy completed Eduardo Barrios MD [address], [place], [address], [facility] 05/24/2019 14:07:29 02/23/19 94 section completed Eduardo Barrios MD [address], [place], [address], [facility] 05/24/2019 14:07:15 Fistula repair & colostomy completed Eduardo Barrios MD [address], [place], [address], [facility] 05/25/2019 12:47:56 Imaging Results Imaging Date Name Status LastModified by Organization Details LastModified Time 07/24/2017 MAMMO, screening, bilateral completed [address], [place], [address], 05/25/2019 11:49:59 07/18/2019 CT, brain, w/o contrast completed located within [facility] [place]) [address], [place], [address], 07/18/2019 19:58:55 02/08/2020 electrocardiogram completed felicita Informa tion not available 02/08/2020 09:05:58 02/21/2020 DEXA completed Information no t available 03/01/2020 10:07:52 03/01/2020 exercise stress test completed [facility] ([facility]) [address], [place], [address], 03/01/2020 10:15:42 Procedure Notes None recorded. Medical Equipment None Reported. Allergies Allergen ID Allergen Name Allergen Category Reaction Reaction Severity Criticality Documentation Date Start Date Code Code System Note Provider Name and Address Organization Details Recorded Time 8231 adhesive environme nt,medica tion rash Not available Not available 05/25/2019 [address] UNK Holly Aguilar [facility] 9 11:52:31 Medications Name Sig Start Date Stop Date Status Note LastModified by Organization Details LastModified Time Novolin 70/30 U-100 Insulin 100 unit/mL subcutaneous suspension Inject 12 units every 12 hours by subcutaneou s route for 30 days. 2018 active Not Available Not Available Not Avai lable clindamycin HCl 300 mg capsule Take 1 capsule every 8 hours by oral route. 2020 active Not Available Not Available Not Avai lable atorvastatin 10 mg tablet Take 1 tablet by mouth once daily active Not Available Not Available No t Available azithromycin 250 mg tablet TAKE 2 TABLETS (500 MG) BY ORAL ROUTE ONCE DAILY FOR 1 DAY THEN 1 TABLET (250 MG) BY ORAL ROUTE ONCE DAILY FOR 4 DAYS active Not Available Not Available No t Available fluconazole 150 mg tablet TAKE 1 TABLET BY MOUTH NOW THEN REPEAT IN 7 DAYS IF SYMPTOMS PERSIST DIRECTED active Not Available Not Available No t Available lisinopril 20 mg tablet TAKE 1 TABLET BY MOUTH ONCE DAILY active Not Available Not Available No t Available Pyridium 100 mg tablet Take 1 tablet 3 times a day by oral route as needed. 2018 active Not Available Not Available Not Avai lable Pyridium 200 mg tablet Take 1 tablet 3 times a day by oral route. 2018 active Not Available Not Available Not Avai lable ciprofloxaci n 500 mg tablet TAKE 1 TABLET BY MOUTH TWICE DAILY FOR 3 DAYS active Not Available Not Available No t Available Tamiflu 75 mg capsule Take 1 capsule twice a day by oral route. 2018 active Not Available Not Available Not Avai lable sulfamethoxa zole 800 mg-trimethop rim 160 mg tablet TAKE 1 TABLET BY MOUTH TWICE DAILY FOR 7 DAYS active Not Available Not Available No t Available Humalog U-100 Insulin 100 unit/mL subcutaneous solution INJECT 10 UNITS SUBCUTANEOU SLY THREE TIMES DAILY BEFORE MEAL(S) active Not Available Not Available No t Available OneTouch Ultra Test strips USE 1 STRIP TO CHECK GLUCOSE TWICE DAILY active Not Available Not Available Not Available amlodipine 10 mg tablet active Not Available Not Available Not Available insulin syringe U-100 with needle 1 mL 31 gauge x 5 active Not Available Not Available Not Available lisinopril 5 mg tablet Take 1 tablet every day by oral route. 2018 active Not Available Not Available Not Avai lable mupirocin 2 % topical ointment APPLY A SMALL AMOUNT TO THE AFFECTED AREA BY TOPICAL ROUTE 3 TIMES PER DAY 2020 active Not Available Not Available Not Avai lable methylpredni solone 4 mg tablets in a dose pack active Not Available Not Available No t Available albuterol sulfate HFA 90 mcg/actuatio n aerosol inhaler INHALE 2 PUFFS BY MOUTH EVERY 4 HOURS NEEDED FOR WHEEZING OR SHORTNESS OF BREATH active Not Available Not Available No t Available amoxicillin 875 mg-potassium clavulanate 125 mg tablet Take 1 tablet every 12 hours by oral route. active Not Available Not Available Not Available amoxicillin 500 mg-potassium clavulanate 125 mg tablet active Not Available Not Available Not Available fenofibrate 160 mg tablet TAKE 1 TABLET BY MOUTH ONCE DAILY active Not Available Not Available No t Available Symbicort 160 mcg-4.5 mcg/actuatio n HFA aerosol inhaler active Not Available Not Available Not Available Symbicort 80 mcg-4.5 mcg/actuatio n HFA aerosol inhaler active Not Available Not Available Not Available Lantus Solostar U-100 Insulin 100 unit/mL (3 mL) subcutaneous pen INJECT 45 UNITS SUBCUTANEOU SLY ONCE DAILY active Not Available Not Available No t Available Mucinex 1,200 mg tablet, extended release Take 1 tablet every 12 hours by oral route. 2019 active Not Available Not Available Not Avai lable TRUEplus Pen Needle 31 gauge x 5/16 USE 1 ONCE DAILY active Not Available Not Available No t Available OneTouch Ultra Blue Test Strip USE 1 STRIP TO CHECK GLUCOSE TWICE DAILY active Not Available Not Available Not Available FreeStyle Fran 14 Day Sensor kit USE WITH FREESTYLE FRAN. TO BE CHANGED EVERY 14 DAYS active Not Available Not Available No t Available OneTouch Ultra2 Meter USE TO CHECK GLUCOSE TWICE DAILY active Not Available Not Available Not Available OneTouch Delica Plus Lancet 33 gauge USE 1 TO CHECK GLUCOSE TWICE DAILY active Not Available Not Available Not Available Vitals Date Recorded Respiratory rate Heart rate Body height Body mass index (BMI) Body weight Systolic blood pressure Diastolic blood pressure Provider Name and Address Organization Details Last Updated DateTime 9 16 /min 83 /min 170.18 cm 32.9 kg/m2 59270.4 g 150 mm[Hg] 89 mm[Hg] [facility] 9 11:50:59 Date Recorded Heart rate Systolic blood pressure Diastolic blood pressure Provider Name and Address Organization Details Last Updated DateTime 05/26/2019 91 /min 137 mm[Hg] 97 mm[Hg] [facility] 05/26/2019 16:44:50 Date Recorded Heart rate Systolic blood pressure Diastolic blood pressure Provider Name and Address Organization Details Last Updated DateTime 07/11/2019 110 /min 119 mm[Hg] 73 mm[Hg] [facility] 07/11/2019 17:26:19 Date Recorded Heart rate Systolic blood pressure Diastolic blood pressure Provider Name and Address Organization Details Last Updated DateTime 07/13/2019 90 /min 125 mm[Hg] 82 mm[Hg] [facility] 07/13/2019 09:51:44 Date Recorded Body height Body mass index (BMI) Body weight Provider Name and Address Organization Details Last Updated DateTime 07/03/2021 170.18 cm 32 kg/m2 36437.84 g Harmony Bunch [facility] 07/03/2021 14:53:55 Social History Question Answer Notes LastModified by Organizat ion Details LastModified Time Tobacco Smoking Status Never Smoker Hollygideon Aguilar [facility] 05/25/2019 11:54:27 Do You Have An Advance Directive? No Information not available 05/25/2019 What Is Your Level Of Alcohol Consumption? None Information not available 05/25/2019 What Is Your Level Of Caffeine Consumption? Moderate Information not available 05/25/2019 How Much Tobacco Do You Chew? None Information not available 05/25/2019 What Is Your Code Status? Full Code Information not available 05/25/2019 What Type Of Diet Are You Following? REGULAR Information not available 05/25/2019 Which Illicit Or Recreational Drugs Have You Used? 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 Never Used Smokeless Tobacco Information not available 05/25/2019 How Much Tobacco Do You Smoke? No Information not available 05/25/2019 How Many Years Have You Smoked Tobacco? 0 Information not available 05/25/2019 Sex: Unknown Functional Status Question Answer Note LastModified by Organization D etails LastModified Time What is your exercise level? None Information not available 05/25/2019 Mental Status None recorded. Family History Relationship Description Onset Age of this Age Resolved Age Notes LastModified by Organization Details LastModified Time Father Alcohol abuse Not available 2018 12:11:39 Father Asthma Not available 0 05/25/2019 12:11:53 Father Carcinoma of lung 71 71 -- heavy smoker Not available 05/25/2019 12:44:11 Mother Asthma Not available 0 05/25/2019 12:14:07 Mother Atrial fibrillation Not available 12:15:22 Mother Cerebrovascu lar accident -- dx'd around 74 y/o Not available 05/25/2019 12:42:11 Mother Myocardial infarction 45 -- w/ OR & CABG x 4V Not available 05/25/2019 12:40:05 Maternal Grandfather Myocardial infarction 35 35 -- dx'd at 35 y/o Not available 05/25/2019 12:40:35 Maternal Uncle Myocardial infarction -- 2 uncles w/ OR at 48 y/o & 46 y/o Not available 05/25/2019 12:41:31 Maternal Uncle Diabetes mellitus Not available 2018 12:45:51 Sister Multiple myeloma 52 54 (Catherine Gallegos) -- dx'd 54 Not available 05/25/2019 12:43:47 Maternal Aunt Diabetes mellitus Not available 2018 12:45:51 Medical History No medical history recorded. Gynecological History Statement/Question Response Date of Last Pap Smear 11/02/2016 Obstetrics History GPAL:G 0 P 0 0 0 0 Past Encounters Encounter ID Performer Location Encounter Start Date Encounter Closed Date Diagnosis/Indication Diagnosis SNOMED-CT Code Diagnosis ICD10 Code Diagnosis Note [id number] Eduardo Barrios MD [facility], [facility] [address] [place] [address] 05/25/2019 11:14:15 05/25/2019 13:04:24 Type 2 diabetes mellitus without complication 176434930 E11.9 (dx'd around 33 y/o) -- last A1c was 11.1 (around May 2018) but due to lack of insurance, have not been on lantus since May 2017-- currently following w/ [facility] [place] Candidal vulvovaginitis 13993149 B37.3 Benign ess ential hypertension 7397321 I10 Body mass index 30+ - obesity 875442871 Z68.32 -- advised weight loss-- pt's BMI today is 32.9 (ideal is between 20-29) Active or passive immunization 345565137 Z23 Screening for malignant neoplasm of breast 773647419 Z12.31 Screening for malignant neoplasm of cervix 610070065 Z12.4 Leukocytosis 281981181 D 72.829 (chronic; evaluated by Hematologi st Dr Justin & deemed to be benign) Health Concerns Section Related Observation LastModified by Organization Detai ls LastModified Time None Recorded Concern Status LastModified by Organization Details LastModified Time None Recorded Advance Directives Directive N: Payers Encounter Date Sequence Insurance Name Policy Number Policy Atris Covered Member ID Artis Member ID Guarantor Name 05/25/2019 1 *SELF PAY* Hunter Davey Notes Date Note Type Note Provider Name and Address Organization Details Recorded Time 05/25/2019 text/html Patient denies any headache/chest discomfort or pain/diaphoresis/ breathing problems/nausea/v omiting/any angina equivalent symptoms/visual changes Eduardo Barrios MD [address], [place], [address], [facility] 05/25/2019 12:59:22 OBGyn Episode Ob Episode Information Episode Created Date Number of Fetuses Patient Bloodtype Patient rh Status Prepregnancy Weight lbs Domestic Partner Domestic Partner Phone Father Name Ultrasound Technologist Sonographer Status 05/25/20 19 1 CLOSED Fetus Data First Name Last Name Admitted to NICU Weight (g) Sex Living Outcome Pediatric Complications Fetus ID Race Codes Race Delivery Type 2976.47 0704 Full Term 161 Dayron Calculation Initial Dayron Date Initial Exam [...] Complications Tubal Sterilization Discharge Date Comments 4 Regional-Sp inal false Discharge Information Feeding Method Contraceptive Method Maternal HG B and HCT Levels
[2025-02-10 08:14] VITALS: PULSE 83
[2025-02-10 08:15] VITALS: BP 157/96; PULSE 78; RESP 20; TEMP 36.9; O2SAT 99
[2025-02-10 08:25] LABS: Glucose Point of Care 247 mg/dl (65-105)
--- NOTE | 2025-02-10 08:33 | ED.GENADULT ---
HPI - General Adult General Chief complaint: Wound/Laceration Stated complaint: left sided facial swelliing Time Seen by Provider: 02/10/25 08:19 History of Present Illness HPI narrative: This is a 54-year-old female with past medical history of diabetes presenting for painful lump on top of her scalp. Started several days ago and has been getting worse. Is making it difficult for her to sleep. No systemic signs of illness such as fevers chills nausea vomiting diarrhea. No history of abscesses. Related Data Home Medications ?Medication ?Instructions ?Recorded ?Confirmed ?Last Taken ?Type albuterol sulfate 90 mcg/actuation 1 inh inhalation PRN PRN wheezes 04/07/22 02/01/25 Unknown History aerosol inhaler gabapentin 300 mg capsule 300 mg PO HS 09/27/23 02/01/25 Unknown History metformin 500 mg tablet,extended 500 mg PO HS 08/03/24 02/01/25 Unknown History release 24 hr Allergies Allergy/AdvReac Type Severity Reaction Status Date / Time adhesive Allergy Mild Rash Verified 02/01/25 14:56 lisinopril AdvReac Cough Verified 02/01/25 14:56 PMFSH Past Medical History Medical History PAD (peripheral artery disease) Diabetic retinopathy Diabetic neuropathy Hypertension Chronic headaches Hx of migraine headaches Asthma Seasonal allergies Colon cancer screening Essential hypertension Dyslipidemia Diabetes 1.5, managed as type 1 Surgical History Surgical History History of section H/O kyphoplasty 2017 History of carpal tunnel surgery 2017 Hx of appendectomy Family History Family History Sibling Diabetes mellitus Patient's sister is in good health Family history of hypercholesterolemia Hypertension Depression Family history of alcoholism Mother Family history of cardiovascular disease Osteoporosis Family history of hypercholesterolemia Hypertension Cerebrovascular accident Asthma Family history of chronic obstructive pulmonary disease Father Patient's father is in good health Family history of alcoholism Family history of chronic obstructive pulmonary disease Other Family history of anemia Family history of attention deficit hyperactivity disorder (ADHD) Family history of blood dyscrasia Family history of malignant neoplasm of breast Family history of osteoporosis Social History Social History Smoking status: Never smoker Alcohol intake: never Substance use: never Substance use type: does not use Do You Feel Safe in your Home?: Yes Lack of Transportation: No Lack of Food: Never True Current Housing: I Have Housing Concerned About Future Housing: No Difficulty Paying Gas/Electric Bills: No Difficulty Paying for Meds: No Currently Unemployed: No Education: Trade/Vocational Certificate Difficulty w/ Childcare or Family Care: No Living arrangements: alone Occupation/Education: occupation Gender identity (if verbalized by the patient): Female Sexual Orientation (if Verbalized by the Patient): Straight or Heterosexual Spiritual care concerns: No Exam Narrative: APPEARANCE: No apparent distress. Head: atraumatic. EYES: EOMI, NOSE: Atraumatic NECK: Trachea midline RESPIRATORY: No increased rate of breathing CARDIOVASCULAR: RRR, ABDOMINAL: Non-distended MUSCULOSKELETAl: No obvious deformities NEURO: Alert. Moving 4/4 extremities SKIN:: Painful fluctuant mass with a central head the upper left scalp, 2 cm x 2 cm PSYCHIATRIC: Normal affect Course Vital Signs Vital signs: Vital Signs Pulse Rate 83 02/10/25 08:14 Temperature 98.4 F 02/10/25 08:15 Pulse Rate 78 02/10/25 08:15 Respiratory Rate 20 02/10/25 08:15 Blood Pressure 157/96 H 02/10/25 08:15 Pulse Oximetry 99 02/10/25 08:15 Oxygen Delivery Room Air 02/10/25 08:15 Procedures Abscess I/D scalp: Date of Incision: 02/10/25 Local Anesthetic: bupivacaine 0.25% Amount of anesthesia used (mL): 6 Technique: incised with #11 blade Amount of fluid expressed (mL): 3 Irrigation: Yes Packing used?: none I&D Results: Pus and Blood Medical Decision Making [facility] Narrative Medical decision making narrative: 54-year-old diabetic presenting with painful scalp mass. Abscess was confirmed on ultrasound. Incised and drained using 11 blade scalpel. Placed on Bactrim. Discharged return precautions Vital Signs Vital Signs: Vital Signs Pulse Rate 83 02/10/25 08:14 Temperature 98.4 F 02/10/25 08:15 Pulse Rate 78 02/10/25 08:15 Respiratory Rate 20 02/10/25 08:15 Blood Pressure 157/96 H 02/10/25 08:15 Pulse Oximetry 99 02/10/25 08:15 Oxygen Delivery Room Air 02/10/25 08:15 Lab Data Labs: Lab Results 02/10/25 Range/Units 08:19 POC Capillary Glucose 247 H (65-105) mg/dl Discharge Plan Discharge Clinical Impression: Abscess Patient Disposition: Home Condition: Stable Instructions: Antibiotic Form, Abscess Follow-up (ED) Additional Instructions: He was seen for an abscess on her scalp. With drain. Please follow-up your primary physician next 5-7 days to ensure resolution. If it starts to reaccumulate, becomes more painful or red or if you develop signs is illness such as fevers please return ED for re-evaluation. Patient Language: Greek Prescriptions: New sulfamethoxazole-trimethoprim 800-160 mg tablet 1 tablet PO Q12H Qty: 10 0RF No Action albuterol sulfate 90 mcg/actuation HFA aerosol inhaler 1 inh INHALATION PRN PRN (Reason: wheezes) gabapentin 300 mg capsule 300 mg PO HS tobramycin 0.3 % drops 1 drp LEFT EYE Q4H Qty: 5 0RF (DME) FreeStyle Fran 3 Plus Sensor Device See Rx Instructions .ROUTE .MEDSUPPLY Qty: 6 2RF Rx Instructions: Use to monitor glucose insulin glargine [Lantus Solostar U-100 Insulin] 100 unit/mL (3 mL) insulin pen 40 unit subcut QAM Qty: 45 1RF (DME) pen needle, diabetic [BD Ultra-Fine Mini Pen Needle] 31 gauge x 3/16 needle See Rx Instructions .Route Qty: 400 1RF Rx Instructions: Use to administer insulin 4 times a day (DME) insulin syringe-needle U-100 [BD Insulin Syringe] 1 mL 28 gauge x 1/2 syringe See Rx Instructions .Route Qty: 100 0RF Rx Instructions: As directed fluticasone propionate 50 mcg/actuation spray,suspension 1 spray intranasal BID Qty: 16 0RF Rx Instructions: administer into each nostril nystatin-triamcinolone 100,000-0.1 unit/g-% cream 1 applic topical BID Qty: 60 1RF Rx Instructions: apply a thin layer to affected areas twice daily as needed. (abdomen and vaginal area) insulin lispro [Humalog KwikPen Insulin] 100 unit/mL insulin pen 10 unit subcut TIDWMEAL MDD 70 Qty: 45 1RF Rx Instructions: Take 10 units three times a day before meals + Sliding Scale insulin 150-200: 2 units 201-250: 4 units 251-300: 6 units 301-350: 8 units 351-400: 10 units > 401 12 units losartan 25 mg tablet 25 mg PO DAILY Qty: 90 1RF fenofibrate 160 mg tablet 160 mg PO DAILY Qty: 90 1RF rosuvastatin 40 mg tablet 40 mg PO DAILY Qty: 90 1RF metformin 500 mg tablet extended release 24 hr 500 mg PO HS (DME) Blood Glucose Test Strip See Rx Instructions .Route Qty: 300 2RF Rx Instructions: Check glucose 3-4 times a day before meals (DME) blood-glucose meter Kit See Rx Instructions .Route Qty: 1 0RF Rx Instructions: Use before meals Follow-up/Referrals: Jonel Mercer MD [Primary Care Provider] -
--- OUTSIDE RECORDS SUMMARY | 2025-02-10 08:41 | XMS_ITS | Clinical Summary ---
Author Organization [facility] at the [facility] Address [address] [place] [address] Care Team Providers Care Pinked Edge Sewing Machine Operator Name Role Phone Toribio Ocasio MD Unavailable Jonel Mercer MD Primary Care Provider Allergies [...] 1 each 3 10/20/20 Active Dexcom G6 Correspondence Analyst misc 10/08/20 Active diphenhydrAMINE (BENADRYL) 25 mg [...] 024 Assessment & Plan (10/04/2024 10:54 AM PILING CUTTER): Patient asymptomatic. Noninvasive studies were normal as was her exam. No further workup needed follow up PRN. Diabetic polyneuropathy asso ciated with type 2 diabetes mellitus 12/17/2023 Pharyngitis 10/15/2023 Assessment & Plan (10/15/2023 5:00 PM PILING CUTTER): Point of care strep swab negative. However patients are overwhelmingly concerning for strep given her recent infection we will treat patient with Ceftin 250 mg b.i.d. x7 days. Patient is advised to change her toothbrush after 48 hours of starting the antibiotic. Vaginal yeast infection 10/15/2023 Assessment & Plan (10/15/2023 4:59 PM PILING CUTTER): Patient complains of vaginal yeast infections secondary to the amount of antibiotics that she is taken in the past 2 weeks. Diflucan ordered. Strep throat 09/30/2023 Allergic rhinitis 09/10/2023 Assessment & Plan (09/10/2023 5:02 PM PILING CUTTER): Flonase and Zyrtec as needed BMI 33.0-33.9,adult 09/10/2023 Assessment & Plan (09/10/2023 5:02 PM PILING CUTTER): Discussed the patient's BMI. The BMI is above average. BMI management plan is completed. BMI Follow-up includes: nutrition counseling, exercise counseling and education provided. Hypertension associated with type 2 diabetes erna litus 08/31/2023 Assessment & Plan (09/10/2023 4:58 PM PILING CUTTER): Blood pressure well controlled. Refills sent to [...] daily. Will update labs at [facility]. Verified that she uses [employer]. Aware to check results/results letter in Spreaker. Will contact by phone if needed. Hyperlipidemia due to type 2 diabetes mellitus 1 Assessment & Plan (10/04/2024 10:54 AM PILING CUTTER): Hyperlipidemia chronic controlled. Continue current medical management. Assessment & Plan (08/31/2023 1:52 PM CDT): Chronic problem. Currently taking Rosuvastatin 40mg & fenofibrate 160mg. Last lipid panel: 06/13/22 LDL=94, TR=163. Will update labs at [facility]. Verified that she uses mychart. Aware to check results/results letter in Spreaker. Will contact by phone if needed. Postmenopausal osteoporosis 01/06/2023 Assessment & Plan (01/06/2023 9:55 AM PILING CUTTER): Patient was diagnosed with osteoporosis by her social worker and she was started on Fosamax but she stopped taking the medication on her own. I recommended that she resumes Fosamax with calcium and vitamin-D. She said that she has an appointment with her social worker and she will discuss that with her. Angina pectoris 12/16/2022 Atopic dermatitis 12/16/2022 Cyst of pancreas 12/16/2022 Diabetic neuropathy 12/16/2022 Assessment & Plan (09/10/2023 5:01 PM PILING CUTTER): Patient recently started on gabapentin 300 mg [...] AM CDT): Patient is followed by the supervisor partial denture department. Continue to see the weight count operator on yearly basis. Encouraged diet and exercise and weight loss. Hepatomegaly 12/16/2022 Nausea, vomiting and diarrhea 12/16/2022 Obesity 12/16/2022 Strain of tendon of back 12/16/2022 Vitamin D deficiency 12/16/2022 Bilateral leg edema 10/08/2022 Assessment & Plan (01/06/2023 9:54 AM PILING CUTTER): No leg edema Assessment & Plan (10/08/2022 4:41 PM PILING CUTTER): Leg edema most likely secondary to prolonged sitting. I told her to ambulate. Will start her on Lasix 20 mg p.r.n.. Call for persistent symptoms. Colon cancer screening 10/08/2022 Assessment & Plan (10/08/2022 4:41 PM PILING CUTTER): Patient had referral for colonoscopy but she did not have it done yet. Advised to call the logistics operations director office and proceed with the test she understands the risks including cancer Carpal tunnel syndrome on right 12/13/2021 Overview (12/13/2021): Added automatically from request for surgery [id number] Right elbow pain 11/12/2021 Assessment & Plan (11/12/2021 9:48 AM PILING CUTTER): Patient with right elbow pain specially when she uses her right hand. We will obtain nerve conduction study to rule out carpal tunnel syndrome. She was advised to wear an elbow brace. We will call her for meloxicam 15 mg daily for 2 weeks. She will call for persistent symptoms BERT (obstructive sleep apnea) 11/12/2021 Assessment & Plan (09/10/2023 4:59 PM PILING CUTTER): Patient uses CPAP and is compliant with her machine. Assessment & Plan (02/11/2022 9:50 AM CDT): Patient uses CPAP machine on regular basis Assessment & Plan (11/12/2021 9:48 AM PILING CUTTER): Patient was diagnosed recently with sleep apnea and she has an appointment with the sleep specialist for CPAP machine Lymphadenitis 09/24/2021 Assessment & Plan (09/24/2021 12:53 PM PILING CUTTER): Patient has lymphadenitis. She will be started on Augmentin 875 mg twice daily for 10 days with food and side effects were explained and she will call us if it is not resolved so that we can arrange for her to see a surgeon for excision Hypersomnia 09/12/2021 Anxiety 09/12/2021 Assessment & Plan (09/10/2023 5:02 PM PILING CUTTER): Patient denies any anxiety symptoms at this time. Palpitation 09/12/2021 Nonsmoker 09/12/2021 Overweight 09/12/2021 Cough 07/30/2021 Assessment & Plan (09/10/2023 5:02 PM PILING CUTTER): Patient has persistent cough productive of clear mucus with no shortness breath or wheezing or chest pain. She is advised to restart her Symbicort Assessment & Plan (07/30/2021 9:33 AM CDT): Patient has persistent cough productive of clear mucus with no shortness breath or wheezing or chest pain. We will stop lisinopril. She will continue Symbicort. Will make a referral to see media production manager for further evaluation. Acute bronchitis 07/02/2021 Assessment & Plan (09/30/2023 5:15 PM PILING CUTTER): Patient with acute bronchitis. She is on [...] from Dexcom & Tandem pump. To call/send Spreaker message if not helping. Apply the dexcom 1st to see if the above products will help prevent the skin irritation. Will update labs. Verified that she uses mychart. Aware to check results/results letter in Spreaker. Will contact by phone if needed. DM eye exam q6wks at [facility] for laser tx & injections. Will send letter to get copy of report from [place] office. Strive for regular exercise (30min most [...] (05/08/2023 7:41 AM CDT): Followed by the weight count operator Assessment & Plan (01/06/2023 8:35 AM PILING CUTTER): Managed by the supervisor partial denture department. Continue to have annual eye exam Assessment & Plan (10/08/2022 4:40 PM PILING CUTTER): Managed by the supervisor partial denture department advised to have annual eye exam Assessment & Plan (04/16/2022 8:25 AM CDT): Continue current medications, discussed low carbohydrate diet, advised to exercise on regular basis, advised to have annual eye exam. We will continue to monitor. Followed by the supervisor partial denture department Assessment & Plan (02/11/2022 9:50 AM CDT): Follow with the supervisor partial denture department and weight count operator. Discussed weight loss and diet. Assessment & Plan (11/12/2021 9:48 AM PILING CUTTER): Patient is not compliant with medications. She [...] and exercise. Patient was seen by a foreign clerk in the past. Will increase Lantus to [...] Continue diet. She was seen by the weight count operator. She will check her sugar 3 times daily and call us with readings in 1 week. Assessment & Plan (01/10/2021 4:30 PM PILING CUTTER): Patient will start on Lantus 45 units [...] monitor Assessment & Plan (01/06/2023 8:35 AM PILING CUTTER): Continue current medications. Discussed low-salt diet. Discussed exercise on regular basis. Will continue to monitor Assessment & Plan (10/08/2022 4:40 PM PILING CUTTER): Continue current medications. Discussed low-salt diet. Discussed exercise on regular basis. Will continue to monitor Assessment & Plan (02/11/2022 9:50 AM CDT): Continue current medications. Discussed low-salt diet. Discussed exercise on regular basis. Will continue to monitor Assessment & Plan (11/12/2021 9:49 AM PILING CUTTER): Continue current medications. Discussed low-salt diet. Discussed [...] monitor Assessment & Plan (01/10/2021 4:30 PM PILING CUTTER): Start lisinopril 20 mg daily and we discussed low-salt diet Dyslipidemia 01/10/2021 Assessment & Plan (09/10/2023 5:00 PM PILING CUTTER): Patient is maintained on Crestor 40 mg tablets and fenofibrate 160 mg we will continue this regimen Assessment & Plan (05/08/2023 8:57 AM CDT): LDL is 113. Increase Crestor to 40 mg q.h.s.. Continue low-fat diet. Assessment & Plan (01/06/2023 8:35 AM PILING CUTTER): Controlled on current medications. Continue low-fat diet. Will continue to monitor . Assessment & Plan (10/08/2022 4:40 PM PILING CUTTER): Controlled on current medications. Continue low-fat diet. Will continue to monitor . Assessment & Plan (04/16/2022 8:25 AM CDT): Controlled on current medications. Continue low-fat diet. Will continue to monitor . Assessment & Plan (02/11/2022 9:50 AM CDT): Stop atorvastatin and start Crestor 20 mg q.h.s. for better control of hyperlipidemia. Continue low-fat diet Assessment & Plan (11/12/2021 9:49 AM PILING CUTTER): Resume medications and we discussed the importance [...] months Assessment & Plan (01/10/2021 4:30 PM PILING CUTTER): Start Lipitor 10 mg q.h.s. and discussed low-fat diet and pamphlets were given Pneumonia due to COVID-19 virus 11/28/2020 Microalbuminuria 05/29/2019 Coronary arteriosclerosis 05/24/2019 Gastroesophageal reflux disease without esophagi tis 05/24/2019 Assessment & Plan (09/10/2023 5:00 PM PILING CUTTER): Patient reports symptoms are controlled. Steatosis of liver 05/24/2019 Mild nonproliferative diabetic retinopathy(362.0 4) 05/24/2019 Tabby-Chu tear 10/18/2017 Kidney disease 12/14/2016 Leukocytosis 06/13/2014 Asthma Assessment & Plan (09/10/2023 5:02 PM PILING CUTTER): Patient is advised to restart Symbicort. We will follow up at next visit. Assessment & Plan (05/08/2023 8:58 AM CDT): Patient is asymptomatic and stable without medications Assessment & Plan (01/06/2023 9:54 AM PILING CUTTER): Patient complains of cough but no shortness [...] on file Legal Sex Female 2:02 AM PILING CUTTER Gender Identity Not on file Sexual Orientation [...] Comments Blood Pressure 135/80 09/08/2024 10:13 AM PILING CUTTER Pulse 79 09/08/2024 10:13 AM PILING CUTTER Temperature 36.7 C (98 F) 10/15/2023 1:39 PM PILING CUTTER Respiratory Rate 18 10/15/2023 1:39 PM PILING CUTTER Oxygen Saturation 97% 10/15/2023 1:39 PM PILING CUTTER Inhaled Oxygen Concentration - - Weight 98 kg (216 lb) 09/08/2024 10:13 AM PILING CUTTER Height 170.2 cm (5' 7 ) 09/08/2024 10:13 AM PILING CUTTER Body Mass Index 33.83 09/08/2024 10:13 AM PILING CUTTER Plan of Treatment Health Maintenance Due Date [...] BLOOD ORDERABLES Final Result Performing Organization Address [facility] de Phone Number [address] [address] * Albumin Creatinine Ratio, Urine (06/13/2022 7:54 AM CDT) Albumin Ur <12.0 mg/L [facility] Comment: Interpretive Data No reference range established. Current interpretive data was last revised 2019. Creatinine Ur 51.0 mg/dL [facility] Comment: Interpretive Data No reference range established. Current interpretive data was last revised 2019. Albumin Creatinine Ratio, Ur <24 1 - 29 mg/g [facility] Urine 06/13/2022 7:54 AM CDT 06/13/2022 8:08 AM CDT Moris Linares MD LAB URINE ORDERABLES Final Result Performing Organization Address [facility] de Phone Number [address] [address] * (ABNORMAL) Lipid panel (06/13/2022 7:54 AM CDT) Cholesterol 157 30 - 199 mg/dL [facility] Comment: Interpretive Data Ages < or [...] MD LAB BLOOD ORDERABLES Final Result [facility] [id number] [facility] Department [place] [address] * Diabetic Foot Exam (02/15/2022) Historical Provider [...] Most Recently Relevant to Health Maintenance Insurance [facility] [place] [address] Care Teams Pinked Edge Sewing Machine Operator Relationship Specialty Start Date End Date Jonel Mercer MD [address] [facility] [address] [place] [address] PCP - General Family Medicine 09/08/24 Toribio Ocasio MD Consulting Physician Plastic Surgery 01/03/22
--- OUTSIDE RECORDS SUMMARY | 2025-02-10 08:41 | XMS_ITS | Clinical Summary ---
Author Organization [facility] Address [address] [place] [address] Care Team Providers Care Veneer Stacker Name Role Phone Moris Linares MD Primary Care Provider [phone] Allergies Active Allergy Reactions Criticality Noted Date [...] Gluc Sensor (FREESTYLE FRAN 14 DAY SENSOR) [facility] FreeStyle Fran 14 Day Sensor kit USE [...] virus 11/28/2020 Acute respiratory failure with hypoxia ([facility]) 11/27/2020 Social History Tobacco Use Types Packs/Day Years Used Date Smoking Tobacco: Never Cigarettes Smokeless Tobacco: Never Alcohol Use Standard Drinks/Week Comments Not Currently 0 (1 standard drink = 0.6 oz pur e alcohol) Comments Unknown Sex and Gender Information Value Date Recorded Sex Assigned at Not on file Legal Sex Female 12:44 PM EXTRACTOR OPERATOR SOLVENT PROCESS Gender Identity Not on file Sexual Orientation [...] perform ADLs independently General No Belen Lindsey operations support coordinator Procedure Name Priority Date/Time Associated Diagnosis Comments COLONOSCOPY Routine 02/28/2022 8:21 AM CDT from Last 3 Months or Most Recently Relevant to Health Maintenance Insurance Advance Directives * Full Code (Latest Code Status on File) Date Activated Date Inactivated Comments 11/27/2020 9:44 PM 12/02/2020 6:14 PM Care Teams Veneer Stacker Relationship Specialty Start Date End Date Moris Linares MD [address] [facility] [address] [address] PCP - General INTERNAL MEDICINE 02/28/22
--- OUTSIDE RECORDS SUMMARY | 2025-02-10 08:41 | XMS_ITS | Clinical Summary ---
Author Organization [facility] Address [address] [place] [address] Care Team Providers Care Proposal Development Manager Name Role Phone Chase Alva MD Primary Care Provider [phone] Bill Mcgregor DO Unavailable [phone] Allergies Active Allergy Reactions Criticality Noted [...] Insurance MEDICAID [employer] Care Teams Proposal Development Manager Relationship Specialty Start Date End Date Chase Alva MD [address] [facility] [address] [place] [address] PCP - General Internal Medicine 10/22/17 Bill Mcgregor DO [address] [address] Consulting Physician Gastroenterology 02/25/18
--- OUTSIDE RECORDS SUMMARY | 2025-02-10 08:41 | XMS_ITS | Encounter Summary ---
Author Organization [facility] Address [address] [place] [address] Care Team Providers Care Motor Vehicle Clerk Name Role Phone Maty Edmondson MD Primary Care Provider [phone] Moris Linares MD Primary Care Provider [phone] Encounter Details Date Type Department Care Team (Late st Contact Info) Description 12/07/2020 Hospital Follow-up Call [facility] [place] [address] Val Mathis RN Social History Tobacco Use Types Packs/Day Years Used Date Smoking Tobacco: Every Day Cigarettes Alcohol Use Standard Drinks/Week Comments Not Currently 0 (1 standard drink = 0.6 oz pur e alcohol) Comments Unknown Sex and Gender Information Value Date Recorded Sex Assigned at Not on file Legal Sex Female 12:44 PM TARGET AIRCRAFT TECHNICIAN Gender Identity Not on file Sexual Orientation Not on file COVID-19 Exposure Response Date Recorded In the last month, have you been in contact with someone who was confirmed or suspected to have Coronavirus / COVID-19? Yes 11/27/2020 6:53 PM TARGET AIRCRAFT TECHNICIAN documented as of this encounter Functional Status * RETIRED Are you deaf or do you have serious difficulty hearing Answer Date of Assessment Author Status No 11/28/2020 2:32 AM TARGET AIRCRAFT TECHNICIAN Activ e * RETIRED Are you blind or do you have serious difficulty seeing, even when wearing glasses? Answer Date of Assessment Author Status No 11/28/2020 2:32 AM TARGET AIRCRAFT TECHNICIAN Activ e * Do you have serious difficulty walking or climbing stairs? Answer Date of Assessment Author Status No 11/28/2020 2:32 AM Jazmine Somers R N Active * Do you have difficulty dressing or bathing? Answer Date of Assessment Author Status No 11/28/2020 2:32 AM TARGET AIRCRAFT TECHNICIAN Jazmine Kang R N Active * Because of a physical, mental, or emotional condition, do you have difficulty doing errands alone such as visiting a doctor's office or shopping? Answer Date of Assessment Author Status No 11/28/2020 2:32 AM TARGET AIRCRAFT TECHNICIAN Jazmine Kang R N Active documented as [...] Time COVID-19 Confirmed 11/23/2020 11/27/2020 12:34 AM TARGET AIRCRAFT TECHNICIAN documented as of this encounter Care Teams Motor Vehicle Clerk Relationship Specialty Start Date End Date Maty Edmondson MD [facility] [address] [address] PCP - General FAMILY PRACTICE 11/27/20 02/27/22 Moris Linares MD [facility] [address] [address] PCP - General INTERNAL MEDICINE 02/28/22 documented as of this encounter
--- OUTSIDE RECORDS SUMMARY | 2025-02-10 08:41 | XMS_ITS | CONTINUITY OF CARE DOCUMENT ---
Author Name hunter avemelinda Address Unknown Organization [facility] Address [id number] [place] [address] [address] [place] [address] Phone [phone] Care Team Providers Care Document Controller Name Role Phone Mason GARCIA, Trang Unavailable [phone] JIM GALVIN Unavailable [phone] JIM GALVIN Unavailable INSURANCE PROVIDERS Payer name Policy type / Coverage type Gervais red libertarian ID [facility] [id number]
--- OUTSIDE RECORDS SUMMARY | 2025-02-10 08:41 | XMS_ITS | Referral Summary ---
Author Organization [facility] ([facility]3] at the [facility] Address [address] [place] [address] Care Team Providers Care Flowers Salesperson Name Role Phone Toribio Ocasio MD Unavailable [phone] Jonel Mercer MD Primary Care Provider Allergies [...] 1 each 3 10/20/20 Active Dexcom G6 Saxophone Assembler misc 10/08/20 Active diphenhydrAMINE (BENADRYL) 25 [...] 024 Assessment & Plan (10/04/2024 10:54 AM BLADE SHARPENER): Patient asymptomatic. Noninvasive studies were normal as was her exam. No further workup needed follow up PRN. Diabetic polyneuropathy asso ciated with type 2 diabetes mellitus 12/17/2023 Pharyngitis 10/15/2023 Assessment & Plan (10/15/2023 5:00 PM BLADE SHARPENER): Point of care strep swab negative. However patients are overwhelmingly concerning for strep given her recent infection we will treat patient with Ceftin 250 mg b.i.d. x7 days. Patient is advised to change her toothbrush after 48 hours of starting the antibiotic. Vaginal yeast infection 10/15/2023 Assessment & Plan (10/15/2023 4:59 PM BLADE SHARPENER): Patient complains of vaginal yeast infections secondary to the amount of antibiotics that she is taken in the past 2 weeks. Diflucan ordered. Strep throat 09/30/2023 Allergic rhinitis 09/10/2023 Assessment & Plan (09/10/2023 5:02 PM BLADE SHARPENER): Flonase and Zyrtec as needed BMI 33.0-33.9,adult 09/10/2023 Assessment & Plan (09/10/2023 5:02 PM BLADE SHARPENER): Discussed the patient's BMI. The BMI is above average. BMI management plan is completed. BMI Follow-up includes: nutrition counseling, exercise counseling and education provided. Hypertension associated with type 2 diabetes erna litus 08/31/2023 Assessment & Plan (09/10/2023 4:58 PM BLADE SHARPENER): Blood pressure well controlled. Refills sent to [...] losartan 25mg daily. Will update labs at [facility]. Verified that she uses [facility]. Aware to check results/results letter in [facility]. Will contact by phone if needed. Hyperlipidemia due to type 2 diabetes mellitus 1 Assessment & Plan (10/04/2024 10:54 AM BLADE SHARPENER): Hyperlipidemia chronic controlled. Continue current medical management. Assessment & Plan (08/31/2023 1:52 PM CDT): Chronic problem. Currently taking Rosuvastatin 40mg & fenofibrate 160mg. Last lipid panel: 06/13/22 LDL=94, HV=479. Will update labs at [facility]. Verified that she uses [facility]. Aware to check results/results letter in Rosum. Will contact by phone if needed. Postmenopausal osteoporosis 01/06/2023 Assessment & Plan (01/06/2023 9:55 AM BLADE SHARPENER): Patient was diagnosed with osteoporosis by her water trainer and she was started on Fosamax but she stopped taking the medication on her own. I recommended that she resumes Fosamax with calcium and vitamin-D. She said that she has an appointment with her water trainer and she will discuss that with her. Angina pectoris 12/16/2022 Atopic dermatitis 12/16/2022 Cyst of pancreas 12/16/2022 Diabetic neuropathy 12/16/2022 Assessment & Plan (09/10/2023 5:01 PM BLADE SHARPENER): Patient recently started on gabapentin 300 mg [...] AM CDT): Patient is followed by the rat farmer. Continue to see the bulbs farmworker on yearly basis. Encouraged diet and exercise and weight loss. Hepatomegaly 12/16/2022 Nausea, vomiting and diarrhea 12/16/2022 Obesity 12/16/2022 Strain of tendon of back 12/16/2022 Vitamin D deficiency 12/16/2022 Bilateral leg edema 10/08/2022 Assessment & Plan (01/06/2023 9:54 AM BLADE SHARPENER): No leg edema Assessment & Plan (10/08/2022 4:41 PM BLADE SHARPENER): Leg edema most likely secondary to prolonged sitting. I told her to ambulate. Will start her on Lasix 20 mg p.r.n.. Call for persistent symptoms. Colon cancer screening 10/08/2022 Assessment & Plan (10/08/2022 4:41 PM BLADE SHARPENER): Patient had referral for colonoscopy but she did not have it done yet. Advised to call the chisel worker office and proceed with the test she understands the risks including cancer Carpal tunnel syndrome on right 12/13/2021 Overview (12/13/2021): Added automatically from request for surgery [id number] Right elbow pain 11/12/2021 Assessment & Plan (11/12/2021 9:48 AM BLADE SHARPENER): Patient with right elbow pain specially when she uses her right hand. We will obtain nerve conduction study to rule out carpal tunnel syndrome. She was advised to wear an elbow brace. We will call her for meloxicam 15 mg daily for 2 weeks. She will call for persistent symptoms BERT (obstructive sleep apnea) 11/12/2021 Assessment & Plan (09/10/2023 4:59 PM BLADE SHARPENER): Patient uses CPAP and is compliant with her machine. Assessment & Plan (02/11/2022 9:50 AM CDT): Patient uses CPAP machine on regular basis Assessment & Plan (11/12/2021 9:48 AM BLADE SHARPENER): Patient was diagnosed recently with sleep apnea and she has an appointment with the sleep specialist for CPAP machine Lymphadenitis 09/24/2021 Assessment & Plan (09/24/2021 12:53 PM BLADE SHARPENER): Patient has lymphadenitis. She will be started on Augmentin 875 mg twice daily for 10 days with food and side effects were explained and she will call us if it is not resolved so that we can arrange for her to see a surgeon for excision Hypersomnia 09/12/2021 Anxiety 09/12/2021 Assessment & Plan (09/10/2023 5:02 PM BLADE SHARPENER): Patient denies any anxiety symptoms at this time. Palpitation 09/12/2021 Nonsmoker 09/12/2021 Overweight 09/12/2021 Cough 07/30/2021 Assessment & Plan (09/10/2023 5:02 PM BLADE SHARPENER): Patient has persistent cough productive of clear mucus with no shortness breath or wheezing or chest pain. She is advised to restart her Symbicort Assessment & Plan (07/30/2021 9:33 AM CDT): Patient has persistent cough productive of clear mucus with no shortness breath or wheezing or chest pain. We will stop lisinopril. She will continue Symbicort. Will make a referral to see woodwind instrument repairer for further evaluation. Acute bronchitis 07/02/2021 Assessment & Plan (09/30/2023 5:15 PM BLADE SHARPENER): Patient with acute bronchitis. She is on [...] from Dexcom & Tandem pump. To call/send Rosum message if not helping. Apply the dexcom 1st to see if the above products will help prevent the skin irritation. Will update labs. Verified that she uses [facility]. Aware to check results/results letter in Rosum. Will contact by phone if needed. DM eye exam q6wks at [facility] for laser tx & injections. Will send letter to get copy of report from [place] office. Strive for regular exercise (30min most [...] (05/08/2023 7:41 AM CDT): Followed by the bulbs farmworker Assessment & Plan (01/06/2023 8:35 AM BLADE SHARPENER): Managed by the rat farmer. Continue to have annual eye exam Assessment & Plan (10/08/2022 4:40 PM BLADE SHARPENER): Managed by the rat farmer advised to have annual eye exam Assessment & Plan (04/16/2022 8:25 AM CDT): Continue current medications, discussed low carbohydrate diet, advised to exercise on regular basis, advised to have annual eye exam. We will continue to monitor. Followed by the rat farmer Assessment & Plan (02/11/2022 9:50 AM CDT): Follow with the rat farmer and bulbs farmworker. Discussed weight loss and diet. Assessment & Plan (11/12/2021 9:48 AM BLADE SHARPENER): Patient is not compliant with medications. She [...] and exercise. Patient was seen by a relay motorman in the past. Will increase Lantus to [...] Continue diet. She was seen by the bulbs farmworker. She will check her sugar 3 times daily and call us with readings in 1 week. Assessment & Plan (01/10/2021 4:30 PM BLADE SHARPENER): Patient will start on Lantus 45 units [...] monitor Assessment & Plan (01/06/2023 8:35 AM BLADE SHARPENER): Continue current medications. Discussed low-salt diet. Discussed exercise on regular basis. Will continue to monitor Assessment & Plan (10/08/2022 4:40 PM BLADE SHARPENER): Continue current medications. Discussed low-salt diet. Discussed exercise on regular basis. Will continue to monitor Assessment & Plan (02/11/2022 9:50 AM CDT): Continue current medications. Discussed low-salt diet. Discussed exercise on regular basis. Will continue to monitor Assessment & Plan (11/12/2021 9:49 AM BLADE SHARPENER): Continue current medications. Discussed low-salt diet. Discussed [...] monitor Assessment & Plan (01/10/2021 4:30 PM BLADE SHARPENER): Start lisinopril 20 mg daily and we discussed low-salt diet Dyslipidemia 01/10/2021 Assessment & Plan (09/10/2023 5:00 PM BLADE SHARPENER): Patient is maintained on Crestor 40 mg tablets and fenofibrate 160 mg we will continue this regimen Assessment & Plan (05/08/2023 8:57 AM CDT): LDL is 113. Increase Crestor to 40 mg q.h.s.. Continue low-fat diet. Assessment & Plan (01/06/2023 8:35 AM BLADE SHARPENER): Controlled on current medications. Continue low-fat diet. Will continue to monitor . Assessment & Plan (10/08/2022 4:40 PM BLADE SHARPENER): Controlled on current medications. Continue low-fat diet. Will continue to monitor . Assessment & Plan (04/16/2022 8:25 AM CDT): Controlled on current medications. Continue low-fat diet. Will continue to monitor . Assessment & Plan (02/11/2022 9:50 AM CDT): Stop atorvastatin and start Crestor 20 mg q.h.s. for better control of hyperlipidemia. Continue low-fat diet Assessment & Plan (11/12/2021 9:49 AM BLADE SHARPENER): Resume medications and we discussed the importance [...] months Assessment & Plan (01/10/2021 4:30 PM BLADE SHARPENER): Start Lipitor 10 mg q.h.s. and discussed low-fat diet and pamphlets were given Pneumonia due to COVID-19 virus 11/28/2020 Microalbuminuria 05/29/2019 Coronary arteriosclerosis 05/24/2019 Gastroesophageal reflux disease without esophagi tis 05/24/2019 Assessment & Plan (09/10/2023 5:00 PM BLADE SHARPENER): Patient reports symptoms are controlled. Steatosis of liver 05/24/2019 Mild nonproliferative diabetic retinopathy(362.0 4) 05/24/2019 Tabby-Chu tear 10/18/2017 Kidney disease 12/14/2016 Leukocytosis 06/13/2014 Asthma Assessment & Plan (09/10/2023 5:02 PM BLADE SHARPENER): Patient is advised to restart Symbicort. We will follow up at next visit. Assessment & Plan (05/08/2023 8:58 AM CDT): Patient is asymptomatic and stable without medications Assessment & Plan (01/06/2023 9:54 AM BLADE SHARPENER): Patient complains of cough but no shortness [...] on file Legal Sex Female 2:02 AM BLADE SHARPENER Gender Identity Not on file Sexual Orientation Not on file Last Filed Vital Signs Vital Sign Reading Time Taken Comments Blood Pressure 135/80 09/08/2024 10:13 AM BLADE SHARPENER Pulse 79 09/08/2024 10:13 AM BLADE SHARPENER Temperature 36.7 C (98 F) 10/15/2023 1:39 PM BLADE SHARPENER Respiratory Rate 18 10/15/2023 1:39 PM BLADE SHARPENER Oxygen Saturation 97% 10/15/2023 1:39 PM BLADE SHARPENER Inhaled Oxygen Concentration - - Weight 98 kg (216 lb) 09/08/2024 10:13 AM BLADE SHARPENER Height 170.2 cm (5' 7 ) 09/08/2024 10:13 AM BLADE SHARPENER Body Mass Index 33.83 09/08/2024 10:13 AM BLADE SHARPENER Plan of Treatment Not on file Procedures [...] Blood 08/31/2023 1:06 PM CDT Meaghan Bliss VISUAL ARTIST POINT OF CARE TEST ORDERA BLES Final [...] BLOOD ORDERABLES Final Result Performing Organization Address [facility] Co de Phone Number [address] [place] [address] * Albumin Creatinine Ratio, Urine (06/13/2022 7:54 [...] URINE ORDERABLES Final Result Performing Organization Address City/[facility] Co de Phone Number [address] [place] [address] * (ABNORMAL) Lipid panel (06/13/2022 7:54 AM [...] MD LAB BLOOD ORDERABLES Final Result [facility] [address] [facility] Department of Laboratories [place], [place] [id number] * Diabetic Foot Exam (02/15/2022) Historical Provider [...] Relevant to Health Maintenance Insurance Care Teams Flowers Salesperson Relationship Specialty Start Date End Date Jonel Mercer MD [address] [place] [address] PCP - General Family Medicine 09/08/24 Toribio Ocasio MD Consulting Physician Plastic Surgery 01/03/22
[2025-02-10] MEDS: BUPivacaine HCL 0.25% PF 10 ML VIAL INFILTRATE (08:43)
[2025-02-10] MEDS: BUPivacaine HCL 0.25% PF 30 ML VIAL (08:43)
[2025-02-10] MEDS: SULFAMETHOXAZOLE/TRIMETHOPRIM 800/160 MG DS TABLET 1 TAB PO (08:43)
[2025-02-10 08:46] VITALS: PULSE 81; RESP 20; O2SAT 100
== END 2025-02-10 08:47 | disposition home or self-care (01) ==
PROVIDERS: Emergency Provider Emergency Medicine; PCP Family Medicine
DX: L02.811 Cutaneous abscess of head [any part, except face] (principal); I10 Essential (primary) hypertension; E78.5 Hyperlipidemia, unspecified; E13.51 Other specified diabetes mellitus with diabetic peripheral angiopathy without gangrene; I73.9 Peripheral vascular disease, unspecified; E13.319 Other specified diabetes mellitus with unspecified diabetic retinopathy without macular edema; E13.40 Other specified diabetes mellitus with diabetic neuropathy, unspecified; J45.909 Unspecified asthma, uncomplicated; Z79.4 Long term (current) use of insulin; Z79.84 Long term (current) use of oral hypoglycemic drugs; Z79.899 Other long term (current) drug therapy
CPT/HCPCS: 10060; 82948; 99283; A9270

== ENCOUNTER 2025-02-10 09:04 | Outpatient (CLI) | payer OTHER, SELFPAY ==
--- OUTSIDE RECORDS SUMMARY | 2025-02-10 09:20 | XMS_ITS | Encounter Summary ---
Author Organization [facility] Address [address] [place] [address] Care Team Providers Care Metal Or Wood Blocker Name Role Phone Maty Edmondson MD Primary Care Provider [phone] Moris Linares MD Primary Care Provider [phone] Encounter Details Date Type Department Care Team (Late st Contact Info) Description 12/07/2020 Hospital Follow-up Call [facility] [place] [address] Val Mathis RN Social History Tobacco Use Types Packs/Day Years Used Date Smoking Tobacco: Every Day Cigarettes Alcohol Use Standard Drinks/Week Comments Not Currently 0 (1 standard drink = 0.6 oz pur e alcohol) Comments Unknown Sex and Gender Information Value Date Recorded Sex Assigned at Not on file Legal Sex Female 12:44 PM DIRECTOR OF COMMUNITY EDUCATION Gender Identity Not on file Sexual Orientation Not on file COVID-19 Exposure Response Date Recorded In the last month, have you been in contact with someone who was confirmed or suspected to have Coronavirus / COVID-19? Yes 11/27/2020 6:53 PM DIRECTOR OF COMMUNITY EDUCATION documented as of this encounter Functional Status * RETIRED Are you deaf or do you have serious difficulty hearing Answer Date of Assessment Author Status No 11/28/2020 2:32 AM DIRECTOR OF COMMUNITY EDUCATION Activ e * RETIRED Are you blind or do you have serious difficulty seeing, even when wearing glasses? Answer Date of Assessment Author Status No 11/28/2020 2:32 AM DIRECTOR OF COMMUNITY EDUCATION Activ e * Do you have serious difficulty walking or climbing stairs? Answer Date of Assessment Author Status No 11/28/2020 2:32 AM Jazmine Somers R N Active * Do you have difficulty dressing or bathing? Answer Date of Assessment Author Status No 11/28/2020 2:32 AM DIRECTOR OF COMMUNITY EDUCATION Jazmine Kang R N Active * Because of a physical, mental, or emotional condition, do you have difficulty doing errands alone such as visiting a doctor's office or shopping? Answer Date of Assessment Author Status No 11/28/2020 2:32 AM DIRECTOR OF COMMUNITY EDUCATION Jazmine Kang R N Active documented as [...] Time COVID-19 Confirmed 11/23/2020 11/27/2020 12:34 AM DIRECTOR OF COMMUNITY EDUCATION documented as of this encounter Care Teams Metal Or Wood Blocker Relationship Specialty Start Date End Date Maty Edmondson MD [facility] [address] [address] PCP - General FAMILY PRACTICE 11/27/20 02/27/22 Moris Linares MD [facility] [address] [address] PCP - General INTERNAL MEDICINE 02/28/22 documented as of this encounter
--- OUTSIDE RECORDS SUMMARY | 2025-02-10 09:20 | XMS_ITS | Referral Summary ---
Author Organization [facility] at the [facility] Office Center Address [address] [place] [address] Care Team Providers Care Devil Tender Name Role Phone Toribio Ocasio MD Unavailable [...] 1 each 3 10/20/20 Active Dexcom G6 Lpn misc 10/08/20 Active diphenhydrAMINE (BENADRYL) 25 mg [...] 024 Assessment & Plan (10/04/2024 10:54 AM PROFESSOR OF THEOLOGY): Patient asymptomatic. Noninvasive studies were normal as was her exam. No further workup needed follow up PRN. Diabetic polyneuropathy asso ciated with type 2 diabetes mellitus 12/17/2023 Pharyngitis 10/15/2023 Assessment & Plan (10/15/2023 5:00 PM PROFESSOR OF THEOLOGY): Point of care strep swab negative. However patients are overwhelmingly concerning for strep given her recent infection we will treat patient with Ceftin 250 mg b.i.d. x7 days. Patient is advised to change her toothbrush after 48 hours of starting the antibiotic. Vaginal yeast infection 10/15/2023 Assessment & Plan (10/15/2023 4:59 PM PROFESSOR OF THEOLOGY): Patient complains of vaginal yeast infections secondary to the amount of antibiotics that she is taken in the past 2 weeks. Diflucan ordered. Strep throat 09/30/2023 Allergic rhinitis 09/10/2023 Assessment & Plan (09/10/2023 5:02 PM PROFESSOR OF THEOLOGY): Flonase and Zyrtec as needed BMI 33.0-33.9,adult 09/10/2023 Assessment & Plan (09/10/2023 5:02 PM PROFESSOR OF THEOLOGY): Discussed the patient's BMI. The BMI is above average. BMI management plan is completed. BMI Follow-up includes: nutrition counseling, exercise counseling and education provided. Hypertension associated with type 2 diabetes erna litus 08/31/2023 Assessment & Plan (09/10/2023 4:58 PM PROFESSOR OF THEOLOGY): Blood pressure well controlled. Refills sent to [...] losartan 25mg daily. Will update labs at [facility]. Verified that she uses [employer]. Aware to check results/results letter in [employer]. Will contact by phone if needed. Hyperlipidemia due to type 2 diabetes mellitus 1 Assessment & Plan (10/04/2024 10:54 AM PROFESSOR OF THEOLOGY): Hyperlipidemia chronic controlled. Continue current medical management. Assessment & Plan (08/31/2023 1:52 PM CDT): Chronic problem. Currently taking Rosuvastatin 40mg & fenofibrate 160mg. Last lipid panel: 06/13/22 LDL=94, BK=535. Will update labs at [facility]. Verified that she uses mychart. Aware to check results/results letter in [employer]. Will contact by phone if needed. Postmenopausal osteoporosis 01/06/2023 Assessment & Plan (01/06/2023 9:55 AM PROFESSOR OF THEOLOGY): Patient was diagnosed with osteoporosis by her undercover cop and she was started on Fosamax but she stopped taking the medication on her own. I recommended that she resumes Fosamax with calcium and vitamin-D. She said that she has an appointment with her undercover cop and she will discuss that with her. Angina pectoris 12/16/2022 Atopic dermatitis 12/16/2022 Cyst of pancreas 12/16/2022 Diabetic neuropathy 12/16/2022 Assessment & Plan (09/10/2023 5:01 PM PROFESSOR OF THEOLOGY): Patient recently started on gabapentin 300 mg [...] AM CDT): Patient is followed by the admissions recruiter. Continue to see the emergency medicine medical director on yearly basis. Encouraged diet and exercise and weight loss. Hepatomegaly 12/16/2022 Nausea, vomiting and diarrhea 12/16/2022 Obesity 12/16/2022 Strain of tendon of back 12/16/2022 Vitamin D deficiency 12/16/2022 Bilateral leg edema 10/08/2022 Assessment & Plan (01/06/2023 9:54 AM PROFESSOR OF THEOLOGY): No leg edema Assessment & Plan (10/08/2022 4:41 PM PROFESSOR OF THEOLOGY): Leg edema most likely secondary to prolonged sitting. I told her to ambulate. Will start her on Lasix 20 mg p.r.n.. Call for persistent symptoms. Colon cancer screening 10/08/2022 Assessment & Plan (10/08/2022 4:41 PM PROFESSOR OF THEOLOGY): Patient had referral for colonoscopy but she did not have it done yet. Advised to call the property loss insurance claim adjuster office and proceed with the test she understands the risks including cancer Carpal tunnel syndrome on right 12/13/2021 Overview (12/13/2021): Added automatically from request for surgery [id number] Right elbow pain 11/12/2021 Assessment & Plan (11/12/2021 9:48 AM PROFESSOR OF THEOLOGY): Patient with right elbow pain specially when she uses her right hand. We will obtain nerve conduction study to rule out carpal tunnel syndrome. She was advised to wear an elbow brace. We will call her for meloxicam 15 mg daily for 2 weeks. She will call for persistent symptoms BERT (obstructive sleep apnea) 11/12/2021 Assessment & Plan (09/10/2023 4:59 PM PROFESSOR OF THEOLOGY): Patient uses CPAP and is compliant with her machine. Assessment & Plan (02/11/2022 9:50 AM CDT): Patient uses CPAP machine on regular basis Assessment & Plan (11/12/2021 9:48 AM PROFESSOR OF THEOLOGY): Patient was diagnosed recently with sleep apnea and she has an appointment with the sleep specialist for CPAP machine Lymphadenitis 09/24/2021 Assessment & Plan (09/24/2021 12:53 PM PROFESSOR OF THEOLOGY): Patient has lymphadenitis. She will be started on Augmentin 875 mg twice daily for 10 days with food and side effects were explained and she will call us if it is not resolved so that we can arrange for her to see a surgeon for excision Hypersomnia 09/12/2021 Anxiety 09/12/2021 Assessment & Plan (09/10/2023 5:02 PM PROFESSOR OF THEOLOGY): Patient denies any anxiety symptoms at this time. Palpitation 09/12/2021 Nonsmoker 09/12/2021 Overweight 09/12/2021 Cough 07/30/2021 Assessment & Plan (09/10/2023 5:02 PM PROFESSOR OF THEOLOGY): Patient has persistent cough productive of clear mucus with no shortness breath or wheezing or chest pain. She is advised to restart her Symbicort Assessment & Plan (07/30/2021 9:33 AM CDT): Patient has persistent cough productive of clear mucus with no shortness breath or wheezing or chest pain. We will stop lisinopril. She will continue Symbicort. Will make a referral to see manager fixed income for further evaluation. Acute bronchitis 07/02/2021 Assessment & Plan (09/30/2023 5:15 PM PROFESSOR OF THEOLOGY): Patient with acute bronchitis. She is on [...] from Dexcom & Tandem pump. To call/send [employer] message if not helping. Apply the dexcom 1st to see if the above products will help prevent the skin irritation. Will update labs. Verified that she uses mychart. Aware to check results/results letter in [employer]. Will contact by phone if needed. DM eye exam q6wks at [facility] for laser tx & injections. Will send letter to get copy of report from [place] office. Strive for regular exercise (30min most [...] (05/08/2023 7:41 AM CDT): Followed by the emergency medicine medical director Assessment & Plan (01/06/2023 8:35 AM PROFESSOR OF THEOLOGY): Managed by the admissions recruiter. Continue to have annual eye exam Assessment & Plan (10/08/2022 4:40 PM PROFESSOR OF THEOLOGY): Managed by the admissions recruiter advised to have annual eye exam Assessment & Plan (04/16/2022 8:25 AM CDT): Continue current medications, discussed low carbohydrate diet, advised to exercise on regular basis, advised to have annual eye exam. We will continue to monitor. Followed by the admissions recruiter Assessment & Plan (02/11/2022 9:50 AM CDT): Follow with the admissions recruiter and emergency medicine medical director. Discussed weight loss and diet. Assessment & Plan (11/12/2021 9:48 AM PROFESSOR OF THEOLOGY): Patient is not compliant with medications. She [...] and exercise. Patient was seen by a director print in the past. Will increase Lantus to [...] Continue diet. She was seen by the emergency medicine medical director. She will check her sugar 3 times daily and call us with readings in 1 week. Assessment & Plan (01/10/2021 4:30 PM PROFESSOR OF THEOLOGY): Patient will start on Lantus 45 units [...] monitor Assessment & Plan (01/06/2023 8:35 AM PROFESSOR OF THEOLOGY): Continue current medications. Discussed low-salt diet. Discussed exercise on regular basis. Will continue to monitor Assessment & Plan (10/08/2022 4:40 PM PROFESSOR OF THEOLOGY): Continue current medications. Discussed low-salt diet. Discussed exercise on regular basis. Will continue to monitor Assessment & Plan (02/11/2022 9:50 AM CDT): Continue current medications. Discussed low-salt diet. Discussed exercise on regular basis. Will continue to monitor Assessment & Plan (11/12/2021 9:49 AM PROFESSOR OF THEOLOGY): Continue current medications. Discussed low-salt diet. Discussed [...] monitor Assessment & Plan (01/10/2021 4:30 PM PROFESSOR OF THEOLOGY): Start lisinopril 20 mg daily and we discussed low-salt diet Dyslipidemia 01/10/2021 Assessment & Plan (09/10/2023 5:00 PM PROFESSOR OF THEOLOGY): Patient is maintained on Crestor 40 mg tablets and fenofibrate 160 mg we will continue this regimen Assessment & Plan (05/08/2023 8:57 AM CDT): LDL is 113. Increase Crestor to 40 mg q.h.s.. Continue low-fat diet. Assessment & Plan (01/06/2023 8:35 AM PROFESSOR OF THEOLOGY): Controlled on current medications. Continue low-fat diet. Will continue to monitor . Assessment & Plan (10/08/2022 4:40 PM PROFESSOR OF THEOLOGY): Controlled on current medications. Continue low-fat diet. Will continue to monitor . Assessment & Plan (04/16/2022 8:25 AM CDT): Controlled on current medications. Continue low-fat diet. Will continue to monitor . Assessment & Plan (02/11/2022 9:50 AM CDT): Stop atorvastatin and start Crestor 20 mg q.h.s. for better control of hyperlipidemia. Continue low-fat diet Assessment & Plan (11/12/2021 9:49 AM PROFESSOR OF THEOLOGY): Resume medications and we discussed the importance [...] months Assessment & Plan (01/10/2021 4:30 PM PROFESSOR OF THEOLOGY): Start Lipitor 10 mg q.h.s. and discussed low-fat diet and pamphlets were given Pneumonia due to COVID-19 virus 11/28/2020 Microalbuminuria 05/29/2019 Coronary arteriosclerosis 05/24/2019 Gastroesophageal reflux disease without esophagi tis 05/24/2019 Assessment & Plan (09/10/2023 5:00 PM PROFESSOR OF THEOLOGY): Patient reports symptoms are controlled. Steatosis of liver 05/24/2019 Mild nonproliferative diabetic retinopathy(362.0 4) 05/24/2019 Tabby-Chu tear 10/18/2017 Kidney disease 12/14/2016 Leukocytosis 06/13/2014 Asthma Assessment & Plan (09/10/2023 5:02 PM PROFESSOR OF THEOLOGY): Patient is advised to restart Symbicort. We will follow up at next visit. Assessment & Plan (05/08/2023 8:58 AM CDT): Patient is asymptomatic and stable without medications Assessment & Plan (01/06/2023 9:54 AM PROFESSOR OF THEOLOGY): Patient complains of cough but no shortness [...] on file Legal Sex Female 2:02 AM PROFESSOR OF THEOLOGY Gender Identity Not on file Sexual Orientation Not on file Last Filed Vital Signs Vital Sign Reading Time Taken Comments Blood Pressure 135/80 09/08/2024 10:13 AM PROFESSOR OF THEOLOGY Pulse 79 09/08/2024 10:13 AM PROFESSOR OF THEOLOGY Temperature 36.7 C (98 F) 10/15/2023 1:39 PM PROFESSOR OF THEOLOGY Respiratory Rate 18 10/15/2023 1:39 PM PROFESSOR OF THEOLOGY Oxygen Saturation 97% 10/15/2023 1:39 PM PROFESSOR OF THEOLOGY Inhaled Oxygen Concentration - - Weight 98 kg (216 lb) 09/08/2024 10:13 AM PROFESSOR OF THEOLOGY Height 170.2 cm (5' 7 ) 09/08/2024 10:13 AM PROFESSOR OF THEOLOGY Body Mass Index 33.83 09/08/2024 10:13 AM PROFESSOR OF THEOLOGY Plan of Treatment Not on file Procedures [...] Blood 08/31/2023 1:06 PM CDT Meaghan Bliss CONFERENCE ASSISTANT POINT OF CARE TEST ORDERA BLES Final [...] BLOOD ORDERABLES Final Result Performing Organization Address [facility] Co de Phone Number [id number] [employer] [place] [address] * Albumin Creatinine Ratio, Urine (06/13/2022 7:54 [...] URINE ORDERABLES Final Result Performing Organization Address [facility] Co de Phone Number [address] [place] [employer] [place] [address] * (ABNORMAL) Lipid panel (06/13/2022 7:54 AM [...] MD LAB BLOOD ORDERABLES Final Result [facility] [address] [facility] of [facility] [place], [place] [id number] * Diabetic Foot Exam (02/15/2022) Historical Provider [...] Relevant to Health Maintenance Insurance Care Teams Devil Tender Relationship Specialty Start Date End Date Jonel Mercer MD [address] [place] [address] PCP - General Family Medicine 09/08/24 Toribio Ocasio MD Consulting Physician Plastic Surgery 01/03/22
--- OUTSIDE RECORDS SUMMARY | 2025-02-10 09:20 | XMS_ITS | Clinical Summary ---
Author Organization [facility] Address [address] [place] [address] Care Team Providers Care Nursery Rn Name Role Phone Chase Alva MD Primary Care Provider [phone] Bill Mcgregor DO Unavailable [phone] Allergies Active Allergy Reactions Criticality Noted [...] Insurance MEDICAID [employer] Care Teams Nursery Rn Relationship Specialty Start Date End Date Chase Alva MD [address] [facility] [address] [place] [address] PCP - General Internal Medicine 10/22/17 Bill Mcgregor DO [address] [address] Consulting Physician Gastroenterology 02/25/18
--- OUTSIDE RECORDS SUMMARY | 2025-02-10 09:20 | XMS_ITS | Clinical Summary ---
Author Organization [facility] Address [address] [place] [address] Care Team Providers Care Creative Producer Name Role Phone Toribio Ocasio MD Unavailable [phone] Jonel Mercer MD Primary Care Provider Allergies [...] 1 each 3 10/20/20 Active Dexcom G6 Drug Abuse Social Worker misc 10/08/20 Active diphenhydrAMINE (BENADRYL) 25 mg [...] 024 Assessment & Plan (10/04/2024 10:54 AM UPHOLSTERED GOODS CRAFTER): Patient asymptomatic. Noninvasive studies were normal as was her exam. No further workup needed follow up PRN. Diabetic polyneuropathy asso ciated with type 2 diabetes mellitus 12/17/2023 Pharyngitis 10/15/2023 Assessment & Plan (10/15/2023 5:00 PM UPHOLSTERED GOODS CRAFTER): Point of care strep swab negative. However patients are overwhelmingly concerning for strep given her recent infection we will treat patient with Ceftin 250 mg b.i.d. x7 days. Patient is advised to change her toothbrush after 48 hours of starting the antibiotic. Vaginal yeast infection 10/15/2023 Assessment & Plan (10/15/2023 4:59 PM UPHOLSTERED GOODS CRAFTER): Patient complains of vaginal yeast infections secondary to the amount of antibiotics that she is taken in the past 2 weeks. Diflucan ordered. Strep throat 09/30/2023 Allergic rhinitis 09/10/2023 Assessment & Plan (09/10/2023 5:02 PM UPHOLSTERED GOODS CRAFTER): Flonase and Zyrtec as needed BMI 33.0-33.9,adult 09/10/2023 Assessment & Plan (09/10/2023 5:02 PM UPHOLSTERED GOODS CRAFTER): Discussed the patient's BMI. The BMI is above average. BMI management plan is completed. BMI Follow-up includes: nutrition counseling, exercise counseling and education provided. Hypertension associated with type 2 diabetes erna litus 08/31/2023 Assessment & Plan (09/10/2023 4:58 PM UPHOLSTERED GOODS CRAFTER): Blood pressure well controlled. Refills sent to [...] losartan 25mg daily. Will update labs at [facility]. Verified that she uses [facility]. Aware to check results/results letter in [employer]. Will contact by phone if needed. Hyperlipidemia due to type 2 diabetes mellitus 1 Assessment & Plan (10/04/2024 10:54 AM UPHOLSTERED GOODS CRAFTER): Hyperlipidemia chronic controlled. Continue current medical management. Assessment & Plan (08/31/2023 1:52 PM CDT): Chronic problem. Currently taking Rosuvastatin 40mg & fenofibrate 160mg. Last lipid panel: 06/13/22 LDL=94, VB=107. Will update labs at [facility]. Verified that she uses mychart. Aware to check results/results letter in [employer]. Will contact by phone if needed. Postmenopausal osteoporosis 01/06/2023 Assessment & Plan (01/06/2023 9:55 AM UPHOLSTERED GOODS CRAFTER): Patient was diagnosed with osteoporosis by her winch derrick operator and she was started on Fosamax but she stopped taking the medication on her own. I recommended that she resumes Fosamax with calcium and vitamin-D. She said that she has an appointment with her winch derrick operator and she will discuss that with her. Angina pectoris 12/16/2022 Atopic dermatitis 12/16/2022 Cyst of pancreas 12/16/2022 Diabetic neuropathy 12/16/2022 Assessment & Plan (09/10/2023 5:01 PM UPHOLSTERED GOODS CRAFTER): Patient recently started on gabapentin 300 mg [...] AM CDT): Patient is followed by the steel melter. Continue to see the first mate on yearly basis. Encouraged diet and exercise and weight loss. Hepatomegaly 12/16/2022 Nausea, vomiting and diarrhea 12/16/2022 Obesity 12/16/2022 Strain of tendon of back 12/16/2022 Vitamin D deficiency 12/16/2022 Bilateral leg edema 10/08/2022 Assessment & Plan (01/06/2023 9:54 AM UPHOLSTERED GOODS CRAFTER): No leg edema Assessment & Plan (10/08/2022 4:41 PM UPHOLSTERED GOODS CRAFTER): Leg edema most likely secondary to prolonged sitting. I told her to ambulate. Will start her on Lasix 20 mg p.r.n.. Call for persistent symptoms. Colon cancer screening 10/08/2022 Assessment & Plan (10/08/2022 4:41 PM UPHOLSTERED GOODS CRAFTER): Patient had referral for colonoscopy but she did not have it done yet. Advised to call the operation specialist office and proceed with the test she understands the risks including cancer Carpal tunnel syndrome on right 12/13/2021 Overview (12/13/2021): Added automatically from request for surgery [id number] Right elbow pain 11/12/2021 Assessment & Plan (11/12/2021 9:48 AM UPHOLSTERED GOODS CRAFTER): Patient with right elbow pain specially when she uses her right hand. We will obtain nerve conduction study to rule out carpal tunnel syndrome. She was advised to wear an elbow brace. We will call her for meloxicam 15 mg daily for 2 weeks. She will call for persistent symptoms BERT (obstructive sleep apnea) 11/12/2021 Assessment & Plan (09/10/2023 4:59 PM UPHOLSTERED GOODS CRAFTER): Patient uses CPAP and is compliant with her machine. Assessment & Plan (02/11/2022 9:50 AM CDT): Patient uses CPAP machine on regular basis Assessment & Plan (11/12/2021 9:48 AM UPHOLSTERED GOODS CRAFTER): Patient was diagnosed recently with sleep apnea and she has an appointment with the sleep specialist for CPAP machine Lymphadenitis 09/24/2021 Assessment & Plan (09/24/2021 12:53 PM UPHOLSTERED GOODS CRAFTER): Patient has lymphadenitis. She will be started on Augmentin 875 mg twice daily for 10 days with food and side effects were explained and she will call us if it is not resolved so that we can arrange for her to see a surgeon for excision Hypersomnia 09/12/2021 Anxiety 09/12/2021 Assessment & Plan (09/10/2023 5:02 PM UPHOLSTERED GOODS CRAFTER): Patient denies any anxiety symptoms at this time. Palpitation 09/12/2021 Nonsmoker 09/12/2021 Overweight 09/12/2021 Cough 07/30/2021 Assessment & Plan (09/10/2023 5:02 PM UPHOLSTERED GOODS CRAFTER): Patient has persistent cough productive of clear mucus with no shortness breath or wheezing or chest pain. She is advised to restart her Symbicort Assessment & Plan (07/30/2021 9:33 AM CDT): Patient has persistent cough productive of clear mucus with no shortness breath or wheezing or chest pain. We will stop lisinopril. She will continue Symbicort. Will make a referral to see solid glass rod dowel machine operator for further evaluation. Acute bronchitis 07/02/2021 Assessment & Plan (09/30/2023 5:15 PM UPHOLSTERED GOODS CRAFTER): Patient with acute bronchitis. She is on [...] from Dexcom & Tandem pump. To call/send [employer] message if not helping. Apply the dexcom 1st to see if the above products will help prevent the skin irritation. Will update labs. Verified that she uses mychart. Aware to check results/results letter in [employer]. Will contact by phone if needed. DM eye exam q6wks at [facility] for laser tx & injections. Will send letter to get copy of report from [place] office. Strive for regular exercise (30min most [...] (05/08/2023 7:41 AM CDT): Followed by the first mate Assessment & Plan (01/06/2023 8:35 AM UPHOLSTERED GOODS CRAFTER): Managed by the steel melter. Continue to have annual eye exam Assessment & Plan (10/08/2022 4:40 PM UPHOLSTERED GOODS CRAFTER): Managed by the steel melter advised to have annual eye exam Assessment & Plan (04/16/2022 8:25 AM CDT): Continue current medications, discussed low carbohydrate diet, advised to exercise on regular basis, advised to have annual eye exam. We will continue to monitor. Followed by the steel melter Assessment & Plan (02/11/2022 9:50 AM CDT): Follow with the steel melter and first mate. Discussed weight loss and diet. Assessment & Plan (11/12/2021 9:48 AM UPHOLSTERED GOODS CRAFTER): Patient is not compliant with medications. She [...] and exercise. Patient was seen by a holter technician in the past. Will increase Lantus to [...] Continue diet. She was seen by the first mate. She will check her sugar 3 times daily and call us with readings in 1 week. Assessment & Plan (01/10/2021 4:30 PM UPHOLSTERED GOODS CRAFTER): Patient will start on Lantus 45 units [...] monitor Assessment & Plan (01/06/2023 8:35 AM UPHOLSTERED GOODS CRAFTER): Continue current medications. Discussed low-salt diet. Discussed exercise on regular basis. Will continue to monitor Assessment & Plan (10/08/2022 4:40 PM UPHOLSTERED GOODS CRAFTER): Continue current medications. Discussed low-salt diet. Discussed exercise on regular basis. Will continue to monitor Assessment & Plan (02/11/2022 9:50 AM CDT): Continue current medications. Discussed low-salt diet. Discussed exercise on regular basis. Will continue to monitor Assessment & Plan (11/12/2021 9:49 AM UPHOLSTERED GOODS CRAFTER): Continue current medications. Discussed low-salt diet. Discussed [...] monitor Assessment & Plan (01/10/2021 4:30 PM UPHOLSTERED GOODS CRAFTER): Start lisinopril 20 mg daily and we discussed low-salt diet Dyslipidemia 01/10/2021 Assessment & Plan (09/10/2023 5:00 PM UPHOLSTERED GOODS CRAFTER): Patient is maintained on Crestor 40 mg tablets and fenofibrate 160 mg we will continue this regimen Assessment & Plan (05/08/2023 8:57 AM CDT): LDL is 113. Increase Crestor to 40 mg q.h.s.. Continue low-fat diet. Assessment & Plan (01/06/2023 8:35 AM UPHOLSTERED GOODS CRAFTER): Controlled on current medications. Continue low-fat diet. Will continue to monitor . Assessment & Plan (10/08/2022 4:40 PM UPHOLSTERED GOODS CRAFTER): Controlled on current medications. Continue low-fat diet. Will continue to monitor . Assessment & Plan (04/16/2022 8:25 AM CDT): Controlled on current medications. Continue low-fat diet. Will continue to monitor . Assessment & Plan (02/11/2022 9:50 AM CDT): Stop atorvastatin and start Crestor 20 mg q.h.s. for better control of hyperlipidemia. Continue low-fat diet Assessment & Plan (11/12/2021 9:49 AM UPHOLSTERED GOODS CRAFTER): Resume medications and we discussed the importance [...] months Assessment & Plan (01/10/2021 4:30 PM UPHOLSTERED GOODS CRAFTER): Start Lipitor 10 mg q.h.s. and discussed low-fat diet and pamphlets were given Pneumonia due to COVID-19 virus 11/28/2020 Microalbuminuria 05/29/2019 Coronary arteriosclerosis 05/24/2019 Gastroesophageal reflux disease without esophagi tis 05/24/2019 Assessment & Plan (09/10/2023 5:00 PM UPHOLSTERED GOODS CRAFTER): Patient reports symptoms are controlled. Steatosis of liver 05/24/2019 Mild nonproliferative diabetic retinopathy(362.0 4) 05/24/2019 Tabby-Chu tear 10/18/2017 Kidney disease 12/14/2016 Leukocytosis 06/13/2014 Asthma Assessment & Plan (09/10/2023 5:02 PM UPHOLSTERED GOODS CRAFTER): Patient is advised to restart Symbicort. We will follow up at next visit. Assessment & Plan (05/08/2023 8:58 AM CDT): Patient is asymptomatic and stable without medications Assessment & Plan (01/06/2023 9:54 AM UPHOLSTERED GOODS CRAFTER): Patient complains of cough but no shortness [...] on file Legal Sex Female 2:02 AM UPHOLSTERED GOODS CRAFTER Gender Identity Not on file Sexual Orientation [...] Comments Blood Pressure 135/80 09/08/2024 10:13 AM UPHOLSTERED GOODS CRAFTER Pulse 79 09/08/2024 10:13 AM UPHOLSTERED GOODS CRAFTER Temperature 36.7 C (98 F) 10/15/2023 1:39 PM UPHOLSTERED GOODS CRAFTER Respiratory Rate 18 10/15/2023 1:39 PM UPHOLSTERED GOODS CRAFTER Oxygen Saturation 97% 10/15/2023 1:39 PM UPHOLSTERED GOODS CRAFTER Inhaled Oxygen Concentration - - Weight 98 kg (216 lb) 09/08/2024 10:13 AM UPHOLSTERED GOODS CRAFTER Height 170.2 cm (5' 7 ) 09/08/2024 10:13 AM UPHOLSTERED GOODS CRAFTER Body Mass Index 33.83 09/08/2024 10:13 AM UPHOLSTERED GOODS CRAFTER Plan of Treatment Health Maintenance Due Date [...] BLOOD ORDERABLES Final Result Performing Organization Address [facility] de Phone Number [address] [address] * Albumin Creatinine Ratio, Urine (06/13/2022 7:54 AM CDT) Albumin Ur <12.0 mg/L [facility] Comment: Interpretive Data No reference [...] URINE ORDERABLES Final Result Performing Organization Address [facility] de Phone Number [address] [address] * (ABNORMAL) Lipid panel (06/13/2022 7:54 AM CDT) Cholesterol 157 30 - 199 mg/dL [facility] Comment: Interpretive Data Ages < or = [...] on 2018. LDL, calculated 94 <=129 mg/dL [facility] Comment: Interpretive Data Ages < or = [...] MD LAB BLOOD ORDERABLES Final Result [facility] [address] [facility] Department [place] [address] * Diabetic Foot Exam (02/15/2022) Historical Provider [...] Most Recently Relevant to Health Maintenance Insurance [facility] HMO/PPO Address: [facility] [address] [place] [address] Care Teams Creative Producer Relationship Specialty Start Date End Date Jonel Mercer MD [address] [facility] [address] [place] [address] PCP - General Family Medicine 09/08/24 Toribio Ocasio MD Consulting Physician Plastic Surgery 01/03/22
--- OUTSIDE RECORDS SUMMARY | 2025-02-10 09:20 | XMS_ITS | Clinical Summary ---
Author Organization [facility] Address [address] [place] [address] Care Team Providers Care Laborer Hoisting Name Role Phone Moris Linares MD Primary Care Provider [phone] Allergies Active Allergy Reactions Criticality Noted Date [...] Gluc Sensor (FREESTYLE FRAN 14 DAY SENSOR) [facility] FreeStyle Fran 14 Day Sensor kit USE [...] virus 11/28/2020 Acute respiratory failure with hypoxia ([facility]) 11/27/2020 Social History Tobacco Use Types Packs/Day Years Used Date Smoking Tobacco: Never Cigarettes Smokeless Tobacco: Never Alcohol Use Standard Drinks/Week Comments Not Currently 0 (1 standard drink = 0.6 oz pur e alcohol) Comments Unknown Sex and Gender Information Value Date Recorded Sex Assigned at Not on file Legal Sex Female 12:44 PM QUALITY CONTROL SYSTEMS MANAGER Gender Identity Not on file Sexual Orientation [...] perform ADLs independently General No Belen Lindsey quality control tech Procedure Name Priority Date/Time Associated Diagnosis Comments COLONOSCOPY Routine 02/28/2022 8:21 AM CDT from Last 3 Months or Most Recently Relevant to Health Maintenance Insurance Advance Directives * Full Code (Latest Code Status on File) Date Activated Date Inactivated Comments 11/27/2020 9:44 PM 12/02/2020 6:14 PM Care Teams Laborer Hoisting Relationship Specialty Start Date End Date Moris Linares MD [address] [facility] [address] [address] PCP - General INTERNAL MEDICINE 02/28/22
--- OUTSIDE RECORDS SUMMARY | 2025-02-10 09:20 | XMS_ITS | CONTINUITY OF CARE DOCUMENT ---
Author Name hunter avemelinda Address Unknown Organization [facility] Address [address] [place] [address] [address] [place] [address] Phone [phone] Care Team Providers Care Basic Acoustic Analyst Name Role Phone Mason GARCIA, Trang Unavailable JIM GAVLIN Unavailable JIM GALVIN Unavailable INSURANCE PROVIDERS Payer name Policy type / Coverage type [employer] [employer] party ID [facility] Blue [facility] [id number]
[2025-02-10 09:48] LABS: Hematocrit 41.7 % (37.0-47.0); Mean Corpuscular HGB Conc 33.6 g/dl (32-36); Mean Corpuscular Hemoglobin 29.5 pg (26-34); Mean Platelet Volume 10.4 fl (7.4-10.4); Platelet Count Result 307 k/mm3 (150-375); Red Blood Count 4.74 M/mm3 (4.2-5.4); Red Cell Distribution Width 11.9 % (11.5-14.5); White Blood Count 11.9 K/mm3 (4.5-10.0)
[2025-02-10 10:06] LABS: Alanine Aminotransferase 16 U/L (6-35); Alkaline Phosphatase 124 U/L (38-126); Anion Gap 10 mmol/L (4-12); Aspartate Amino Transferase 15 U/L (14-36); Bilirubin,Total 0.5 mg/dL (0.2-1.3); Blood Urea Nitrogen 9 mg/dL (7-17); Carbon Dioxide 27 mmol/L (22-30); Chloride 102 mmol/L (98-107); Cholesterol 164 mg/dL (0-200); Estimated Glomerular Filt Rate > 60; Glucose 245 mg/dL (65-110); HDL Direct 29 mg/dL; Potassium 4.2 mmol/L (3.4-5.0); Sodium 139 mmol/L (137-145); Triglycerides 151 mg/dL (<150)
[2025-02-10 10:17] LABS: LDL Cholesterol Direct 93 mg/dL
[2025-02-10 10:46] LABS: Thyroid Stimulating Hormone 0.927 uIU/mL (0.465-4.680)
[2025-02-10 11:44] LABS: Vitamin D 25 Hydroxy < 12.8 ng/mL
== END 2025-02-10 09:05 | disposition home or self-care (01) ==
LOC: ANHLAB 09:05
PROVIDERS: PCP Family Medicine; Visit Provider Physician Assistant Medical
DX: Z00.00 Encounter for general adult medical examination without abnormal findings (principal); I10 Essential (primary) hypertension; I25.10 Atherosclerotic heart disease of native coronary artery without angina pectoris; E78.5 Hyperlipidemia, unspecified; R79.89 Other specified abnormal findings of blood chemistry
CPT/HCPCS: 36415; 80053; 80061; 82306; 84443; 85027

== ENCOUNTER 2025-02-11 09:47 | Emergency (ER) | payer OTHER, SELFPAY ==
[2025-02-11 10:00] VITALS: BP 139/74; PULSE 78; RESP 20; TEMP 36.3; O2SAT 98
--- NOTE | 2025-02-11 10:08 | ED_ITS ---
HPI - Eye Problem General Chief complaint: Eye Problems Stated complaint: Left Eye Swollen Time Seen by Provider: 02/11/25 10:05 Source: patient Mode of arrival: ambulatory Limitations: no limitations History of Present Illness HPI Narrative: Karolina is a 54-year-old female patient presenting to the clinic today with complaints of left eye swelling. She reports that this is been swollen for the past 2 days. Denies any pain. No fevers, chills, body aches. To the ER for this and an abscess to the top of her head yesterday and states that the ER doctor did not address the left eye swelling. Did do an incision and drainage on the top of the patient's head. Patient was placed on Bactrim. Lab she states she has been putting prednisone drops and tobramycin eyedrops in her left eye he has a hemorrhage behind her eye that her marketing production coordinator is taking care of. Has a call out to her eye doctor today but has yet to hear anything back. Denies any new changes of vision in the left eye. Related Data Home Medications ?Medication ?Instructions ?Recorded ?Confirmed ?Last Taken ?Type albuterol sulfate 90 mcg/actuation 1 inh inhalation PRN PRN wheezes 04/07/22 02/01/25 Unknown History aerosol inhaler gabapentin 300 mg capsule 300 mg PO HS 09/27/23 02/01/25 Unknown History metformin 500 mg tablet,extended 500 mg PO HS 08/03/24 02/01/25 Unknown History release 24 hr oseltamivir 75 mg capsule mg 02/11/25 Unknown History prednisolone acetate 1 % eye drp 02/11/25 Unknown History drops,suspension tobramycin 0.3 %-dexamethasone 0.1 drp 02/11/25 Unknown History % eye drops,suspension Allergies Allergy/AdvReac Type Severity Reaction Status Date / Time adhesive Allergy Mild Rash Verified 02/11/25 09:55 lisinopril AdvReac Cough Verified 02/11/25 09:55 Review of Systems Review of Systems: Pertinent positives per HPI. Patient denies any fever, chills, rash, headache, visual changes, dizziness, cough, runny nose, sore throat, shortness of breath, chest pain, palpitations, nausea, vomiting, diarrhea, constipation, abdominal pain, or any urinary issues. PMFSH Past Medical History Medical History PAD (peripheral artery disease) Diabetic retinopathy Diabetic neuropathy Hypertension Chronic headaches Hx of migraine headaches Asthma Seasonal allergies Colon cancer screening Essential hypertension Dyslipidemia Diabetes 1.5, managed as type 1 Surgical History Surgical History History of section H/O kyphoplasty 2017 History of carpal tunnel surgery 2017 Hx of appendectomy Family History Family History Sibling Diabetes mellitus Patient's sister is in good health Family history of hypercholesterolemia Hypertension Depression Family history of alcoholism Mother Family history of cardiovascular disease Osteoporosis Family history of hypercholesterolemia Hypertension Cerebrovascular accident Asthma Family history of chronic obstructive pulmonary disease Father Patient's father is in good health Family history of alcoholism Family history of chronic obstructive pulmonary disease Other Family history of anemia Family history of attention deficit hyperactivity disorder (ADHD) Family history of blood dyscrasia Family history of malignant neoplasm of breast Family history of osteoporosis Social History Social History Smoking status: Never smoker Alcohol intake: never Substance use: never Substance use type: does not use Do You Feel Safe in your Home?: Yes Lack of Transportation: No Lack of Food: Never True Current Housing: I Have Housing Concerned About Future Housing: No Difficulty Paying Gas/Electric Bills: No Difficulty Paying for Meds: No Currently Unemployed: No Education: Trade/Vocational Certificate Difficulty w/ Childcare or Family Care: No Living arrangements: alone Occupation/Education: occupation Gender identity (if verbalized by the patient): Female Sexual Orientation (if Verbalized by the Patient): Straight or Heterosexual Spiritual care concerns: No Comments At the time of my signature, I reviewed and agree with the nursing past medical, surgical, social, and family history. There is no relevant family history pertinent to the patient complaint. Exam Narrative: General: Well-developed, well nourished, in no apparent distress Head: Normocephalic, atraumatic Eyes: Pupils equally round and reactive to light bilaterally, EOM intact, sclera and conjunctive clear, no discharge, right lids normal, left periorbital edema with mild redness to the upper and lower left eye orbit. Nontender to palpation, no palpable abscess or fluctuance Ears: TMs intact and clear, ear canals clear, no drainage, grossly hearing normal. Nose: Nares patent, no discharge, no inflammation, no sinus tenderness. Mouth: Oropharynx without lesions or masses, good dentition, MMM. Neck: Supple, trachea midline, no enlargement of anterior or posterior cervical nodes, no thyroid masses or goiter palpable. Cardio: Regular rate and rhythm, s1 and s2 normal, no murmur appreciated. Resp: Clear to auscultation bilaterally anteriorly and posteriorly, no rhonchi, rales, wheezing or rubs Course Course Emergency Course: Portions of this record may have been created with voice recognition software. Level of Care: Express Care Visit Vital Signs Vital signs: Vital Signs Temperature 36.3 C L 02/11/25 10:00 Pulse Rate 78 02/11/25 10:00 Respiratory Rate 20 02/11/25 10:00 Blood Pressure 139/74 02/11/25 10:00 Pulse Oximetry 98 02/11/25 10:00 Oxygen Delivery Room Air 02/11/25 10:00 Temperature 36.3 C L 02/11/25 10:00 Pulse Rate 78 02/11/25 10:00 Respiratory Rate 20 02/11/25 10:00 Blood Pressure 139/74 02/11/25 10:00 Pulse Oximetry 98 02/11/25 10:00 Oxygen Delivery Room Air 02/11/25 10:00 Vital signs reviewed MDM - Eye Problem MDM Narrative Medical decision making narrative: At the time of visit patient is resting comfortably on the exam table. Patient appears to be nontoxic. Plan: I suspect patient has left-sided periorbital edema with possible early cellulitis. Prescription for Augmentin was sent to the pharmacy. While patient was in the [facility] her eye doctor called her back and she is going to see them immediately today after leaving [facility]. Supportive measures were discussed with the patient and they voiced understanding discharge instructions and agrees to treatment plan. Return precautions reviewed Differential Diagnosis Differential diagnosis: Likely corneal abrasion, conjunctivitis, acute iritis, hyphema, periorbital cellulitis, subconjunctival hemorrhage, glaucoma, corneal ulcer and ruptured globe Discharge Plan Discharge Clinical Impression: Periorbital edema of left eye Patient Disposition: Home Condition: Stable Instructions: Antibiotic Form, Periorbital Cellulitis (ED) Additional Instructions: Take Augmentin as prescribed Apply cool compresses over the eye Continue the eyedrops as prescribed-and speak to your/follow-up with marketing production coordinator as soon as possible Practice good hand washing techniques Avoid touching eyes If eyes are matted shut-do not pry eyes open-use a warm moist cloth to loosen matting and wipe matter away from eye May take Tylenol/Motrin as needed for pain or fever May take Benadryl as needed for itching Follow-up with your PCP in 3-5 days if symptoms persist or sooner if they worsen Go to the emergency room if you develop any fever that is not controlled by Tylenol or Motrin, loss of vision, eye pain, increase eye swelling,visual c hanges, headache, confusion, lethargy, weakness, chest pain, or shortness of breath. Patient Language: Arabic Prescriptions: New amoxicillin-pot clavulanate 875-125 mg tablet 1 tablet PO Q12H 10 Days Qty: 20 0RF No Action albuterol sulfate 90 mcg/actuation HFA aerosol inhaler 1 inh INHALATION PRN PRN (Reason: wheezes) gabapentin 300 mg capsule 300 mg PO HS prednisolone acetate 1 % drops,suspension oseltamivir 75 mg capsule tobramycin-dexamethasone 0.3-0.1 % drops,suspension (DME) FreeStyle Fran 3 Plus Sensor Device See Rx Instructions .ROUTE .MEDSUPPLY Qty: 6 2RF Rx Instructions: Use to monitor glucose insulin glargine [Lantus Solostar U-100 Insulin] 100 unit/mL (3 mL) insulin pen 40 unit subcut QAM Qty: 45 1RF (DME) pen needle, diabetic [BD Ultra-Fine Mini Pen Needle] 31 gauge x 3/16 needle See Rx Instructions .Route Qty: 400 1RF Rx Instructions: Use to administer insulin 4 times a day (DME) insulin syringe-needle U-100 [BD Insulin Syringe] 1 mL 28 gauge x 1/2 syringe See Rx Instructions .Route Qty: 100 0RF Rx Instructions: As directed fluticasone propionate 50 mcg/actuation spray,suspension 1 spray intranasal BID Qty: 16 0RF Rx Instructions: administer into each nostril insulin lispro [Humalog KwikPen Insulin] 100 unit/mL insulin pen 10 unit subcut TIDWMEAL MDD 70 Qty: 45 1RF Rx Instructions: Take 10 units three times a day before meals + Sliding Scale insulin 150-200: 2 units 201-250: 4 units 251-300: 6 units 301-350: 8 units 351-400: 10 units > 401 12 units losartan 25 mg tablet 25 mg PO DAILY Qty: 90 1RF fenofibrate 160 mg tablet 160 mg PO DAILY Qty: 90 1RF rosuvastatin 40 mg tablet 40 mg PO DAILY Qty: 90 1RF metformin 500 mg tablet extended release 24 hr 500 mg PO HS (DME) Blood Glucose Test Strip See Rx Instructions .Route Qty: 300 2RF Rx Instructions: Check glucose 3-4 times a day before meals (DME) blood-glucose meter Kit See Rx Instructions .Route Qty: 1 0RF Rx Instructions: Use before meals Follow-up/Referrals: Jonel Mercer MD [Primary Care Provider] - Time of Disposition: 10:10 Quality NIHSS Nursing Documentation ED NIHSS nursing documentation: reviewed/agree
== END 2025-02-11 10:16 | disposition home or self-care (01) ==
PROVIDERS: Emergency Provider Nurse Practitioner Family; PCP Family Medicine
DX: H05.222 Edema of left orbit (principal); I10 Essential (primary) hypertension; E13.9 Other specified diabetes mellitus without complications
CPT/HCPCS: 99213; G0463

== ENCOUNTER 2025-02-22 07:18 | Outpatient (CLI) | payer OTHER, SELFPAY ==
--- OUTSIDE RECORDS SUMMARY | 2025-02-22 07:22 | XMS_ITS | Referral Summary ---
Author Organization [facility] Address [address] [place] [address] Care Team Providers Care Hat Sizer Name Role Phone Toribio Ocasio MD Unavailable [phone] Jonel Mercer MD Primary Care Provider Allergies [...] 1 each 3 10/20/20 Active Dexcom G6 Fruit Cutter misc 10/08/20 Active diphenhydrAMINE (BENADRYL) 25 mg [...] 024 Assessment & Plan (10/04/2024 10:54 AM ANNEALING FURNACE OPERATOR): Patient asymptomatic. Noninvasive studies were normal as was her exam. No further workup needed follow up PRN. Diabetic polyneuropathy asso ciated with type 2 diabetes mellitus 12/17/2023 Pharyngitis 10/15/2023 Assessment & Plan (10/15/2023 5:00 PM ANNEALING FURNACE OPERATOR): Point of care strep swab negative. However patients are overwhelmingly concerning for strep given her recent infection we will treat patient with Ceftin 250 mg b.i.d. x7 days. Patient is advised to change her toothbrush after 48 hours of starting the antibiotic. Vaginal yeast infection 10/15/2023 Assessment & Plan (10/15/2023 4:59 PM ANNEALING FURNACE OPERATOR): Patient complains of vaginal yeast infections secondary to the amount of antibiotics that she is taken in the past 2 weeks. Diflucan ordered. Strep throat 09/30/2023 Allergic rhinitis 09/10/2023 Assessment & Plan (09/10/2023 5:02 PM ANNEALING FURNACE OPERATOR): Flonase and Zyrtec as needed BMI 33.0-33.9,adult 09/10/2023 Assessment & Plan (09/10/2023 5:02 PM ANNEALING FURNACE OPERATOR): Discussed the patient's BMI. The BMI is above average. BMI management plan is completed. BMI Follow-up includes: nutrition counseling, exercise counseling and education provided. Hypertension associated with type 2 diabetes erna litus 08/31/2023 Assessment & Plan (09/10/2023 4:58 PM ANNEALING FURNACE OPERATOR): Blood pressure well controlled. Refills sent [...] losartan 25mg daily. Will update labs at [facility]. Verified that she uses [facility]. Aware to check results/results letter in [employer]. Will contact by phone if needed. Hyperlipidemia due to type 2 diabetes mellitus 1 Assessment & Plan (10/04/2024 10:54 AM ANNEALING FURNACE OPERATOR): Hyperlipidemia chronic controlled. Continue current medical management. Assessment & Plan (08/31/2023 1:52 PM CDT): Chronic problem. Currently taking Rosuvastatin 40mg & fenofibrate 160mg. Last lipid panel: 06/13/22 LDL=94, JS=932. Will update labs at [facility]. Verified that she uses mychart. Aware to check results/results letter in [employer]. Will contact by phone if needed. Postmenopausal osteoporosis 01/06/2023 Assessment & Plan (01/06/2023 9:55 AM ANNEALING FURNACE OPERATOR): Patient was diagnosed with osteoporosis by her dermatology physician assistant and she was started on Fosamax but she stopped taking the medication on her own. I recommended that she resumes Fosamax with calcium and vitamin-D. She said that she has an appointment with her dermatology physician assistant and she will discuss that with her. Angina pectoris 12/16/2022 Atopic dermatitis 12/16/2022 Cyst of pancreas 12/16/2022 Diabetic neuropathy 12/16/2022 Assessment & Plan (09/10/2023 5:01 PM ANNEALING FURNACE OPERATOR): Patient recently started on gabapentin 300 [...] AM CDT): Patient is followed by the platen drier operator. Continue to see the supervisor fryer farm on yearly basis. Encouraged diet and exercise and weight loss. Hepatomegaly 12/16/2022 Nausea, vomiting and diarrhea 12/16/2022 Obesity 12/16/2022 Strain of tendon of back 12/16/2022 Vitamin D deficiency 12/16/2022 Bilateral leg edema 10/08/2022 Assessment & Plan (01/06/2023 9:54 AM ANNEALING FURNACE OPERATOR): No leg edema Assessment & Plan (10/08/2022 4:41 PM ANNEALING FURNACE OPERATOR): Leg edema most likely secondary to prolonged sitting. I told her to ambulate. Will start her on Lasix 20 mg p.r.n.. Call for persistent symptoms. Colon cancer screening 10/08/2022 Assessment & Plan (10/08/2022 4:41 PM ANNEALING FURNACE OPERATOR): Patient had referral for colonoscopy but she did not have it done yet. Advised to call the global marketing manager office and proceed with the test she understands the risks including cancer Carpal tunnel syndrome on right 12/13/2021 Overview (12/13/2021): Added automatically from request for surgery [id number] Right elbow pain 11/12/2021 Assessment & Plan (11/12/2021 9:48 AM ANNEALING FURNACE OPERATOR): Patient with right elbow pain specially when she uses her right hand. We will obtain nerve conduction study to rule out carpal tunnel syndrome. She was advised to wear an elbow brace. We will call her for meloxicam 15 mg daily for 2 weeks. She will call for persistent symptoms BERT (obstructive sleep apnea) 11/12/2021 Assessment & Plan (09/10/2023 4:59 PM ANNEALING FURNACE OPERATOR): Patient uses CPAP and is compliant with her machine. Assessment & Plan (02/11/2022 9:50 AM CDT): Patient uses CPAP machine on regular basis Assessment & Plan (11/12/2021 9:48 AM ANNEALING FURNACE OPERATOR): Patient was diagnosed recently with sleep apnea and she has an appointment with the sleep specialist for CPAP machine Lymphadenitis 09/24/2021 Assessment & Plan (09/24/2021 12:53 PM ANNEALING FURNACE OPERATOR): Patient has lymphadenitis. She will be started on Augmentin 875 mg twice daily for 10 days with food and side effects were explained and she will call us if it is not resolved so that we can arrange for her to see a surgeon for excision Hypersomnia 09/12/2021 Anxiety 09/12/2021 Assessment & Plan (09/10/2023 5:02 PM ANNEALING FURNACE OPERATOR): Patient denies any anxiety symptoms at this time. Palpitation 09/12/2021 Nonsmoker 09/12/2021 Overweight 09/12/2021 Cough 07/30/2021 Assessment & Plan (09/10/2023 5:02 PM ANNEALING FURNACE OPERATOR): Patient has persistent cough productive of clear mucus with no shortness breath or wheezing or chest pain. She is advised to restart her Symbicort Assessment & Plan (07/30/2021 9:33 AM CDT): Patient has persistent cough productive of clear mucus with no shortness breath or wheezing or chest pain. We will stop lisinopril. She will continue Symbicort. Will make a referral to see industrial chemistry teacher for further evaluation. Acute bronchitis 07/02/2021 Assessment & Plan (09/30/2023 5:15 PM ANNEALING FURNACE OPERATOR): Patient with acute bronchitis. She is [...] from Dexcom & Tandem pump. To call/send [employer] message if not helping. Apply the dexcom 1st to see if the above products will help prevent the skin irritation. Will update labs. Verified that she uses mychart. Aware to check results/results letter in [employer]. Will contact by phone if needed. DM eye exam q6wks at [facility] for laser tx & injections. Will send letter to get copy of report from [place] office. Strive for regular exercise (30min most [...] (05/08/2023 7:41 AM CDT): Followed by the supervisor fryer farm Assessment & Plan (01/06/2023 8:35 AM ANNEALING FURNACE OPERATOR): Managed by the platen drier operator. Continue to have annual eye exam Assessment & Plan (10/08/2022 4:40 PM ANNEALING FURNACE OPERATOR): Managed by the platen drier operator advised to have annual eye exam Assessment & Plan (04/16/2022 8:25 AM CDT): Continue current medications, discussed low carbohydrate diet, advised to exercise on regular basis, advised to have annual eye exam. We will continue to monitor. Followed by the platen drier operator Assessment & Plan (02/11/2022 9:50 AM CDT): Follow with the platen drier operator and supervisor fryer farm. Discussed weight loss and diet. Assessment & Plan (11/12/2021 9:48 AM ANNEALING FURNACE OPERATOR): Patient is not compliant with medications. [...] exercise. Patient was seen by a director of agronomy in the past. Will increase Lantus to [...] Continue diet. She was seen by the supervisor fryer farm. She will check her sugar 3 times daily and call us with readings in 1 week. Assessment & Plan (01/10/2021 4:30 PM ANNEALING FURNACE OPERATOR): Patient will start on Lantus 45 [...] monitor Assessment & Plan (01/06/2023 8:35 AM ANNEALING FURNACE OPERATOR): Continue current medications. Discussed low-salt diet. Discussed exercise on regular basis. Will continue to monitor Assessment & Plan (10/08/2022 4:40 PM ANNEALING FURNACE OPERATOR): Continue current medications. Discussed low-salt diet. Discussed exercise on regular basis. Will continue to monitor Assessment & Plan (02/11/2022 9:50 AM CDT): Continue current medications. Discussed low-salt diet. Discussed exercise on regular basis. Will continue to monitor Assessment & Plan (11/12/2021 9:49 AM ANNEALING FURNACE OPERATOR): Continue current medications. Discussed low-salt diet. [...] monitor Assessment & Plan (01/10/2021 4:30 PM ANNEALING FURNACE OPERATOR): Start lisinopril 20 mg daily and we discussed low-salt diet Dyslipidemia 01/10/2021 Assessment & Plan (09/10/2023 5:00 PM ANNEALING FURNACE OPERATOR): Patient is maintained on Crestor 40 mg tablets and fenofibrate 160 mg we will continue this regimen Assessment & Plan (05/08/2023 8:57 AM CDT): LDL is 113. Increase Crestor to 40 mg q.h.s.. Continue low-fat diet. Assessment & Plan (01/06/2023 8:35 AM ANNEALING FURNACE OPERATOR): Controlled on current medications. Continue low-fat diet. Will continue to monitor . Assessment & Plan (10/08/2022 4:40 PM ANNEALING FURNACE OPERATOR): Controlled on current medications. Continue low-fat diet. Will continue to monitor . Assessment & Plan (04/16/2022 8:25 AM CDT): Controlled on current medications. Continue low-fat diet. Will continue to monitor . Assessment & Plan (02/11/2022 9:50 AM CDT): Stop atorvastatin and start Crestor 20 mg q.h.s. for better control of hyperlipidemia. Continue low-fat diet Assessment & Plan (11/12/2021 9:49 AM ANNEALING FURNACE OPERATOR): Resume medications and we discussed the [...] months Assessment & Plan (01/10/2021 4:30 PM ANNEALING FURNACE OPERATOR): Start Lipitor 10 mg q.h.s. and discussed low-fat diet and pamphlets were given Pneumonia due to COVID-19 virus 11/28/2020 Microalbuminuria 05/29/2019 Coronary arteriosclerosis 05/24/2019 Gastroesophageal reflux disease without esophagi tis 05/24/2019 Assessment & Plan (09/10/2023 5:00 PM ANNEALING FURNACE OPERATOR): Patient reports symptoms are controlled. Steatosis of liver 05/24/2019 Mild nonproliferative diabetic retinopathy(362.0 4) 05/24/2019 Tabby-Chu tear 10/18/2017 Kidney disease 12/14/2016 Leukocytosis 06/13/2014 Asthma Assessment & Plan (09/10/2023 5:02 PM ANNEALING FURNACE OPERATOR): Patient is advised to restart Symbicort. We will follow up at next visit. Assessment & Plan (05/08/2023 8:58 AM CDT): Patient is asymptomatic and stable without medications Assessment & Plan (01/06/2023 9:54 AM ANNEALING FURNACE OPERATOR): Patient complains of cough but no [...] on file Legal Sex Female 2:02 AM ANNEALING FURNACE OPERATOR Gender Identity Not on file Sexual Orientation Not on file Last Filed Vital Signs Vital Sign Reading Time Taken Comments Blood Pressure 135/80 09/08/2024 10:13 AM ANNEALING FURNACE OPERATOR Pulse 79 09/08/2024 10:13 AM ANNEALING FURNACE OPERATOR Temperature 36.7 C (98 F) 10/15/2023 1:39 PM ANNEALING FURNACE OPERATOR Respiratory Rate 18 10/15/2023 1:39 PM ANNEALING FURNACE OPERATOR Oxygen Saturation 97% 10/15/2023 1:39 PM ANNEALING FURNACE OPERATOR Inhaled Oxygen Concentration - - Weight 98 kg (216 lb) 09/08/2024 10:13 AM ANNEALING FURNACE OPERATOR Height 170.2 cm (5' 7 ) 09/08/2024 10:13 AM ANNEALING FURNACE OPERATOR Body Mass Index 33.83 09/08/2024 10:13 AM ANNEALING FURNACE OPERATOR Plan of Treatment Not on file Procedures [...] Blood 08/31/2023 1:06 PM CDT Meaghan Bliss COAT PRESSER POINT OF CARE TEST ORDERA BLES Final [...] BLOOD ORDERABLES Final Result Performing Organization Address [facility] Co de Phone Number [address] [place] [address] * Albumin Creatinine Ratio, Urine (06/13/2022 7:54 [...] URINE ORDERABLES Final Result Performing Organization Address [place]/[facility] Co de Phone Number [address] [place] [address] * (ABNORMAL) Lipid panel (06/13/2022 7:54 AM [...] MD LAB BLOOD ORDERABLES Final Result [facility] [facility] Department of Laboratories [place], [place] [id number] * Diabetic Foot Exam (02/15/2022) Historical Provider [...] Most Recently Relevant to Health Maintenance Insurance [employer] [place] [employer] Address: [address] [phone] Care Teams Hat Sizer Relationship Specialty Start Date End Date Jonel Mercer MD [address] [place] [address] PCP - General Family Medicine 09/08/24 Toribio Ocasio MD Consulting Physician Plastic Surgery 01/03/22
--- OUTSIDE RECORDS SUMMARY | 2025-02-22 07:22 | XMS_ITS | Clinical Summary ---
Author Organization [facility] Address [address] [place] [address] Care Team Providers Care Av Specialist Name Role Phone Moris Linares MD Primary Care Provider [phone] Allergies Active Allergy Reactions Criticality Noted Date [...] Gluc Sensor (FREESTYLE FRAN 14 DAY SENSOR) [employer] FreeStyle Fran 14 Day Sensor kit USE [...] virus 11/28/2020 Acute respiratory failure with hypoxia ([facility]/H[facility]) 11/27/2020 Social History Tobacco Use Types Packs/Day Years Used Date Smoking Tobacco: Never Cigarettes Smokeless Tobacco: Never Alcohol Use Standard Drinks/Week Comments Not Currently 0 (1 standard drink = 0.6 oz pur e alcohol) Comments Unknown Sex and Gender Information Value Date Recorded Sex Assigned at Not on file Legal Sex Female 12:44 PM WEIGH BOX TENDER Gender Identity Not on file Sexual Orientation [...] wi th HPV 2001 Mammogram Screening 2011 Pneumococcal Vaccine: 50+ Years (1 of 1 - PCV) 2021 Zoster Vaccines (1 of 2) 2021 COVID-19 Vaccine (3 - 2023-2 5 season) 2024 04/26/2021, 03/29/2021 Colorectal Cancer Screening Colonoscopy (10 Years) 02/29/2032 02/28/2022, 02/28/2022 Meningococcal B Vaccine Aged Out No l [...] 9:44 PM 12/02/2020 6:14 PM Care Teams Av Specialist Relationship Specialty Start Date End Date Moris Linares MD [address] [place] [address] PCP - General INTERNAL MEDICINE 02/28/22
--- OUTSIDE RECORDS SUMMARY | 2025-02-22 07:22 | XMS_ITS | Encounter Summary ---
Author Organization [facility] Address [address] [place] [address] Care Team Providers Care Radiation Monitor Name Role Phone Maty Edmondson MD Primary Care Provider [phone] Moris Linares MD Primary Care Provider [phone] Encounter Details Date Type Department Care Team (Late st Contact Info) Description 12/07/2020 Hospital Follow-up Call [facility] [place] [address] Val Mathis RN Social History Tobacco Use Types Packs/Day Years Used Date Smoking Tobacco: Every Day Cigarettes Alcohol Use Standard Drinks/Week Comments Not Currently 0 (1 standard drink = 0.6 oz pur e alcohol) Comments Unknown Sex and Gender Information Value Date Recorded Sex Assigned at Not on file Legal Sex Female 12:44 PM PAYROLL REPRESENTATIVE Gender Identity Not on file Sexual Orientation Not on file COVID-19 Exposure Response Date Recorded In the last month, have you been in contact with someone who was confirmed or suspected to have Coronavirus / COVID-19? Yes 11/27/2020 6:53 PM PAYROLL REPRESENTATIVE documented as of this encounter Functional Status * RETIRED Are you deaf or do you have serious difficulty hearing Answer Date of Assessment Author Status No 11/28/2020 2:32 AM PAYROLL REPRESENTATIVE Activ e * RETIRED Are you blind or do you have serious difficulty seeing, even when wearing glasses? Answer Date of Assessment Author Status No 11/28/2020 2:32 AM PAYROLL REPRESENTATIVE Activ e * Do you have serious difficulty walking or climbing stairs? Answer Date of Assessment Author Status No 11/28/2020 2:32 AM Jazmine Somers R N Active * Do you have difficulty dressing or bathing? Answer Date of Assessment Author Status No 11/28/2020 2:32 AM PAYROLL REPRESENTATIVE Jazmine Kang R N Active * Because of a physical, mental, or emotional condition, do you have difficulty doing errands alone such as visiting a doctor's office or shopping? Answer Date of Assessment Author Status No 11/28/2020 2:32 AM PAYROLL REPRESENTATIVE Jazmine Kang R N Active documented as [...] Time COVID-19 Confirmed 11/23/2020 11/27/2020 12:34 AM PAYROLL REPRESENTATIVE documented as of this encounter Care Teams Radiation Monitor Relationship Specialty Start Date End Date Maty Edmondson MD [facility] [address] [address] PCP - General FAMILY PRACTICE 11/27/20 02/27/22 Moris Linares MD [facility] [address] [address] PCP - General INTERNAL MEDICINE 02/28/22 documented as of this encounter
--- OUTSIDE RECORDS SUMMARY | 2025-02-22 07:22 | XMS_ITS | Data Portability ---
Author Organization [place] - [facility], Main Office Address [address] [place] [address] Care Team Providers Care Document Analyst Name Role Phone NEW MALHOTRA Primary Care Provider [phone] NEW MALHOTRA Referring Provider [phone] Assessment No assessment recorded. Plan of Treatment Reminders Order Date Submit Date Provider Last Modified By Organization Details Last Modified Time Details Appointments None recorded. Lab cortisol, am, serum [address], [facility], [address] [place] [address], [address], 3 09:55:03 dexamethaso ne, serum [address], [facility]0 [facility] [address], [address] [place] [address], [address], 3 09:55:03 lipid panel, serum [address] [place] [address], [facility] [address], [address], [place], [address], 3 09:54:50 TSH + free T4, serum [address] [place] [address], [facility] [address], [address], [place], [address], 3 09:54:50 CMP, serum or plasma [address] [place] [address], [facility] [address], [address], [place], [address], 3 09:54:50 HbA1c (hemoglobin A1c), blood [address] [place] [address], [address] [facility] [address], [place], [address], 3 09:54:50 microalbumi n/creatinin e, mass ratio, urine [address], [address], [place], [address], 3 09:54:50 Referral None recorded. Procedures None recorded. Surgeries None recorded. Imaging None recorded. Medication Orders dexamethaso ne 1 mg tablet 2022 023 [facility] [address], [address], [place], [address], 3 09:54:46 glimepiride 2 mg tablet 2022 023 [facility] [address], [address] [address], [place], [address], 3 09:51:21 metformin ER 500 mg tablet,exte nded release 24 hr 2022 023 [facility] [address], [address], [place], [address], 3 09:53:42 Patient TargetsNo targets recorded. Patient InstructionsNo instructions recorded. Reason for Referral None Reported. Results Created Date Observation Date Name Description Value Unit Range Abnormal Flag Note LastModifiedBy Organization Detail LastModifiedTime 08/04/20 22 07/10/2022 XR, foot No observ ation record ed. [id number] Not Available 12/31/2022 08:55:48 Result Notes None recorded. Problems Name Problem SNOMED Code Status Onset Date Resolution Date Notes Provider Name and Address Organization Details Recorded Time Paronychia of toe of right foot 9937184372522 9102 Active 2021 Not Available [facility] 3 08:50:56 Peripheral neuropathy due to type 2 diabetes mellitus 2311435481118 Active 2021 Not Available [facility] 3 08:50:56 Dyslipidem ia 147070867 Active 2021 Not Available [facility] 3 08:50:56 Diabetic foot ulcer 922428922 Active 2021 Not Available [facility] 3 08:50:56 Hypothyroi dism 63741206 Active 2021 Not Available [facility] 3 08:50:56 Uncontroll ed type 2 diabetes mellitus 179866828 Active 2021 Not Available [facility] 3 08:50:56 Well controlled type 2 diabetes mellitus 543735736 Active 2021 Not Available [facility] 3 08:50:56 Essential hypertensi on 80457158 Active 2021 Not Available [facility] 3 08:50:57 Osteoporos is 13939423 Active 2021 Not Available [facility] 3 08:50:57 Mixed hyperlipid emia 095623488 Active 2022 Vanessa Kirby MD [address], [address] , [employer] 3 09:51:49 Weight gain 8510830 Active 2022 Vanessa Kirby MD [address] [facility], [place] [address], [place], [address] , [employer] [facility] 3 09:53:57 Problem Notes None recorded. Procedures Surgical History Date Name Laterality Status Provider Name and Address Organization Details Recorded Time 2 Carpal tunnel surgery completed Not Available [facility] 12/31/2022 08:45:37 Imaging Results Imaging Date Name Status LastModified by Organiz ation Details LastModified Time 07/10/2022 XR, foot completed [id number] Information not available 12/31/2022 08:55:48 Procedure Notes None recorded. Medical Equipment None Reported. Allergies Allergen ID Allergen Name Allergen Category Reaction Reaction Severity Criticality Documentation Date Start Date Code Code System Note Provider Name and Address Organization Details Recorded Time 31949 lisinopri l medicatio n Not available Not available Not available 12/31/2022 18812 RxNorm Not Available [facility] 3 08:55:42 22618 adhesive environme nt,medica tion Not available Not available Not available 12/31/2022 44764 UNK Not Available [facility] 3 08:55:42 49383 metformin medicatio n Not available Not available Not available 12/31/2022 6809 RxNorm Not Available [facility] 3 08:55:42 Medications Name Sig Start Date [...] Not Available Not Available No t Available [email or web address] Ultra Test strips USE TO TEST BLOOD [...] Not Available No t Available Dexcom G6 Retail Sales Clerk USE WITH TRANSMITT ER AND SENSOR active [...] % 97 % 86 /min 98.3 [degF] 70987.9 7 g 124 mm[Hg] 72 mm[Hg] Not Available [facility] 3 08:49:06 Date Recorded Body mass index (BMI) Body height Oxygen saturation Oxygen saturation in Arterial blood by Pulse oximetry Heart rate Body temperature Body weight Systolic blood pressure Diastolic blood pressure Provider Name and Address Organization Details Last Updated DateTime 2 33.2 kg/m2 170.18 cm 99 % 99 % 86 /min 97.6 [degF] 22575.5 8 g 122 mm[Hg] 80 mm[Hg] Not Available [facility] 3 08:49:06 Date Recorded Body height Respiratory rate Body mass index (BMI) Body weight Body temperature Heart rate Systolic blood pressure Diastolic blood pressure Provider Name and Address Organization Details Last Updated DateTime 3 170.18 cm 12 /min 32.8 kg/m2 61744.2 4 g 97.4 [degF] 78 /min 128 mm[Hg] 78 mm[Hg] Jazmine Wells RN [place] [facility] [employer] 3 09:34:31 Social History Question Answer Notes LastModified by Organizat ion Details LastModified Time Tobacco Smoking Status Never Smoker Not Available [employer] 12/31/2022 08:45:24 What Is Your Level Of Alcohol Consumption? None [id number] Information not available 12/31/2022 What Is Your Level Of Caffeine Consumption? 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 Single [id number] Information not available 12/31/2022 Sex: Female Functional [...] SNOMED-CT Code Diagnosis ICD10 Code Diagnosis Note [id number] [facility] [place] [address] [place] [address] 01/17/2022 00:00:00 01/17/2022 16:20:11 [id number] [facility] [place] [address] [place] [address] 01/30/2022 00:00:00 01/30/2022 18:00:18 [id number] [facility] [place] [address] [place] [address] 02/13/2022 00:00:00 02/15/2022 12:15:57 [id number] [facility] [place] [address] [place] [address] 05/16/2022 00:00:00 05/16/2022 16:09:23 [id number] [facility] [place] [address] [place] [address] 07/31/2022 00:00:00 08/01/2022 13:57:23 [id number] [facility] [place] [address] [place] [address] 09/22/2022 00:00:00 09/22/2022 18:27:16 [id number] Vanessa Kirby MD [facility] [place] [address] [place] [address] 02/17/2023 09:16:57 02/17/2023 09:58:38 Uncontrolled type 2 diabetes mellitus 527585565 E11.65 a1c of 8.1%- patient admits to [...] mg/dL on premeal sugars. Mixed hyperlipidemia 267 300453 E78.2 Continue statin, fenofibrat e and vascepa. Weight gain 4751830 R63. 5 Will send for low dose [...] she chooses to go outside of the [facility] system to obtain labwork she was [...] [employer] Member ID Guarantor Name 02/17/2023 1 [facility] - DOS ON OR AFTER 21 (MEDICAID REPLACEMENT - HMO) January Petar [id number] January Petar Notes Date Note Type Note [...] mg/dlCr normalLFT normal Vanessa Kirby MD [address] [facility] [address], [place], [address], [place] [facility] 02/17/2023 10:03:28 OBGyn Episode No OBEpisode recorded.
--- OUTSIDE RECORDS SUMMARY | 2025-02-22 07:22 | XMS_ITS | Clinical Summary ---
Author Organization [facility] the [facility] Address [address] [place] [address] Care Team Providers Care Digital Sales Assistant Name Role Phone Toribio Ocasio MD Unavailable [phone] Jonel Mercer MD Primary Care Provider Allergies [...] 1 each 3 10/20/20 Active Dexcom G6 Mri Assistant misc 10/08/20 Active diphenhydrAMINE (BENADRYL) 25 mg [...] 024 Assessment & Plan (10/04/2024 10:54 AM FULL STACK SOFTWARE ENGINEER): Patient asymptomatic. Noninvasive studies were normal as was her exam. No further workup needed follow up PRN. Diabetic polyneuropathy asso ciated with type 2 diabetes mellitus 12/17/2023 Pharyngitis 10/15/2023 Assessment & Plan (10/15/2023 5:00 PM FULL STACK SOFTWARE ENGINEER): Point of care strep swab negative. However patients are overwhelmingly concerning for strep given her recent infection we will treat patient with Ceftin 250 mg b.i.d. x7 days. Patient is advised to change her toothbrush after 48 hours of starting the antibiotic. Vaginal yeast infection 10/15/2023 Assessment & Plan (10/15/2023 4:59 PM FULL STACK SOFTWARE ENGINEER): Patient complains of vaginal yeast infections secondary to the amount of antibiotics that she is taken in the past 2 weeks. Diflucan ordered. Strep throat 09/30/2023 Allergic rhinitis 09/10/2023 Assessment & Plan (09/10/2023 5:02 PM FULL STACK SOFTWARE ENGINEER): Flonase and Zyrtec as needed BMI 33.0-33.9,adult 09/10/2023 Assessment & Plan (09/10/2023 5:02 PM FULL STACK SOFTWARE ENGINEER): Discussed the patient's BMI. The BMI is above average. BMI management plan is completed. BMI Follow-up includes: nutrition counseling, exercise counseling and education provided. Hypertension associated with type 2 diabetes erna litus 08/31/2023 Assessment & Plan (09/10/2023 4:58 PM FULL STACK SOFTWARE ENGINEER): Blood pressure well controlled. Refills sent to [...] losartan 25mg daily. Will update labs at [facility]. Verified that she uses [facility]. Aware to check results/results letter in [facility]. Will contact by phone if needed. Hyperlipidemia due to type 2 diabetes mellitus 1 Assessment & Plan (10/04/2024 10:54 AM FULL STACK SOFTWARE ENGINEER): Hyperlipidemia chronic controlled. Continue current medical management. Assessment & Plan (08/31/2023 1:52 PM CDT): Chronic problem. Currently taking Rosuvastatin 40mg & fenofibrate 160mg. Last lipid panel: 06/13/22 LDL=94, WT=560. Will update labs at [facility]. Verified that she uses mychart. Aware to check results/results letter in [facility]. Will contact by phone if needed. Postmenopausal osteoporosis 01/06/2023 Assessment & Plan (01/06/2023 9:55 AM FULL STACK SOFTWARE ENGINEER): Patient was diagnosed with osteoporosis by her marketing communications leader and she was started on Fosamax but she stopped taking the medication on her own. I recommended that she resumes Fosamax with calcium and vitamin-D. She said that she has an appointment with her marketing communications leader and she will discuss that with her. Angina pectoris 12/16/2022 Atopic dermatitis 12/16/2022 Cyst of pancreas 12/16/2022 Diabetic neuropathy 12/16/2022 Assessment & Plan (09/10/2023 5:01 PM FULL STACK SOFTWARE ENGINEER): Patient recently started on gabapentin 300 mg [...] AM CDT): Patient is followed by the piper helper. Continue to see the rack loader on yearly basis. Encouraged diet and exercise and weight loss. Hepatomegaly 12/16/2022 Nausea, vomiting and diarrhea 12/16/2022 Obesity 12/16/2022 Strain of tendon of back 12/16/2022 Vitamin D deficiency 12/16/2022 Bilateral leg edema 10/08/2022 Assessment & Plan (01/06/2023 9:54 AM FULL STACK SOFTWARE ENGINEER): No leg edema Assessment & Plan (10/08/2022 4:41 PM FULL STACK SOFTWARE ENGINEER): Leg edema most likely secondary to prolonged sitting. I told her to ambulate. Will start her on Lasix 20 mg p.r.n.. Call for persistent symptoms. Colon cancer screening 10/08/2022 Assessment & Plan (10/08/2022 4:41 PM FULL STACK SOFTWARE ENGINEER): Patient had referral for colonoscopy but she did not have it done yet. Advised to call the agriculture manager office and proceed with the test she understands the risks including cancer Carpal tunnel syndrome on right 12/13/2021 Overview (12/13/2021): Added automatically from request for surgery [id number] Right elbow pain 11/12/2021 Assessment & Plan (11/12/2021 9:48 AM FULL STACK SOFTWARE ENGINEER): Patient with right elbow pain specially when she uses her right hand. We will obtain nerve conduction study to rule out carpal tunnel syndrome. She was advised to wear an elbow brace. We will call her for meloxicam 15 mg daily for 2 weeks. She will call for persistent symptoms BERT (obstructive sleep apnea) 11/12/2021 Assessment & Plan (09/10/2023 4:59 PM FULL STACK SOFTWARE ENGINEER): Patient uses CPAP and is compliant with her machine. Assessment & Plan (02/11/2022 9:50 AM CDT): Patient uses CPAP machine on regular basis Assessment & Plan (11/12/2021 9:48 AM FULL STACK SOFTWARE ENGINEER): Patient was diagnosed recently with sleep apnea and she has an appointment with the sleep specialist for CPAP machine Lymphadenitis 09/24/2021 Assessment & Plan (09/24/2021 12:53 PM FULL STACK SOFTWARE ENGINEER): Patient has lymphadenitis. She will be started on Augmentin 875 mg twice daily for 10 days with food and side effects were explained and she will call us if it is not resolved so that we can arrange for her to see a surgeon for excision Hypersomnia 09/12/2021 Anxiety 09/12/2021 Assessment & Plan (09/10/2023 5:02 PM FULL STACK SOFTWARE ENGINEER): Patient denies any anxiety symptoms at this time. Palpitation 09/12/2021 Nonsmoker 09/12/2021 Overweight 09/12/2021 Cough 07/30/2021 Assessment & Plan (09/10/2023 5:02 PM FULL STACK SOFTWARE ENGINEER): Patient has persistent cough productive of clear mucus with no shortness breath or wheezing or chest pain. She is advised to restart her Symbicort Assessment & Plan (07/30/2021 9:33 AM CDT): Patient has persistent cough productive of clear mucus with no shortness breath or wheezing or chest pain. We will stop lisinopril. She will continue Symbicort. Will make a referral to see pattern keeper for further evaluation. Acute bronchitis 07/02/2021 Assessment & Plan (09/30/2023 5:15 PM FULL STACK SOFTWARE ENGINEER): Patient with acute bronchitis. She is on [...] from Dexcom & Tandem pump. To call/send [facility] message if not helping. Apply the dexcom 1st to see if the above products will help prevent the skin irritation. Will update labs. Verified that she uses mychart. Aware to check results/results letter in [facility]. Will contact by phone if needed. DM eye exam q6wks at [facility] for laser tx & injections. Will send letter to get copy of report from [place] office. Strive for regular exercise (30min most [...] (05/08/2023 7:41 AM CDT): Followed by the rack loader Assessment & Plan (01/06/2023 8:35 AM FULL STACK SOFTWARE ENGINEER): Managed by the piper helper. Continue to have annual eye exam Assessment & Plan (10/08/2022 4:40 PM FULL STACK SOFTWARE ENGINEER): Managed by the piper helper advised to have annual eye exam Assessment & Plan (04/16/2022 8:25 AM CDT): Continue current medications, discussed low carbohydrate diet, advised to exercise on regular basis, advised to have annual eye exam. We will continue to monitor. Followed by the piper helper Assessment & Plan (02/11/2022 9:50 AM CDT): Follow with the piper helper and rack loader. Discussed weight loss and diet. Assessment & Plan (11/12/2021 9:48 AM FULL STACK SOFTWARE ENGINEER): Patient is not compliant with medications. She [...] and exercise. Patient was seen by a repairer handtools in the past. Will increase Lantus to [...] Continue diet. She was seen by the rack loader. She will check her sugar 3 times daily and call us with readings in 1 week. Assessment & Plan (01/10/2021 4:30 PM FULL STACK SOFTWARE ENGINEER): Patient will start on Lantus 45 units [...] monitor Assessment & Plan (01/06/2023 8:35 AM FULL STACK SOFTWARE ENGINEER): Continue current medications. Discussed low-salt diet. Discussed exercise on regular basis. Will continue to monitor Assessment & Plan (10/08/2022 4:40 PM FULL STACK SOFTWARE ENGINEER): Continue current medications. Discussed low-salt diet. Discussed exercise on regular basis. Will continue to monitor Assessment & Plan (02/11/2022 9:50 AM CDT): Continue current medications. Discussed low-salt diet. Discussed exercise on regular basis. Will continue to monitor Assessment & Plan (11/12/2021 9:49 AM FULL STACK SOFTWARE ENGINEER): Continue current medications. Discussed low-salt diet. Discussed [...] monitor Assessment & Plan (01/10/2021 4:30 PM FULL STACK SOFTWARE ENGINEER): Start lisinopril 20 mg daily and we discussed low-salt diet Dyslipidemia 01/10/2021 Assessment & Plan (09/10/2023 5:00 PM FULL STACK SOFTWARE ENGINEER): Patient is maintained on Crestor 40 mg tablets and fenofibrate 160 mg we will continue this regimen Assessment & Plan (05/08/2023 8:57 AM CDT): LDL is 113. Increase Crestor to 40 mg q.h.s.. Continue low-fat diet. Assessment & Plan (01/06/2023 8:35 AM FULL STACK SOFTWARE ENGINEER): Controlled on current medications. Continue low-fat diet. Will continue to monitor . Assessment & Plan (10/08/2022 4:40 PM FULL STACK SOFTWARE ENGINEER): Controlled on current medications. Continue low-fat diet. Will continue to monitor . Assessment & Plan (04/16/2022 8:25 AM CDT): Controlled on current medications. Continue low-fat diet. Will continue to monitor . Assessment & Plan (02/11/2022 9:50 AM CDT): Stop atorvastatin and start Crestor 20 mg q.h.s. for better control of hyperlipidemia. Continue low-fat diet Assessment & Plan (11/12/2021 9:49 AM FULL STACK SOFTWARE ENGINEER): Resume medications and we discussed the importance [...] months Assessment & Plan (01/10/2021 4:30 PM FULL STACK SOFTWARE ENGINEER): Start Lipitor 10 mg q.h.s. and discussed low-fat diet and pamphlets were given Pneumonia due to COVID-19 virus 11/28/2020 Microalbuminuria 05/29/2019 Coronary arteriosclerosis 05/24/2019 Gastroesophageal reflux disease without esophagi tis 05/24/2019 Assessment & Plan (09/10/2023 5:00 PM FULL STACK SOFTWARE ENGINEER): Patient reports symptoms are controlled. Steatosis of liver 05/24/2019 Mild nonproliferative diabetic retinopathy(362.0 4) 05/24/2019 Tabby-Chu tear 10/18/2017 Kidney disease 12/14/2016 Leukocytosis 06/13/2014 Asthma Assessment & Plan (09/10/2023 5:02 PM FULL STACK SOFTWARE ENGINEER): Patient is advised to restart Symbicort. We will follow up at next visit. Assessment & Plan (05/08/2023 8:58 AM CDT): Patient is asymptomatic and stable without medications Assessment & Plan (01/06/2023 9:54 AM FULL STACK SOFTWARE ENGINEER): Patient complains of cough but no shortness [...] on file Legal Sex Female 2:02 AM FULL STACK SOFTWARE ENGINEER Gender Identity Not on file Sexual Orientation [...] Comments Blood Pressure 135/80 09/08/2024 10:13 AM FULL STACK SOFTWARE ENGINEER Pulse 79 09/08/2024 10:13 AM FULL STACK SOFTWARE ENGINEER Temperature 36.7 C (98 F) 10/15/2023 1:39 PM FULL STACK SOFTWARE ENGINEER Respiratory Rate 18 10/15/2023 1:39 PM FULL STACK SOFTWARE ENGINEER Oxygen Saturation 97% 10/15/2023 1:39 PM FULL STACK SOFTWARE ENGINEER Inhaled Oxygen Concentration - - Weight 98 kg (216 lb) 09/08/2024 10:13 AM FULL STACK SOFTWARE ENGINEER Height 170.2 cm (5' 7 ) 09/08/2024 10:13 AM FULL STACK SOFTWARE ENGINEER Body Mass Index 33.83 09/08/2024 10:13 AM FULL STACK SOFTWARE ENGINEER Plan of Treatment Health Maintenance Due Date [...] BLOOD ORDERABLES Final Result Performing Organization Address [facility] de Phone Number [address] [address] * Albumin Creatinine Ratio, Urine (06/13/2022 7:54 AM CDT) Albumin Ur <12.0 mg/L [facility] Comment: Interpretive Data No reference range established. Current interpretive data was last revised 2019. Creatinine Ur 51.0 mg/dL [facility] Comment: Interpretive Data No reference range established. Current interpretive data was last revised 2019. Albumin Creatinine Ratio, Ur <24 1 - 29 mg/g [facility] Urine 06/13/2022 7:54 AM CDT 06/13/2022 8:08 AM CDT Moris Linares MD LAB URINE ORDERABLES Final Result Performing Organization Address [facility] de Phone Number [address] [address] * (ABNORMAL) Lipid panel (06/13/2022 7:54 AM CDT) Cholesterol 157 30 - 199 mg/dL [facility] Comment: Interpretive Data Ages < or [...] MD LAB BLOOD ORDERABLES Final Result [facility] [address] [facility] Department [place] [address] * Diabetic Foot Exam (02/15/2022) Historical Provider [...] Most Recently Relevant to Health Maintenance Insurance [facility] Care Teams Digital Sales Assistant Relationship Specialty Start Date End Date Jonel Mercer MD [address] [facility] [address] [place] [address] PCP - General Family Medicine 09/08/24 Toribio Ocasio MD Consulting Physician Plastic Surgery 01/03/22
--- OUTSIDE RECORDS SUMMARY | 2025-02-22 07:22 | XMS_ITS | Clinical Summary ---
Author Organization [facility] Address [address] [place] [address] Care Team Providers Care Plastic Shaper Name Role Phone Chase Alva MD Primary Care Provider [phone] Bill Mcgregor DO Unavailable [phone] Allergies Active Allergy Reactions Criticality Noted [...] Insurance MEDICAID [employer] Care Teams Plastic Shaper Relationship Specialty Start Date End Date Chase Alva MD [address] [facility] [address] [place] [address] PCP - General Internal Medicine 10/22/17 Bill Mcgregor DO [address] [address] Consulting Physician Gastroenterology 02/25/18
--- OUTSIDE RECORDS SUMMARY | 2025-02-22 07:22 | XMS_ITS | Data Portability ---
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 [email or web address] Not available 02/15/2020 13:33:06 06/07/2020 06/07/2020 urinalysis showed blood but not nitrites; she has had dysuria and right sided abdominal pain for about 3 weeks, frequency of urination and urgency. Has been drinking lots of liquids. No nausea, vomiting, diarrhea, fever, or constipation. She will strain her urine for kidey stones. If not better in the next week will refer to urologist. [email or web address] Not available 06/07/2020 10:30:13 Plan of Treatment Reminders Order Date Submit Date Provider Last Modified By Organization Details Last Modified Time Details Appointments None recorded. Lab SARS CoV 2 RNA (COVID-19 ), QL, manager battery-PCR, respirato ry specimen - [facility] e @12:30 2019 020 [facility] (Lab), [address] [place], [address], 0 16:24:45 lh + FSH, serum 2019 020 [facility], 2022 Veronica Cazares, [address], [address], 0 07:08:45 HbA1c (hemoglob in A1c), blood 2017 018 [facility], 2022 Veronica Cazares, [address] [address], [place], [address], 8 17:10:22 Referral None recorded. Procedures None recorded. Surgeries None recorded. Imaging None recorded. Medication Orders sulfameth oxazole 800 mg-trimet hoprim 160 mg tablet 2019 020 [facility], [address] [place] [address], [address], 0 10:31:04 alendrona te 70 mg tablet 2019 020 [facility], [address] [place] [address], [address], 0 15:25:40 estradiol -norethin drone acet 0.5 mg-0.1 mg tablet 2019 020 [facility], [address] [place] [address], [address], 0 15:15:53 Calcium with Vitamin D 600 mg-10 mcg (400 unit) tablet 2019 020 [facility], [address] [place] [address], [address], 0 15:35:44 multivita min tablet 2019 020 [facility], [address] [place] [address], [address], 0 15:25:30 fluconazo le 150 mg tablet 2019 020 [facility], [address] [place], [address], 0 14:58:16 Lantus U-100 Insulin 100 unit/mL subcutane ous solution 2019 020 [facility], [address] [place] [address], [address], 0 14:41:01 Humalog U-100 Insulin 100 unit/mL subcutane ous solution 2019 INTERFACE [facility], [address] [place], [address], 0 14:36:18 lisinopri l 20 mg-hydroc hlorothia zide 12.5 mg tablet 2019 020 INTERFACE [facility], [address] [place], [address], 0 14:36:12 sulfameth oxazole 800 mg-trimet hoprim 160 mg tablet 2017 018 [id number], [address] [facility], [place], [place], [id number], 0 11:38:12 Patient TargetsNo targets recorded. Patient Instructions Encounter Date Encounter Id Patient Instructions Last Modified By Organization Details Last Modified Time 03/31/2018 [id number] painful urination (dysuria): care instructions [email or web address] Not available 03/31/2018 10:44:52 type 2 diabetes: care instructions [email or web address] Not available 03/31/2018 10:48:10 02/09/2020 [id number] vaginal yeast infection: care instructions [email or web address] Not available 02/09/2020 14:36:01 learning about high blood pressure [email or web address] Not available 02/09/2020 14:36:01 02/28/2020 [id number] When You Want to Lose Weight: Care Instructions [email or web address] Not available 02/28/2020 15:11:46 learning about type 2 diabetes [email or web address] Not available 02/28/2020 15:11:45 type 2 diabetes: care instructions [email or web address] Not available 02/28/2020 15:11:45 03/20/2020 [id number] Reviewed the following recommendations: -Stay home and [...] usal 7.7 - 58.5 Not Available [facility] ([facility]) [address] [facility], [place], [address], 02/18/2020 07:08:45 02/17/20 20 02/18/2020 lh + FSH, serum FSH 24.7 mIU/m L Adult Femal e: Folli cular phase 3.5 - 12.5 Ovula tion phase 4.7 - 21.5 Lutea l phase 1.7 - 7.7 Postm enopa usal 25.8 - 134.8 Not Available [facility] ([facility]) [address] [facility], [place], [address], 02/18/2020 07:08:45 03/20/20 20 03/20/2020 SARS CoV 2 RNA (COVI D-19) , QL, manager battery-P CR, respi rator y speci men sars - cov - 2 PCR NEGATI VE mL Not Available [facility] (Lab) [address] [place] [address], [address], 03/21/2020 16:24:45 03/20/20 20 03/20/2020 SARS CoV 2 RNA (COVI D-19) , QL, manager battery-P CR, respi rator y speci men covidcom1 [...] of this test metho d. Not Available [facility] (Lab) [address] [place], [address], 03/21/2020 16:24:45 03/20/20 20 03/20/2020 SARS CoV 2 RNA (COVI D-19) , QL, manager battery-P CR, respi rator y speci men covidcom2 Posit pardeep resul ts are indic ative of the prese nce of SARS- CoV-2 RNA and do not rule out bacte rial infec tion or co-in fecti on with other virus es. Not Available [facility] (Lab) [address] [facility], [place], [address], 03/21/2020 16:24:45 03/20/20 20 03/20/2020 SARS CoV 2 RNA (COVI D-19) , QL, manager battery-P CR, respi rator y speci men covidcom3 Test resul ts shoul d be used along with other clini to obser vatio ns, patie nt histo ry, epide miolo gical infor matio n and labor atory data in makin g the diagn osis. Not Available [facility] (Lab) [address] [place], [address], 03/21/2020 16:24:45 03/20/20 20 03/20/2020 SARS CoV 2 RNA (COVI D-19) , QL, manager battery-P CR, respi rator y speci men covidcom4 [...] or revok ed soone r. Not Available [facility] (Lab) [address] [place], [address], 03/21/2020 16:24:45 03/20/20 20 03/20/2020 SARS CoV 2 RNA (COVI D-19) , QL, manager battery-P CR, respi rator y speci men covidcom5 [facility] is certi fied under CLIA- 88 as quali fied to perfo rm high compl exity testi ng. This testi ng was perfo rmed in the [facility] [place] [address] (CLIA Licen se #[id number] 13665 5, CAP #[id number], AU-ID #[id number]). Not Available [facility] (Lab) [address] [place], [address], 03/21/2020 16:24:45 03/20/20 20 03/20/2020 SARS CoV 2 RNA (COVI D-19) , QL, manager battery-P CR, respi rator y speci men covidcom6 Facts heet for healt hcare provi ders: https ://ww w.fda .gov/ media /1362 56/do wnloa d Facts heet for patie nts: https ://ww w.fda .gov/ media /1362 57/do wnloa d Not Available [facility] (Lab) [address] [place], [address], 03/21/2020 16:24:45 06/05/20 20 06/06/2020 urina lysis compl ete, refle x cultu re specific gravity >=1.03 0 1.005- 1.030 abnormal Not Available [facility] ([facility]) [address] [facility], [place], [address], 06/08/2020 06:08:05 06/05/20 20 06/06/2020 urina lysis compl ete, refle x cultu re pH 5.0 5.0-7. 5 Not Available [facility] ([facility]) [address] [facility], [place], [address], 06/08/2020 06:08:05 06/05/20 20 06/06/2020 urina lysis compl ete, refle x cultu re urine-color Yellow yellow Not Available [facility] ([facility]) [address] [facility], [place], [address], 06/08/2020 06:08:05 06/05/20 20 06/06/2020 urina lysis compl ete, refle x cultu re appearance Cloudy clear abnormal Not Available [facility] ([facility]) [address] [place], [address], 06/08/2020 06:08:05 06/05/20 20 06/06/2020 urina lysis compl ete, refle x cultu re WBC esterase Trace negati ve abnormal Not Available [facility] ([facility]) [address] [place], [address], 06/08/2020 06:08:05 06/05/20 20 06/06/2020 urina lysis compl ete, refle x cultu re protein 1+ negati ve/tra ce abnormal Not Available [facility] ([facility]) [address] [place], [address], 06/08/2020 06:08:05 06/05/20 20 06/06/2020 urina lysis compl ete, refle x cultu re glucose 3+ negati ve abnormal Not Available [facility] ([facility]) [address] [place], [address], 06/08/2020 06:08:05 06/05/20 20 06/06/2020 urina lysis compl ete, refle x cultu re ketones Negati ve negati ve Not Available [facility] ([facility]) [address] [place], [address], 06/08/2020 06:08:05 06/05/20 20 06/06/2020 urina lysis compl ete, refle x cultu re occult blood 2+ negati ve abnormal Not Available [facility] ([facility]) [address] [place], [address], 06/08/2020 06:08:05 06/05/20 20 06/06/2020 urina lysis compl ete, refle x cultu re bilirubin Negati ve negati ve Not Available [facility] ([facility]) [address] [place], [address], 06/08/2020 06:08:05 06/05/20 20 06/06/2020 urina lysis compl ete, refle x cultu re urobilinogen ,semi-qn 0.2 mg/dL 0.2-1. 0 Not Available [facility] ([facility]) [address] [place], [address], 06/08/2020 06:08:05 06/05/20 20 06/06/2020 urina lysis compl ete, refle x cultu re nitrite, urine Negati ve negati ve Not Available [facility] ([facility]) [address] [place], [address], 06/08/2020 06:08:05 06/05/20 20 06/06/2020 urina lysis compl ete, refle x cultu re microscopic examination See below: Micro scopi c was indic ated and was perfo rmed. Not Available [facility] ([facility]) [address] [place], [address], 06/08/2020 06:08:05 06/05/20 20 06/06/2020 urina lysis compl ete, refle x cultu re WBC >30 /hpf 0 - 5 abnormal Not Available [facility] ([facility]) [address] [place], [address], 06/08/2020 06:08:05 06/05/20 20 06/06/2020 urina lysis compl ete, refle x cultu re RBC 11-30 /hpf 0 - 2 abnormal Not Available [facility] ([facility]) [address] [place], [address], 06/08/2020 06:08:05 06/05/20 20 06/06/2020 urina lysis compl ete, refle x cultu re epithelial cells (non renal) 0-10 /hpf 0 - 10 Not Available [facility] ([facility]) [address] [place], [address], 06/08/2020 06:08:05 06/05/20 20 06/06/2020 urina lysis compl ete, refle x cultu re epithelial cells (renal) ONLINE MERCHANDISING SPECIALIST Not Available [facility] ([facility]) [address] [place], [address], 06/08/2020 06:08:05 06/05/20 20 06/06/2020 urina lysis compl ete, refle x cultu re casts ONLINE MERCHANDISING SPECIALIST Not Available [facility] ([facility]) [address] [place], [address], 06/08/2020 06:08:05 06/05/20 20 06/06/2020 urina lysis compl ete, refle x cultu re cast type ONLINE MERCHANDISING SPECIALIST Not Available [facility] ([facility]) [address] [place], [address], 06/08/2020 06:08:05 06/05/20 20 06/06/2020 urina lysis compl ete, refle x cultu re crystals Presen t n/a abnormal Not Available [facility] ([facility]) [address] [place], [address], 06/08/2020 06:08:05 06/05/20 20 06/06/2020 urina lysis compl ete, refle x cultu re crystal type Amorph ous Sedime nt n/a Not Available [facility] ([facility]) [address] [place], [address], 06/08/2020 06:08:05 06/05/20 20 06/06/2020 urina lysis compl ete, refle x cultu re mucus threads ONLINE MERCHANDISING SPECIALIST Not Available [facility] ([facility]) [address] [place], [address], 06/08/2020 06:08:05 06/05/20 20 06/06/2020 urina lysis compl ete, refle x cultu re bacteria Few none seen/f ew Not Available [facility] ([facility]) [address] [place], [address], 06/08/2020 06:08:05 06/05/20 20 06/06/2020 urina lysis compl ete, refle x cultu re yeast ONLINE MERCHANDISING SPECIALIST Not Available [facility] ([facility]) [address] [place], [address], 06/08/2020 06:08:05 06/05/20 20 06/06/2020 urina lysis compl ete, refle x cultu re trichomonas ONLINE MERCHANDISING SPECIALIST Not Available [facility] ([facility]) [address] [place], [address], 06/08/2020 06:08:05 06/05/20 20 06/06/2020 urina lysis compl ete, refle x cultu re comment ONLINE MERCHANDISING SPECIALIST Not Available [facility] ([facility]) [address] [place], [address], 06/08/2020 06:08:05 06/05/20 20 06/06/2020 urina lysis compl ete, refle x cultu re urinalysis reflex Commen t This speci men has refle xed to a Urine Cultu re. Not Available [facility] ([facility]) [address] [facility], [place], [address], 06/08/2020 06:08:05 06/05/20 20 06/08/2020 urina lysis compl ete, refle x cultu re urine culture, routine Final report Not Available [facility] ([facility]) [address] [facility], [place], [address], 06/08/2020 06:08:05 06/05/20 20 06/08/2020 urina lysis compl ete, refle x cultu re result 1 Commen t Mixed uroge nital annamaria 25,00 0-50, 000 colon y formi ng units per mL Not Available [facility] ([facility]) [address] [facility], [place], [address], 06/08/2020 06:08:05 03/22/20 18 03/22/2018 CT, abdom en + pelvi s, w/wo contr ast No observ ation record ed. [address] (Imaging) [address] [place] [address], [address], 03/31/2018 23:36:02 02/09/20 20 02/09/2020 exerc ise stres s test No observ ation record ed. [facility] (Imaging) [address] [place] [address], [address], 02/28/2020 15:18:41 02/22/20 20 02/21/2020 DEXA No observ ation record ed. [facility], [facility] [address], [place], [address], 02/28/2020 15:18:40 02/22/20 20 02/21/2020 DEXA No observ ation record ed. dave Not Available 02/27 15:18:40 06/12/20 20 06/12/2020 CT, abdom en + pelvi s, w/o contr ast No observ ation record ed. [facility] (Imaging) [address], [place], [address], 06/13/2020 09:57:21 06/12/20 20 06/12/2020 CT, abdom en + pelvi s, w/o contr ast No observ ation record ed. [facility] (Imaging) [address] [facility] [address], [place], [address], 06/13/2020 17:14:05 06/13/20 20 06/12/2020 CT, abdom en + pelvi s, w/o contr ast No observ ation record ed. [facility] [facility] [address], [place], [address], 06/13/2020 17:13:26 06/13/20 20 06/13/2020 US, kidne y No observ ation record ed. [facility] (Imaging) [address] [facility] [address], [place], [address], 06/13/2020 17:14:26 06/13/20 20 06/13/2020 US, kidne y No observ ation record ed. [facility] (Imaging) [address] [facility] [address], [place], [address], 06/13/2020 17:13:44 06/13/20 20 06/12/2020 CT, abdom en + pelvi s, w/o contr ast No observ ation record ed. [facility] (Imaging) [address] [facility] [address], [place], [address], 06/13/2020 17:14:47 11/27/19 21 11/27/2020 XR, chest No observ ation record ed. [facility] [address], [place], [address], 12/06/2020 08:21:41 Result Notes None recorded. Problems Name Problem SNOMED Code Status Onset Date Resolution Date Notes Provider Name and Address Organization Details Recorded Time Strain of tendon of back 941286296 Tomas Hester PA-C Attn: Accounting ,[address] [place], [place], [address] [place] [address] , [facility] 5 10:56:09 Angina pectoris 745452516 Tomas Hester PA-C Attn: Accounting ,[address] [place], [place], [address] [place] [address] , [facility] 5 10:56:09 Nausea, vomiting and diarrhea 7287353 Tomas Hester PA-C Attn: Accounting ,[address] [place], [address] [place] [address] , [facility] 5 10:56:09 Mammography abnormal 722481390 Active Casi Hester PA-C Attn: Accounting ,[address] [place], [address] [place] [address] , [facility] 5 10:56:09 Atopic dermatitis 11563627 Tomas Hester PA-C Attn: Accounting ,[address] [place], [address] [place] [address] , [facility] 5 11:03:57 Leukocytosis 163674637 Tomas Hester PA-C Attn: Accounting ,[address] [place], [address] [place] [address] , [place] [facility] 5 14:59:04 Hepatomegaly 88153213 Tomas Hester PA-C Attn: Accounting ,[address] [place], [address] [place] [address] , [place] [facility] 5 13:31:50 Cyst of pancreas 43565216 Tomas Hester PA-C Attn: Accounting ,[address] [place], [address] [place] [address] , [place] [facility] 5 13:31:50 Acute urinary tract infection 419957386 Tomas Hester PA-C Attn: Accounting ,[address] [facility], [place], [address] [place] [address] , [place] [facility] 6 13:11:19 Dysuria 70714345 Active Casi Hester PA-C Attn: Accounting ,[address] [facility], [place], [address] [place] [address] , [facility] 6 13:11:19 Acute bronchitis 13260187 Active Casi Hester PA-C Attn: Accounting ,[address] [facility], [place], [address] [place] [address] , [facility] 6 12:20:24 Neuropathy due to diabetes mellitus 812470752 Tomas Hester PA-C Attn: Accounting ,[address] [facility], [place], [address] [place] [address] , [facility] 6 12:25:35 Type 2 diabetes mellitus 67518344 Tomas Hester PA-C Attn: Accounting ,[address] [facility], [place], [address] [place] [address] , [place] [facility] 6 18:13:50 Essential hypertension 41190770 Tomas Hester PA-C Attn: Accounting ,[address] [facility], [place], [address] [place] [address] , [facility] 6 12:25:35 Hyperlipidemi a 23578971 Tomas Hester PA-C Attn: Accounting ,[address] [facility], [place], [address] [place] [address] , [place] [facility] 6 11:53:52 Vitamin D deficiency 96352052 Tomas Hester PA-C Attn: Accounting ,[address] [facility], [place], [address] [place] [address] , [facility] 6 11:53:52 Obesity 767876070 Tomas Hester PA-C Attn: Accounting ,[address] [facility], [place], [address] [place] [address] , [place] [facility] 12/10/201 5 10:56:09 Problem Notes None recorded. Procedures Surgical History Date Name Laterality Status Provider Name and Address Organization Details Recorded Time 04/21/20 14 Other completed January Petar [facility] 2014 13:05:18 01/24/20 04 Appendectomy completed January [facility] 2014 13:05:18 02/23/19 94 Caesarean Section completed January [facility] 2014 13:05:18 Eyelid Surgery completed January [facility] 2014 13:05:18 Imaging Results Imaging Date Name Status LastModified by [facility] Details LastModified Time 03/22/2018 CT, abdomen + pelvis, w/wo contrast completed [address] (Imaging) [address] [place] [address], [address], 03/31/2018 23:36:02 02/09/2020 exercise stress test completed [facility] (Imaging) [address] [place] [address], [address], 02/28/2020 15:18:41 02/21/2020 DEXA completed [facility], [facility] [address], [place], [address], 02/28/2020 15:18:40 02/21/2020 DEXA completed [facility] Information no t available 02/28/2020 15:18:40 06/12/2020 CT, abdomen + pelvis, w/o contrast completed [facility] (Imaging) [address] [place] [address], [address], 06/13/2020 09:57:21 06/12/2020 CT, abdomen + pelvis, w/o contrast completed [facility] (Imaging) [address] [place] [address], [address], 06/13/2020 17:14:05 06/12/2020 CT, abdomen + pelvis, w/o contrast completed [address], [address], 06/13/2020 17:13:26 06/13/2020 US, kidney completed [facility] (Imaging) [address] [facility] [address] [place] [address], [address], 06/13/2020 17:14:26 06/13/2020 US, kidney completed [facility] (Imaging) [address] [facility] [address], [address], 06/13/2020 17:13:44 06/12/2020 CT, abdomen + pelvis, w/o contrast completed [facility] (Imaging) [address] [facility] [address], [place], [address], 06/13/2020 17:14:47 11/27/2020 XR, chest completed [facility], [place], [address], 12/06/2020 08:21:41 Procedure Notes None recorded. Medical Equipment None Reported. Allergies Allergen ID Allergen Name Allergen Category Reaction Reaction Severity Criticality Documentation Date Start Date Code Code System Note Provider Name and Address Organization Details Recorded Time 50002 adhesive environme nt,medica tion rash Not available Not available 2014 67167 UNK Not Available Not Available Not Available [...] Updated DateTime 8 170.18 cm 34.1 kg/m2 85997.1 4 g 97 % 97 % 85 /min 98.1 [degF] 126 mm[Hg] 80 mm[Hg] Radha Gonzalez CMA [facility] 8 10:29:51 Date Recorded Body weight Body mass index (BMI) Body height Provider Name and Address Organization Details Last Updated DateTime 02/28/2020 23167.03 g 32.3 kg/m2 170.18 cm Jyoti Griffin MA [facility] 02/28/2020 14:57:40 Date Recorded Body height Provider Name an d Address Organization Details Last Updated DateTime 06/07/2020 170.18 cm Rafaela Calix MA [facility] 2019 10:18:24 Social History Question Answer Notes LastModified by Organizat ion Details LastModified Time Tobacco Smoking Status Never Smoker January FIDEL Davey, [facility] 2014 13:05:18 Do You Have An Advance [...] History Condition Response Coronary Artery Disease N Blood Diseases N Kidney Cyst N Hyperthyroidism N Blood disorders N MRSA N Blood Transfusion N Emphysema N Blood Clots N COPD N Depression N Pneumonia N Peripheral Arterial Disease N Premature N Edema N TIA N Headaches/Migraines N Anxiety Disorder N Obesity N Infertility N Polyps N Acid Reflux (GERD) N Hematuria N Stroke N Neck Injury N Polio N Hospital Admission other than N Neurologic Disorder N Other Sleep Disorders N Rheumatoid Arthritis N Fibromyalgia N Abdominal Aortic Aneurysm Repair N Kidney Disease N Heart Conditions N Heart Disease/Heart Problems N Hospitalizations N Brain Tumors N Acne N Eating Disorder N Skin Problems N Constipation N Meningitis N Tuberculosis N Cerebral Palsy N Myocardial Infarction N Asthma Y Substance Abuse N Peripheral Vascular Disease N Vertigo N Sleep Disorder N Cirrhosis N Pulmonary Embolism N Chicken Pox N Flomax Use Past or Present N Hematologic Disease N Anxiety/Depression N Thyroid Disease N Colon Cancer N Glaucoma N Lung Disease N Developmental or Behavioral Disorders N Bipolar N Pacemaker N Diverticulitis/Diverticulosis N Anesthesia Complications N Orthopedic Problems N Orthotics N Head Injury/Concussion N Congenital Anomalies N Davey Bite N Chronic Kidney Disease N Endometriosis N Liver Disease N Dialysis N Schizophrenia N Speech Delay N Chronic Obstructive Pulmonary Disease N Parkinson's Disease N Thyroid Problems N GI Problems N Developmental Delay N Anemia N Immune System Disorder N Multiple Sclerosis N Colon Polyps N Heart Attack ([place]) N Diabetes Y Cardiomyopathy N Blood Transfusions N Heart Problems/Murmur N Eye Trauma N Congestive Heart Failure (CHF) N Valvular Heart Disease N Hyperlipidemia N Double Vision N Abuse/Domestic Violence N Hepatitis B N Lupus N Epilepsy/Seizures N Reflux/GERD N Aneurysm N Bronchitis N Heart Disease N Hypertension N Pre-Eclampsia N Heart Failure N Other N Gout [...] N Kidney Failure N Ocular trauma N Dementia N Diverticulitis N Sleep Apnea N Mental Problems N [...] SNOMED-CT Code Diagnosis ICD10 Code Diagnosis Note [id number] ABIMBOLA Evans (Adult Med) [address] [place] [address] 25191-704 0 11/21/2014 10:33:46 11/21/2014 17:38:26 At increased risk of urinary tract infection [id number] Type 2 caitlin betes mellitus 12033878 Essential hypertension 31156006 Hyperlipidemia 77221033 Vitamin D deficiency 54330074 Obesity 569148591 [id number] ABIMBOLA Evans (Adult Med) [address] [place] [address] 90566-809 0 01/04/2015 10:10:50 01/04/2015 13:51:59 Strain of tendon of back 075995097 Type 2 caitlin betes mellitus 38337469 Essential hypertension 64370583 Hyperlipidemia 66320772 Obesity 263241012 Vitamin D deficiency 19556793 [id number] ABIMBOLA Evans (Adult Med) [address] [place] [address] 44969-231 0 03/01/2015 10:40:13 03/08/2015 11:21:38 Obesity 918220152 Type 2 caitlin betes mellitus 37695308 Hyperlipidemia 90207349 Essential hypertension 33165669 Strain of tendon of back 130867330 Vitamin D deficiency 73980552 Adult heal th examination [id number] Angina pectoris [id number] Matthew (Adult Med) [address] [place] [address] [phone] 0 08/06/2015 13:55:16 08/06/2015 20:29:05 Type 2 diabetes mellitus 14593005 E11.8 Essential hypertension 48664818 I10 Patient is under a lot of stress and also has not had her BP medication s in over a week and a half. She states that she is overdue to be seen by a cardiologi st. She had a cardiac cath at [facility] last year. Would like to be evaluated by Dr. Winchester Will recheck BP once she has taken the lisinopril - will likely restart the isosorbide mononitrat e as well as metroprolo l - will let cardiology evaluate Hyperlipidemia 66499346 E78.5 [id number] ABIMBOLA Evans (Adult Med) [address] [place] [address] [phone] 0 10/11/2015 09:43:39 10/11/2015 11:04:54 Atopic dermatitis 28639509 L20.9 Likely stress induced - possibly hives, although no distinct wheals are present will try Benadryl - RTC if not improved for steroid Type 2 caitlin betes mellitus 47949683 E11.8 will recheck a1c today - discussed that she needs to take her medication and stay away from the breads and carbs advised to not eat fast foot M-F and that she needs to exercise more Hyperlipidemia 04682503 E78.5 Vitamin D deficiency 347 30447 E55.9 States that this is chronicall y low [id number] ABIMBOLA Evans (Adult Med) [address] [place] [address] 17701-489 0 2015 10:02:48 2015 13:32:22 Hepatomegaly 53655095 R16.0 Type 2 caitlin betes mellitus 35714301 E11.8 Sugars are consistent ly elevated - will refer to nutritioni st and endo Cyst of pancreas 2972756 0 K86.2 Recommende d f/u MRCP in 6 months Will refer to GI WIll send ED notes and imaging with referral She does not have enough PTO/sick time to go to GI appointmen t so will see if she can get into Dr. Keenan at [place] to be evaluated by him [id number] ABIMBOLA Evans (Adult Med) [address] [place] [address] 35219-949 0 11/12/2015 12:15:33 11/12/2015 13:12:09 Acute urinary tract infection 063591416 N39.0 Type 2 caitlin betes mellitus 53493375 E11.8 Sugars are consistent ly elevated - will refer to nutritioni st and endo Dysuria 01901132 R30.0 [id number] ABIMBOLA Evans (Adult Med) [address] [place] [address] 14904-832 0 11/16/2015 09:39:31 11/16/2015 14:36:35 Gynecologic examination 80432091 Z01.419 Most recent Pap 06/01/14 - WNL - negative for HPV/negati ve intraepith elial/lam gnancy Positive High Risk HPV in 01/2013 - Atypical Glandular Cell (ACG) and then was corrected for negative for HPV Will re-pap today Type 2 caitlin betes mellitus 81757766 E11.8 Sugars are consistent ly elevated - will refer to nutritioni st and endo [id number] ABIMBOLA Evans (Adult Med) [address] [place] [address] 55820-712 0 04/17/2016 09:15:21 04/17/2016 12:27:20 Neuropathy due to diabetes mellitus 931181876 E11.40 Discussed that her neuropathy in her fingers is likely 2/2 her diabetes - discussed that she is spilling a lot of glucose in her urine Discussed that she needs to have high blood sugar control Advised to download the [employer] al and everything that she eats goes [...] also go to her feet Essential hypertension 45480217 I10 Has seen cardiology BP well controlled today Hyperlipidemia 83040656 E78.5 Will recheck cholestero l today Vitamin D deficiency 347 97049 E55.9 States that this is chronicall y low [id number] Maty Kline MD [facility] [address] [place] [address] 02/19/2018 14:47:55 02/22/2018 11:43:02 Insulin treated type 2 diabetes mellitus 520001621 Z79.[address] Avila Peripheral neuropathy due to type 2 diabetes mellitus 7825507340 107 E11.42 stable by patient report Coronary arteriosclerosis in [place] artery 8072651115 [address] Jensen Family bereavement 54179 7006 Z63.4 sister and father both recently History of decompression of median nerve 794240791 Z98.890 left hand much better--Dr Sherman Graham did carpal tunnel surgery; right hand doing ok without surgery Essential hypertension 30486326 I10 takes lisinopril . discussed avoiding salt and caffeine. 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 Mcgregor Candidiasis of vagina 72 823078 B37.3 Standardiz ed adult depression screening tool completed 8510635571 75336 Z13.89 [id number] Maty Kline MD [facility] [address] [place] [address] 03/31/2018 10:20:17 04/01/2018 09:19:38 Dysuria 43996699 R30.0 review of UA showed + WBC but she was not started on antibiotic s at the ED Uncontroll ed type 2 diabetes mellitus 275455349 E11.65 discussed need for morning insulin, even if she has to take it at work with a breakfast break. [id number] Maty Kline MD [facility] [address] [facility] [place] [address] 02/09/2020 09:22:51 02/22/2020 17:46:12 Essential hypertension 27795031 I10 takes lisinopril . discussed avoiding salt and caffeine. Irregular periods 455193 07 N92.6 9 month gap, then had periods in november and february of 2020. Candidiasis of vagina 72 308736 B37.[address] tr eated type 2 diabetes mellitus 848102128 Z79.[address] Avila Depression screening 171 606951 Z13.31 patient does not appear to be significan tly depressed. [id number] Bill ColonKeonjonathan Castro ([employer]IVER) [address] [place] [address] 02/28/2020 14:47:58 02/29/2020 05:06:23 Obesity 945286466 E66.9 Type 2 caitlin betes mellitus 19464636 E11.9 Postmenopausal state 764 06557 Z78.0 Postmenopa usal osteoporosis 109197133 M81.0 [id number] GONZALEZ BISHOP [address] [place] [address] 03/20/2020 09:45:15 03/21/2020 07:39:10 Exposure to SARS-CoV-2 518076530 Z20.951 [id number] Maty Kline MD [facility] [address] [place] [address] 06/07/2020 09:37:05 06/08/2020 11:23:03 Shayan hematuria 832118311 R31.0 Health Concerns Section Related Observation LastModified by Organization Detai ls LastModified Time None Recorded Concern Status LastModified by Organization Details LastModified Time None Recorded Advance Directives Directive N: Payers Encounter Date Sequence Insurance Name Policy Number Policy Artis Covered Member ID Artis Member ID Guarantor Name 03/31/2018 1 [facility] - DOS PRIOR TO 2021 (MEDICAID REPLACEMENT - HMO) January Petar [id number] January Petar 02/09/2020 2 *SELF PAY* Ap [...] incontinence Maty Kline MD Attn: Accounting,[address] [place], [address], [facility] 03/31/2018 23:48:29 02/09/2020 text/html [...] ss Maty Kline MD Attn: Accounting[address] [place], [address] 02/15/2020 13:36:08 02/28/2020 text/html Annual [employer] Post-MenopausalReporte d bypatient.Menopausal Symptoms:no menopausal symptoms; normal [...] performed within the past year [facility] 02/28/2020 15:20:47 03/20/2020 text/html COVID ScreeningReported bypatient.Onset/Durati [...] screening SHARON PIERCE NP Attn: Accounting,[address] [place], [address], [facility] 03/20/2020 11:16:24 06/07/2020 text/html HematuriaReporte d bypatient.Quality:natasha s hematuria Severity:moderate Duration:symptoms of dysuria for several weeks, especially on the right side. Onset/Timing:recurring Modifying Factors:nothing makes it worse; nothing gives relief Associated Symptoms:no constipation; no diarrhea; no vomiting;abdominal pain;back pain;dribbling;dysuria ;frequency;hematuria;n octuria;stress incontinence;urgency;u rge incontinence Maty Kline MD Attn: Accounting,[address] [place], [address], [facility] 06/08/2020 00:42:24 OBGyn Episode Ob Episode Information Episode Created Date Number of Fetuses Patient Bloodtype Patient rh Status Prepregnancy Weight lbs Domestic Partner Domestic Partner Phone Father Name Nonprofit Director Status 10/31/20 14 1 CLOSED Fetus Data [...]
--- OUTSIDE RECORDS SUMMARY | 2025-02-22 07:23 | XMS_ITS | Data Portability ---
Author Organization [place] - [facility], [employer] Address [address] [address] Care Team Providers Care Retail Team Member Name Role Phone [facility] Dial Buffer Assessment Encounter Date Assessment Date Assessment LastModified [...] referral 2018 kendell Araya, [address], [place], [address], 9 08:36:52 rivet sticker referral 2018 019 kendell [facility], [address] [facility] , [address], [place], [address], 9 08:36:51 diabetic ophthalmol ogy referral 2018 019 kendell [facility], [address] [facility], [place], [address], 9 08:36:51 diabetic nutrition education referral 2018 kendell [facility], [address] [facility] , [address], [place], [address], 9 08:36:51 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 Surgeries None recorded. Imaging MAMMO, screening, digital, bilateral 2018 [facility], [address], [address], [place], [address], 9 13:04:26 Medication Orders None recorded. Patient TargetsNo targets recorded. Patient Instructions Encounter Date Encounter Id Patient Instructions Last Modified By Organization Details Last Modified Time 05/25/2019 [id number] learning about high white blood cell counts Not available 05/25/2019 12:53:33 candidiasis: car e instructions Not available 05/25/2019 12:53:34 high blood pressure: care instructions [facility] Not available 05/25/2019 12:53:33 learning about high blood pressure Not available 05/25/2019 12:53:33 dash diet: care instructions 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 f or Type 2 diabetes mellitus without complication Referring Physician: Eduardo Barrios [facility], Encounter Date: 05/25/2019 Diabetic Ophthalmology Refer ral for Type 2 diabetes mellitus without complication Referring Physician: Eduardo Barrios [facility], Encounter Date: 05/25/2019 Diabetic Nutrition Education Referral for Type 2 diabetes mellitus without complication Referring Physician: Eduardo Barrios [facility], Encounter Date: 05/25/2019 Wellness Program Manager Referral for Type 2 diabetes mellitus without complication Referring Physician: Eduardo Barrios [facility], Encounter Date: 05/25/2019 Developmental Mathematics Professor Referral for Sc reening for malignant neoplasm of cervix Referring Physician: Eduardo Barrios [facility], Encounter Date: 05/25/2019 Results Created Date Observation Date Name Description Value Unit Range Abnormal Flag Note LastModifiedBy Organization Detail LastModifiedTime 05/25/2005/25/2019 CBC w/ auto diff white blood cell count 12.2 thous and/u L 3.5-10 .0 high Not Available [place] [address] [place], [address], 05/26/2019 07:52:34 05/25/2005/25/2019 CBC w/ auto diff red blood cell count 5.2 katie on/uL 3.5-5. 5 Not Available [address] [address] [place], [address], 05/26/2019 07:52:34 05/25/2005/25/2019 CBC w/ auto diff hemoglobin 15.8 g/dL 11.5-1 6.5 Not Available [address] [address] [place], [address], 05/26/2019 07:52:34 05/25/2005/25/2019 CBC w/ auto diff hematocrit 46 % 35-55 Not Available [address] [address] [place], [address], 05/26/2019 07:52:34 05/25/2005/25/2019 CBC w/ auto diff MCH 31 pg 25-35 Not Available [facility] [place] [address] Kathya [place]ung [place], [address], 05/26/2019 07:52:34 05/25/2005/25/2019 CBC w/ auto diff MCHC 34 g/dL 31-38 Not Available [facility] [address] [place] [address] Kath[place], [address], 05/26/2019 07:52:34 05/25/2005/25/2019 CBC w/ auto diff MCV 90 fL 75-100 Not Available [facility] [place] [address] Kathya [place], [address], 05/26/2019 07:52:34 05/25/2005/25/2019 CBC w/ auto diff RDW-CV 12 % 11-15 Not Available [facility] [place] [address] Kathya [place], [address], 05/26/2019 07:52:34 05/25/2005/25/2019 CBC w/ auto diff neutrophils% 59.8 % Not Available [facility] [place] [address] Kath[place], [address], 05/26/2019 07:52:34 05/25/2005/25/2019 CBC w/ auto diff lymphocytes% 30.4 % Not Available [facility] [place] [address] Kathya [place], [address], 05/26/2019 07:52:34 05/25/2005/25/2019 CBC w/ auto diff monocytes% 4.0 % Not Available [facility] [place] [address] [place], [address], 05/26/2019 07:52:34 05/25/2005/25/2019 CBC w/ auto diff eosinophil % 3.6 % 0.0-7. 0 Not Available [facility] [place] [address] Kath[place], [address], 05/26/2019 07:52:34 05/25/2005/25/2019 CBC w/ auto diff basophil % 0.8 % 0.0-3. 0 Not Available [address] [address] [place], [address], 05/26/2019 07:52:34 05/25/2005/25/2019 CBC w/ auto diff absolute neutrophils 7.3 cells /uL 1.5-7. 8 Not Available [address] [address] [place], [address], 05/26/2019 07:52:34 05/25/2005/25/2019 CBC w/ auto diff absolute lymphocytes 3.71 cells /uL 0.85-3 .90 Not Available [address] [address] [place], [address], 05/26/2019 07:52:34 05/25/2005/25/2019 CBC w/ auto diff absolute monocytes 0.5 cells /uL 0.2-1. 0 Not Available [address] [address] [place], [address], 05/26/2019 07:52:34 05/25/2005/25/2019 CBC w/ auto diff absolute eosinophils 0.4 cells /uL 0.0-0. 5 Not Available [address] [address] [place], [address], 05/26/2019 07:52:34 05/25/2005/25/2019 CBC w/ auto diff absolute basophils 0.1 cells /uL 0.0-0. 2 Not Available [facility] [address] [place] [address] [place], [address], 05/26/2019 07:52:34 05/25/2005/25/2019 CBC w/ auto diff platelet count 388 thous and/u L 100-40 0 Not Available [address] [address] [place], [address], 05/26/2019 07:52:34 05/25/20 19 05/25/2019 hemog lobin A1c, QN, blood HGBA1C 10.1 % 4.0-5. 6 high Testi ng Perfo rmed at: [facility] [address], [address] [place] [address] Phone : [phone] Fax: Not Available [address] [address] [place], [address], 05/26/2019 07:52:35 05/25/2005/25/2019 CMP, serum or plasm a glucose 302 mg/dL 74-99 high Not Available [address] [address] [place], [address], 05/26/2019 07:52:35 05/25/2005/25/2019 CMP, serum or plasm a urea nitrogen, blood (BUN) 10 mg/dL 6-20 Not Available [place] [address] Kath[place], [address], 05/26/2019 07:52:35 05/25/2005/25/2019 CMP, serum or plasm a total bilirubin 0.3 mg/dL 0.0-1. 2 Not Available [address] [address] [place], [address], 05/26/2019 07:52:35 05/25/2005/25/2019 CMP, serum or plasm a total protein 6.7 g/dL 6.6-8. 7 Not Available [address] [place] [address] [place], [address], 05/26/2019 07:52:35 05/25/2005/25/2019 CMP, serum or plasm a alanine aminotransfe rase (ALT) 17 U/L 0-33 Not Available [address] [place] [address] [place], [address], 05/26/2019 07:52:35 05/25/2005/25/2019 CMP, serum or plasm a alkaline phosphatase 126 U/L 40-130 Not Available [facility] [place] [address] [place], [address], 05/26/2019 07:52:35 05/25/2005/25/2019 CMP, serum or plasm a aspartate aminotransfe rase (AST) 11 U/L 0-32 Not Available [place] [address] [place], [address], 05/26/2019 07:52:35 05/25/2005/25/2019 CMP, serum or plasm a calcium 9.8 mg/dL 8.6-10 .2 Not Available [facility] [place] [address] [place], [address], 05/26/2019 07:52:35 05/25/2005/25/2019 CMP, serum or plasm a albumin 4.2 g/dL 3.5-5. 2 Not Available [facility] [place] [address] [place], [address], 05/26/2019 07:52:35 05/25/2005/25/2019 CMP, serum or plasm a CO2 25 mmol/ L 22-29 Not Available [facility] [place] [address] [place], [address], 05/26/2019 07:52:35 05/25/2005/25/2019 CMP, serum or plasm a creatinine, serum 0.4 mg/dL 0.5-0. 9 low Not Available [facility] [place] [address] [place], [address], 05/26/2019 07:52:35 05/25/2005/25/2019 CMP, serum or plasm a sodium, serum 135 mmol/ L 136-14 5 low Not Available [facility] [place] [address] [place], [address], 05/26/2019 07:52:35 05/25/2005/25/2019 CMP, serum or plasm a potassium, serum 4.2 mmol/ L 3.5-5. 1 Not Available [facility] [place] [address] [place], [address], 05/26/2019 07:52:35 05/25/2005/25/2019 CMP, serum or plasm a chloride, serum 96 mmol/ L 98-107 low Not Available [facility] [place] [address] Kathya [place], [address], 05/26/2019 07:52:35 05/25/2005/25/2019 CMP, serum or plasm [...] www.k doqi. org. Not Available [facility] [place] [address] Kathya [place], [address], 05/26/2019 07:52:35 05/25/2005/25/2019 LDL, direc t, serum dldl 100 mg/dL 0-100 Not Available [facility] [place] [address] Kathya [place], [address], 05/26/2019 07:52:36 05/25/2005/25/2019 T3, free, serum or plasm a FT3 2.9 pg/mL 1.5-4. 1 Not Available [facility] [place] [address] [place], [address], 05/26/2019 07:52:36 05/25/2005/25/2019 T4, free, serum FT4 1.17 NG/dL 0.93-1 .70 Not Available [facility] [place] [address] [place], [address], 05/26/2019 07:52:37 05/25/2005/25/2019 lipid panel , serum trigylceride s 935 mg/dL 0-150 high Not Available [place] [address] [place], [address], 05/26/2019 07:52:37 05/25/2005/25/2019 lipid panel , serum cholesterol 226 mg/dL 0-200 high Not Available [place] [address] [place], [address], 05/26/2019 07:52:37 05/25/2005/25/2019 lipid panel , serum uhdl 26 mg/dL 45-65 low Not Available [place] [address] [place], [address], 05/26/2019 07:52:37 05/25/2005/25/2019 lipid panel , serum LDL, calculated 13 mg/dL 0-100 Not Available [place] [address] Kathya Yung, [place], [address], 05/26/2019 07:52:37 05/25/2005/25/2019 lipid panel , serum LDL/HDL ratio 1 mg/dL 0-5 Not Available [place] [address] Kathya Yung, [place], [address], 05/26/2019 07:52:37 05/25/2005/25/2019 lipid panel , serum VLDL 187.0 mg/dL 5.0-40 .0 high Not Available [place] [address] [place], [address], 05/26/2019 07:52:37 05/25/2005/25/2019 lipid panel , serum cholesterol/ HDL ratio 8.69 0.00-5 .00 high Not Available [place] [address] [place], [address], 05/26/2019 07:52:37 05/25/2005/25/2019 TSH, serum or plasm a TSH 1.22 ??IU/ mL 0.27-4 .20 Testi ng Perfo rmed at: [facility] [address], [address] [place] [address] Phone : [phone] Fax: Not Available [place] [address] [place], [address], 05/26/2019 07:52:37 05/25/20 19 05/25/2019 micro album in/cr eatin ine, mass ratio , urine urine microalbumin 26 mg/L 0-30 Not Available [place] [address] Kathya [place], [address], 05/26/2019 07:52:38 05/25/20 19 05/25/2019 micro album in/cr eatin ine, mass ratio , urine urine creatinine 57.47 Not Available [place] [address] [place], [address], 05/26/2019 07:52:38 05/25/20 19 05/25/2019 micro album in/cr eatin ine, mass ratio , urine urine microalbumin /creatinine ratio 45 mg/g_ creat inine 0-30 high Not Available [place] [address] [place], [address], 05/26/2019 07:52:38 06/20/20 19 06/20/2019 BMP, serum or plasm a glucose 343 mg/dL 74-99 high Not Available [place] [address] [place], [address], 06/21/2019 09:26:36 06/20/2006/20/2019 BMP, serum or plasm a urea nitrogen, blood (BUN) 7 mg/dL 6-20 Not Available [place] [address] [place], [address], 06/21/2019 09:26:36 06/20/20 19 06/20/2019 BMP, serum or plasm a calcium 9.6 mg/dL 8.6-10 .2 Not Available [place] [address] [place], [address], 06/21/2019 09:26:36 06/20/2006/20/2019 BMP, serum or plasm a CO2 27 mmol/ L 22-29 Not Available [place] [address] [place], [address], 06/21/2019 09:26:36 06/20/2006/20/2019 BMP, serum or plasm a creatinine, serum 0.5 mg/dL 0.5-0. 9 Not Available [place] [address] [place], [address], 06/21/2019 09:26:36 06/20/2006/20/2019 BMP, serum or plasm a sodium, serum 137 mmol/ L 136-14 5 Not Available [place] [address] [place], [address], 06/21/2019 09:26:36 06/20/2006/20/2019 BMP, serum or plasm a potassium, serum 4.3 mmol/ L 3.5-5. 1 Not Available [address] [place], [address], 06/21/2019 09:26:36 06/20/2006/20/2019 BMP, serum or plasm a chloride, serum 98 mmol/ L 98-107 Not Available [address] [place], [address], 06/21/2019 09:26:36 06/20/2006/20/2019 BMP, serum or plasm [...] doqi. org. Not Available [facility] [place] [address] [place], [address], 06/21/2019 09:26:36 09/14/2009/14/2019 CMP, serum or plasm a glucose 336 mg/dL 74-99 high Not Available [facility] [place] [address] [place], [address], 09/15/2019 14:49:54 09/14/2009/14/2019 CMP, serum or plasm a urea nitrogen, blood (BUN) 7 mg/dL 6-20 Not Available [facility] [place] [address] [place], [address], 09/15/2019 14:49:54 09/14/2009/14/2019 CMP, serum or plasm a total bilirubin 0.7 mg/dL 0.0-1. 2 Not Available [facility] [place] [address] [place], [address], 09/15/2019 14:49:54 09/14/2009/14/2019 CMP, serum or plasm a total protein 6.7 g/dL 6.6-8. 7 Not Available [facility] [place] [address] [place], [address], 09/15/2019 14:49:54 09/14/2009/14/2019 CMP, serum or plasm a alanine aminotransfe rase (ALT) 14 U/L 0-33 Not Available [facility] [place] [address] [place], [address], 09/15/2019 14:49:54 09/14/2009/14/2019 CMP, serum or plasm a alkaline phosphatase 127 U/L 40-130 Not Available [facility] [place] [address] [place], [address], 09/15/2019 14:49:54 09/14/2009/14/2019 CMP, serum or plasm a aspartate aminotransfe rase (AST) 12 U/L 0-32 Not Available [facility] [place] [address] [place], [address], 09/15/2019 14:49:54 09/14/2009/14/2019 CMP, serum or plasm a calcium 9.5 mg/dL 8.6-10 .2 Not Available [facility] [place] [address] [place], [address], 09/15/2019 14:49:54 09/14/2009/14/2019 CMP, serum or plasm a albumin 4.5 g/dL 3.5-5. 2 Not Available [facility] [place] [address] [place], [address], 09/15/2019 14:49:54 09/14/2009/14/2019 CMP, serum or plasm a CO2 25 mmol/ L 22-29 Not Available [facility] [place] [address] [place], [address], 09/15/2019 14:49:54 09/14/2009/14/2019 CMP, serum or plasm a creatinine, serum 0.4 mg/dL 0.5-0. 9 low Not Available [facility] [place] [address] [place], [address], 09/15/2019 14:49:54 09/14/2009/14/2019 CMP, serum or plasm a sodium, serum 134 mmol/ L 136-14 5 low Not Available [facility] [place] [address] [place], [address], 09/15/2019 14:49:54 09/14/2009/14/2019 CMP, serum or plasm a potassium, serum 4.2 mmol/ L 3.5-5. 1 Not Available [facility] [place] [address] [place], [address], 09/15/2019 14:49:54 09/14/2009/14/2019 CMP, serum or plasm a chloride, serum 95 mmol/ L 98-107 low Not Available [facility] [place] [address] Kathya [place], [address], 09/15/2019 14:49:54 09/14/2009/14/2019 CMP, serum or plasm [...] www.k doqi. org. Not Available [facility] [place] [address] [place], [address], 09/15/2019 14:49:54 09/14/2009/14/2019 CK (crea aureliano kinas e), total , serum creatine kinase 24 U/L 0-170 Not Available [facility] [place] [address] [place], [address], 09/15/2019 14:49:54 09/14/2009/14/2019 LDL, direc t, serum dldl 95 mg/dL 0-100 Not Available [facility] [place] [address] [place], [address], 09/15/2019 14:49:55 09/14/2009/14/2019 lipid panel , serum trigylceride s 411 mg/dL 0-150 high Not Available [facility] [place] [address] [place], [address], 09/15/2019 14:49:55 09/14/2009/14/2019 lipid panel , serum cholesterol 176 mg/dL 0-200 Not Available [facility] [place] [address] [place], [address], 09/15/2019 14:49:55 09/14/20 09/14/2019 lipid panel , serum uhdl 30 mg/dL 45-65 low Not Available [place] [address] [place], [address], 09/15/2019 14:49:55 09/14/20 19 09/14/2019 lipid panel , serum LDL, calculated 64 mg/dL 0-100 Not Available [place] [address] [place], [address], 09/15/2019 14:49:55 09/14/20 19 09/14/2019 lipid panel , serum LDL/HDL ratio 2 mg/dL 0-5 Not Available [place] [address] [place], [address], 09/15/2019 14:49:55 09/14/20 19 09/14/2019 lipid panel , serum VLDL 82.2 mg/dL 5.0-40 .0 high Not Available [place] [address] [place], [address], 09/15/2019 14:49:55 09/14/20 19 09/14/2019 lipid panel , serum cholesterol/ HDL ratio 5.87 0.00-5 .00 high Testi ng Perfo rmed at: [facility] [address], [address] [place] [address] Phone : [phone] Fax: Not Available [place] [address] [place], [address], 09/15/2019 14:49:55 09/14/2009/14/2019 hemog lobin A1c, QN, blood HGBA1C 9.5 % 4.0-5. 6 high Not Available [place] [address] [place], [address], 09/15/2019 14:49:55 09/14/2009/14/2019 urina lysis , dipst ick urine color Yellow yellow Not Available [place] [id number] [place], [address], 09/19/2019 09:19:48 09/14/20 19 09/14/2019 urina lysis , dipst ick urine clarity Cloudy clear abnormal Not Available [facility] [place] [address] [place], [place], [address], 09/19/2019 09:19:48 09/14/2009/14/2019 urina lysis , dipst ick urine glucose 2+ negati ve abnormal Not Available [facility] [place] [address] [place], [address], 09/19/2019 09:19:48 09/14/2009/14/2019 urina lysis , dipst ick urine bilirubin Negati ve negati ve Not Available [facility] [place] [address] Kathya [place], [address], 09/19/2019 09:19:48 09/14/2009/14/2019 urina lysis , dipst ick urine ketones Negati ve negati ve Not Available [facility] [place] [address] [place], [address], 09/19/2019 09:19:48 09/14/2009/14/2019 urina lysis , dipst ick urine specific gravity 1.020 1.005- 1.030 Not Available [facility] [place] [address] [address], [address], 09/19/2019 09:19:48 09/14/2009/14/2019 urina lysis , dipst ick urine blood 3+ negati ve abnormal Not Available [facility] [place] [address] [address], [address], 09/19/2019 09:19:48 09/14/2009/14/2019 urina lysis , dipst ick urine pH 5.0 5.0-7. 0 Not Available [facility] [place] [address] [address]ya [place], [address], 09/19/2019 09:19:48 09/14/20 19 09/14/2019 urina lysis , dipst ick urine protein 2+ negati ve abnormal Not Available [place] [address] [address], [address], 09/19/2019 09:19:48 09/14/20 19 09/14/2019 urina lysis , dipst ick urine urobilinogen 0.2 E.U./d L E.U./ dL 0.2-1 Not Available [place] [address] [place], [address], 09/19/2019 09:19:48 09/14/2009/14/2019 urina lysis , dipst ick urine nitrite Negati ve negati ve Not Available [address] [place], [address], 09/19/2019 09:19:48 09/14/2009/14/2019 urina lysis , dipst ick urine leukocyte esterase 1+ negati ve abnormal Testi ng Perfo rmed at: [facility], [address], [address] [place] [address] Phone : Fax: Not Available [place] [address] [place], [address], 09/19/2019 09:19:48 09/14/2009/14/2019 cultu re, urine C [...] Labor atory [address] [facility] [address] Labor atory Dire tor: Austin Barriga M.D. CLIA# [id number] Testi ng Perfo rmed at: [facility] [address], [address] [facility] [place] [address] Phone : Fax: Not Available [place] [address] [place], [address], 09/19/2019 09:19:48 09/14/20 19 09/14/2019 urina lysis , micro scopi c urine white cells TNTC 0 - 5 /hpf abnormal Not Available [place] [address] [place], [address], 09/19/2019 09:19:48 09/14/20 19 09/14/2019 urina lysis , micro scopi c urine red cells > 30 /hpf 0 - 3 /hpf abnormal Not Available [place] [address] [place], [address], 09/19/2019 09:19:48 09/14/20 19 09/14/2019 urina lysis , micro scopi c urine epithelial 1 - 10 / lpf 1 - 10 / lpf Not Available [place] [address] [place], [address], 09/19/2019 09:19:48 09/14/20 19 09/14/2019 urina lysis , micro scopi c urine bacteria Modera te none seen/f ew abnormal Not Available [place] [address] Kh[place], [address], 09/19/2019 09:19:48 09/14/20 19 09/14/2019 urina lysis , micro scopi c urine comments (other) Cultur e Indica kailey Not Available [facility] [place] [address] Kh[place], [address], 09/19/2019 09:19:48 05/13/20 21 05/13/2021 URINA LYSIS , ROUTI NE urine color Yellow yellow Not Available [facility] [place] [address] [place], [address], 05/14/2021 15:16:54 05/13/20 21 05/13/2021 URINA LYSIS , ROUTI NE urine clarity Clear clear Not Available [facility] [place] [address] [place], [address], 05/14/2021 15:16:54 05/13/20 21 05/13/2021 URINA LYSIS , ROUTI NE urine glucose 2+ negati ve abnormal Not Available [place] [address] [place], [address], 05/14/2021 15:16:54 05/13/20 21 05/13/2021 URINA LYSIS , ROUTI NE urine bilirubin Negati ve negati ve Not Available [facility] [place] [address] [place], [address], 05/14/2021 15:16:54 05/13/20 21 05/13/2021 URINA LYSIS , ROUTI NE urine ketones Negati ve negati ve Not Available [facility] [place] [address] Marielle [place], [address], 05/14/2021 15:16:54 05/13/20 21 05/13/2021 URINA LYSIS , ROUTI NE urine specific gravity 1.010 1.005- 1.030 Not Available [place] [address] [place], [address], 05/14/2021 15:16:54 05/13/20 21 05/13/2021 URINA LYSIS , ROUTI NE urine blood 2+ negati ve abnormal Not Available [place] [address] [place], [address], 05/14/2021 15:16:54 05/13/20 21 05/13/2021 URINA LYSIS , ROUTI NE urine pH 5.0 5.0-7. 0 Not Available [place] [address] Marielle [place], [address], 05/14/2021 15:16:54 05/13/20 21 05/13/2021 URINA LYSIS , ROUTI NE urine protein Negati ve negati ve Not Available [place] [address] Kh[place], [address], 05/14/2021 15:16:54 05/13/20 21 05/13/2021 URINA LYSIS , ROUTI NE urine urobilinogen 0.2 E.U./d L E.U./ dL 0.2-1 Not Available [place] [address] [address], [address], 05/14/2021 15:16:54 05/13/20 21 05/13/2021 URINA LYSIS , ROUTI NE urine nitrite Negati ve negati ve Not Available [place] [address] [place], [address], 05/14/2021 15:16:54 05/13/20 21 05/13/2021 URINA LYSIS , ROUTI NE urine leukocyte esterase Negati ve negati ve Testi ng [facility] at: [facility] [address], [address] [place] [address] Phone : Fax: Not Available [facility] [place] [address] [place], [address], 05/14/2021 15:16:54 05/13/20 21 05/13/2021 URINE MICRO SCOPI C urine white cells 0 - 5 /hpf 0 - 5 /hpf Not Available [facility] [place] [address] [place], [address], 05/14/2021 15:16:55 05/13/20 21 05/13/2021 URINE MICRO SCOPI C urine red cells 11 - 30 /hpf 0 - 3 /hpf abnormal Not Available [facility] [place] [address] [place], [address], 05/14/2021 15:16:55 07/03/20 21 07/03/2021 evelin metry testi ng* Spirometry Not Available [facility], [facility] [address] [facility] [address], [place], [address], 07/03/2021 14:51:11 10/29/20 21 10/29/2021 SARS- COV-2 [...] or treat ment decis ion. Not Available [address], [address], 11/05/2021 11:16:17 11/22/19 22 11/22/2021 SARS- COV-2 [...] or treat ment decis ion. Not Available [address] [place], [address], 11/23/2021 17:10:27 05/24/20 19 07/24/2017 MAMMO , mohanjess melany, bilat eral No observ ation record ed. [facility] [address] [facility] [address], [place], [address], 05/25/2019 11:49:59 07/18/20 19 07/18/2019 CT, brain , w/o contr ast No observ ation record ed. [facility] [address], [place], [address], 07/18/2019 19:58:55 02/08/20 20 02/08/2020 elect alyx fofana am No observ ation record ed. jbuske Not Available 2019 09:05:58 03/01/20 20 02/21/2020 DEXA No observ ation record ed. Not Available 2019 10:07:52 03/01/20 20 exerc ise stres s test No observ ation record ed. [facility] (Cardiology & Emg) [address], [place], [address], 03/01/2020 10:15:42 Result Notes None recorded. Problems Name Problem SNOMED Code Status Onset Date Resolution Date Notes Provider Name and Address Organization Details Recorded Time Esophagi tis 99014324 Active 2016 determine d by endoscopy at 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 2016 Eduardo Barrios MD [address], [place], [address], [facility] 9 14:13:51 Gastric polyp 48928713 Active 2018 Eduardo Barrios MD [address], [place], [address], [facility] 9 14:14:01 Coronary arterios clerosis 20132639 Active 2018 Eduardo Barrios MD [address], [place], [address], [facility] 9 14:14:12 Type 2 diabetes mellitus 00133956 Completed 201805/29/2019 Removal Reason: -- duplicate Eduardo Barrios MD [address], [place], [address], [facility] 9 23:34:42 Steatosi s of liver 657819558 Active 2018 Eduardo Barrios MD [address], [place], [address], [facility] 9 14:14:38 Kidney disease 23209850 Active 2016 per discharge notes from 2017, possible contrast induced nephropat hy, but no clinical finding Eduardo Barrios MD [address], [place], [address], [facility] 9 14:15:37 Decompre ssion of median nerve Completed 201805/24/2019 Eduardo Barrios MD [address], [place], [address], [facility] 9 14:19:37 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 478744774 Active [address] Maty Barrios MD [address], [place], [address], [facility] 9 14:20:11 Gastroes ophageal reflux disease without esophagi tis 257572812 Active 2018 Eduardo Barrios MD [address], [place], [address], [facility] 9 14:20:21 Hyperlip idemia 99734538 Completed 201805/29/2019 Removal Reason: duplicate Eduardo Barrios MD [address], [place], [address], [facility] 9 23:28:48 Type 2 diabetes mellitus without complica tion 131395890 Completed 201805/29/2019 8 HbA1C was 11.1 Removal Reason: -- changed to plain Type 2 DM Eduardo Barrios MD [address], [place], [address], [facility] 9 23:34:35 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 Eduardo Barrios MD [address], [place], [address], [facility] 9 23:28:31 Hyperlip idemia 69038593 Active 2018 Eduardo Barrios MD [address], [place], [address], [facility] 9 23:28:48 Type 2 diabetes mellitus 58141621 Active 2018 Eduardo Barrios MD [address], [place], [address], [facility] 9 23:34:09 Type 2 diabetes mellitus 39383864 Active 2018 Eduardo Barrios MD [address], [place], [address], [facility] 9 23:34:42 Acute urinary tract infectio n 260267153 Active 2018 Holly Aguilar [facility] 9 15:56:27 Problem Notes None recorded. Procedures Surgical History Date Name Laterality Status Provider Name and Address Organization Details Recorded Time 11/02/19 17 Date of Last Pap Smear completed January [facility] 05/25/2019 12:19:04 09/04/20 16 balloon kyphoplasty of fracture of spine completed January [facility] 05/25/2019 12:18:15 01/24/20 04 Appendectomy completed Eduardo Barrios MD [address], [place], [address], [facility] 05/24/2019 14:07:29 02/23/19 94 section completed Eduardo Barrios MD [address], [place], [address], [facility] 05/24/2019 14:07:15 Fistula repair & colostomy completed Eduardo Barrios MD [address], [place], [address], [facility] 05/25/2019 12:47:56 Imaging Results Imaging Date Name Status LastModified by Organization Details LastModified Time 07/24/2017 MAMMO, screening, bilateral completed [address] [facility] [address], [place], [address], 05/25/2019 11:49:59 07/18/2019 CT, brain, w/o contrast completed [facility] [address], [place], [address], 07/18/2019 19:58:55 02/08/2020 electrocardiogram completed felicita Informa tion not available 02/08/2020 09:05:58 02/21/2020 DEXA completed Information no t available 03/01/2020 10:07:52 03/01/2020 exercise stress test completed [facility] (Cardiology & Emg) [address], [place], [address], 03/01/2020 10:15:42 Procedure Notes None recorded. Medical Equipment None Reported. Allergies Allergen ID Allergen Name Allergen Category Reaction Reaction Severity Criticality Documentation Date Start Date Code Code System Note Provider Name and Address Organization Details Recorded Time 8231 adhesive environme nt,medica tion rash Not available Not available 05/25/2019 16189 UNK Not Available Not Available Not Available [...] /min 83 /min 170.18 cm 32.9 kg/m2 87707.4 g 150 mm[Hg] 89 mm[Hg] Holly Aguilar [facility] 9 11:50:59 Date Recorded Heart rate Systolic blood pressure Diastolic blood pressure Provider Name and Address Organization Details Last Updated DateTime 05/26/2019 91 /min 137 mm[Hg] 97 mm[Hg] Holly Aguilar [facility] 05/26/2019 16:44:50 Date Recorded Heart rate Systolic blood pressure Diastolic blood pressure Provider Name and Address Organization Details Last Updated DateTime 07/11/2019 110 /min 119 mm[Hg] 73 mm[Hg] Holly Aguilar [facility] 07/11/2019 17:26:19 Date Recorded Heart rate Systolic blood pressure Diastolic blood pressure Provider Name and Address Organization Details Last Updated DateTime 07/13/2019 90 /min 125 mm[Hg] 82 mm[Hg] Holly Aguilar [facility] 07/13/2019 09:51:44 Date Recorded Body height Body mass index (BMI) Body weight Provider Name and Address Organization Details Last Updated DateTime 07/03/2021 170.18 cm 32 kg/m2 64253.84 g Harmony Bunch [facility] 07/03/2021 14:53:55 Social History Question Answer Notes LastModified by Organizat ion Details LastModified Time Tobacco Smoking Status Never Smoker Holly Aguilar [facility] 05/25/2019 11:54:27 Do You Have An [...] 12:42:11 Mother Myocardial infarction 45 -- w/ VT & CABG x 4V Not available 05/25/2019 12:40:05 Maternal Grandfather Myocardial infarction 35 35 -- dx'd at 35 y/o Not available 05/25/2019 12:40:35 Maternal Uncle Myocardial infarction -- 2 uncles w/ VT at 48 y/o & 46 y/o Not [...] SNOMED-CT Code Diagnosis ICD10 Code Diagnosis Note [id number] Eduardo Barrios MD [employer] [address] [place] [address] 05/25/2019 11:14:15 05/25/2019 13:04:24 Type 2 diabetes mellitus without complication 523190704 E11.9 (dx'd around 33 y/o) -- last A1c was 11.1 (around May 2018) but due to lack of insurance, have not been on lantus since May 2017-- currently following w/ [facility] [place] Cand[place] vulvovaginitis 02782843 B37.3 Benign ess ential hypertension 7252601 I10 Body mass index 30+ - obesity 876487750 Z68.32 -- advised weight loss-- pt's BMI today is 32.9 (ideal is between 20-29) Active or passive immunization 316612737 Z23 Screening for malignant neoplasm of breast 427107572 Z12.31 Screening for malignant neoplasm of cervix 001837650 Z12.4 Leukocytosis 434072417 D 72.829 (chronic; evaluated by Hematologi st [...] equivalent symptoms/visual changes Eduardo Barrios MD [address] [facility] [address], [place], [address], [place] [facility] 05/25/2019 12:59:22 OBGyn Episode Ob Episode Information Episode Created Date Number of Fetuses Patient Bloodtype Patient rh Status Prepregnancy Weight lbs Domestic Partner Domestic Partner Phone Father Name Hl7 Interface Developer Status 05/25/20 19 1 CLOSED Fetus Data [...]
--- OUTSIDE RECORDS SUMMARY | 2025-02-22 07:23 | XMS_ITS | CONTINUITY OF CARE DOCUMENT ---
Author Name hunter aevmelinda Address Unknown Organization [facility] Address [address] [place] [address] [address] [place] [address] Phone [phone] Care Team Providers Care Event Sales Representative Name Role Phone Mason GARCIA, Trang Unavailable [phone] JIM GALVIN Unavailable JIM GALVIN Unavailable INSURANCE PROVIDERS Payer name Policy type / Coverage type [place] red libertarian ID [facility] [id number]
== END 2025-02-22 07:19 | disposition home or self-care (01) ==
LOC: ANHLAB 07:20
PROVIDERS: PCP Family Medicine; Visit Provider Internal Medicine Endocrinology, Diabetes & Metabolism
DX: E13.9 Other specified diabetes mellitus without complications (principal)
CPT/HCPCS: 36415; 86341

== ENCOUNTER 2025-05-12 15:24 | Outpatient (CLI) | payer OTHER, SELFPAY ==
--- NOTE | ~2025-05-12 | MM_ITS ---
EXAMINATION: MM screening saritha BI w desean HISTORY: Screening TECHNIQUE: Craniocaudal and mediolateral oblique 3-D tomosynthesis images were obtained and synthetic 2-D images were generated. CAD analysis was submitted and interpreted. COMPARISON: Comparison to multiple prior studies sequentially, with oldest reviewed study dated 07/24. BREAST PARENCHYMAL COMPOSITION: Dense: The breasts are heterogeneously dense, which may obscure small masses FINDINGS: There are new asymmetries in the outer central aspect of the right breast, middle third. Th e left breast is stable without evidence for malignancy. IMPRESSION: 1. New right breast asymmetries. 2. Additional mammographic views and possible breast ultrasound are recommended. BI-RADS Category 0: Incomplete: Needs additional imaging evaluation. Reviewed, dictated and finalized at location [] IMPRESSION: 1. New right breast asymmetries. 2. Additional mammographic views and possible breast ultrasound are recommended . BI-RADS Category 0: Incomplete: Needs additional imaging evaluation.
--- OUTSIDE RECORDS SUMMARY | 2025-05-12 15:28 | XMS_ITS | Encounter Summary ---
Author Organization [facility] Address [address] [place] [address] Care Team Providers Care Pile Driving Nozzleman Name Role Phone Maty Edmondson MD Primary Care Provider [phone] Moris Linares MD Primary Care Provider [phone] Encounter Details Date Type Department Care Team (Late st Contact Info) Description 12/07/2020 Hospital Follow-up Call [facility] [place] [address] Val Mathis RN Social History Tobacco Use Types Packs/Day Years Used Date Smoking Tobacco: Every Day Cigarettes Alcohol Use Standard Drinks/Week Comments Not Currently 0 (1 standard drink = 0.6 oz pur e alcohol) Comments Unknown Sex and Gender Information Value Date Recorded Sex Assigned at Not on file Legal Sex Female 12:44 PM BOTTOM FILLER Gender Identity Not on file Sexual Orientation Not on file COVID-19 Exposure Response Date Recorded In the last month, have you been in contact with someone who was confirmed or suspected to have Coronavirus / COVID-19? Yes 11/27/2020 6:53 PM BOTTOM FILLER documented as of this encounter Functional Status * RETIRED Are you deaf or do you have serious difficulty hearing Answer Date of Assessment Author Status No 11/28/2020 2:32 AM BOTTOM FILLER Activ e * RETIRED Are you blind or do you have serious difficulty seeing, even when wearing glasses? Answer Date of Assessment Author Status No 11/28/2020 2:32 AM BOTTOM FILLER Activ e * Do you have serious difficulty walking or climbing stairs? Answer Date of Assessment Author Status No 11/28/2020 2:32 AM Jazmine Somers R N Active * Do you have difficulty dressing or bathing? Answer Date of Assessment Author Status No 11/28/2020 2:32 AM BOTTOM FILLER Jazmine Kang R N Active * Because of a physical, mental, or emotional condition, do you have difficulty doing errands alone such as visiting a doctor's office or shopping? Answer Date of Assessment Author Status No 11/28/2020 2:32 AM BOTTOM FILLER Jazmine Kang R N Active documented as [...] Time COVID-19 Confirmed 11/23/2020 11/27/2020 12:34 AM BOTTOM FILLER documented as of this encounter Care Teams Pile Driving Nozzleman Relationship Specialty Start Date End Date Maty Edmondson MD [facility] [address] [address] PCP - General FAMILY PRACTICE 11/27/20 02/27/22 Moris Linares MD [facility] [address] [address] PCP - General INTERNAL MEDICINE 02/28/22 documented as of this encounter
--- OUTSIDE RECORDS SUMMARY | 2025-05-12 15:28 | XMS_ITS | Clinical Summary ---
Author Organization [facility] Address [address] [place] [address] Care Team Providers Care Manager Rfid Name Role Phone Chase Alva MD Primary Care Provider [phone] Bill Mcgregor DO Unavailable [phone] Allergies Active Allergy Reactions Criticality Noted Date [...] Insurance MEDICAID [employer] Care Teams Manager Rfid Relationship Specialty Start Date End Date Chase Alva MD [address] [facility] [address] [place] [address] PCP - General Internal Medicine 10/22/17 Bill Mcgregor DO [address] [address] Consulting Physician Gastroenterology 02/25/18
--- OUTSIDE RECORDS SUMMARY | 2025-05-12 15:28 | XMS_ITS | Clinical Summary ---
Author Organization [facility] Address [address] [place] [address] Care Team Providers Care Field Radio Operator Name Role Phone Moris Linares MD Primary Care Provider Allergies Active Allergy [...] Gluc Sensor (FREESTYLE FRAN 14 DAY SENSOR) [facility] FreeStyle Fran 14 Day Sensor kit USE [...] virus 11/28/2020 Acute respiratory failure with hypoxia ([facility]) 11/27/2020 Social History Tobacco Use Types Packs/Day Years Used Date Smoking Tobacco: Never Cigarettes Smokeless Tobacco: Never Alcohol Use Standard Drinks/Week Comments Not Currently 0 (1 standard drink = 0.6 oz pur e alcohol) Comments Unknown Sex and Gender Information Value Date Recorded Sex Assigned at Not on file Legal Sex Female 12:44 PM GUIDEMAN Gender Identity Not on file Sexual Orientation [...] 1:29 PM CDT Height 170.2 cm (5' 7) 02/14/2022 1:29 PM CDT Body Mass Index [...] 9:44 PM 12/02/2020 6:14 PM Care Teams Field Radio Operator Relationship Specialty Start Date End Date Moris Linares MD [address] [facility] [place] [address] PCP - General INTERNAL MEDICINE 02/28/22
== END 2025-05-12 15:25 | disposition home or self-care (01) ==
LOC: ANHIMG 15:27
PROVIDERS: PCP Family Medicine; Visit Provider Nurse Practitioner Family
DX: Z12.31 Encounter for screening mammogram for malignant neoplasm of breast (principal); R92.8 Other abnormal and inconclusive findings on diagnostic imaging of breast
CPT/HCPCS: 77063; 77067

== ENCOUNTER 2025-06-02 10:20 | Outpatient (CLI) | payer OTHER, SELFPAY ==
--- NOTE | ~2025-06-02 | MMUS_ITS ---
EXAMINATION: US breast RT complete, MM diagnostic saritha RT w desean HISTORY: Right breast asymmetries TECHNIQUE: Additional 3-D tomosynthesis images of the right breast were performed and synthetic 2-D i mages were generated. CAD analysis was submitted and interpreted. High resolution complete right debbie st ultrasound was performed. COMPARISON: Comparison to multiple prior studies sequentially, with oldest reviewed study dated 06/30. BREAST PARENCHYMAL COMPOSITION: Dense: The breasts are heterogeneously dense, which may obscure small masses FINDINGS: MAMMOGRAPHIC FINDINGS: There are no suspicious masses, calcifications or architectural distortion in the right breast to sug gest malignancy. ULTRASOUND: Complete US of all 4 quadrants of the right breast/s and retroareolar region was reviewed. Normal het erogeneous echotexture without focal solid or cystic mass. IMPRESSION: 1. No evidence for malignancy in the right breast. 2. Routine yearly screening mammogram and regular clinical breast examination are recommended. BI-RADS Category 1: Negative Reviewed, dictated and finalized at location B. IMPRESSION: 1. No evidence for malignancy in the right breast. 2. Routine yearly screening mammogram and regular clinical breast examination a re recommended. BI-RADS Category 1: Negative
--- OUTSIDE RECORDS SUMMARY | 2025-06-02 10:22 | XMS_ITS | Clinical Summary ---
Author Organization [facility] Address [address] [place] [address] Care Team Providers Care Modular Set Crew Member Name Role Phone Chase Alva MD Primary Care Provider [phone] Bill Mcgregor DO Unavailable [phone] Allergies Active Allergy Reactions Criticality Noted [...] Cervical Cancer Screening (CCS) 2001 HPV/Cotest 2001 Cologuard 2016 Colonoscopy 2016 Colorectal Cancer Screening 2016 Immunochemical Fecal Occult Blood 2016 Pneumococcal Immunization (5 0+ years) (1 of 1 - PCV) 2021 Zoster Immunization (1 of 2) 2021 SARS-COV-2 Immunization (4 - season) 2024 05/18/2023, 04/26/2021, 03/29/2021 Influenza Immunization (#1) 2025 Respiratory Syncytial Virus (RSV) Immunization (Adult) (1 - 1-dose 75+ series) 2046 Human Papillomavirus (HPV) Immunization Aged Out No longer eligible b ased on patient's age to complete this topic Meningococcal Immunization (ACWY) Aged Out No longer eligible b ased on patient's age to complete this topic Rotavirus Immunization Aged Out No lo nger eligible based on patient's age to complete this topic Insurance MEDICAID [employer] Care Teams Modular Set Crew Member Relationship Specialty Start Date End Date Chase Alva MD [address] [place] [address] PCP - General Internal Medicine 10/22/17 Bill Mcgregor DO [address] [address] Consulting Physician Gastroenterology 02/25/18
--- OUTSIDE RECORDS SUMMARY | 2025-06-02 10:22 | XMS_ITS | Clinical Summary ---
Author Organization [facility] Address [address] [place] [address] Care Team Providers Care Order Fulfillment Specialist Name Role Phone Moris Linares MD [...] Gluc Sensor (FREESTYLE FRAN 14 DAY SENSOR) [facility] FreeStyle Fran 14 Day Sensor kit USE WITH FREESTYLE RFAN. 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
--- OUTSIDE RECORDS SUMMARY | 2025-06-02 10:22 | XMS_ITS | Encounter Summary ---
Author Organization [facility] Address [address] [place] [address] Care Team Providers Care Solar Sales Associate Name Role Phone Maty Edmondson MD Primary Care Provider [phone] Moris Linares MD Primary Care Provider [phone] Encounter Details Date Type Department Care Team (Late st Contact Info) Description 12/07/2020 Hospital Follow-up Call [facility] [place] [address] Val Mathis RN Social History Tobacco Use Types Packs/Day Years Used Date Smoking Tobacco: Every Day Cigarettes Alcohol Use Standard Drinks/Week Comments Not Currently 0 (1 standard drink = 0.6 oz pur e alcohol) Comments Unknown Sex and Gender Information Value Date Recorded Sex Assigned at Not on file Legal Sex Female 12:44 PM COMPLAINT ANALYST Gender Identity Not on file Sexual Orientation Not on file COVID-19 Exposure Response Date Recorded In the last month, have you been in contact with someone who was confirmed or suspected to have Coronavirus / COVID-19? Yes 11/27/2020 6:53 PM COMPLAINT ANALYST documented as of this encounter Functional Status * RETIRED Are you deaf or do you have serious difficulty hearing Answer Date of Assessment Author Status No 11/28/2020 2:32 AM COMPLAINT ANALYST Activ e * RETIRED Are you blind or do you have serious difficulty seeing, even when wearing glasses? Answer Date of Assessment Author Status No 11/28/2020 2:32 AM COMPLAINT ANALYST Activ e * Do you have serious difficulty walking or climbing stairs? Answer Date of Assessment Author Status No 11/28/2020 2:32 AM Jazmine Somers R N Active * Do you have difficulty dressing or bathing? Answer Date of Assessment Author Status No 11/28/2020 2:32 AM COMPLAINT ANALYST Jazmine Kang R N Active * Because of a physical, mental, or emotional condition, do you have difficulty doing errands alone such as visiting a doctor's office or shopping? Answer Date of Assessment Author Status No 11/28/2020 2:32 AM COMPLAINT ANALYST Jazmine Kang R N Active documented as [...] Time COVID-19 Confirmed 11/23/2020 11/27/2020 12:34 AM COMPLAINT ANALYST documented as of this encounter Care Teams Solar Sales Associate Relationship Specialty Start Date End Date Maty Edmondson MD [facility] [address] [address] PCP - General FAMILY PRACTICE 11/27/20 02/27/22 Moris Linares MD [facility] [address] [address] PCP - General INTERNAL MEDICINE 02/28/22 documented as of this encounter
== END 2025-06-02 10:21 | disposition home or self-care (01) ==
LOC: ANHIMG 10:21
PROVIDERS: PCP Family Medicine; Visit Provider Nurse Practitioner Family
DX: R92.8 Other abnormal and inconclusive findings on diagnostic imaging of breast (principal)
CPT/HCPCS: 76641; 77061; 77065; G0279

== ENCOUNTER 2025-06-08 09:05 | Outpatient (CLI) | payer OTHER, SELFPAY ==
--- OUTSIDE RECORDS SUMMARY | 2025-06-08 09:11 | XMS_ITS | Clinical Summary ---
Author Organization [facility] Address [address] [place] [address] Care Team Providers Care Top Collar Maker Name Role Phone Moris Linares MD Primary Care Provider [phone] Allergies Active Allergy Reactions Criticality Noted Date [...] Gluc Sensor (FREESTYLE FRAN 14 DAY SENSOR) [facility] FreeStyle Fran 14 Day Sensor kit USE [...] virus 11/28/2020 Acute respiratory failure with hypoxia ([facility]) 11/27/2020 Social History Tobacco Use Types Packs/Day Years Used Date Smoking Tobacco: Never Cigarettes Smokeless Tobacco: Never Alcohol Use Standard Drinks/Week Comments Not Currently 0 (1 standard drink = 0.6 oz pur e alcohol) Comments Unknown Sex and Gender Information Value Date Recorded Sex Assigned at Not on file Legal Sex Female 12:44 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
--- OUTSIDE RECORDS SUMMARY | 2025-06-08 09:11 | XMS_ITS | Clinical Summary ---
Author Organization [facility] Address [address] [place] [address] Care Team Providers Care Anglesmith Helper Name Role Phone Chase Alva MD Primary Care Provider [phone] Bill Mcgregor DO Unavailable [phone] Allergies Active Allergy Reactions Criticality Noted [...] Insurance MEDICAID [employer] Care Teams Anglesmith Helper Relationship Specialty Start Date End Date Chase Alva MD [address] [facility] [place] [address] PCP - General Internal Medicine 10/22/17 Bill Mcgregor DO [address] [address] Consulting Physician Gastroenterology 02/25/18
--- OUTSIDE RECORDS SUMMARY | 2025-06-08 09:11 | XMS_ITS | Encounter Summary ---
Author Organization [facility] Address [address] [place] [id number] Care Team Providers Care Thermodynamicist Name Role Phone Maty Edmondson MD Primary Care Provider [phone] Moris Linares MD Primary Care Provider [phone] Encounter Details Date Type Department Care Team (Late st Contact Info) Description 12/07/2020 Hospital Follow-up Call [facility] [place] [address] Val Mathis RN Social History Tobacco Use Types Packs/Day Years Used Date Smoking Tobacco: Every Day Cigarettes Alcohol Use Standard Drinks/Week Comments Not Currently 0 (1 standard drink = 0.6 oz pur e alcohol) Comments Unknown Sex and Gender Information Value Date Recorded Sex Assigned at Not on file Legal Sex Female 12:44 PM GRAIN ELEVATOR MOTOR STARTER Gender Identity Not on file Sexual Orientation Not on file COVID-19 Exposure Response Date Recorded In the last month, have you been in contact with someone who was confirmed or suspected to have Coronavirus / COVID-19? Yes 11/27/2020 6:53 PM GRAIN ELEVATOR MOTOR STARTER documented as of this encounter Functional Status * RETIRED Are you deaf or do you have serious difficulty hearing Answer Date of Assessment Author Status No 11/28/2020 2:32 AM GRAIN ELEVATOR MOTOR STARTER Activ e * RETIRED Are you blind or do you have serious difficulty seeing, even when wearing glasses? Answer Date of Assessment Author Status No 11/28/2020 2:32 AM GRAIN ELEVATOR MOTOR STARTER Activ e * Do you have serious difficulty walking or climbing stairs? Answer Date of Assessment Author Status No 11/28/2020 2:32 AM Jazmine Somers R N Active * Do you have difficulty dressing or bathing? Answer Date of Assessment Author Status No 11/28/2020 2:32 AM GRAIN ELEVATOR MOTOR STARTER Jazmine Kang R N Active * Because of a physical, mental, or emotional condition, do you have difficulty doing errands alone such as visiting a doctor's office or shopping? Answer Date of Assessment Author Status No 11/28/2020 2:32 AM GRAIN ELEVATOR MOTOR STARTER Jazmine Kang R N Active documented as [...] Time COVID-19 Confirmed 11/23/2020 11/27/2020 12:34 AM GRAIN ELEVATOR MOTOR STARTER documented as of this encounter Care Teams Thermodynamicist Relationship Specialty Start Date End Date Maty Edmondson MD [facility] [address] [address] PCP - General FAMILY PRACTICE 11/27/20 02/27/22 Moris Linares MD [facility] [address] [address] PCP - General INTERNAL MEDICINE 02/28/22 documented as of this encounter
[2025-06-08 10:04] LABS: Alanine Aminotransferase 29 U/L (6-35); Albumin Level 4.2 g/dL (3.5-5.1); Alkaline Phosphatase 100 U/L (38-126); Anion Gap 9 mmol/L (4-12); Aspartate Amino Transferase 32 U/L (14-36); Bilirubin,Total 0.4 mg/dL (0.2-1.3); Blood Urea Nitrogen 11 mg/dL (7-17); Calcium 9.3 mg/dL (8.4-10.2); Carbon Dioxide 26 mmol/L (22-30); Chloride 105 mmol/L (98-107); Cholesterol 274 mg/dL (0-200); Estimated Glomerular Filt Rate > 60; Glucose 132 mg/dL (65-110); HDL Direct 36 mg/dL; Potassium 3.9 mmol/L (3.4-5.0); Sodium 140 mmol/L (137-145); Total Protein 7.8 g/dL (6.3-8.2); Triglycerides 215 mg/dL (<150)
[2025-06-08 10:11] LABS: MALB Creatinine Ratio 12.9 mg/g (0-30)
[2025-06-08 10:23] LABS: Free T4 Free Thyroxine 1.14 ng/dL (0.78-2.19)
[2025-06-08 10:50] LABS: Thyroid Stimulating Hormone 1.270 uIU/mL (0.465-4.680)
[2025-06-08 11:09] LABS: Vitamin B12 290.0 pg/mL (239-931)
== END 2025-06-08 09:06 | disposition home or self-care (01) ==
LOC: ANHLAB 09:05
PROVIDERS: PCP Family Medicine; Visit Provider Nurse Practitioner Family
DX: E78.5 Hyperlipidemia, unspecified (principal); I10 Essential (primary) hypertension; E11.40 Type 2 diabetes mellitus with diabetic neuropathy, unspecified; R79.89 Other specified abnormal findings of blood chemistry
CPT/HCPCS: 36415; 80053; 80061; 82043; 82306; 82607; 84439; 84443

== ENCOUNTER 2025-07-14 14:26 | Outpatient (CLI) | payer OTHER, SELFPAY ==
--- NOTE | ~2025-07-14 | DEXA_ITS ---
Bone Density Report Name: EVELYNJanuary Age: 54 Sex: Female Ethnicity: White Date of : 1970 Indication: osteopenia; parental hip fracture; height loss; prior fracture; asthma or emphysema; Referring Provider: ELIZABETH ACMP Study: Bone densitometry was performed. Exam Date: July 14, 2025 Accession number: [id number] Bone Density: Region BMD T-score Z-score Classification AP Spine(L1, L2, L4) 0.831 -1.8 -0.9 Osteopenia Femoral Neck (Left) 0.713 -1.2 -0.3 Osteopenia Total Hip (Left) 0.898 -0.4 0.3 Normal Femoral Neck (Right) 0.742 -1.0 0.0 Normal Total Hip (Right) 0.913 -0.2 0.4 Normal Total Hip Mean 0.906 -0.3 0.4 Normal World Health Organization criteria for BMD impression classify patients as: Normal (T-score at or above -1.0), Osteopenia (T-score between -1.0 and -2.5), or Osteoporosis (T-score at or below -2.5). 10-year Fracture Risk: FRAX not reported because: Prior hip or vertebral fracture Previous Exams: Region Exam Age BMD T-score BMD Change BMD Change Date g/cm2 vs Baseline vs Previous AP Spine (L1-L2,L4) 07/14/2025 54 0.831 -1.8 -0.038 (-4.4%) -0.038 (-4.4%) 03/12/2023 52 0.869 -1.5 Total Hip(Left) 07/14/2025 54 0.898 -0.4 -0.026 (-2.8%) -0.026 (-2.8%) 03/12/2023 52 0.924 -0.1 Total Hip(Right) 07/14/2025 54 0.913 -0.2 -0.007 (-0.8%) -0.007 (-0.8%) 03/12/2023 52 0.920 -0.2 *Denotes significance at 95% confidence level, LSC for AP Spine = 0.022 g/cm2, LSC for Total Hip = 0.027 g/cm2 Clinical Information Provided by Patient: Have had a previous hip or vertebral fracture Has had a low trauma fracture Parent has had a hip fracture Has the following medical conditions: Asthma or Emphysema Patient maximum height was 67 Menopause Age: 51 No regular weight bearing exercise Drinks caffeinated beverages Onset of menses at age 14 Number of children 1 Impression: The patient has low bone mass, based on the Total Spine T-score. The patient has risk factors, including: parental hip fracture, previous fracture. The BMD for the AP Spine (L1-L2,L4) decreased, changing by -4.4% since the last DXA exam. Discussion: INCREASED RISK OF FRACTURE DUE TO HISTORY OF FRACTURE. The patient's previous fracture puts the patient at high risk of a future fracture. In untreated patients, the risk of osteoporotic fracture increases approximately two-fold for each 1.0 SD decrease in T-score. Low bone density is not the only risk factor for fracture; also consider factors such as patient's age, frailty or poor health, risk of falling, risk of injury, previous osteoporotic fracture, family history of osteoporosis, cigarette smoking, low body weight, etc. Not everyone with a low trauma fracture has osteoporosis; osteomalacia and other metabolic bone disorders should also be considered. Patients who have osteoporosis should be evaluated for specific diseases and conditions (secondary causes) that may cause or contribute to bone loss and fracture risk. National Osteoporosis Foundation (NOF) recommends pharmacologic intervention for patients with a prior hip or vertebral fracture regardless of BMD T-score. The patient should follow a healthful lifestyle (good nutrition with adequate calcium and vitamin D, and appropriate weight-bearing exercise). Follow-Up: Consider a repeat BMD and Vertebral Fracture Assessment (VFA) exam in 2 years or sooner if medically necessary, to reassess this patient's status. Reported by: SUZI on 07/14/2025 3:05:00 PM. Reviewed, dictated and finalized at location A.
--- OUTSIDE RECORDS SUMMARY | 2025-07-14 15:10 | XMS_ITS | Clinical Summary ---
Author Organization [facility] Address [address] [place] [address] Care Team Providers Care Chemistry Department Chair Name Role Phone Moris Linares MD Primary Care Provider [phone] Allergies Active Allergy Reactions Criticality Noted Date [...] Gluc Sensor (FREESTYLE FRAN 14 DAY SENSOR) [facility] FreeStyle Fran 14 Day Sensor kit USE [...] virus 11/28/2020 Acute respiratory failure with hypoxia ([facility]) 11/27/2020 Social History Tobacco Use Types Packs/Day Years Used Date Smoking Tobacco: Never Cigarettes Smokeless Tobacco: Never Alcohol Use Standard Drinks/Week Comments Not Currently 0 (1 standard drink = 0.6 oz pur e alcohol) Comments Unknown Sex and Gender Information Value Date Recorded Sex Assigned at Not on file Legal Sex Female 12:44 PM THREE KNIFE TRIMMER Gender Identity Not on file Sexual Orientation [...] of 2) 2021 COVID-19 Vaccine (3 - 2024-2 6 season) 2025 04/26/2021, 03/29/2021 Colorectal Cancer Screening Colonoscopy (10 [...] 9:44 PM 12/02/2020 6:14 PM Care Teams Chemistry Department Chair Relationship Specialty Start Date End Date Moris Linares MD [address] [address] PCP - General INTERNAL MEDICINE 02/28/22
--- OUTSIDE RECORDS SUMMARY | 2025-07-14 15:10 | XMS_ITS | Clinical Summary ---
Author Organization [facility] Address [address] [place] [address] Care Team Providers Care Custom Feed Mill Operator Helper Name Role Phone Toribio Ocasio MD Unavailable [phone] Jonel Mercer MD Primary Care Provider Allergies [...] 1 each 3 10/20/20 Active Dexcom G6 Recycling Specialist misc 10/08/20 Active diphenhydrAMINE (BENADRYL) 25 mg [...] 024 Assessment & Plan (10/04/2024 10:54 AM CONTROL SPECIALIST): Patient asymptomatic. Noninvasive studies were normal as was her exam. No further workup needed follow up PRN. Diabetic polyneuropathy asso ciated with type 2 diabetes mellitus 12/17/2023 Pharyngitis 10/15/2023 Assessment & Plan (10/15/2023 5:00 PM CONTROL SPECIALIST): Point of care strep swab negative. However patients are overwhelmingly concerning for strep given her recent infection we will treat patient with Ceftin 250 mg b.i.d. x7 days. Patient is advised to change her toothbrush after 48 hours of starting the antibiotic. Vaginal yeast infection 10/15/2023 Assessment & Plan (10/15/2023 4:59 PM CONTROL SPECIALIST): Patient complains of vaginal yeast infections secondary to the amount of antibiotics that she is taken in the past 2 weeks. Diflucan ordered. Strep throat 09/30/2023 Allergic rhinitis 09/10/2023 Assessment & Plan (09/10/2023 5:02 PM CONTROL SPECIALIST): Flonase and Zyrtec as needed BMI 33.0-33.9,adult 09/10/2023 Assessment & Plan (09/10/2023 5:02 PM CONTROL SPECIALIST): Discussed the patient's BMI. The BMI is above average. BMI management plan is completed. BMI Follow-up includes: nutrition counseling, exercise counseling and education provided. Hypertension associated with type 2 diabetes erna litus 08/31/2023 Assessment & Plan (09/10/2023 4:58 PM CONTROL SPECIALIST): Blood pressure well controlled. Refills sent to [...] losartan 25mg daily. Will update labs at [facility]. Verified that she uses [facility]. Aware to check results/results letter in [employer]. Will contact by phone if needed. Hyperlipidemia due to type 2 diabetes mellitus 1 Assessment & Plan (10/04/2024 10:54 AM CONTROL SPECIALIST): Hyperlipidemia chronic controlled. Continue current medical management. Assessment & Plan (08/31/2023 1:52 PM CDT): Chronic problem. Currently taking Rosuvastatin 40mg & fenofibrate 160mg. Last lipid panel: 06/13/22 LDL=94, JI=184. Will update labs at [facility]. Verified that she uses mychart. Aware to check results/results letter in [employer]. Will contact by phone if needed. Postmenopausal osteoporosis 01/06/2023 Assessment & Plan (01/06/2023 9:55 AM CONTROL SPECIALIST): Patient was diagnosed with osteoporosis by her bank examiner and she was started on Fosamax but she stopped taking the medication on her own. I recommended that she resumes Fosamax with calcium and vitamin-D. She said that she has an appointment with her bank examiner and she will discuss that with her. Angina pectoris 12/16/2022 Atopic dermatitis 12/16/2022 Cyst of pancreas 12/16/2022 Diabetic neuropathy 12/16/2022 Assessment & Plan (09/10/2023 5:01 PM CONTROL SPECIALIST): Patient recently started on gabapentin 300 mg [...] AM CDT): Patient is followed by the wide piece goods inspector. Continue to see the post acute care registered nurse on yearly basis. Encouraged diet and exercise and weight loss. Hepatomegaly 12/16/2022 Nausea, vomiting and diarrhea 12/16/2022 Obesity 12/16/2022 Strain of tendon of back 12/16/2022 Vitamin D deficiency 12/16/2022 Bilateral leg edema 10/08/2022 Assessment & Plan (01/06/2023 9:54 AM CONTROL SPECIALIST): No leg edema Assessment & Plan (10/08/2022 4:41 PM CONTROL SPECIALIST): Leg edema most likely secondary to prolonged sitting. I told her to ambulate. Will start her on Lasix 20 mg p.r.n.. Call for persistent symptoms. Colon cancer screening 10/08/2022 Assessment & Plan (10/08/2022 4:41 PM CONTROL SPECIALIST): Patient had referral for colonoscopy but she did not have it done yet. Advised to call the explosive ordnance specialist office and proceed with the test she understands the risks including cancer Carpal tunnel syndrome on right 12/13/2021 Overview (12/13/2021): Added automatically from request for surgery [id number] Right elbow pain 11/12/2021 Assessment & Plan (11/12/2021 9:48 AM CONTROL SPECIALIST): Patient with right elbow pain specially when she uses her right hand. We will obtain nerve conduction study to rule out carpal tunnel syndrome. She was advised to wear an elbow brace. We will call her for meloxicam 15 mg daily for 2 weeks. She will call for persistent symptoms BERT (obstructive sleep apnea) 11/12/2021 Assessment & Plan (09/10/2023 4:59 PM CONTROL SPECIALIST): Patient uses CPAP and is compliant with her machine. Assessment & Plan (02/11/2022 9:50 AM CDT): Patient uses CPAP machine on regular basis Assessment & Plan (11/12/2021 9:48 AM CONTROL SPECIALIST): Patient was diagnosed recently with sleep apnea and she has an appointment with the sleep specialist for CPAP machine Lymphadenitis 09/24/2021 Assessment & Plan (09/24/2021 12:53 PM CONTROL SPECIALIST): Patient has lymphadenitis. She will be started on Augmentin 875 mg twice daily for 10 days with food and side effects were explained and she will call us if it is not resolved so that we can arrange for her to see a surgeon for excision Hypersomnia 09/12/2021 Anxiety 09/12/2021 Assessment & Plan (09/10/2023 5:02 PM CONTROL SPECIALIST): Patient denies any anxiety symptoms at this time. Palpitation 09/12/2021 Nonsmoker 09/12/2021 Overweight 09/12/2021 Cough 07/30/2021 Assessment & Plan (09/10/2023 5:02 PM CONTROL SPECIALIST): Patient has persistent cough productive of clear mucus with no shortness breath or wheezing or chest pain. She is advised to restart her Symbicort Assessment & Plan (07/30/2021 9:33 AM CDT): Patient has persistent cough productive of clear mucus with no shortness breath or wheezing or chest pain. We will stop lisinopril. She will continue Symbicort. Will make a referral to see stoner out for further evaluation. Acute bronchitis 07/02/2021 Assessment & Plan (09/30/2023 5:15 PM CONTROL SPECIALIST): Patient with acute bronchitis. She is on [...] from Dexcom & Tandem pump. To call/send [employer] message if not helping. Apply the dexcom 1st to see if the above products will help prevent the skin irritation. Will update labs. Verified that she uses mychart. Aware to check results/results letter in [employer]. Will contact by phone if needed. DM eye exam q6wks at [facility] for laser tx & injections. Will send letter to get copy of report from [place] office. Strive for regular exercise (30min most [...] (05/08/2023 7:41 AM CDT): Followed by the post acute care registered nurse Assessment & Plan (01/06/2023 8:35 AM CONTROL SPECIALIST): Managed by the wide piece goods inspector. Continue to have annual eye exam Assessment & Plan (10/08/2022 4:40 PM CONTROL SPECIALIST): Managed by the wide piece goods inspector advised to have annual eye exam Assessment & Plan (04/16/2022 8:25 AM CDT): Continue current medications, discussed low carbohydrate diet, advised to exercise on regular basis, advised to have annual eye exam. We will continue to monitor. Followed by the wide piece goods inspector Assessment & Plan (02/11/2022 9:50 AM CDT): Follow with the wide piece goods inspector and post acute care registered nurse. Discussed weight loss and diet. Assessment & Plan (11/12/2021 9:48 AM CONTROL SPECIALIST): Patient is not compliant with medications. She [...] and exercise. Patient was seen by a manufacturing laborer in the past. Will increase Lantus to [...] Continue diet. She was seen by the post acute care registered nurse. She will check her sugar 3 times daily and call us with readings in 1 week. Assessment & Plan (01/10/2021 4:30 PM CONTROL SPECIALIST): Patient will start on Lantus 45 units [...] monitor Assessment & Plan (01/06/2023 8:35 AM CONTROL SPECIALIST): Continue current medications. Discussed low-salt diet. Discussed exercise on regular basis. Will continue to monitor Assessment & Plan (10/08/2022 4:40 PM CONTROL SPECIALIST): Continue current medications. Discussed low-salt diet. Discussed exercise on regular basis. Will continue to monitor Assessment & Plan (02/11/2022 9:50 AM CDT): Continue current medications. Discussed low-salt diet. Discussed exercise on regular basis. Will continue to monitor Assessment & Plan (11/12/2021 9:49 AM CONTROL SPECIALIST): Continue current medications. Discussed low-salt diet. Discussed [...] monitor Assessment & Plan (01/10/2021 4:30 PM CONTROL SPECIALIST): Start lisinopril 20 mg daily and we discussed low-salt diet Dyslipidemia 01/10/2021 Assessment & Plan (09/10/2023 5:00 PM CONTROL SPECIALIST): Patient is maintained on Crestor 40 mg tablets and fenofibrate 160 mg we will continue this regimen Assessment & Plan (05/08/2023 8:57 AM CDT): LDL is 113. Increase Crestor to 40 mg q.h.s.. Continue low-fat diet. Assessment & Plan (01/06/2023 8:35 AM CONTROL SPECIALIST): Controlled on current medications. Continue low-fat diet. Will continue to monitor . Assessment & Plan (10/08/2022 4:40 PM CONTROL SPECIALIST): Controlled on current medications. Continue low-fat diet. Will continue to monitor . Assessment & Plan (04/16/2022 8:25 AM CDT): Controlled on current medications. Continue low-fat diet. Will continue to monitor . Assessment & Plan (02/11/2022 9:50 AM CDT): Stop atorvastatin and start Crestor 20 mg q.h.s. for better control of hyperlipidemia. Continue low-fat diet Assessment & Plan (11/12/2021 9:49 AM CONTROL SPECIALIST): Resume medications and we discussed the importance [...] months Assessment & Plan (01/10/2021 4:30 PM CONTROL SPECIALIST): Start Lipitor 10 mg q.h.s. and discussed low-fat diet and pamphlets were given Pneumonia due to COVID-19 virus 11/28/2020 Microalbuminuria 05/29/2019 Coronary arteriosclerosis 05/24/2019 Gastroesophageal reflux disease without esophagi tis 05/24/2019 Assessment & Plan (09/10/2023 5:00 PM CONTROL SPECIALIST): Patient reports symptoms are controlled. Steatosis of liver 05/24/2019 Mild nonproliferative diabetic retinopathy(362.0 4) 05/24/2019 Tabby-Chu tear 10/18/2017 Kidney disease 12/14/2016 Leukocytosis 06/13/2014 Asthma Assessment & Plan (09/10/2023 5:02 PM CONTROL SPECIALIST): Patient is advised to restart Symbicort. We will follow up at next visit. Assessment & Plan (05/08/2023 8:58 AM CDT): Patient is asymptomatic and stable without medications Assessment & Plan (01/06/2023 9:54 AM CONTROL SPECIALIST): Patient complains of cough but no shortness [...] started on symbicort Type 2 diabetes mellitus Obesity Last menstrual period (LMP) date this [...] on file Legal Sex Female 2:02 AM CONTROL SPECIALIST Gender Identity Not on file Sexual Orientation [...] Comments Blood Pressure 135/80 09/08/2024 10:13 AM CONTROL SPECIALIST Pulse 79 09/08/2024 10:13 AM CONTROL SPECIALIST Temperature 36.7 C (98 F) 10/15/2023 1:39 PM CONTROL SPECIALIST Respiratory Rate 18 10/15/2023 1:39 PM CONTROL SPECIALIST Oxygen Saturation 97% 10/15/2023 1:39 PM CONTROL SPECIALIST Inhaled Oxygen Concentration - - Weight 98 kg (216 lb) 09/08/2024 10:13 AM CONTROL SPECIALIST Height 170.2 cm (5' 7) 09/08/2024 10:13 AM CONTROL SPECIALIST Body Mass Index 33.83 09/08/2024 10:13 AM CONTROL SPECIALIST Plan of Treatment Health Maintenance Due Date [...] Additional history exists Foot Exam 05/08/2024 05/08/2023, 0404/2022, 01/31/2022 Depression Screening 10/15/2024 10/15/2023, 09/10/2023, 05/08/2023, Additional history exists Dilated Eye Exam 12/11/2024 12/11/2023, 07/2023, 05/29/2021, Additional history exists Covid-19 Vaccine (4 - 2024-2 6 season) 2025 05/18/2023, 04/26/2021, 03/29/2021 Influenza Vaccine (#1) 2025 , 08/26/2022, 06/13/2014 DTaP/Tdap/Td Vaccine (3 - Td or Tdap) [...] BLOOD ORDERABLES Final Result Performing Organization Address [facility] Co de Phone Number [address] [address] * Albumin Creatinine Ratio, Urine (06/13/2022 7:54 [...] URINE ORDERABLES Final Result Performing Organization Address [facility] de Phone Number [address] [address] * (ABNORMAL) Lipid panel (06/13/2022 7:54 AM CDT) Cholesterol 157 30 - 199 mg/dL [facility] Comment: Interpretive Data Ages < or [...] MD LAB BLOOD ORDERABLES Final Result [facility] [address] [facility] Department [place] [address] * Diabetic Foot Exam (02/15/2022) Historical Provider [...] Most Recently Relevant to Health Maintenance Insurance [facility] Care Teams Custom Feed Mill Operator Helper Relationship Specialty Start Date End Date Jonel Mercer MD [address] [facility] [address] [place] [address] PCP - General Family Medicine 09/08/24 Toribio Ocasio MD Consulting Physician Plastic Surgery 01/03/22
--- OUTSIDE RECORDS SUMMARY | 2025-07-14 15:10 | XMS_ITS | Clinical Summary ---
Author Organization [facility] Address [address] [place] [address] Care Team Providers Care Hide Inspector And Sorter Name Role Phone Chase Alva MD Primary Care Provider [phone] Bill Mcgregor DO Unavailable Allergies Active Allergy Reactions Criticality Noted Date [...] Insurance MEDICAID [employer] Care Teams Hide Inspector And Sorter Relationship Specialty Start Date End Date Chase Alva MD [address] [facility] [address] PCP - General Internal Medicine 10/22/17 Bill Mcgregor DO [address] [address] Consulting Physician Gastroenterology 02/25/18
--- OUTSIDE RECORDS SUMMARY | 2025-07-14 15:10 | XMS_ITS | Encounter Summary ---
Author Organization [facility] Address [address] [place] [address] Care Team Providers Care Embedded Software Architect Name Role Phone Maty Edmondson MD Primary Care Provider [phone] Moris Linares MD Primary Care Provider [phone] Encounter Details Date Type Department Care Team (Late st Contact Info) Description 12/07/2020 Hospital Follow-up Call [facility] [place] [address] Val Mathis RN Social History Tobacco Use Types Packs/Day Years Used Date Smoking Tobacco: Every Day Cigarettes Alcohol Use Standard Drinks/Week Comments Not Currently 0 (1 standard drink = 0.6 oz pur e alcohol) Comments Unknown Sex and Gender Information Value Date Recorded Sex Assigned at Not on file Legal Sex Female 12:44 PM GRAPHICS COORDINATOR Gender Identity Not on file Sexual Orientation Not on file COVID-19 Exposure Response Date Recorded In the last month, have you been in contact with someone who was confirmed or suspected to have Coronavirus / COVID-19? Yes 11/27/2020 6:53 PM GRAPHICS COORDINATOR documented as of this encounter Functional Status * RETIRED Are you deaf or do you have serious difficulty hearing Answer Date of Assessment Author Status No 11/28/2020 2:32 AM GRAPHICS COORDINATOR Activ e * RETIRED Are you blind or do you have serious difficulty seeing, even when wearing glasses? Answer Date of Assessment Author Status No 11/28/2020 2:32 AM GRAPHICS COORDINATOR Activ e * Do you have serious difficulty walking or climbing stairs? Answer Date of Assessment Author Status No 11/28/2020 2:32 AM Jazmine Somers R N Active * Do you have difficulty dressing or bathing? Answer Date of Assessment Author Status No 11/28/2020 2:32 AM GRAPHICS COORDINATOR Jazmine Kang R N Active * Because of a physical, mental, or emotional condition, do you have difficulty doing errands alone such as visiting a doctor's office or shopping? Answer Date of Assessment Author Status No 11/28/2020 2:32 AM GRAPHICS COORDINATOR Jazmine Kang R N Active documented as [...] Time COVID-19 Confirmed 11/23/2020 11/27/2020 12:34 AM GRAPHICS COORDINATOR documented as of this encounter Care Teams Embedded Software Architect Relationship Specialty Start Date End Date Maty Edmondson MD [facility] [address] [address] PCP - General FAMILY PRACTICE 11/27/20 02/27/22 Moris Linares MD [facility] [address] [address] PCP - General INTERNAL MEDICINE 02/28/22 documented as of this encounter
== END 2025-07-14 14:27 | disposition home or self-care (01) ==
LOC: ANHFOHIMG 14:26
PROVIDERS: PCP Family Medicine; Visit Provider Nurse Practitioner Family
DX: Z13.820 Encounter for screening for osteoporosis (principal); M85.88 Other specified disorders of bone density and structure, other site; M85.852 Other specified disorders of bone density and structure, left thigh
CPT/HCPCS: 77080

== ENCOUNTER 2025-10-06 14:20 | Outpatient (CLI) | payer OTHER, SELFPAY ==
--- NOTE | ~2025-10-06 | CT_ITS ---
EXAM/PROCEDURE: CT abdomen pelvis w con HISTORY: R10.12 - Left upper quadrant pain COMPARISON: June 12, 2020 TECHNIQUE: Contrast-enhanced CT of abdomen and pelvis FINDINGS: The bowel gas pattern is nonobstructive with no free air free fluid or pneumatosis. The stomach is unopacified and nondistended but no obvious acute abnormality seen. No AAA, hydroureteronephrosis, or gross CT evidence of acute cholecystitis or pancreatitis. No grossly inflamed appendix. No bulky lymphadenopathy or masses seen. Uterus and adnexal regions appear stable. Approximately 2 cm size benign- appearing left renal cyst. Liver appear stable. Moderately extensive splenic granuloma. Pancreas appears within normal limits. Lung bases clear. Bones intact. Visualized portion of the heart normal in size. Retroperitoneal soft tissues unremarkable. Urinary bladder appears normal. Kyphoplasty changes L3 vertebral body unchanged in appearance. Diffuse degenerative changes throughout the spine and both hips. IMPRESSION: No acute findings to explain source of patient's symptoms. Several chronic findings as above. Reviewed, dictated and finalized at location A. ER OPERATOR AUTOMATIC IMPRESSION: No acute findings to explain source of patient's symptoms. Several chronic find ings as above.
[2025-10-06 15:06] LABS: Estimated Glomerular Filt Rate > 60
== END 2025-10-06 14:21 | disposition home or self-care (01) ==
PROVIDERS: PCP Family Medicine; Visit Provider Physician Assistant
DX: R10.12 Left upper quadrant pain (principal)
CPT/HCPCS: 74177; Q9967

== ENCOUNTER 2025-10-11 16:07 | Outpatient (CLI) | payer OTHER, SELFPAY ==
[2025-10-11 16:49] LABS: Add Urine Microscopic? YES; Appearance Urine Cloudy (Clear); Glucose Urine UA Trace mg/dL (Negative); Leukocyte Esterase Ur 2+ LEU/UL (Negative); Nitrate Urine Negative (Negative); Specific Grav Ur 1.032 (1.001-1.035)
--- OUTSIDE RECORDS SUMMARY | 2025-10-11 20:54 | XMS_ITS | Encounter Summary ---
Author Organization [facility] Address [address] [place] [address] Care Team Providers Care Armoured [employer] Officer Name Role Phone Maty Edmondson MD Primary Care Provider [phone] Moris Linares MD Primary Care Provider [phone] Encounter Details Date Type Department Care Team (Late st Contact Info) Description 12/07/2020 Hospital Follow-up Call [facility] [place] [address] Val Mathis RN Social History Tobacco Use Types Packs/Day Years Used Date Smoking Tobacco: Every Day Cigarettes Alcohol Use Standard Drinks/Week Comments Not Currently 0 (1 standard drink = 0.6 oz pur e alcohol) Comments Unknown Sex and Gender Information Value Date Recorded Sex Assigned at Not on file Legal Sex Female 12:44 PM SENIOR PHP DEVELOPER Gender Identity Not on file Sexual Orientation Not on file COVID-19 Exposure Response Date Recorded In the last month, have you been in contact with someone who was confirmed or suspected to have Coronavirus / COVID-19? Yes 11/27/2020 6:53 PM SENIOR PHP DEVELOPER documented as of this encounter Functional Status * RETIRED Are you deaf or do you have serious difficulty hearing Answer Date of Assessment Author Status No 11/28/2020 2:32 AM SENIOR PHP DEVELOPER Activ e * RETIRED Are you blind or do you have serious difficulty seeing, even when wearing glasses? Answer Date of Assessment Author Status No 11/28/2020 2:32 AM SENIOR PHP DEVELOPER Activ e * Do you have serious difficulty walking or climbing stairs? Answer Date of Assessment Author Status No 11/28/2020 2:32 AM Jazmine Somers R N Active * Do you have difficulty dressing or bathing? Answer Date of Assessment Author Status No 11/28/2020 2:32 AM SENIOR PHP DEVELOPER Jazmine Kang R N Active * Because of a physical, mental, or emotional condition, do you have difficulty doing errands alone such as visiting a doctor's office or shopping? Answer Date of Assessment Author Status No 11/28/2020 2:32 AM SENIOR PHP DEVELOPER Jazmine Kang R N Active documented as [...] Time COVID-19 Confirmed 11/23/2020 11/27/2020 12:34 AM SENIOR PHP DEVELOPER documented as of this encounter Care Teams Armoured Corps Officer Relationship Specialty Start Date End Date Maty Edmondson MD [facility] [address] [address] PCP - General FAMILY PRACTICE 11/27/20 02/27/22 Moris Linares MD [facility] [address] [address] PCP - General INTERNAL MEDICINE 02/28/22 documented as of this encounter
--- OUTSIDE RECORDS SUMMARY | 2025-10-11 20:54 | XMS_ITS | Clinical Summary ---
Author Organization [facility] Address [address] [place] [address] Care Team Providers Care Bone Drier Name Role Phone Chase Alva MD Primary Care Provider [phone] Bill Mcgregor DO Unavailable [phone] Allergies Active Allergy Reactions Criticality Noted [...] (1 of 2) 2021 Influenza Immunization (#1) 2025 SARS-COV-2 Immunization ( - season) 2025 05/18/2023, 04/26/2021, 03/29/2021 Respiratory Syncytial Virus (RSV) [...] Insurance MEDICAID [employer] Care Teams Bone Drier Relationship Specialty Start Date End Date Chase Alva MD [address] [facility] [place] [address] PCP - General Internal Medicine 10/22/17 Bill Mcgregor DO [address] [address] Consulting Physician Gastroenterology 02/25/18
--- OUTSIDE RECORDS SUMMARY | 2025-10-11 20:54 | XMS_ITS | Data Portability ---
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 Plan of Treatment Reminders Order Date Submit Date Provider Last Modified By Organization Details Last Modified Time Details Appointments None recorded. Lab cortisol, am, serum [address], [facility] [address], [address] [place] [address], [address], 3 09:55:03 dexamethaso ne, serum [address], [facility] [address], [address] [place] [address], [address], 3 09:55:03 lipid panel, serum [address], [facility] [address], [address], [address], 3 09:54:50 TSH + free T4, serum [address], [facility] [address], [place], [address], 3 09:54:50 CMP, serum or plasma [address], [facility] [address], [place], [address], 3 09:54:50 HbA1c (hemoglobin A1c), blood [address], [address], [place], [address], 3 09:54:50 microalbumi n/creatinin e, mass ratio, urine [address], [address], [place], [address], 09:54:50 Referral None recorded. Procedures None recorded. Surgeries None recorded. Imaging None recorded. Medication Orders dexamethaso ne 1 mg tablet 2022 023 [facility] [address], [address], [place], [address], 3 09:54:46 glimepiride 2 mg tablet 2022 023 [facility] [address], [address], [place], [address], 3 09:51:21 metformin ER 500 mg tablet,exte nded release 24 hr 2022 023 [facility] [address], [address], [place], [address], 3 09:53:42 Patient TargetsNo targets recorded. Patient InstructionsNo instructions recorded. Reason for Referral None Reported. Results Created Date Observation Date Name Description Value Unit Range Abnormal Flag Note LastModifiedBy Organization Detail LastModifiedTime 08/04/20 22 07/10/2022 XR, foot No observ ation record ed. [id number] Not Available 12/31/2022 08:55:48 Result Notes None recorded. Problems Name Problem SNOMED Code Status Onset Date Resolution Date Notes Provider Name and Address Organization Details Recorded Time Dyslipidem ia 374610758 Active 2021 Not Available [facility] 08:50:56 Diabetic foot ulcer 147259816 Active 2021 Not Available [facility] 08:50:56 Well controlled type 2 diabetes mellitus 373620057 Active 2021 Not Available [facility] 3 08:50:56 Essential hypertensi on 88106177 Active 2021 Not Available [facility] 3 08:50:57 Paronychia of toe of right foot 1182098034352 9102 Active 2021 Not Available [facility] 3 08:50:56 Peripheral neuropathy due to type 2 diabetes mellitus 6964842454002 Active 2021 Not Available [facility] 3 08:50:56 Uncontroll ed type 2 diabetes mellitus 465258217 Active 2021 Not Available [facility] 3 08:50:56 Hypothyroi dism 07691897 Active 2021 Not Available [facility] 3 08:50:56 Osteoporos is 77452684 Active 2021 Not Available [facility] 3 08:50:57 Mixed hyperlipid emia 312550100 Active 2022 Vanessa Kirby MD [address], [address] , [facility] [employer] [facility] 3 09:51:49 Weight gain 5791631 Active 2022 Vanessa Kirby MD [address] [facility], [place] [address], [place], [address] , [facility] [employer] [facility] 3 09:53:57 Problem Notes None recorded. Procedures Surgical History Date Name Laterality Status Provider Name and Address Organization Details Recorded Time 2 Carpal tunnel surgery completed Not Available [facility] 12/31/2022 08:45:37 Imaging Results None recorded. Procedure Notes None recorded. Medical Equipment None Reported. Allergies Allergen ID Allergen Name Allergen Category Reaction Reaction Severity Criticality Documentation Date Start Date Code Code System Note Provider Name and Address Organization Details Recorded Time lisinopri l medicatio n Not available Not available Not available 12/31/2022 65784 RxNorm Not Available [facility] 3 08:55:42 51109 adhesive environme nt,medica tion Not available Not available Not available 12/31/2022 Not Available [facility] 3 08:55:42 32218 metformin medicatio n Not available Not available Not available 12/31/2022 6809 RxNorm Not Available [facility] 3 08:55:42 Medications Name Sig Start Date [...] t Available OneTouch Ultra Test strips USE TO TEST BLOOD [...] Not Available No t Available Dexcom G6 Manager Home Improvement USE WITH TRANSMITT ER AND SENSOR active [...] No t Available Vitals Date Recorded Body height Respiratory rate Body mass index (BMI) Body weight Body temperature Heart rate Systolic And Diastolic Provider Name and Address Organization Details Last Updated DateTime 3 170.18 cm 12 /min 32.8 kg/m2 48760.2 4 g 97.4 [degF] 78 /min 128/78 mm[Hg] Jazmine Wells RN [place] [employer] 3 09:34:31 Date Recorded Body mass index (BMI) Body height Oxygen saturation Heart rate Body temperature Body weight Systolic And Diastolic Provider Name and Address Organization Details Last Updated DateTime 2 33.4 kg/m2 170.18 cm 97 % 86 /min 98.3 [degF] 35834.9 7 g 124/72 mm[Hg] Not Available [facility] 3 08:49:06 Date Recorded Body mass index (BMI) Body height Oxygen saturation Heart rate Body temperature Body weight Systolic And Diastolic Provider Name and Address Organization Details Last Updated DateTime 2 33.2 kg/m2 170.18 cm 99 % 86 /min 97.6 [degF] 08783.5 8 g 122/80 mm[Hg] Not Available [facility] 08:49:06 Social History Question Answer Notes LastModified by Organizat ion Details LastModified Time Tobacco Smoking Status Never Smoker Not Available [facility] 12/31/2022 08:45:24 What Is Your Level Of Caffeine Consumption? Moderate [id number] Information not available 12/31/2022 What Is Your Relationship Status? Single [id number] Information not available 12/31/2022 Sex: Female Functional Status Question Answer Note LastModified by Organizat ion Details LastModified Time What is your level of alcohol consumption? 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 Family History Relationship [...] Diagnosis SNOMED-CT Code Diagnosis ICD10 Code Diagnosis IMO Codes Diagnosis Note [id number] [facility] [address] [place] [address] 01/17/2022 00:00:00 01/17/2022 16:20:11 [id number] [facility] [address] [place] [address] 01/30/2022 00:00:00 01/30/2022 18:00:18 [id number] [facility] [address] [place] [address] 02/13/2022 00:00:00 02/15/2022 12:15:57 [id number] [facility] [place] [address] [place] [address] 05/16/2022 00:00:00 05/16/2022 16:09:23 [id number] [facility] [place] [address] [place] [address] 07/31/2022 00:00:00 08/01/2022 13:57:23 [id number] [facility] [place] [address] [place], [place] [address] 09/22/2022 00:00:00 09/22/2022 18:27:16 [id number] Vanessa Kirby MD [facility] [place] [address] [place], [place] [address] 02/17/2023 09:16:57 02/17/2023 09:58:38 Uncontrolled type 2 diabetes mellitus 670508290 E11.65 a1c of 8.1%- patient admits to [...] mg/dL on premeal sugars. Mixed hyperlipidemia 267 166745 E78.2 Continue statin, fenofibrat e and vascepa. Weight gain 5737965 R63. 5 Will send for low dose [...] she chooses to go outside of the [facility] system to obtain labwork she was [...] Recorded Advance Directives Directive None Recorded Payers Insurance Date Sequence Insurance Name Policy Number Policy Artis Covered Member ID Artis Member ID Guarantor Name 06/22/2023 1 [facility] - DOS ON OR AFTER 21 (MEDICAID REPLACEMENT - HMO) January Swapnil Davey [id number] January Swapnil Davey Notes Date Note Type Note Provider Name and Address Organization Details Recorded Time 02/17/2023 text/html ROS as noted in the HPI 52 yo female comes in for follow up in management of [...] mg/dlCr normalLFT normal Vanessa Kirby MD [address] [facility], [facility] [address], [place], [address], [place] [facility] [employer] 02/17/2023 10:03:28 OBGyn Episode No OBEpisode recorded.
--- OUTSIDE RECORDS SUMMARY | 2025-10-11 20:54 | XMS_ITS | Data Portability ---
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 Studies ordered as below. Discussed plan with patient/careg robbieer, who expressed understanding . Follow up as noted below. [email or web address] Not available 05/25/2019 11:51:58 Plan of Treatment Reminders Order Date Submit Date Provider Last Modified By Organization Details Last Modified Time Details Appointments None recorded. Lab CBC w/ auto diff 2018 MIESHA Not available 9 07:52:35 HbA1c (hemoglobi n A1c), blood 2018 MIESHA Not available 9 12:53:42 CMP, serum or plasma 2018 MIESHA Not available 9 07:52:35 lipid panel, serum 2018 019 MIESHA Not available 9 07:52:37 microalbum in/creatin ine, mass ratio, urine 2018 MIESHA Not available 9 07:52:38 TSH + free T4, serum 2018 019 lcallison Not available 9 08:58:04 T3, free, serum or plasma 2018 MIESHA Not available 9 07:52:[address] referral 2018 019 lcallison Fiona Araya, [address], [place], [address], 9 08:36:52 religious educator referral 2018 019 kendell [facility], [address] [facility] , [address], [place], [address], 9 08:36:51 diabetic ophthalmol ogy referral 2018 019 kendell [facility], [address] [facility], [place], [address], 9 08:36:51 diabetic nutrition education referral 2018 kendell [facility], [address] [facility] , [address], [place], [address], 9 08:36:51 computer consultant referral 2018 kendell Not available 13:19:27 Procedures None recorded. Surgeries None recorded. Imaging MAMMO, screening, digital, bilateral 2018 [facility], [address], [address], [place], [address], 9 13:04:26 Medication Orders None recorded. Patient TargetsNo targets recorded. 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 Referral f or Type 2 diabetes mellitus without complication Referring Physician: Eduardo [facility]rios [facility], Encounter Date: 05/25/2019 Diabetic Ophthalmology Refer ral for Type 2 diabetes mellitus without complication Referring Physician: Eduardo Barrios [facility], Encounter Date: 05/25/2019 Diabetic Nutrition Education Referral for Type 2 diabetes mellitus without complication Referring Physician: Eduardo Barrios [facility], Encounter Date: 05/25/2019 Fashion Patternmaker Referral for Type 2 diabetes mellitus without complication Referring Physician: Eduardo Barrios [facility], Encounter Date: 05/25/2019 Mathematical Statistician Referral for Sc reening for malignant neoplasm of cervix Referring Physician: Eduardo Barrios [facility], Encounter Date: 05/25/2019 Results Created Date Observation Date Name Description Value Unit Range Abnormal Flag Note LastModifiedBy Organization Detail LastModifiedTime 05/25/20 19 05/25/2019 CBC w/ auto diff white blood cell count 12.2 thous and/u L 3.5-10 .0 high Not Available [place] [address] [place], [address], 05/26/2019 07:52:34 05/25/2005/25/2019 CBC w/ auto diff red blood cell count 5.2 katie on/uL 3.5-5. 5 Not Available [facility] [place] [address] [place], [address], 05/26/2019 07:52:34 05/25/2005/25/2019 CBC w/ auto diff hemoglobin 15.8 g/dL 11.5-1 6.5 Not Available [facility] [place] [address] [place], [address], 05/26/2019 07:52:34 05/25/2005/25/2019 CBC w/ auto diff hematocrit 46 % 35-55 Not Available [facility] [place] [address] [place], [address], 05/26/2019 07:52:34 05/25/2005/25/2019 CBC w/ auto diff MCH 31 pg 25-35 Not Available [facility] [place] [address] Kathya Yung [place], [address], 05/26/2019 07:52:34 05/25/2005/25/2019 CBC w/ auto diff MCHC 34 g/dL 31-38 Not Available [facility] [place] [address] Kathya Yung [place], [address], 05/26/2019 07:52:34 05/25/2005/25/2019 CBC w/ auto diff MCV 90 fL 75-100 Not Available [facility] [place] [address] [place], [address], 05/26/2019 07:52:34 05/25/2005/25/2019 CBC w/ auto diff RDW-CV 12 % 11-15 Not Available [facility] [place] [address] [place], [address], 05/26/2019 07:52:34 05/25/2005/25/2019 CBC w/ auto diff neutrophils% 59.8 % Not Available [facility] [place] [address] [place], [address], 05/26/2019 07:52:34 05/25/2005/25/2019 CBC w/ auto diff lymphocytes% 30.4 % Not Available [facility] [place] [address] [place], [address], 05/26/2019 07:52:34 05/25/2005/25/2019 CBC w/ auto diff monocytes% 4.0 % Not Available [facility] [place] [address] [place], [address], 05/26/2019 07:52:34 05/25/2005/25/2019 CBC w/ auto diff eosinophil % 3.6 % 0.0-7. 0 Not Available [facility] [place] [address] [place], [address], 05/26/2019 07:52:34 05/25/2005/25/2019 CBC w/ auto diff basophil % 0.8 % 0.0-3. 0 Not Available [place] [address] [place], [address], 05/26/2019 07:52:34 05/25/2005/25/2019 CBC w/ auto diff absolute neutrophils 7.3 cells /uL 1.5-7. 8 Not Available [place] [address] [place], [address], 05/26/2019 07:52:34 05/25/2005/25/2019 CBC w/ auto diff absolute lymphocytes 3.71 cells /uL 0.85-3 .90 Not Available [place] [address] Kh[place], [address], 05/26/2019 07:52:34 05/25/2005/25/2019 CBC w/ auto diff absolute monocytes 0.5 cells /uL 0.2-1. 0 Not Available [place] [address] [place], [address], 05/26/2019 07:52:34 05/25/2005/25/2019 CBC w/ auto diff absolute eosinophils 0.4 cells /uL 0.0-0. 5 Not Available [place] [address] [place], [address], 05/26/2019 07:52:34 05/25/2005/25/2019 CBC w/ auto diff absolute basophils 0.1 cells /uL 0.0-0. 2 Not Available [place] [address] Kh[place], [address], 05/26/2019 07:52:34 05/25/2005/25/2019 CBC w/ auto diff platelet count 388 thous and/u L 100-40 0 Not Available [place] [address] Kh[place], [address], 05/26/2019 07:52:34 05/25/20 19 05/25/2019 hemog lobin A1c, QN, blood HGBA1C 10.1 % 4.0-5. 6 high Testi ng Perfo rmed at: [facility] [address] [facility], [address] [place] [address] Phone : Fax: Not Available [place] [address] [place], [address], 05/26/2019 07:52:35 05/25/2005/25/2019 CMP, serum or plasm a glucose 302 mg/dL 74-99 high Not Available [place] [address] [place], [address], 05/26/2019 07:52:35 05/25/2005/25/2019 CMP, serum or plasm a urea nitrogen, blood (BUN) 10 mg/dL 6-20 Not Available [place] [address] [place], [address], 05/26/2019 07:52:35 05/25/2005/25/2019 CMP, serum or plasm a total bilirubin 0.3 mg/dL 0.0-1. 2 Not Available [place] [address] [place], [address], 05/26/2019 07:52:35 05/25/2005/25/2019 CMP, serum or plasm a total protein 6.7 g/dL 6.6-8. 7 Not Available [place] [address] [place], [address], 05/26/2019 07:52:35 05/25/2005/25/2019 CMP, serum or plasm a alanine aminotransfe rase (ALT) 17 U/L 0-33 Not Available [place] [address] [place], [address], 05/26/2019 07:52:35 05/25/2005/25/2019 CMP, serum or plasm a alkaline phosphatase 126 U/L 40-130 Not Available [facility] [place] [address] [place], [address], 05/26/2019 07:52:35 05/25/2005/25/2019 CMP, serum or plasm a aspartate aminotransfe rase (AST) 11 U/L 0-32 Not Available [facility] [place] [address] [place], [address], 05/26/2019 07:52:35 05/25/2005/25/2019 CMP, serum or plasm a calcium 9.8 mg/dL 8.6-10 .2 Not Available [facility] [place] [address] [place], [address], 05/26/2019 07:52:35 05/25/2005/25/2019 CMP, serum or plasm a albumin 4.2 g/dL 3.5-5. 2 Not Available [facility] [place] [address] [place], [address], 05/26/2019 07:52:35 05/25/2005/25/2019 CMP, serum or plasm a CO2 25 mmol/ L 22-29 Not Available [facility] [place] [address] [place], [address], 05/26/2019 07:52:35 05/25/2005/25/2019 CMP, serum or plasm a creatinine, serum 0.4 mg/dL 0.5-0. 9 low Not Available [facility] [place] [address] [place], [address], 05/26/2019 07:52:35 05/25/2005/25/2019 CMP, serum or plasm a sodium, serum 135 mmol/ L 136-14 5 low Not Available [facility] [place] [address] [place], [address], 05/26/2019 07:52:35 05/25/2005/25/2019 CMP, serum or plasm a potassium, serum 4.2 mmol/ L 3.5-5. 1 Not Available [facility] [place] [address] [place], [address], 05/26/2019 07:52:35 05/25/2005/25/2019 CMP, serum or plasm a chloride, serum 96 mmol/ L 98-107 low Not Available [facility] [place] [address] [place], [address], 05/26/2019 07:52:35 05/25/2005/25/2019 CMP, serum or plasm [...] www.k doqi. org. Not Available [facility] [place] [address] [place], [address], 05/26/2019 07:52:35 05/25/2005/25/2019 LDL, direc t, serum dldl 100 mg/dL 0-100 Not Available [facility] [place] [address] [place], [address], 05/26/2019 07:52:36 05/25/2005/25/2019 T3, free, serum or plasm a FT3 2.9 pg/mL 1.5-4. 1 Not Available [facility] [place] [address] [place], [address], 05/26/2019 07:52:36 05/25/2005/25/2019 T4, free, serum FT4 1.17 NG/dL 0.93-1 .70 Not Available [facility] [place] [address] [place], [address], 05/26/2019 07:52:37 05/25/2005/25/2019 lipid panel , serum trigylceride s 935 mg/dL 0-150 high Not Available [place] [address] [place], [address], 05/26/2019 07:52:37 05/25/2005/25/2019 lipid panel , serum cholesterol 226 mg/dL 0-200 high Not Available [place] [address] [place], [address], 05/26/2019 07:52:37 05/25/2005/25/2019 lipid panel , serum uhdl 26 mg/dL 45-65 low Not Available [place] [address] [place], [address], 05/26/2019 07:52:37 05/25/2005/25/2019 lipid panel , serum LDL, calculated 13 mg/dL 0-100 Not Available [place] [address] [place], [address], 05/26/2019 07:52:37 05/25/2005/25/2019 lipid panel , serum LDL/HDL ratio 1 mg/dL 0-5 Not Available [place] [address] [place] [place], [place], [address], 05/26/2019 07:52:37 05/25/2005/25/2019 lipid panel , serum VLDL 187.0 mg/dL 5.0-40 .0 high Not Available [place] [address] [place], [address], 05/26/2019 07:52:37 05/25/2005/25/2019 lipid panel , serum cholesterol/ HDL ratio 8.69 0.00-5 .00 high Not Available [place] [address] [place], [address], 05/26/2019 07:52:37 05/25/2005/25/2019 TSH, serum or plasm a TSH 1.22 ??IU/ mL 0.27-4 .20 Testi ng Perfo rmed at: [facility] [address] [facility], [address] [place] [address] Phone : Fax: Not Available [place] [address] [place], [address], 05/26/2019 07:52:37 05/25/2005/25/2019 micro album in/cr eatin ine, mass ratio , urine urine microalbumin 26 mg/L 0-30 Not Available [place] [address] [place], [address], 05/26/2019 07:52:38 05/25/20 19 05/25/2019 micro album in/cr eatin ine, mass ratio , urine urine creatinine 57.47 Not Available [place] [address] [place], [address], 05/26/2019 07:52:38 05/25/2005/25/2019 micro album in/cr eatin ine, mass ratio , urine urine microalbumin /creatinine ratio 45 mg/g_ creat inine 0-30 high Not Available [place] [address] [place], [address], 05/26/2019 07:52:38 06/20/2006/20/2019 BMP, serum or plasm a glucose 343 mg/dL 74-99 high Not Available [place] [address] [place], [address], 06/21/2019 09:26:36 06/20/2006/20/2019 BMP, serum or plasm a urea nitrogen, blood (BUN) 7 mg/dL 6-20 Not Available [place] [address] [place], [address], 06/21/2019 09:26:36 06/20/2006/20/2019 BMP, serum or plasm a calcium 9.6 mg/dL 8.6-10 .2 Not Available [place] [address] [place], [address], 06/21/2019 09:26:36 06/20/2006/20/2019 BMP, serum or plasm a CO2 27 mmol/ L 22-29 Not Available [place] [address] [place], [address], 06/21/2019 09:26:36 06/20/2006/20/2019 BMP, serum or plasm a creatinine, serum 0.5 mg/dL 0.5-0. 9 Not Available [place] [address] [place], [address], 06/21/2019 09:26:36 06/20/2006/20/2019 BMP, serum or plasm a sodium, serum 137 mmol/ L 136-14 5 Not Available [place] [address] [place], [address], 06/21/2019 09:26:36 06/20/2006/20/2019 BMP, serum or plasm a potassium, serum 4.3 mmol/ L 3.5-5. 1 Not Available [place] [address] [place], [address], 06/21/2019 09:26:36 06/20/2006/20/2019 BMP, serum or plasm a chloride, serum 98 mmol/ L 98-107 Not Available [place] [address] [place], [address], 06/21/2019 09:26:36 06/20/2006/20/2019 BMP, serum or plasm [...] doqi. org. Not Available [facility] [place] [address] [place], [address], 06/21/2019 09:26:36 09/14/2009/14/2019 CMP, serum or plasm a glucose 336 mg/dL 74-99 high Not Available [facility] [place] [address] [place], [address], 09/15/2019 14:49:54 09/14/2009/14/2019 CMP, serum or plasm a urea nitrogen, blood (BUN) 7 mg/dL 6-20 Not Available [facility] [place] [address] [place], [address], 09/15/2019 14:49:54 09/14/2009/14/2019 CMP, serum or plasm a total bilirubin 0.7 mg/dL 0.0-1. 2 Not Available [facility] [place] [address] [place], [address], 09/15/2019 14:49:54 09/14/2009/14/2019 CMP, serum or plasm a total protein 6.7 g/dL 6.6-8. 7 Not Available [facility] [place] [address] [place], [address], 09/15/2019 14:49:54 09/14/2009/14/2019 CMP, serum or plasm a alanine aminotransfe rase (ALT) 14 U/L 0-33 Not Available [facility] [place] [address] [place], [address], 09/15/2019 14:49:54 09/14/2009/14/2019 CMP, serum or plasm a alkaline phosphatase 127 U/L 40-130 Not Available [facility] [place] [address] [place], [address], 09/15/2019 14:49:54 09/14/2009/14/2019 CMP, serum or plasm a aspartate aminotransfe rase (AST) 12 U/L 0-32 Not Available [facility] [place] [address] [place], [address], 09/15/2019 14:49:54 09/14/20 19 09/14/2019 CMP, serum or plasm a calcium 9.5 mg/dL 8.6-10 .2 Not Available [facility] [place] [address] [place], [address], 09/15/2019 14:49:54 09/14/2009/14/2019 CMP, serum or plasm a albumin 4.5 g/dL 3.5-5. 2 Not Available [facility] [place] [address] [place], [address], 09/15/2019 14:49:54 09/14/2009/14/2019 CMP, serum or plasm a CO2 25 mmol/ L 22-29 Not Available [facility] [place] [address] [place], [address], 09/15/2019 14:49:54 09/14/2009/14/2019 CMP, serum or plasm a creatinine, serum 0.4 mg/dL 0.5-0. 9 low Not Available [facility] [place] [address] [place], [address], 09/15/2019 14:49:54 09/14/2009/14/2019 CMP, serum or plasm a sodium, serum 134 mmol/ L 136-14 5 low Not Available [facility] [place] [address] [place], [address], 09/15/2019 14:49:54 09/14/2009/14/2019 CMP, serum or plasm a potassium, serum 4.2 mmol/ L 3.5-5. 1 Not Available [facility] [place] [address] [place], [address], 09/15/2019 14:49:54 09/14/2009/14/2019 CMP, serum or plasm a chloride, serum 95 mmol/ L 98-107 low Not Available [facility] [place] [address] [place], [address], 09/15/2019 14:49:54 09/14/2009/14/2019 CMP, serum or plasm [...] www.k doqi. org. Not Available [facility] [place] [address] [place], [address], 09/15/2019 14:49:54 09/14/2009/14/2019 CK (crea aureliano kinas e), total , serum creatine kinase 24 U/L 0-170 Not Available [facility] [place] [address] [place], [address], 09/15/2019 14:49:54 09/14/2009/14/2019 LDL, direc t, serum dldl 95 mg/dL 0-100 Not Available [facility] [place] [address] [place], [address], 09/15/2019 14:49:55 09/14/2009/14/2019 lipid panel , serum trigylceride s 411 mg/dL 0-150 high Not Available [facility] [place] [address] [place], [address], 09/15/2019 14:49:55 09/14/2009/14/2019 lipid panel , serum cholesterol 176 mg/dL 0-200 Not Available [facility] [place] [address] [place], [address], 09/15/2019 14:49:55 09/14/20 19 09/14/2019 lipid panel , serum uhdl 30 mg/dL 45-65 low Not Available [place] [address] [place], [address], 09/15/2019 14:49:55 09/14/20 19 09/14/2019 lipid panel , serum LDL, calculated 64 mg/dL 0-100 Not Available [place] [address] [place], [address], 09/15/2019 14:49:55 09/14/20 19 09/14/2019 lipid panel , serum LDL/HDL ratio 2 mg/dL 0-5 Not Available [place] [address] Kathya Yung, [place], [address], 09/15/2019 14:49:55 09/14/20 19 09/14/2019 lipid panel , serum VLDL 82.2 mg/dL 5.0-40 .0 high Not Available [place] [address] Kathya Yung, [place], [address], 09/15/2019 14:49:55 09/14/2009/14/2019 lipid panel , serum cholesterol/ HDL ratio 5.87 0.00-5 .00 high Testi ng Perfo rmed at: [facility] [address] [facility], [address] [place] [address] Phone : [phone] Fax: Not Available [place] [address] Kathya Yung, [place], [address], 09/15/2019 14:49:55 09/14/2009/14/2019 hemog lobin A1c, QN, blood HGBA1C 9.5 % 4.0-5. 6 high Not Available [place] [address] [place], [address], 09/15/2019 14:49:55 09/14/20 19 09/14/2019 urina lysis , dipst ick urine color Yellow yellow Not Available [facility] [place] [address] [place], [address], 09/19/2019 09:19:48 09/14/20 19 09/14/2019 urina lysis , dipst ick urine clarity Cloudy clear abnormal Not Available [facility] [place] [address] [place], [address], 09/19/2019 09:19:48 09/14/20 19 09/14/2019 urina lysis , dipst ick urine glucose 2+ negati ve abnormal Not Available [facility] [place] [address] [place], [address], 09/19/2019 09:19:48 09/14/20 19 09/14/2019 urina lysis , dipst ick urine bilirubin Negati ve negati ve Not Available [facility] [place] [address] [place], [address], 09/19/2019 09:19:48 09/14/20 19 09/14/2019 urina lysis , dipst ick urine ketones Negati ve negati ve Not Available [facility] [place] [address] [place], [address], 09/19/2019 09:19:48 09/14/20 19 09/14/2019 urina lysis , dipst ick urine specific gravity 1.020 1.005- 1.030 Not Available [facility] [place] [address] [place], [address], 09/19/2019 09:19:48 09/14/20 19 09/14/2019 urina lysis , dipst ick urine blood 3+ negati ve abnormal Not Available [facility] [place] [address] Kathya Yung [place], [address], 09/19/2019 09:19:48 09/14/20 19 09/14/2019 urina lysis , dipst ick urine pH 5.0 5.0-7. 0 Not Available [facility] [place] [address] [place], [address], 09/19/2019 09:19:48 09/14/2009/14/2019 urina lysis , dipst ick urine protein 2+ negati ve abnormal Not Available [place] [address] [place], [address], 09/19/2019 09:19:48 09/14/2009/14/2019 urina lysis , dipst ick urine urobilinogen 0.2 E.U./d L E.U./ dL 0.2-1 Not Available [place] [address] [place], [address], 09/19/2019 09:19:48 09/14/2009/14/2019 urina lysis , dipst ick urine nitrite Negati ve negati ve Not Available [place] [address] [place], [address], 09/19/2019 09:19:48 09/14/2009/14/2019 urina lysis , dipst ick urine leukocyte esterase 1+ negati ve abnormal Testi ng Perfo rmed at: [facility] , [address], [address] [place] [address] Phone : Fax: Not Available [place] [address] [place], [address], 09/19/2019 09:19:48 09/14/2009/14/2019 cultu re, urine C [...] Labor atory [address] [place] [address] Labor atory Direc tor: Benita NealIA# [id number] Testi ng Perfo rmed at: [facility], [facility] [address] [facility], [address] [place] [address] Phone : Fax: Not Available [place] [address] [place], [address], 09/19/2019 09:19:48 09/14/20 19 09/14/2019 urina lysis , micro scopi c urine white cells TNTC 0 - 5 /hpf abnormal Not Available [place] [address] [place], [address], 09/19/2019 09:19:48 09/14/2009/14/2019 urina lysis , micro scopi c urine red cells > 30 /hpf 0 - 3 /hpf abnormal Not Available [place] [address] [place], [address], 09/19/2019 09:19:48 09/14/20 19 09/14/2019 urina lysis , micro scopi c urine epithelial 1 - 10 / lpf 1 - 10 / lpf Not Available [place] [address] [place], [address], 09/19/2019 09:19:48 09/14/20 19 09/14/2019 urina lysis , micro scopi c urine bacteria Modera te none seen/f ew abnormal Not Available [facility] [place] [address] [place], [address], 09/19/2019 09:19:48 09/14/20 19 09/14/2019 urina lysis , micro scopi c urine comments (other) Cultur e Indica kailey Not Available [facility] [place] [address] [place], [address], 09/19/2019 09:19:48 05/13/20 21 05/13/2021 URINA LYSIS , ROUTI NE urine color Yellow yellow Not Available [facility] [place] [address] [place], [address], 05/14/2021 15:16:54 05/13/20 21 05/13/2021 URINA LYSIS , ROUTI NE urine clarity Clear clear Not Available [facility] [place] [address] [place], [address], 05/14/2021 15:16:54 05/13/2005/13/2021 URINA LYSIS , ROUTI NE urine glucose 2+ negati ve abnormal Not Available [facility] [place] [address] [place], [address], 05/14/2021 15:16:54 05/13/2005/13/2021 URINA LYSIS , ROUTI NE urine bilirubin Negati ve negati ve Not Available [facility] [place] [address] [place], [address], 05/14/2021 15:16:54 05/13/2005/13/2021 URINA LYSIS , ROUTI NE urine ketones Negati ve negati ve Not Available [facility] [place] [address] [place], [address], 05/14/2021 15:16:54 05/13/20 21 05/13/2021 URINA LYSIS , ROUTI NE urine specific gravity 1.010 1.005- 1.030 Not Available [place] [address] [place], [address], 05/14/2021 15:16:54 05/13/20 21 05/13/2021 URINA LYSIS , ROUTI NE urine blood 2+ negati ve abnormal Not Available [place] [address] [place], [address], 05/14/2021 15:16:54 05/13/20 21 05/13/2021 URINA LYSIS , ROUTI NE urine pH 5.0 5.0-7. 0 Not Available [place] [address] [place], [address], 05/14/2021 15:16:54 05/13/20 21 05/13/2021 URINA LYSIS , ROUTI NE urine protein Negati ve negati ve Not Available [place] [address] [place], [address], 05/14/2021 15:16:54 05/13/20 21 05/13/2021 URINA LYSIS , ROUTI NE urine urobilinogen 0.2 E.U./d L E.U./ dL 0.2-1 Not Available [address] [place], [address], 05/14/2021 15:16:54 05/13/20 21 05/13/2021 URINA LYSIS , ROUTI NE urine nitrite Negati ve negati ve Not Available [place] [address] [place], [address], 05/14/2021 15:16:54 05/13/20 21 05/13/2021 URINA LYSIS , ROUTI NE urine leukocyte esterase Negati ve negati ve Testi ng Perfo rmed at: [facility] [address] [facility], [address] [place] [address] Phone : Fax: Not Available [facility] [place] [address] [place], [address], 05/14/2021 15:16:54 05/13/20 21 05/13/2021 URINE MICRO SCOPI C urine white cells 0 - 5 /hpf 0 - 5 /hpf Not Available [facility] [place] [address] [place], [address], 05/14/2021 15:16:55 05/13/20 21 05/13/2021 URINE MICRO SCOPI C urine red cells 11 - 30 /hpf 0 - 3 /hpf abnormal Not Available [facility] - [place] [address] [place], [address], 05/14/2021 15:16:55 07/03/20 21 07/03/2021 evelin metry testi ng* Spirometry Not Available [facility], [address] [place], [place], [address], 07/03/2021 14:51:11 10/29/20 21 10/29/2021 SARS- COV-2 [...] cam howard y. This test was devel josueed and its perfo rmanc e jori cteri [...] or treat ment decis ion. Not Available [facility] [address] [place] [address], [address], 11/05/2021 11:16:17 11/22/19 22 11/22/2021 SARS- COV-2 [...] r. We will arleen nue to joann pollard al and state requi remen ts for both notif icati on of resul ts and any confi rmato ry testi ng that is requi red by cam er lee y. This test was devel oped and [...] or treat ment decis ion. Not Available [address] [place], [address], 11/23/2021 17:10:27 05/24/20 19 07/24/2017 MAMMO , scree melany, bilat eral No observ ation record ed. [facility] [address] [facility] [address], [place], [address], 05/25/2019 11:49:59 07/18/20 19 07/18/2019 CT, brain , w/o contr ast No observ ation record ed. [facility] ([facility]) [address], [place], [address], 07/18/2019 19:58:55 02/08/20 20 02/08/2020 elect alyx fofana am No observ ation record ed. jbuske Not Available 2019 09:05:58 03/01/20 20 02/21/2020 DEXA No observ ation record ed. Not Available 2019 10:07:52 03/01/20 20 exerc ise stres s test No observ ation record ed. [facility] ([facility] [address], [place], [address], 03/01/2020 10:15:42 Result Notes None recorded. 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 2016 Eduardo Barrios MD [address], [place], [address] , [facility] 9 14:13:51 Esophagi tis 84689647 Active 2016 determin ed by endoscop y at [facility] Eduardo Barrios MD [address], [place], [address] , [facility] 9 14:13:38 Gastric polyp 26746812 Active 2018 MD Balwinder Babcock[address], [place], [address] , [facility] 9 14:14:01 Coronary arterios clerosis 76265286 Active 2018 MD Amauri Babcock [address], [place], [address] , [facility] 9 14:14:12 Type 2 diabetes mellitus 82668342 Completed 201805/29/2019 Removal Reason: -- duplicat e MD Balwinder Babcock[address], [place], [address] , [facility] 9 23:34:42 Steatoti c liver disease 681913108 Active 2018 MD Amauri Babcock [address], [place], [address] , [facility] 9 14:14:38 Decompre ssion of median nerve Completed 201805/24/2019 MD Amauri Babcock [address], [place], [address] , [facility] 9 14:19:37 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 154790631 Active 2018 per notes from MD Amauri Vuong [facility] [address], [place], [address] , [facility] 9 14:20:11 Gastroes ophageal reflux disease without esophagi tis 766156988 Active 2018 MD Amauri Babcock [facility] [address], [place], [address] , [facility] 9 14:20:21 Hyperlip idemia 41317168 Completed 201805/29/2019 Removal Reason: duplicat e MD Amauri Babcock [address], [place], [address] , [facility] 9 23:28:48 Type 2 diabetes mellitus without complica tion 737377938 Completed 201805/29/2019 02/20/20 18 HbA1C was 11.1 Removal Reason: -- changed to plain Type 2 DM MD Amauri Babcock [address], [place], [address] , [facility] 9 23:34:35 Microalb uminuria 656493827 Active 2018 MD Amauri Babcock [address], [place], [address] , [facility] 9 23:28:31 Hyperlip idemia 69825659 Active 2018 MD Amauri Babcock [address], [place], [address] , [facility] 9 23:28:48 Type 2 diabetes mellitus 33399171 Active 2018 MD Amauri Babcock [facility] [address], [place], [address] , [facility] 9 23:34:09 Type 2 diabetes mellitus 09161763 Active 2018 MD Amauri Babcock [facility] [address], [place], [address] , [facility] 9 23:34:42 Acute urinary tract infectio n 382345969 Active 2018 [facility] 15:[facility]:27 Problem Notes None recorded. Procedures Surgical History Date Name Laterality Status Provider Name and Address Organization Details Recorded Time 11/02/19 17 Date of Last Pap Smear completed January [facility] 05/25/2019 12:19:04 09/04/20 16 balloon kyphoplasty of fracture of spine completed January [facility] 05/25/2019 12:18:15 01/24/20 04 Appendectomy completed MD Amauri Babcock [facility] [address], [place], [address], [facility] 05/24/2019 14:07:29 02/23/19 94 section completed MD Amauri Babcock [facility] [address], [place], [address], [facility] 05/24/2019 14:07:15 Fistula repair & colostomy completed MD Amauri Babcock [facility] [address], [place], [address], [facility] 05/25/2019 12:47:56 Imaging Results None recorded. Procedure Notes None recorded. Medical Equipment None Reported. Allergies Allergen ID Allergen Name Allergen Category Reaction Reaction Severity Criticality Documentation Date Start Date Code Code System Note Provider Name and Address Organization Details Recorded Time 8231 adhesive environme nt,medica tion rash Not available Not available 05/25/2019 [facility] 11:52:31 Medications Name Sig Start Date [...] needle 1 mL 31 gauge x 03/17 active Not Available Not Available Not Available [...] Body mass index (BMI) Body weight Systolic And Diastolic Provider Name and Address Organization Details Last Updated DateTime 9 16 /min 83 /min 170.18 cm 32.9 kg/m2 67351.4 g 150/89 mm[Hg] [facility] 11:50:59 Date Recorded Heart rate Systolic And Diastolic Provider Name and Address Organization Details Last Updated DateTime 05/26/2019 91 /min 137/97 mm[Hg] Holly Aguilar [facility] 05/26/2019 16:44:50 Date Recorded Body height Body mass index (BMI) Body weight Provider Name and Address Organization Details Last Updated DateTime 07/03/2021 170.18 cm 32 kg/m2 93973.84 g Harmony Bunch [facility] 07/03/2021 14:53:55 Date Recorded Heart rate Systolic And Diastolic Provider Name and Address Organization Details Last Updated DateTime 07/11/2019 110 /min 119/73 mm[Hg] [facility] 07/11/2019 17:26:19 Date Recorded Heart rate Systolic And Diastolic Provider Name and Address Organization Details Last Updated DateTime 07/13/2019 90 /min 125/82 mm[Hg] [facility] 07/13/2019 09:51:44 Social History Question Answer Notes LastModified by [employer] Details LastModified Time Tobacco Smoking Status Never Smoker Hollyanand Aguilar [facility] 05/25/2019 11:54:27 Do You Have An Advance [...] You Used? None Information not available 05/25/2019 Marital Status Single Informatio n not available 05/25/2019 How Much Tobacco Do You Smoke? No Information not available 05/25/2019 How Many Years Have You Smoked Tobacco? 0 Information not available 05/25/2019 Sex: Unknown Functional Status Question Answer Note LastModified by [employer] Details LastModified Time What is your level of alcohol consumption? None Information not available 05/25/2019 Do you or have you ever used smokeless tobacco? 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 None Information not available 05/25/2019 Mental Status None recorded. Family History Relationship Description Onset Age of this Age Resolved Age Notes LastModified by Organization Details LastModified Time Father Harmful pattern of use of alcohol Not available 2018 12:11:39 Father Asthma Not available 0 05/25/2019 12:11:53 Father Carcinoma of lung 71 71 -- heavy smoker Not available 05/25/2019 12:44:11 Mother Asthma Not available 0 05/25/2019 12:14:07 Mother Atrial fibrillation Not available 12:15:22 Mother Cerebrovascu lar accident -- dx'd around 74 y/o Not available 05/25/2019 12:42:11 Mother Myocardial infarction 45 -- w/ OK & CABG x 4V Not available 05/25/2019 12:40:05 Maternal Grandfather Myocardial infarction 35 35 -- dx'd at 35 y/o Not available 05/25/2019 12:40:35 Maternal Uncle Myocardial infarction -- 2 uncles w/ OK at 48 y/o & 46 y/o Not [...] ICD10 Code Diagnosis IMO Codes Diagnosis Note [id number] Eduardo Barrios MD [facility], [facility] [address] [facility] [address] [address] 05/25/2019 11:14:15 05/25/2019 13:04:24 Type 2 diabetes mellitus without complication 303820899 E11.9 (dx'd around 33 y/o) -- last A1c was 11.1 (around May 2018) but due to lack of insurance, have not been on lantus since May 2017-- currently following w/ [facility] [place] Candidal vulvovaginitis 38376355 B37.3 Benign ess ential hypertension 6681932 I10 Body mass index 30+ - obesity 820435125 Z68.32 -- advised weight loss-- pt's BMI today is 32.9 (ideal is between 20-29) Active or passive immunization 751957826 Z23 Screening for malignant neoplasm of breast 821905724 Z12.31 Screening for malignant neoplasm of cervix 941673633 Z12.4 Leukocytosis 994621867 D 72.829 (chronic; evaluated by Hematologi st Dr Justin & deemed to be benign) Health Concerns Section Related Observation LastModified by Organization Detai ls LastModified Time None Recorded Concern Status LastModified by Organization Details LastModified Time None Recorded Advance Directives Directive N: Payers Insurance Date Sequence Insurance Name Policy Number Policy Artis Covered Member ID Artis Member ID Guarantor Name 05/25/2019 1 *SELF PAY* Hunter Davey Notes Date Note Type Note Provider Name and Address Organization Details Recorded Time 05/25/2019 text/html Patient denies any headache/chest discomfort or pain/diaphoresis/ breathing problems/nausea/v omiting/any angina equivalent symptoms/visual changes Eduardo Barrios MD [address] [facility] [address], [place], [address], [facility] 05/25/2019 12:59:22 OBGyn Episode Ob Episode Information Episode Created Date Number of Fetuses Patient Bloodtype Patient rh Status Prepregnancy Weight lbs Domestic Partner Domestic Partner Phone Father Name Strategic Procurement Manager Status 05/25/20 19 1 CLOSED Fetus Data [...] Complications Tubal Sterilization Discharge Date Comments 4 Regional- ina false Discharge Information Feeding Method Contraceptive Method Maternal HG B and HCT Levels
--- OUTSIDE RECORDS SUMMARY | 2025-10-11 20:54 | XMS_ITS | Clinical Summary ---
Author Organization [facility] Office Center Address [address] [place] [address] Care Team Providers Care Blind Stitch Machine Operator Name Role Phone Toribio Ocasio MD Unavailable [phone] Jonel Mercer MD Primary Care Provider Allergies [...] 1 each 3 10/20/20 Active Dexcom G6 Solar Sales Manager misc 10/08/20 Active diphenhydrAMINE (BENADRYL) 25 mg [...] 024 Assessment & Plan (10/04/2024 10:54 AM SMALL ANIMAL VETERINARIAN): Patient asymptomatic. Noninvasive studies were normal as was her exam. No further workup needed follow up PRN. Diabetic polyneuropathy asso ciated with type 2 diabetes mellitus 12/17/2023 Pharyngitis 10/15/2023 Assessment & Plan (10/15/2023 5:00 PM SMALL ANIMAL VETERINARIAN): Point of care strep swab negative. However patients are overwhelmingly concerning for strep given her recent infection we will treat patient with Ceftin 250 mg b.i.d. x7 days. Patient is advised to change her toothbrush after 48 hours of starting the antibiotic. Vaginal yeast infection 10/15/2023 Assessment & Plan (10/15/2023 4:59 PM SMALL ANIMAL VETERINARIAN): Patient complains of vaginal yeast infections secondary to the amount of antibiotics that she is taken in the past 2 weeks. Diflucan ordered. Strep throat 09/30/2023 Allergic rhinitis 09/10/2023 Assessment & Plan (09/10/2023 5:02 PM SMALL ANIMAL VETERINARIAN): Flonase and Zyrtec as needed BMI 33.0-33.9,adult 09/10/2023 Assessment & Plan (09/10/2023 5:02 PM SMALL ANIMAL VETERINARIAN): Discussed the patient's BMI. The BMI is above average. BMI management plan is completed. BMI Follow-up includes: nutrition counseling, exercise counseling and education provided. Hypertension associated with type 2 diabetes erna litus 08/31/2023 Assessment & Plan (09/10/2023 4:58 PM SMALL ANIMAL VETERINARIAN): Blood pressure well controlled. Refills sent to [...] losartan 25mg daily. Will update labs at [facility]. Verified that she uses [facility]. Aware to check results/results letter in [employer] [facility]. Will contact by phone if needed. Hyperlipidemia due to type 2 diabetes mellitus 1 Assessment & Plan (10/04/2024 10:54 AM SMALL ANIMAL VETERINARIAN): Hyperlipidemia chronic controlled. Continue current medical management. Assessment & Plan (08/31/2023 1:52 PM CDT): Chronic problem. Currently taking Rosuvastatin 40mg & fenofibrate 160mg. Last lipid panel: 06/13/22 LDL=94, EP=985. Will update labs at [facility]. Verified that she uses [facility]. Aware to check results/results letter in [employer] [facility]. Will contact by phone if needed. Postmenopausal osteoporosis 01/06/2023 Assessment & Plan (01/06/2023 9:55 AM SMALL ANIMAL VETERINARIAN): Patient was diagnosed with osteoporosis by her endless steamer tender and she was started on Fosamax but she stopped taking the medication on her own. I recommended that she resumes Fosamax with calcium and vitamin-D. She said that she has an appointment with her endless steamer tender and she will discuss that with her. Angina pectoris 12/16/2022 Atopic dermatitis 12/16/2022 Cyst of pancreas 12/16/2022 Diabetic neuropathy 12/16/2022 Assessment & Plan (09/10/2023 5:01 PM SMALL ANIMAL VETERINARIAN): Patient recently started on gabapentin 300 mg [...] AM CDT): Patient is followed by the aluminizer. Continue to see the turn down worker on yearly basis. Encouraged diet and exercise and weight loss. Hepatomegaly 12/16/2022 Nausea, vomiting and diarrhea 12/16/2022 Obesity 12/16/2022 Strain of tendon of back 12/16/2022 Vitamin D deficiency 12/16/2022 Bilateral leg edema 10/08/2022 Assessment & Plan (01/06/2023 9:54 AM SMALL ANIMAL VETERINARIAN): No leg edema Assessment & Plan (10/08/2022 4:41 PM SMALL ANIMAL VETERINARIAN): Leg edema most likely secondary to prolonged sitting. I told her to ambulate. Will start her on Lasix 20 mg p.r.n.. Call for persistent symptoms. Colon cancer screening 10/08/2022 Assessment & Plan (10/08/2022 4:41 PM SMALL ANIMAL VETERINARIAN): Patient had referral for colonoscopy but she did not have it done yet. Advised to call the banquet supervisor office and proceed with the test she understands the risks including cancer Carpal tunnel syndrome on right 12/13/2021 Overview (12/13/2021): Added automatically from request for surgery [id number] Right elbow pain 11/12/2021 Assessment & Plan (11/12/2021 9:48 AM SMALL ANIMAL VETERINARIAN): Patient with right elbow pain specially when she uses her right hand. We will obtain nerve conduction study to rule out carpal tunnel syndrome. She was advised to wear an elbow brace. We will call her for meloxicam 15 mg daily for 2 weeks. She will call for persistent symptoms BERT (obstructive sleep apnea) 11/12/2021 Assessment & Plan (09/10/2023 4:59 PM SMALL ANIMAL VETERINARIAN): Patient uses CPAP and is compliant with her machine. Assessment & Plan (02/11/2022 9:50 AM CDT): Patient uses CPAP machine on regular basis Assessment & Plan (11/12/2021 9:48 AM SMALL ANIMAL VETERINARIAN): Patient was diagnosed recently with sleep apnea and she has an appointment with the sleep specialist for CPAP machine Lymphadenitis 09/24/2021 Assessment & Plan (09/24/2021 12:53 PM SMALL ANIMAL VETERINARIAN): Patient has lymphadenitis. She will be started on Augmentin 875 mg twice daily for 10 days with food and side effects were explained and she will call us if it is not resolved so that we can arrange for her to see a surgeon for excision Hypersomnia 09/12/2021 Anxiety 09/12/2021 Assessment & Plan (09/10/2023 5:02 PM SMALL ANIMAL VETERINARIAN): Patient denies any anxiety symptoms at this time. Palpitation 09/12/2021 Nonsmoker 09/12/2021 Overweight 09/12/2021 Cough 07/30/2021 Assessment & Plan (09/10/2023 5:02 PM SMALL ANIMAL VETERINARIAN): Patient has persistent cough productive of clear mucus with no shortness breath or wheezing or chest pain. She is advised to restart her Symbicort Assessment & Plan (07/30/2021 9:33 AM CDT): Patient has persistent cough productive of clear mucus with no shortness breath or wheezing or chest pain. We will stop lisinopril. She will continue Symbicort. Will make a referral to see hedge fund manager for further evaluation. Acute bronchitis 07/02/2021 Assessment & Plan (09/30/2023 5:15 PM SMALL ANIMAL VETERINARIAN): Patient with acute bronchitis. She is on [...] from Dexcom & Tandem pump. To call/send [employer] message if not helping. Apply the dexcom 1st to see if the above products will help prevent the skin irritation. Will update labs. Verified that she uses my[facility]. Aware to check results/results letter in [employer] [facility]. Will contact by phone if needed. DM eye exam q6wks at [email or web address] for laser tx & injections. Will send letter to get copy of report from [place] office. Strive for regular exercise (30min most [...] (05/08/2023 7:41 AM CDT): Followed by the turn down worker Assessment & Plan (01/06/2023 8:35 AM SMALL ANIMAL VETERINARIAN): Managed by the aluminizer. Continue to have annual eye exam Assessment & Plan (10/08/2022 4:40 PM SMALL ANIMAL VETERINARIAN): Managed by the aluminizer advised to have annual eye exam Assessment & Plan (04/16/2022 8:25 AM CDT): Continue current medications, discussed low carbohydrate diet, advised to exercise on regular basis, advised to have annual eye exam. We will continue to monitor. Followed by the aluminizer Assessment & Plan (02/11/2022 9:50 AM CDT): Follow with the aluminizer and turn down worker. Discussed weight loss and diet. Assessment & Plan (11/12/2021 9:48 AM SMALL ANIMAL VETERINARIAN): Patient is not compliant with medications. She [...] and exercise. Patient was seen by a chief physical therapist in the past. Will increase Lantus to [...] Continue diet. She was seen by the turn down worker. She will check her sugar 3 times daily and call us with readings in 1 week. Assessment & Plan (01/10/2021 4:30 PM SMALL ANIMAL VETERINARIAN): Patient will start on Lantus 45 units [...] monitor Assessment & Plan (01/06/2023 8:35 AM SMALL ANIMAL VETERINARIAN): Continue current medications. Discussed low-salt diet. Discussed exercise on regular basis. Will continue to monitor Assessment & Plan (10/08/2022 4:40 PM SMALL ANIMAL VETERINARIAN): Continue current medications. Discussed low-salt diet. Discussed exercise on regular basis. Will continue to monitor Assessment & Plan (02/11/2022 9:50 AM CDT): Continue current medications. Discussed low-salt diet. Discussed exercise on regular basis. Will continue to monitor Assessment & Plan (11/12/2021 9:49 AM SMALL ANIMAL VETERINARIAN): Continue current medications. Discussed low-salt diet. Discussed [...] monitor Assessment & Plan (01/10/2021 4:30 PM SMALL ANIMAL VETERINARIAN): Start lisinopril 20 mg daily and we discussed low-salt diet Dyslipidemia 01/10/2021 Assessment & Plan (09/10/2023 5:00 PM SMALL ANIMAL VETERINARIAN): Patient is maintained on Crestor 40 mg tablets and fenofibrate 160 mg we will continue this regimen Assessment & Plan (05/08/2023 8:57 AM CDT): LDL is 113. Increase Crestor to 40 mg q.h.s.. Continue low-fat diet. Assessment & Plan (01/06/2023 8:35 AM SMALL ANIMAL VETERINARIAN): Controlled on current medications. Continue low-fat diet. Will continue to monitor . Assessment & Plan (10/08/2022 4:40 PM SMALL ANIMAL VETERINARIAN): Controlled on current medications. Continue low-fat diet. Will continue to monitor . Assessment & Plan (04/16/2022 8:25 AM CDT): Controlled on current medications. Continue low-fat diet. Will continue to monitor . Assessment & Plan (02/11/2022 9:50 AM CDT): Stop atorvastatin and start Crestor 20 mg q.h.s. for better control of hyperlipidemia. Continue low-fat diet Assessment & Plan (11/12/2021 9:49 AM SMALL ANIMAL VETERINARIAN): Resume medications and we discussed the importance [...] months Assessment & Plan (01/10/2021 4:30 PM SMALL ANIMAL VETERINARIAN): Start Lipitor 10 mg q.h.s. and discussed low-fat diet and pamphlets were given Pneumonia due to COVID-19 virus 11/28/2020 Microalbuminuria 05/29/2019 Coronary arteriosclerosis 05/24/2019 Gastroesophageal reflux disease without esophagi tis 05/24/2019 Assessment & Plan (09/10/2023 5:00 PM SMALL ANIMAL VETERINARIAN): Patient reports symptoms are controlled. Steatosis of liver 05/24/2019 Mild nonproliferative diabetic retinopathy(362.0 4) 05/24/2019 Tabby-Chu tear 10/18/2017 Kidney disease 12/14/2016 Leukocytosis 06/13/2014 Asthma Assessment & Plan (09/10/2023 5:02 PM SMALL ANIMAL VETERINARIAN): Patient is advised to restart Symbicort. We will follow up at next visit. Assessment & Plan (05/08/2023 8:58 AM CDT): Patient is asymptomatic and stable without medications Assessment & Plan (01/06/2023 9:54 AM SMALL ANIMAL VETERINARIAN): Patient complains of cough but no shortness [...] History Date Comments Hyperlipidemia Hypertension Diabetes mellitus Asthma Pneumonia 11/2020 covid pneumonia was hospital [...] Father Dawn Arthritis Mother Mary Asthma Mother Mayr COPD Mother Mary Heart attack Mother Mary [...] on file Legal Sex Female 2:02 AM SMALL ANIMAL VETERINARIAN Gender Identity Not on file Sexual Orientation [...] Comments Blood Pressure 135/80 09/08/2024 10:13 AM SMALL ANIMAL VETERINARIAN Pulse 79 09/08/2024 10:13 AM SMALL ANIMAL VETERINARIAN Temperature 36.7 C (98 F) 10/15/2023 1:39 PM SMALL ANIMAL VETERINARIAN Respiratory Rate 18 10/15/2023 1:39 PM SMALL ANIMAL VETERINARIAN Oxygen Saturation 97% 10/15/2023 1:39 PM SMALL ANIMAL VETERINARIAN Inhaled Oxygen Concentration - - Weight 98 kg (216 lb) 09/08/2024 10:13 AM SMALL ANIMAL VETERINARIAN Height 170.2 cm (5' 7) 09/08/2024 10:13 AM SMALL ANIMAL VETERINARIAN Body Mass Index 33.83 09/08/2024 10:13 AM SMALL ANIMAL VETERINARIAN Plan of Treatment Health Maintenance Due Date [...] BLOOD ORDERABLES Final Result Performing Organization Address [facility] de Phone Number [address] [place] [address] * Albumin Creatinine Ratio, Urine (06/13/2022 7:54 AM CDT) Albumin Ur <12.0 mg/L [facility] Comment: Interpretive Data No reference range established. Current interpretive data was last revised 2019. Creatinine Ur 51.0 mg/dL [facility] Comment: Interpretive Data No reference range established. Current interpretive data was last revised 2019. Albumin Creatinine Ratio, Ur <24 1 - 29 mg/g [facility] Urine 06/13/2022 7:54 AM CDT 06/13/2022 8:08 AM CDT Moris Linares MD LAB URINE ORDERABLES Final Result Performing Organization Address [facility] de Phone Number [address] [address] * (ABNORMAL) Lipid panel (06/13/2022 7:54 AM CDT) Cholesterol 157 30 - 199 mg/dL [facility] Comment: Interpretive Data Ages < [...] MD LAB BLOOD ORDERABLES Final Result [facility] RAMIREZ [address] [facility] Department [place] [address] * Diabetic Foot Exam (02/15/2022) Historical Provider [...] Most Recently Relevant to Health Maintenance Insurance [facility] Care Teams Blind Stitch Machine Operator Relationship Specialty Start Date End Date Jonel Mercer MD [address] [facility] [address] [place] [address] PCP - General Family Medicine 09/08/24 Toribio Ocasio MD Consulting Physician Plastic Surgery 01/03/22
--- OUTSIDE RECORDS SUMMARY | 2025-10-11 20:54 | XMS_ITS | Clinical Summary ---
Author Organization [facility] Address [address] [place] [address] Care Team Providers Care Rn Travel Name Role Phone Moris Linares MD Primary Care Provider [phone] Allergies Active Allergy Reactions Criticality Noted Date [...] Sensor (FREESTYLE FRAN 14 DAY SENSOR) [facility] FreeStyle Fran 14 Day [...] virus 11/28/2020 Acute respiratory failure with hypoxia Social History Tobacco Use Types Packs/Day Years Used Date Smoking Tobacco: Never Cigarettes Smokeless Tobacco: Never Alcohol Use Standard Drinks/Week Comments Not Currently 0 (1 standard drink = 0.6 oz pur e alcohol) Comments Unknown Sex and Gender Information Value Date Recorded Sex Assigned at Not on file Legal Sex Female 12:44 PM DRAWSTRING KNOTTER Gender Identity Not on file Sexual Orientation [...] - 2024-2 6 season) 2025 04/26/2021, 03/29/2021 Influenza Adult (#1) 2025 06/13/2014 Colorectal Cancer Screening Colonoscopy (10 Years) 02/29/2032 02/28/2022, 02/28/2022 Hepatitis A Vaccines Aged Out No long er eligible based on patient's age to complete [...] ADLs independently General No Belen Lindsey operations accountant Procedure Name Priority Date/Time Associated Diagnosis Comments COLONOSCOPY Routine 02/28/2022 8:21 AM CDT from Last 3 Months or Most Recently Relevant to Health Maintenance Insurance Advance Directives * Full Code (Latest Code Status on File) Date Activated Date Inactivated Comments 11/27/2020 9:44 PM 12/02/2020 6:14 PM Care Teams Rn Travel Relationship Specialty Start Date End Date Moris Linares MD [address] [facility] [address] [place] [address] [place] [id number] PCP - General INTERNAL MEDICINE 02/28/22
== END 2025-10-11 16:08 | disposition home or self-care (01) ==
LOC: ANHLAB 16:09
PROVIDERS: PCP Family Medicine
DX: N39.0 Urinary tract infection, site not specified (principal)
CPT/HCPCS: 81001; 87086; 87186